=== PATIENT | male | born 1960 | race Caucasian/White ===

== ENCOUNTER 2024-10-25 16:58 | Emergency (ER) | payer MEDICARE, SELFPAY ==
--- NOTE | ~2024-10-25 | XR_ITS ---
EXAM: XR ankle RT min 3V, XR foot RT min 3V DATE: 10/25/2024 17:31 (accession [id number]), 10/25/2024 17:30 (accession [id number]) HISTORY: pain with trauma . COMPARISON: None available. FINDINGS: Osteopenia. Transverse minimally placed fractures at the bases of the second through fourt h proximal right metatarsals. Fractures may be acute or subacute. No lytic or blastic lesion. Mild sc attered degenerative changes. Os navicularis. Achilles and plantar enthesopathy. No erosion or perios teal change. Soft tissues within normal limits. IMPRESSION: Acute versus subacute transverse minimally displaced fractures of the right second throug h fourth metatarsal bases. Reviewed, dictated and finalized at location K. IMPRESSION: Acute versus subacute transverse minimally displaced fractures of t he right second through fourth metatarsal bases.
--- OUTSIDE RECORDS SUMMARY | 2024-10-25 17:01 | XMS_ITS | Patient Health Record ---
Author Organization [facility] As [employer] Address [address] [address] Care Team Providers Care Trademark Paralegal Name Role Phone Tolu Lieberman MD Primary Care Provider Unavail able Geo Gardner Unavailable [phone] Edvin Condon Unavailable [phone] Allergies Allergen (clinical drug ingredient) Drug/Non Drug Allergy documented on EMR Reaction Allergy Type Onset Date Status sumatriptan Imitrex Unknown Drug Allergy Activ e metoclopramide Reglan Unknown Drug Allergy Ac tive Compazine Unknown Drug Allergy Active dihydroergotamine Dihydroergotamine Unknown Drug Allergy Active niacin Niacin Unknown Drug Allergy Active Results Component Value Reference Range Notes UDT Reviewed date:11/01/2023 10:56:33 AM Interpretation: Performing Lab: Notes/Report: THC N 0 - 50 ng/ml Cocaine N 0 - 300 ng/ml Amphetamine N 0 - 1000 ng/ml Buprenorphine (BUP) N 0 - 10 ng/ml Secobarbital (Bar) N 0 - 300 ng/ml Oxazepam (BZO) P 0 - 300 ng/ml 9-cviwwofnmi-7,1-hpbrmqpg-5,3-diphenylpyrrolidine (CHICO P) N 0 - 300 ng/ml Methamphetamine (MET) N 0 - 1000 ng/ml Methylenedioxymethamphetamine (MDMA) N 0 - 500 ng/ml Morphine (MOP 300/EOF9054) N 0 - 300 ng/ml Methadone (MTD) N 0 - 300 ng/ml Phencyclidine (PCP) N 0 - 25 ng/ml Nortriptyline (TCA) N 0 - 1000 ng/ml Oxycodone N 0 - 300 ng/ml x N 0 - 300 ng/ml Reason For Referral No Information Medications Medication SIG (Take, Route, Frequency, Duration) Notes Start Date End Date Status cloNIDine HCl 0.1 MG 1 tablet Orally twice a day; Duration: 30 days As needed for anxiety. do not take if your blood pressure is below 110/60 Active Topiramate 50 MG 1 tablet Orally Once a day and 2 in the evening Active Escitalopram Oxalate 10 MG 1 tablet Orally Once a day; Duration: 30 days Active Clopidogrel Bisulfate 75 MG 1 tablet Orally Once a day at night Active Fenofibrate 145 MG 1 tablet Orally Once a day Active QUEtiapine Fumarate ER 400 MG 1 tablet in the evening Orally Once a day; Duration: 30 days Active Lantus SoloStar 100 UNIT/ML as directed Subcutaneous Act kate Belsomra 20 MG 1 tablet at bedtime as needed Orally Once a day PRN Not-Oseas ing HumaLOG 100 UNIT/ML as directed Injection 11/01/19 24 Active Metoprolol Tartrate 25 MG 1/2 a tablet with food Orally Twice a day Active Dicyclomine HCl 10 MG 1capsules Orally f our times a day 11/01/2023 Active Pantoprazole Sodium 40 MG 1 tablet Orally Once a day Active Aspirin 81 MG 1 capsule Orally Onc e a day Active Mirtazapine 7.5 MG 1 tablet at bedtime Orally Once a day; Duration: 30 days Active Vascepa 1 GM 1 capsules with meal s Orally once a day Active metFORMIN HCl ER 500 MG 1 tablet with ev ening meal Orally three times a day Active Jardiance 25 MG 1 tablet Orally Once a day Active Atorvastatin Calcium 80 MG 1 tablet Orally Once a day Active Social History Tobacco Use: Social History Observation Description Date Details (start date - stop date) Current Smoker NA - NA Sex Assigned At : Social History Observation Description Sex Assigned At Male Household Question Answer Notes Marital status: Tobacco Control (Standard) Question Answer Notes Tobacco use: Current smoker Problems Problem Type SNOMED Code ICD Code Onset Dates Problem Status W/U Status Risk Notes Problem Generalized anxiety disorder (F41.1) Active confirmed Problem Primary insomnia (5448194) Primary insomnia (F51.01) Active confirmed Problem Depression, major, recurrent, moderate (F33.1) Active confirmed Problem Generalized anxiety disorder (01345911) SLADE (generalized anxiety disorder) (F41.1) Active confirmed Problem Posttraumatic stress disorder (19647172) PTSD (post-traumatic stress disorder) (F43.10) Active confirmed Vital Signs Heart Rate 100 /min 01/22/2024 Oximetry 99 % 01/22/2024 Blood pressure diastolic 109 mm Hg 01/22/2024 Weight-kg 90.45 kg 01/22/2024 Blood pressure systolic 144 mm Hg 01/22/2024 Weight 199.4 lbs 01/22/2024 Encounters Encounter Location Date Provider Diagnosis [facility] [address] [place] [address] 11/01/2023 Edvin Clubb Generalized anxiety disorder F41.1 ; Depression, major, recurrent, moderate F33.1 and PTSD (post-traumatic stress disorder) F43.10 [facility] [employer] [facility], [facility] [address] [place] [address] 01/22/2024 Edvin Clubb SLADE (generalized anxiety disorder) F41.1 ; Primary insomnia F51.01 and Nicotine use Z72.0 [facility] [address] [facility] [address] [place] [address] 11/08/2023 Thena Jj [facility] [address] [place] [address] 11/08/2023 Edvin Buenob SLADE (generalized anxiety disorder) F41.1 Assessments Encounter Date Diagnosis (ICD Code) Assessment Notes Treatment Notes Treatment Clinical Notes Section Notes 11/08/2023 SLADE (generalized anxiety disorder) (ICD-10 - F41.1) 01/22/2024 Primary insomnia (ICD-10 - F51.01) 1. Anxiety - He reports anxiety at 8-9 out of 10. - Increase escitalopram to 20 mg daily. - Continue BuSpar as prescribed. - Refill clonidine for as-needed use for anxiety and blood pressure control. 2. Insomnia - He reports difficulty sleeping through the night, waking up frequently. - Restart mirtazapine at a low dose for sleep. - Encourage consideration of melatonin at night. - Continue quetiapine 400 mg at night as part of PTSD regimen. - Monitor for improvement in sleep quality. 3. Hypertension - Blood pressure measured at 144/109 during the visit. - He reports a recent episode of possible syncope in the bathroom. - Instruct him to take clonidine as needed for anxiety. - Encourage follow-up with primary care physician for further evaluation and management. 4. Gastrointestinal Issues - He reports nausea, vomiting, and poor appetite. - Advise him to drink sugar-free Sprite and consume saltines for nausea management. - Encourage consumption of protein shakes for improved nutrition and blood sugar control. - pt has an upcoming apt with his PCP. 6. Migraines - He reports increased frequency of migraines. - Encourage follow-up with primary care physician for further evaluation and management. 7. Medication Refills - Refill prescriptions sent 8. Weight Loss - He reports significant weight loss, now under 200 lbs for the first time in 20 years. - Monitor weight and nutritional status. - Encourage balanced diet with adequate protein intake. 01/22/2024 SLADE (generalized anxiety disorder) (ICD-10 - F41.1) Assessment and plan reviewed with patient Call for problems with medication, side effects or need for dosage change Compliance issues reviewed Discussed the risks/benefits of this medication Discussed medication side effects Return if symptoms worsen Treatment options reviewed. discussed that it can take weeks to see full therapeutic effects of psychotropic medications. discussed when to seek emergency services. discussed crisis prevention hotline 987. 1. Anxiety - He reports anxiety at 8-9 out of 10. - Increase escitalopram to 20 mg daily. - Continue BuSpar as prescribed. - Refill clonidine for as-needed use for anxiety and blood pressure control. 2. Insomnia - He reports difficulty sleeping through the night, waking up frequently. - Restart mirtazapine at a low dose for sleep. - Encourage consideration of melatonin at night. - Continue quetiapine 400 mg at night as part of PTSD regimen. - Monitor for improvement in sleep quality. 3. Hypertension - Blood pressure measured at 144/109 during the visit. - He reports a recent episode of possible syncope in the bathroom. - Instruct him to take clonidine as needed for anxiety. - Encourage follow-up with primary care physician for further evaluation and management. 4. Gastrointestinal Issues - He reports nausea, vomiting, and poor appetite. - Advise him to drink sugar-free Sprite and consume saltines for nausea management. - Encourage consumption of protein shakes for improved nutrition and blood sugar control. - pt has an upcoming apt with his PCP. 6. Migraines - He reports increased frequency of migraines. - Encourage follow-up with primary care physician for further evaluation and management. 7. Medication Refills - Refill prescriptions sent 8. Weight Loss - He reports significant weight loss, now under 200 lbs for the first time in 20 years. - Monitor weight and nutritional status. - Encourage balanced diet with adequate protein intake. 11/01/2023 Generalized anxiety disorder (ICD-10 - F41.1) Depression and anxiety: - He reports feeling out of whack with mood fluctuations and anxiety symptoms. - He has a history of PTSD but denies a formal diagnosis of major depressive disorder or bipolar disorder. - Plan: Taper down mirtazapine and start escitalopram (Lexapro) for better management of depression and anxiety symptoms. Encourage him to try melatonin for sleep. Monitor his response to the new medication and adjust as needed. 2. Insomnia: - He reports difficulty falling asleep and staying asleep, with racing thoughts at night. - Plan: Encourage him to take melatonin for sleep. Monitor sleep quality and consider adjustments to medications if needed. 3. Diabetes management: - He is on insulin (Humalog and Lantus) and metformin and Jardiance for diabetes. - Plan: Instruct him to check blood sugar regularly and take long-acting insulin as prescribed. Encourage him to maintain a consistent eating schedule, especially at night. 4. Medication reconciliation: - He is on multiple medications, including Belsomra, Jardiance, insulin, dicyclomine, metoprolol, topiramate, BuSpar, fenofibrate, mirtazapine, clopidogrel, Seroquel, aspirin, pantoprazole, atorvastatin, and metformin. - Plan: Review and adjust medications as needed based on his symptoms and response to treatment. Encourage him to communicate any concerns or side effects related to medications. 11/01/2023 Depression, major, recurrent, moderate (ICD-10 - F33.1) Depression and anxiety: - He reports feeling out of whack with mood fluctuations and anxiety symptoms. - He has a history of PTSD but denies a formal diagnosis of major depressive disorder or bipolar disorder. - Plan: Taper down mirtazapine and start escitalopram (Lexapro) for better management of depression and anxiety symptoms. Encourage him to try melatonin for sleep. Monitor his response to the new medication and adjust as needed. 2. Insomnia: - He reports difficulty falling asleep and staying asleep, with racing thoughts at night. - Plan: Encourage him to take melatonin for sleep. Monitor sleep quality and consider adjustments to medications if needed. 3. Diabetes management: - He is on insulin (Humalog and Lantus) and metformin and Jardiance for diabetes. - Plan: Instruct him to check blood sugar regularly and take long-acting insulin as prescribed. Encourage him to maintain a consistent eating schedule, especially at night. 4. Medication reconciliation: - He is on multiple medications, including Belsomra, Jardiance, insulin, dicyclomine, metoprolol, topiramate, BuSpar, fenofibrate, mirtazapine, clopidogrel, Seroquel, aspirin, pantoprazole, atorvastatin, and metformin. - Plan: Review and adjust medications as needed based on his symptoms and response to treatment. Encourage him to communicate any concerns or side effects related to medications. 11/01/2023 PTSD (post-traumati c stress disorder) (ICD-10 - F43.10) Depression and anxiety: - He reports feeling out of whack with mood fluctuations and anxiety symptoms. - He has a history of PTSD but denies a formal diagnosis of major depressive disorder or bipolar disorder. - Plan: Taper down mirtazapine and start escitalopram (Lexapro) for better management of depression and anxiety symptoms. Encourage him to try melatonin for sleep. Monitor his response to the new medication and adjust as needed. 2. Insomnia: - He reports difficulty falling asleep and staying asleep, with racing thoughts at night. - Plan: Encourage him to take melatonin for sleep. Monitor sleep quality and consider adjustments to medications if needed. 3. Diabetes management: - He is on insulin (Humalog and Lantus) and metformin and Jardiance for diabetes. - Plan: Instruct him to check blood sugar regularly and take long-acting insulin as prescribed. Encourage him to maintain a consistent eating schedule, especially at night. 4. Medication reconciliation: - He is on multiple medications, including Belsomra, Jardiance, insulin, dicyclomine, metoprolol, topiramate, BuSpar, fenofibrate, mirtazapine, clopidogrel, Seroquel, aspirin, pantoprazole, atorvastatin, and metformin. - Plan: Review and adjust medications as needed based on his symptoms and response to treatment. Encourage him to communicate any concerns or side effects related to medications. 01/22/2024 Nicotine use (ICD-10 - Z72.0) Advised patient to quit smoking -Quit - Yes [place] Tobacco Quitline Call a Smoking Quitline The [employer] [place]'s Smoking Quitline, (0-792-22A-QUIT ) Smokefree.gov, which connects you with your State's Quitline, (2-733-YJUMFSY) Veterans Smoking Quitline, (1-003-TOFJYXJ) 1. Anxiety - He reports anxiety at 8-9 out of 10. - Increase escitalopram to 20 mg daily. - Continue BuSpar as prescribed. - Refill clonidine for as-needed use for anxiety and blood pressure control. 2. Insomnia - He reports difficulty sleeping through the night, waking up frequently. - Restart mirtazapine at a low dose for sleep. - Encourage consideration of melatonin at night. - Continue quetiapine 400 mg at night as part of PTSD regimen. - Monitor for improvement in sleep quality. 3. Hypertension - Blood pressure measured at 144/109 during the visit. - He reports a recent episode of possible syncope in the bathroom. - Instruct him to take clonidine as needed for anxiety. - Encourage follow-up with primary care physician for further evaluation and management. 4. Gastrointestinal Issues - He reports nausea, vomiting, and poor appetite. - Advise him to drink sugar-free Sprite and consume saltines for nausea management. - Encourage consumption of protein shakes for improved nutrition and blood sugar control. - pt has an upcoming apt with his PCP. 6. Migraines - He reports increased frequency of migraines. - Encourage follow-up with primary care physician for further evaluation and management. 7. Medication Refills - Refill prescriptions sent 8. Weight Loss - He reports significant weight loss, now under 200 lbs for the first time in 20 years. - Monitor weight and nutritional status. - Encourage balanced diet with adequate protein intake. 11/01/2023 Other Learning About Depression Screening material was printed, Escitalopram Oral Tablet (ESCITALOPRAM - ORAL) material was published Depression and anxiety: - He reports feeling out of whack with mood fluctuations and anxiety symptoms. - He has a history of PTSD but denies a formal diagnosis of major depressive disorder or bipolar disorder. - Plan: Taper down mirtazapine and start escitalopram (Lexapro) for better management of depression and anxiety symptoms. Encourage him to try melatonin for sleep. Monitor his response to the new medication and adjust as needed. 2. Insomnia: - He reports difficulty falling asleep and staying asleep, with racing thoughts at night. - Plan: Encourage him to take melatonin for sleep. Monitor sleep quality and consider adjustments to medications if needed. 3. Diabetes management: - He is on insulin (Humalog and Lantus) and metformin and Jardiance for diabetes. - Plan: Instruct him to check blood sugar regularly and take long-acting insulin as prescribed. Encourage him to maintain a consistent eating schedule, especially at night. 4. Medication reconciliation: - He is on multiple medications, including Belsomra, Jardiance, insulin, dicyclomine, metoprolol, topiramate, BuSpar, fenofibrate, mirtazapine, clopidogrel, Seroquel, aspirin, pantoprazole, atorvastatin, and metformin. - Plan: Review and adjust medications as needed based on his symptoms and response to treatment. Encourage him to communicate any concerns or side effects related to medications. Plan Of Treatment No Information Insurance Providers Payer Name Payer Address Payer Phone Subscriber Number Group Number Insured Name Patient Relationship to Insured Coverage Start Date Coverage End Date [facility] [address] [place] [phone] [id number] Leonid Zaman Self - patient is the insured Medical (General) History Medical History History ICD Code CKD stage 3 pancreatitis diabetes insipidus coma insomnia PTSD CVA
--- OUTSIDE RECORDS SUMMARY | 2024-10-25 17:01 | XMS_ITS | Encounter Summary ---
Author Organization [facility] Address [address] [place] [address] Phone Care Team Providers Care Holistic Specialist Name Role Phone Tolu Lieberman MD Primary Care Provider Encounter Details Date Type Department Care Team (Late st Contact Info) Description 11/11/2021 Transcribe Orders [facility] Preop/Pacu II [address] [place] [address] Damien Jerome MD [address] [place] [address] Pre-op testing (Primary Dx) Social History Tobacco Use Types Packs/Day Years Used Date Smoking Tobacco: Former Cigarettes 1.5 25 Smokeless Tobacco: Never Comments:RECENTLY QUIT 3 DAY S AGO Alcohol Use Standard Drinks/Week Comments No 0 (1 standard drink = 0.6 oz pur e alcohol) Sex and Gender Information Value Date Recorded Sex Assigned at Not on file Legal Sex Male 11:20 PM CDT Gender Identity Not on file Sexual Orientation Not on file COVID-19 Exposure Response Date Recorded In the last 10 days, have yo u been in contact with someone who was confirmed or suspected to have Coronavirus/COVID-19? No / Unsure 11/11/2021 3:04 PM CDT documented as of this encounter Plan of Treatment Not on file documented as of this encounter Results * SARS-COV-2 BY MOLECULAR (11/18/2021 9:25 AM CDT) SARSCOV2 NOT DETECTED (Referenc e Range for this test is Not Detected) [facility] ID NOW 11/18/2021 10:48 AM CDT [facility] Comment:This test was perfor med by a MOLECULAR, NON-PCR method Other NASOPHARYNGEAL STRUCTURE / Unknown Non-Phlebotomy Collection / Unknown 11/18/2021 9:25 AM CDT 11/18/2021 9:38 AM CDT Narrative [facility] - 11/18/2021 10:48 AM CDT This test has been authorized by the FDA under an Emergency Use Authorization (EUA) only. Negative results should be treated as presumptive and, if inconsistent with clinical signs and symptoms or necessary for patient management, the patient should be tested with an alternative molecular assay. Negative results do not preclude SARS-CoV-2 infection or any other respiratory pathogen. Additional information for Clinicians can be found at: https://www.fda.gov/media/435946/download Additional information for Patients can be found at: https://www.fda.gov/media/725804/download Damien Jerome MD MICROBIOLOGY - GENERAL ORDERA BLES Final Result [facility] [address] [place] [address] documented in this encounter Visit Diagnoses Diagnosis Pre-op testing- Primary Preoperative examination, unspecified documented in this encounter Care Teams Holistic Specialist Relationship Specialty Start Date End Date Tolu Lieberman MD [address] [place] [address] PCP - General Family Medicine 03/14/15 documented as of this encounter
--- OUTSIDE RECORDS SUMMARY | 2024-10-25 17:01 | XMS_ITS | Encounter Summary ---
Author Organization [facility] Address [address] [place] [address] Phone Care Team Providers Care Quickbooks Bookkeeper Name Role Phone Tolu Lieberman MD Primary Care Provider Encounter Details Date Type Department Care Team (Late st Contact Info) Description 12/22/2021 Transcribe Orders [facility] Preop/Pacu II [address] [place] [address] Denton Cancino MD [address] [place] [address] Pre-op testing (Primary Dx) Social History Tobacco Use Types Packs/Day Years Used Date Smoking Tobacco: Every Day Cigarettes Smokeless Tobacco: Never Comments:less than a pack a day Alcohol Use Standard Drinks/Week Comments No 0 [...] suspected to have Coronavirus/COVID-19? No / Unsure 12/22/2021 1:37 PM CDT documented as of this encounter Plan of Treatment Not on file documented as of this encounter Results * SARS-COV-2 BY MOLECULAR (12/23/2021 11:19 AM CDT) SARSCOV2 NOT DETECTED (Referenc e Range for this test is Not Detected) [facility] [place] ID NOW B 12/23/2021 11:55 AM CDT [facility] Comment:This test was perfor med by a MOLECULAR, NON-PCR method Other NASOPHARYNGEAL STRUCTURE / Unknown Non-Phlebotomy Collection / Unknown 12/23/2021 11:19 AM CDT 12/23/2021 11:25 AM CDT Narrative [facility] - 12/23/2021 11:55 AM CDT This test has been authorized [...] information for Clinicians can be found at: https://www.fda.gov/media/255506/download Additional information for Patients can be found at: https://www.fda.gov/media/661641/download Denton Cancino MD MICROBIOLOGY - GENERAL ORDERABLES Final Result [facility] [address] [place] [address] documented in this encounter Visit Diagnoses Diagnosis Pre-op testing- Primary Preoperative examination, unspecified documented in this encounter Care Teams Quickbooks Bookkeeper Relationship Specialty Start Date End Date Tolu Lieberman MD [facility] [place] [address] PCP - General Family Medicine 03/14/15 documented as of this encounter
--- OUTSIDE RECORDS SUMMARY | 2024-10-25 17:01 | XMS_ITS | Encounter Summary ---
Author Organization [facility] Address [address] [place] [address] Phone Care Team Providers Care Vp Strategy Name Role Phone Tolu Lieberman MD Primary Care Provider [phone] Deepak Merida MD Unavailable [phone] Tawkoyty, Lalitha PATIENT CARE REPRESENTATIVE Unavailable Unavailabl e Tawkoyty, Lalitha PATIENT CARE REPRESENTATIVE Unavailable Unavailabl e Tawkoyty, Lalitha PATIENT CARE REPRESENTATIVE Unavailable Unavailabl e Rodríguez Pelayo MD Unavailable [phone] Joshua Aguilera MD Unavailable [phone] Loco ORTEGA MD, John Matthew Unavailable + [phone] Rosa Maria Hernandez RN Unavailable [phone] Elvi Abreu MD Unavailable [phone] Richie Beckham RN Unavailable Elvi Abreu MD Unavailable [phone] Navjot Robbins MD Unavailable Srinivasa Farrar MD Unavailable + [phone] Jeffrey Izquierdo OD Unavailable Stacie Lobo CMA Unavailable [phone] Ruth Castillo MA Unavailable [phone] Tolu Lieberman MD Primary Care Provider [phone] Stacie Lobo OB/GYN DOCTOR Unavailable [phone] Joanna Diego ADILENE Unavailable [phone] Emiliana FitchFelipa HEAD Unavailable [phone] Irina Molina RN Unavailable [phone] BrandieJoanna ADILENE Unavailable [phone] Denton Gilman MD Unavailable [phone] Encounter Details Date Type Department Care Team (Late st Contact Info) Description 06/27/2017 Orders Only [facility] Provider, MD Lizett [facility] [place] [address] Social History Tobacco Use Types Packs/Day Years Used Date Smoking Tobacco: Every Day Smokeless Tobacco: Never Comments:Smoking History Pac ks/day: 0.25 Packs Alcohol Use Standard Drinks/Week Comments No 0 (1 standard drink = 0.6 oz pur e alcohol) Sex and Gender Information Value Date Recorded Sex Assigned at Not on file Legal Sex Male 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 Historical Provider LAB BLOOD ORDERABLES Jordana l Result documented in this encounter Visit Diagnoses Not on filedocumented in this encounter Additional Health Concerns Infection Onset Date Last Indicated Resolved Time COVID: Suspected 12/20/2019 12/20/2019 12/21/2019 2:07 AM CDT Respiratory Infection (KAREN), contact + droplet Comment:Automatically added due to negative COVID-19 result. 12/21/2019 12/21/2019 01/04/2020 3:0 5 AM CDT COVID: Suspected 03/26/2021 03/26/2021 03/27/2021 4:01 AM OUTSOLE CUTTER MACHINE COVID: Suspected 09/02/2021 09/02/2021 09/02/2021 12:28 PM CDT COVID: Suspected 02/04/2024 02/04/2024 02/04/2024 8:48 AM OUTSOLE CUTTER MACHINE COVID: Suspected 05/06/2024 05/06/2024 05/06/2024 3:43 AM OUTSOLE CUTTER MACHINE COVID: Suspected 05/21/2024 05/21/2024 05/21/2024 8:34 PM OUTSOLE CUTTER MACHINE Influenza, adult 05/21/2024 05/21/2024 05/28/2024 3:07 AM OUTSOLE CUTTER MACHINE documented as of this encounter Care Teams Vp Strategy Relationship Specialty Start Date End Date Tolu Lieberman MD PCP - General 06/20/16 11/07/23 Tolu Lieberman MD [address] [place] [address] PCP - General Family Medicine 11/09/23 Deepak Merida MD Consulting Physician Cardiovascular Disease 08/29/17 Lalitha Morris LPN Care Manager 10/26/17 10/28/17 Lalitha Morris LPN Care Manager 07/16/18 07/16/18 Lalitha Morris LPN Care Manager 07/24/18 07/25/18 Rodríguez Pelayo MD [address] [place] [address] Consulting Physician Psychiatry 08/12/18 11/04/23 Joshua Aguilera MD [address] [place] [address] Consulting Physician Physical Medicine and Rehabilitation 08/12/18 Christopher Adan III, MD [address] [place] [address] Surgeon Plastic Surgery 02/04/19 Rosa Maria Hernandez RN [address] [place] [address] [address] [place] [address] Centralized Traffic Control Operator 06/11/20 07/27/20 Elvi Abreu MD [address] [place] [address] [address] [place] [address] Surgeon Cardiothoracic Surgery 03/21/21 2 Richie Beckham RN [address] [place] [address] [address] [place] [address] Centralized Traffic Control Operator 03/22/21 04/17/21 Elvi Abreu MD [address] [place] [address] [address] [place] [address] Surgeon Cardiothoracic Surgery 04/20/21 2 [place] [address] [address] [facility] [address] [place] [address] Consulting Physician Endocrinology Diabetes & Metabolism 10/20/21 12/16/23 [place] [address] [address] [facility] [address] [place] [address] Consulting Physician Plastic Surgery 10/20/21 Jeffrey Izquierdo [place] [address] [place] [address] Consulting Physician Optometry 10/20/21 Lobo, Stacie, [address] [place] [address] ACO Care Lab Asst 04/11/23 04/15/23 Ruth Castillo MA [address] [place] [address] [address] [place] [address] ACO Care Lab Asst 06/12/23 06/13/23 Stacie Lobo CMA [address] [place] [address] [address] [place] [address] ACO Care Lab Asst 11/21/23 11/21/23 Joanna Diego MA [address] [place] [address] [address] [place] [address] ACO Care Lab Asst 01/02/24 01/03/24 Emiliana Fitch MA [address] [place] [address] [address] [place] [address] ACO Care Lab Asst 02/05/24 02/05/24 Irina Molina RN [address] [place] [address] [address] [place] [address] Centralized Traffic Control Operator 02/05/24 02/05/24 Joanna Diego MA [address] [place] [address] [address] [place] [address] ACO Care Lab Asst 03/05/24 03/09/24 Denton Gilman MD [address] [place] [address] [address] [place] [address] Consulting Physician Neurology 05/09/24 documented as of this encounter
--- OUTSIDE RECORDS SUMMARY | 2024-10-25 17:01 | XMS_ITS | Clinical Summary ---
Author Organization [facility] Address [address] [place] [address] Phone Care Team Providers Care Commodity Loan Clerk Name Role Phone [facility], External Provider Primary Care Provider U navailable Allergies Active Allergy Reactions Criticality Noted Date Comments Dihydroergotamine Unknown 12/17/2010 Metoclopramide Hcl Other (See Comments) 018 seroquel Niacin Swelling Low 12/17/2010 Nitro Other (See Comments) 07/18/2017 Migraines. Prochlorperazine Edisylate Other (See Comments) 03/08/2009 Sumatriptan Succinate Anaphylaxis High 11/07/2015 Medications omega-3 acid ethyl esters (LOVAZA) 1 gram Oral Cap Take 2 Gram by mouth 2 times daily. Active aspirin (SOUMYA) 81 mg Oral Tab Take 81 mg by mouth. Active clopidogrel (PLAVIX) 75 mg Oral Tab Take 75 mg by mouth daily. Active metoprolol tartrate (LOPRESSOR) 50 mg Oral tablet Take 50 mg by mouth daily flow floor attendant. 12/18/19 11 Active metoprolol tartrate (LOPRESSOR) 25 mg Oral tablet Take 25 mg by mouth Daily LATE. 12/18/19 11 Active rosuvastatin (CRESTOR) 40 mg Oral tablet Take 40 mg by mouth daily at bedtime. Active ranolazine SR 12 hour (RANEXA) 500 mg Oral tablet Take 500 mg by mouth every 12 hours. Active metoclopramide (REGLAN) 10 mg Oral tablet Take 10 mg by mouth 1 time daily as needed. Active magnesium-ribofl armin-coenzyme Y04-glzzvyojm-wb tasites (MIGRAVENT) 918-397-33-1-50 mg oral cap Take 1 Cap by mouth 2 times daily with meals. Active hydrOXYzine HCl (ATARAX) 50 mg Oral tabletIndication s:Chronic migraine without aura Take 1 Tab by mouth 3 times daily as needed (can take with indocin 50 mg ). 30 Tab 1 08/14/19 12 Active fenofibrate 160 mg Oral Tab Take 160 mg by mouth daily. Active KETOROLAC TROMETHAMINE (TORADOL IV) Inject by intramuscular injection every 8 hours as needed. Active levETIRAcetam (KEPPRA) 500 mg Oral tablet Take 500 mg by mouth 2 times daily. Active metFORMIN (GLUCOPHAGE) 500 mg Oral tablet Take 500 mg by mouth 2 times daily with meals. Active topiramate (TOPAMAX) 25 mg Oral tablet Take 50 mg by mouth 2 times daily. Active nortriptyline (PAMELOR) 10 mg Oral capsule Take 25 mg by mouth daily at bedtime. 11/20/19 12 Active HYDROCODONE BIT/ACETAMINOPHE N (VICODIN ORAL) Take by mouth. Active OMEGA-3 ACID ETHYL ESTERS (LOVAZA ORAL) Take by mouth. A ctive gemfibrozil (LOPID) 600 mg tablet Take 600 mg by mouth 2 times daily. Active nebivolol (BYSTOLIC) 5 mg Tablet Take 5 mg by mouth. Active pantoprazole (PROTONIX) 40 mg Tablet, Delayed Release (E.C.) Take 40 mg by mouth daily. Active naloxegol (MOVANTIK) 25 mg Tablet Take by mouth. Activ e mirtazapine (REMERON SOLTAB) 15 mg Tablet, Rapid Dissolve Place 15 mg inside cheek daily at bedtime. Active QUEtiapine (SEROquel) 300 mg tablet Take 300 mg by mouth 2 times daily. Active busPIRone (BUSPAR) 15 mg Tablet Take 15 mg by mouth 2 times daily. Active oxyCODONE (OxyCONTIN) 60 mg Controlled Release 12 hour crush resistant tablet Take 60 mg by mouth every 12 hours as needed for Pain, Severe. Active oxyCODONE-acetam inophen (PERCOCET) 5-325 mg tablet Take 1 Tablet by mouth every 4 hours as needed for Pain, Moderate. Max Daily Amount: 6 Tablets 30 Tablet None 07/02/19 17 Active ondansetron (ZOFRAN ODT) 4 mg Tablet, Rapid Dissolve Place 1 Tablet (4 mg) under tongue every 6 hours as needed for Nausea/Emesis. 20 Tablet 07/02/19 17 Active Active Problems Problem Noted Date Diagnosed Date Cluster headache, not intractable 07/01/2016 Rebound headache 09/27/2011 Chronic migraine without aura 06/07/2011 Obesity, unspecified 06/07/2011 Unspecified sleep apnea 06/07/2011 Diabetes mellitus 04/27/2011 Heart disease 04/27/2011 Kidney disease 04/27/2011 Liver disease 04/27/2011 Family History Medical History Relation Name Comments Migraines Brother Diabetes Father High Cholesterol Father Hypertension Father Migraines Maternal Grandmother Cancer Mother Migraines Mother Relation Name Status Comments Brother Father Maternal Grandmother Mother Social History Tobacco Use Types Packs/Day Years Used Date Smoking Tobacco: Every Day Cigarettes Smokeless Tobacco: Never Alcohol Use Standard Drinks/Week Comments No 0 (1 standard drink = 0.6 oz pur e alcohol) Sex and Gender Information Value Date Recorded Sex Assigned at Not on file Legal Sex Male 5:49 AM 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 Gender Identity Not on file Sexual Orientation Not on file Occupation Industry Job Start Date Job End Date Not on file Not on file Not on file Not on file Last Filed Vital Signs Vital Sign Reading Time Taken Comments Blood Pressure 112/98 07/18/2017 5:48 PM CDT Pulse 63 07/01/2016 1:41 AM CDT Temperature 36.6 C (97.8 F) 07/18/2017 5:48 PM CDT Respiratory Rate 18 07/18/2017 5:48 PM CDT Oxygen Saturation 100% 07/18/2017 5:48 PM CDT Inhaled Oxygen Concentration - - Weight 99.8 kg (220 lb) 07/18/2017 5:48 PM CDT Height 190.5 cm (6' 3) 07/18/2017 5:48 PM CDT Body Mass Index 27.5 07/18/2017 5:48 PM CDT Plan of Treatment Health Maintenance Due Date Last Done Comments DIABETES ANNUAL FOOT EXAM 06/02/1979 DIABETES ANNUAL RETINAL EXAM 06/02/1979 DIABETES HBA1C Q 6 MONTHS 06/02/1979 DIABETES MICROALBUMIN ANNUAL SCREEN 06/02/1979 LDL CHOLESTEROL ANNUAL 06/02/1979 DTAP/TDAP/TD VACCINES (1 - Tdap) 1980 COLORECTAL SCREENING 2006 Colorectal Cancer Screening 2006 FIT-DNA Q 3 years 2006 FIT/FOBT Q 1 year 2006 Flex Sig/CT Colonography Q 5 years 2006 ZOSTER VACCINE (1 of 2) 06/02/2011 RSV VACCINE (60+ or ) (1 - Risk 60-74 years 1-dose series) 2021 INFLUENZA VACCINE (#1) 2024 12/20/2016, 2013 Insurance MEDICARE PART A AND B [facility] PPO Care Teams Commodity Loan Clerk Relationship Specialty Start Date End Date [facility], External Provider [address] [place] [address] PCP - General 03/23/12
--- OUTSIDE RECORDS SUMMARY | 2024-10-25 17:01 | XMS_ITS | Clinical Summary ---
Author Organization [facility] Address [facility] [place] [address] Care Team Providers Care Human Services Program Specialist Name Role Phone Tolu Lieberman MD Primary Care Provider Allergies Active Allergy Reactions Criticality Noted Date Comments Dihydroergotamine Unknown 11/22/2019 Sumatriptan Other (see comment) 11/22/2019 Not compatible with other meds pt takes. Inositol Rash Medium 09/28/2022 Reaction: Rash, Niacin Redness,Swelling 07/14/2015 Note: Imported from external source. Nitroglycerin Headache,Other (see comment),GI Upset Low 07/18/2017 Migraines. Migraines. Nsaids Other (see comment) Low 08/12/2018 Stage III Kidney Disease Prochlorperazine Hallucinations,Anxiety Low 020 Note: Imported from external source. Metoclopramide Unknown 11/22/2019 Simvastatin Myalgias Medium 09/28/2022 Reaction: Muscular pain, Tolmetin Other (see comment) Low 09/28/2022 Stage III Kidney Disease Medications gemfibrozil 300 MG Tab tablet Take 600 mg by mouth daily. Active HYDROcodone-acetami nophen 10-325 MG tablet Take 1 tablet by mouth every 6 (six) hours as needed for Pain. Active pantoprazole EC 40 MG tablet Take 40 mg by mouth daily. Active metoprolol tartrate 25 MG tablet Take by mouth 2 (two) times daily. Active amLODIPine 10 MG tablet Take 10 mg by mouth daily. Active prasugrel 10 MG tablet Take 10 mg by mouth daily. Active metFORMIN ER, MOD, 500 MG TABLET SR 24 HR 24 hr tablet Take 3 tablets by mouth daily. Active aspirin EC 81 MG tablet Take 81 mg by mouth daily. Active mirtazapine 15 MG disintegrating tablet Take 15 mg by mouth nightly at bedtime. Active QUEtiapine 400 MG tablet Take 1 tablet by mouth daily. Active atorvastatin 20 MG tablet Take 20 mg by mouth nightly at bedtime. Active busPIRone 30 MG tablet Take 30 mg by mouth 2 (two) times daily. Active topiramate 50 MG Tab Take 1 tablet by mouth 2 (two) times daily. Active omega-3 acid (LOVAZA) 1 GM capsule Take 2 g by mouth 2 (two) times daily. Active ranolazine ER 500 MG 12 hr tablet Take 500 mg by mouth 2 (two) times daily. Active insulin regular 100 UNIT/ML injection Inject into the skin 3 (three) times daily before meals. Active insulin detemir (LEVEMIR) 100 UNIT/ML injection Inject 15 Units into the skin nightly at bedtime. Active ondansetron (ZOFRAN-ODT) 4 MG disintegrating tablet Take 1 tablet (4 mg total) by mouth every 6 (six) hours as needed for Nausea. 20 tablet 3 Active albuterol sulfate HFA 108 (90 Base) MCG/ACT inhaler Inhale 2 puffs into the lungs every 6 (six) hours as needed for Wheezing. 2 Active clopidogrel (PLAVIX) 75 MG tablet Take 1 tablet (75 mg total) by mouth nightly. Active FARXIGA 10 MG tablet Take 1 tablet (10 mg total) by mouth daily. 3 Active ezetimibe (ZETIA) 10 MG tablet Take 1 tablet (10 mg total) by mouth daily. Active fenofibrate (TRICOR) 145 MG tablet Take 1 tablet (145 mg total) by mouth daily. 3 Active metoprolol succinate ER (TOPROL-XL) 25 MG 24 hr tablet Take 0.5 tablets (12.5 mg total) by mouth 2 (two) times daily. Active atorvastatin (LIPITOR) 80 MG tablet Take 1 tablet (80 mg total) by mouth nightly at bedtime. 2 Active busPIRone (BUSPAR) 15 MG tablet Take 2 tablets (30 mg total) by mouth 2 (two) times daily. Active metFORMIN ER (GLUCOPHAGE-XR) 500 MG 24 hr tablet Take 3 tablets (1,500 mg total) by mouth daily with breakfast. Active Encounters Date Type Department Care Team Description 09/02/2024 6:07 PM CDT - 09/02/2024 10:36 PM CDT Emergency [facility] [place] [address] Caroline Edward PA Headache; Weakness Discharge Disposition: Left Against Medical Advice 09/02/2024 Travel from Last 3 Months Social History Tobacco Use Types Packs/Day Years Used Date Smoking Tobacco: Every Day Cigarettes Smokeless Tobacco: Never Alcohol Use Standard Drinks/Week Comments Never 0 (1 standard drink = 0.6 oz pur e alcohol) AUDIT-C Answer Date Recorded Q1: How often do you have a drink containing alc ohol? Never 11/22/2019 Average Number of Drinks Not on file 020 Frequency of Binge Drinking Not on file 11/01 Sex and Gender Information Value Date Recorded Sex Assigned at Male 09/02/2024 5:37 PM CDT Legal Sex Male 8:04 PM CDT Gender Identity Not on file Sexual Orientation Not on file Last Filed Vital Signs Vital Sign Reading Time Taken Comments Blood Pressure 163/88 09/02/2024 5:30 PM CDT Pulse 87 09/02/2024 5:30 PM CDT Temperature 36.5 C (97.7 F) 09/02/2024 5:30 PM CDT Respiratory Rate 22 09/02/2024 5:30 PM CDT Oxygen Saturation 100% 09/02/2024 5:30 PM CDT Inhaled Oxygen Concentration - - Weight 97.5 kg (215 lb) 09/02/2024 5:44 PM CDT Height 190.5 cm (6' 3) 09/02/2024 5:44 PM CDT Body Mass Index 26.87 09/02/2024 5:44 PM CDT Plan of Treatment Health Maintenance Due Date Last Done Comments Colorectal Cancer Screening Colonoscopy (10 Years) 1960 Annual Physical 1964 Zoster Vaccines (1 of 2) 06/02/2011 Pneumococcal Vaccine: 50+ Years (2 of 2 - PCV) 01/31/2013 02/01/2012 COVID-19 Vaccine (3 - 2023-2 5 season) 2023 06/06/2020, 05/16/2020 DTaP, Tdap and Td Vaccines ( 2 - Td or Tdap) 06/06/2029 06/07/2019 RSV Immunization or 60+ Years (1 - 1-dose 75+ series) 2036 Meningococcal Vaccine Aged Out 01/05/2011 No micah yoshi eligible based on patient's age to complete this topic Hepatitis C Completed 06/09/2023, 09/17/2012 Meningococcal B Vaccine Aged Out No l onger eligible based on patient's age to complete this topic RSV Immunizations Under 20 Months Aged Out No longer eligible b ased on patient's age to complete this topic Procedures Procedure Name Priority Date/Time Associated Diagnosis Comments ECG 12-LEAD STAT 09/02/2024 6:43 PM CDT TROPONIN, QUANT STAT 09/02/2024 6:42 PM CDT COMPREHENSIVE METABOLIC PANEL STAT 09/02/2024 6:42 PM CDT XR CHEST PORTABLE STAT 09/02/2024 6:1 5 PM CDT from Last 3 Months Results * ECG 12 lead (09/02/2024 6:43 PM CDT) 09/02/2024 6:43 PM CDT Narrative [facility] - 09/03/2024 12:11 PM CDT [facility] [address] Test Date: 2024-09-02 Pat Name: LEONID ZAMAN Department: 41 Room: CARLOS ALBERTO Gender: Male Marketing Admin: : 1960 Requested By: CAROLINE EDWARD Order Number: [id number] Reading MD: Hans Lizarraga Measurements Intervals [place] Rate: 76 P: 38 [place]: 170 QRS: 64 QRSD: 154 T: 46 QT: 446 QTc: 502 Interpretive Statements SINUS RHYTHM LEFT ATRIAL ENLARGEMENT [-0.15mV P-WAVE IN V1/V2] RIGHT BUNDLE BRANCH BLOCK [120+ ms QRS DURATION, UPRIGHT V1, 40+ ms S IN I/aVL/V4/V5/V6] Compared to ECG 09/28/2022 16:21:11 Right bundle-branch block now present Myocardial infarct finding no longer present Procedure Note Hans Lizarraga MD - 09/03/[address] Test Date: 2024-09-02 Pat Name: LEONID ZAMAN Department: 41 Room: [facility] Gender: Male Marketing Admin: : 1960 Requested By: CAROLINE EDWARD Order Number: [id number] Reading MD: Hans Lizarraga Measurements Intervals [place] Rate: 76 P: 38 [place]: 170 QRS: 64 QRSD: 154 T: 46 QT: 446 QTc: 502 Interpretive Statements SINUS RHYTHM LEFT ATRIAL ENLARGEMENT [-0.15mV P-WAVE IN V1/V2] RIGHT BUNDLE BRANCH BLOCK [120+ ms QRS DURATION, UPRIGHT V1, 40+ ms SIN I/aVL/V4/V5/V6] Compared to ECG 09/28/2022 16:21:11 Right bundle-branch block now present Myocardial infarct finding no longer present us Caroline FERRARI ECG ORDERABLES Final Result [facility] RAD * (ABNORMAL) COMPREHENSIVE METABOLIC PANEL (09/02/2024 6:42 PM CDT) [facility] GLUCOSE 332(H) 70 - 99 MG/DL 09/02/2024 7:31 PM CDT [facility] BUN 22(H) 7 - 18 MG/DL 09/02/2024 7:31 PM CDT [facility] CREATININE S/P/B 1.55(H) 0.7 - 1.3 MG/DL 09/02/2024 7:31 PM CDT [facility] SODIUM S/P/B 134(L) 136 - 145 MMOL/L 09/02/2024 7:31 PM CDT [facility] POTASSIUM S/P/B 5.2(H) 3.5 - 5.1 MMOL/L 09/02/2024 7:31 PM CDT [facility] CHLORIDE S/P/B 104 97 - 115 MMOL/L 09/02/2024 7:31 PM CDT [facility] CO2 18.2(L) 21 - 32 MMOL/L 09/02/2024 7:31 PM CDT [facility] CALCIUM S/P/B 9.1 8.5 - 10.1 MG/DL 09/02/2024 7:31 PM CDT [facility] BILIRUBIN TOTAL S/P/B 0.3 0.2 - 1.2 MG/DL 09/02/2024 7:31 PM CDT [facility] Comment: THIS ASSAY IS NOT RECOMMENDED FOR PATIENTS UNDERGOING TREATMENT WITH ELTROMBOPAG DUE TO THE POTENTIAL FOR FALSELY ELEVATED RESULTS. TOTAL PROTEIN S/P/B 7.3 6.4 - 8.2 G/DL 09/02/2024 7:31 PM CDT [facility] ALBUMIN S/P/B 3.3(L) 3.4 - 5.0 G/DL 09/02/2024 7:31 PM CDT [facility] AST 28 15 - 37 U/L 09/02/2024 7:31 PM CDT [facility] ALT 28 16 - 60 U/L 09/02/2024 7:31 PM CDT [facility] ALKALINE PHOSPHATASE S/P/B 135 50 - 136 U/L 09/02/2024 7:31 PM CDT [facility] ANION GAP 11.8(H) 2 - 10 MMOL/L 09/02/2024 7:31 PM CDT [facility] BUN CREATININE RATIO 14.2 6 - 26 09/02/2024 7:31 PM CDT [facility] A/G RATIO 0.8(L) 1.0 - 2.0 RATIO 09/02/2024 7:31 PM CDT [facility] GFR ESTIMATE 50(L) >90 ML/MIN/1.7 3 M2 09/02/2024 7:31 PM CDT [facility] Comment: NOTE: eGFR is not calculated for patients <18 years of age or gender unknown. This is an estimated GFR calculation using the new CKD EPI creatinine equation without race and so does not require a correction factor for race. This estimated GFR should not be used for calculating drug doses. 09/02/2024 6:42 PM CDT Caroline [facility] Final Result [facility] [address] [place] [id number], [place] [phone] * TROPONIN, QUANT (09/02/2024 6:42 PM CDT) TROPONIN I HIGH SENSITIVITY 27 <79 ng/L 09/02/2024 7:31 PM CDT [facility] Comment: HIGH DOSES OF BIOTIN, TROPONIN-SPECIFIC AUTOANTIBODIES, AND ANTIBODY THERAPY CONTAINING HAMA MAY INTERFERE WITH THIS TEST RESULT. CORRELATION TO CLINICAL HISTORY AND PRESENTATION RECOMMENDED. 09/02/2024 6:42 PM CDT [facility] Final Result [facility] [address] [place], [place] [address], [place] [address], [place] [phone] * XR CHEST PORTABLE (09/02/2024 6:15 PM CDT) Anatomical Region Laterality Modality Chest Radiographic Nicole ging 09/02/2024 7:13 PM CDT Impressions 09/02/2024 7:16 PM CDT IMPRESSION: Minimal left lung findings. Referred By: Interpreted By: Nader Anne MD, 09/02/2024 7:13 PM Narrative 09/02/2024 7:[address] PM [address] [address] EXAM: XR CHEST PORTABLE DATE: 09/02/2024 1806 hours Comparison 09/28/2022 INDICATION: Chest pain TECHNIQUE: One view, 2 images FINDINGS: Normal heart and pulmonary vessel size. Median sternotomy. Minimal linear atelectasis on the left side. No acute bone findings. Procedure Note Nader Anne MD - 09/02/[address] [address] EXAM: XR CHEST PORTABLE DATE: 09/02/2024 1806 hours Comparison 09/28/2022 INDICATION: Chest pain TECHNIQUE: One view, 2 images FINDINGS: Normal heart and pulmonary vessel size. Median sternotomy.Minimal linear atelectasis on the left side. No acute bone findings. IMPRESSION: Minimal left lung findings. Referred By: Interpreted By: Nader Anne MD, 09/02/2024 7:13 PM [facility] Final Result from Last 3 Months Insurance [facility] Care Teams Human Services Program Specialist Relationship Specialty Start Date End Date Tolu Lieberman MD [address] [place] [address] [address] [place] [address] PCP - General FAMILY PRACTICE 11/22/19
--- OUTSIDE RECORDS SUMMARY | 2024-10-25 17:01 | XMS_ITS | Clinical Summary ---
Author Organization [facility] Address [address] [place] [address] Phone Care Team Providers Care Business Liaison Manager Name Role Phone Tolu Lieberman MD Primary Care Provider [phone] Allergies Active Allergy Reactions Criticality Noted Date Comments Prochlorperazine Maleate Anxiety,Unknown Dihydroergotamine Mesylate Other (see Comments) 10/31/2013 Personality change Sumatriptan Unknown Niacin And Related Other (see Comments) 10/31/2013 Excessive flushing Nitroglycerin Other (see Comments) 02/15/2018 SEVERE HEADACHES Nsaids Other (see Comments) Stage III Kidney Disease Prochlorperazine Edisylate Anxiety 4 Metoclopramide Other (see Comments) 10/23/2016 Medications Topiramate 50 MG Tablet Take 50 mg by mouth 2 times daily. 100mg at night Active pantoprazole (PROTONIX) 40 MG Tablet Delayed Response Take 40 mg by mouth daily. Active aspirin EC 81 MG Tablet Delayed Response Take by mouth. Activ e mirtazapine (REMERON) 15 MG Tablet Take 15 mg by mouth nightly. Active busPIRone (BUSPAR) 15 MG Tablet Take 30 mg by mouth 2 times daily. TAKES 2 AT A TIME Active QUEtiapine (SEROQUEL) 200 MG Tablet Take 400 mg by mouth nightly. Active atorvastatin (LIPITOR) 80 MG Tablet Take 80 mg by mouth daily. Active metFORMIN (GLUCOPHAGE) 500 MG Tablet Take 1,500 mg by mouth daily. Active Insulin Lispro (HUMALOG SC) by Subcutaneous route. Sliding scale per patient, did not know parameters at time of interview. Will bring info on day of surgery. Active clopidogrel (Plavix) 75 MG Tablet Take 75 mg by mouth daily. Active docusate sodium (Colace) 100 MG Capsule Take 100 mg by mouth 2 times daily. Active metoprolol tartrate (LOPRESSOR) 25 MG Tablet Take 12.5 mg by mouth 2 times daily. Active HYDROcodone-acet aminophen (NORCO) 5-325 MG TabletIndication s:Low back pain with left-sided sciatica Take 1 Tablet by mouth every 8 hours as needed for Moderate or more severe pain. 12 Tablet 3 Active fenofibrate (TRICOR) 145 MG Tablet Take 145 mg by mouth daily. Active gabapentin (NEURONTIN) 300 MG Capsule Take 300 mg by mouth 3 times daily. Active dicyclomine (BENTYL) 10 MG Capsule Take 10 mg by mouth 4 times daily. Active ondansetron (ZOFRAN-ODT) 4 MG TABLET DISPERSIBLE Take 1 Tablet by mouth every 8 hours as needed for Nausea - 1st line. 30 Tablet 4 Active Blood Glucose Monitoring Suppl Device Diagnosis: Diabetes type 2 Blood testing frequency: 3 times a day 1 Each 4 Active Lancets Misc Use as directed 200 Lancet 1 4 Active Glucose Blood Strip Diagnosis: Diabetes type 2 Blood testing frequency: 3 times a day 200 Strip 1 4 Active HYDROmorphone (Dilaudid) 2 MG TabletIndication s:Acute pancreatitis Take 1 Tablet by mouth every 6 hours as needed for Moderate or more severe pain. 12 Tablet 4 Active methylPREDNISolo ne (MEDROL DOSPACK) 4 MG Tablet Therapy Pack See product package insert for dosing schedule 21 Tablet 4 Active traMADol (ULTRAM) 50 MG TabletIndication s:Right sided sciatica Take 1-2 Tablets by mouth every 6 hours as needed for Moderate or more severe pain. 30 Tablet 4 Active Active Problems Problem Noted Date Diagnosed Date Dehydration 10/05/2023 Acute diverticulitis 11/20/2022 Anxiety 11/20/2022 PTSD (post-traumatic stress disorder) 11/20/2022 Chronic pain 11/20/2022 HTN (hypertension) 11/20/2022 Intractable nausea and vomiting 11/20/2022 Coronary artery disease invo lving coronary bypass graft of [place] heart 12/26/2019 Overview (11/20/2022): Status post ST segment elevation PA in April 2010 and again in August 2010. Only occluded RCA was noted each time. Dr. Landa could not open the occluded RCA. Promus GREG stents to occluded OM on 10 April 2016 (RL). Normal Cardiolite stress test 16 February 2020. LVEF 64%. Status post three-vessel CABG on 15 March 2021 (Ray) with JOHNSON to LAD, left radial artery to right PDA and SVG to OM. Normal LVEF on echo 18 July 2021. Last Assessment & Plan: We discussed CABG result from last year. He has not had any symptoms whatsoever. No limitations. No change in medical regimen here. Anemia of chronic disease 07/14/2015 Hyperlipidemia 07/14/2015 Major depression, recurrent 07/14/2015 Stage 3 chronic kidney disease 07/14/2015 Panic disorder 04/02/2015 Cluster headaches 08/16/2013 Overview (11/20/2022): Cluster headache syndrome Kidney disorder 04/27/2011 Type 2 diabetes mellitus wit h kidney complication, with long-term current use of insulin 04/27/2011 Overview (11/20/2022): DMII WO CMP UNCNTRLD Last Assessment & Plan: Continuing the insulin for now, and metformin, until I see a1c Labs reordered (may get here) BP is fine, no change for now Will continue the current practices, but I am curious if the med will end up needing adjustment Anxiety state Cholelithiasis Depressive disorder Tobacco dependence syndrome Resolved Problems Problem Noted Date Diagnosed Date Resolved Date Elevated LFTs 06/10/2023 06/10/2023 Acute pancreatitis 06/07/2023 4 Encounters Date Type Department Care Team Description 10/22/2024 7:25 PM CDT - 10/22/2024 10:14 PM CDT Emergency [facility] Emergency [address] [place] [address] Hans Luque MD Discharge Disposition: Left Against Medical Advice 10/22/2024 Travel 08/27/2024 5:22 PM CDT - 08/27/2024 6:12 PM CDT Emergency [facility] Emergency [address] [place] [address] Evan Goncalves, DANY Acute exacerbation of chronic low back pain Discharge Disposition: Discharged to home or Selfcare 08/27/2024 Travel 08/25/2024 8:17 AM CDT - 08/25/2024 9:03 AM CDT Emergency [facility] Emergency [address] [place] [address] Leisa Isaacs MD Discharge Disposition: Left Against Medical Advice 08/25/2024 Travel from Last 3 Months Family History Medical History Relation Name Comments Cancer Father LUNG Heart Attack Father Heart Attack Maternal Grandfather Cancer Mother BRAIN CANCER Melanoma Mother Heart Attack Paternal Grandfather Relation Name Status Comments Father Maternal Grandfather Mother Paternal Grandfather Social History Tobacco Use Types Packs/Day Years Used Date Smoking Tobacco: Every Day Cigarettes 0.5 25 Smokeless Tobacco: Never Tobacco Cessation:Ready to Q uit: Not Asked; Counseling Given: Not Answered Comments:less than a pack a day Alcohol Use Standard Drinks/Week Comments No 0 (1 standard drink = 0.6 oz pur e alcohol) [facility] Utilities Answer Date Recorded In the past 12 months has [employer], gas, oil, or water [employer] threatened to shut off services in your home? No 06/07/2023 Social Connection and Isolation Panel Answer Date Recorded In a typical week, how many times do you talk on the phone with family, friends, or neighbors? More than three times a week 06/07/2023 How often do you get togethe r with friends or relatives? Once a week 06/07/2023 How often do you attend [facility] or latter-day services? 1 to 4 times per year 06/07/2023 Do you belong to any clubs o r organizations such as adventism groups, unions, fraternal or athletic groups, or school groups? No 06/07/2023 How often do you attend meet ings of the clubs or organizations you belong to? Never 06/07/2023 Are you , , di vorced, , never , or living with a partner? 06/07/2023 AUDIT-C Answer Date Recorded Q1: How often do you have a drink containing alc ohol? Monthly or less 06/07/2023 Q2: How many drinks containi ng alcohol do you have on a typical day when you are drinking? 1 or 2 06/07/2023 Q3: How often do you have si x or more drinks on one occasion? Never 06/07/2023 Overall Financial Resource Strain (CARDIA) Answe r Date Recorded How hard is it for you to pa y for the very basics like food, housing, medical care, and heating? Not hard at all 06/07/2023 [facility] - Occupational Stress Questionnaire Answer Date Recorded Do you feel stress - tense, restless, nervous, or anxious, or unable to sleep at night because your mind is troubled all the time - these days? Very much 06/07/2023 Exercise Vital Sign Answer Date Recorde d On average, how many days pe r week do you engage in moderate to strenuous exercise (like a brisk walk)? 0 days 06/07/2023 On average, how many minutes do you engage in exercise at this level? 0 min 06/07/2023 Hunger Vital Sign Answer Date Recorded Within the past 12 months, y ou worried that your food would run out before you got the money to buy more. Never true 06/07/19 24 Within the past 12 months, t he food you bought just didn't last and you didn't have money to get more. Never true 06/07/2023 PRAPARE - Transportation Answer Date Re corded In the past 12 months, has l ack of transportation kept you from medical appointments or from getting medications? No 10/2023 In the past 12 months, has l ack of transportation kept you from meetings, work, or from getting things needed for daily living? No 06/07/2023 Housing Stability Vital Sign Answer Neel e Recorded In the last 12 months, was t here a time when you were not able to pay the mortgage or rent on time? No 06/08/2023 In the last 12 months, how many places have you lived? 1 06/08/2023 In the last 12 months, was t here a time when you did not have a steady place to sleep or slept in a nursing home (including now)? No 06/08/2023 Sexually Active Control Partners Comments Yes Female Sex and Gender Information Value Date Recorded Sex Assigned at Not on file Legal Sex Male 11:20 PM CDT Gender Identity Not on file Sexual Orientation Not on file Last Filed Vital Signs Vital Sign Reading Time Taken Comments Blood Pressure 191/87 10/22/2024 8:00 PM CDT Pulse 77 10/22/2024 8:00 PM CDT Temperature 37.3 C (99.1 F) 10/22/2024 7:30 PM CDT Respiratory Rate 20 10/22/2024 8:00 PM CDT Oxygen Saturation 99% 10/22/2024 8:00 PM CDT Inhaled Oxygen Concentration - - Weight 79.4 kg (175 lb) 10/22/2024 7:30 PM CDT Height 190.5 cm (6' 3) 10/22/2024 7:30 PM CDT Body Mass Index 21.87 10/22/2024 7:30 PM CDT Plan of Treatment Health Maintenance Due Date Last Done Comments Diabetes: Eye Exam 1961 Diabetes: Foot Exam 1961 Cologuard 2006 Immunochemical Fecal Occult Blood 2006 Zoster Immunization (1 of 2) 06/02/2011 Pneumococcal Immunization (50+ years) (2 of 2 - PCV) 01/31/2013 02/01/2012 PSA Discussion 2016 Respiratory Syncytial Virus (RSV) Immunization (Adult) (1 - Risk 60-74 years 1-dose series) 2021 Colonoscopy 11/20/2023 11/19/2013 Colorectal Cancer Screening 11/20/2023 SARS-COV-2 Immunization ( season) 2023 06/06/2020, 05/16/2020 Influenza Immunization (#1) 2024 10/0 04/2019, 12/31/2018, 01/28/2018, Additional history exists Diabetes: Hemoglobin A1c 02/08/2025 025, 05/07/2024, 03/04/2024, Additional history exists Diabetes: Nephropathy Screening 10/22/2025 10/22/2024, 03/02/2024, 02/06/2024, Additional history exists Hepatitis B Immunization Completed 999, 06/16/1998, 05/12/1998 Meningococcal Immunization (ACWY) Aged Out 01/05/2011 No longer eligible based on patient's age to complete this topic Pneumococcal Immunization Combined Discontinued 02/01/2012 DTaP/Tdap/Td Immunization Discontinued 06/07/2019 TdaP Immunization Completed 06/07/2019 Lung Cancer Screening Discontinued 04/10/2023 , 04/15/2022, 03/09/2021, Additional history exists Hepatitis C Virus (HCV) Screening Completed 06/09/2023, 09/17/2012 Human Papillomavirus (HPV) Immunization Aged Out No longer eligible based on patient's age to complete this topic Rotavirus Immunization Aged Out No lo nger eligible based on patient's age to complete this topic Medical Devices Implanted Type Area Traveling Passenger Agent Device Identifier Shelf Expiration Date Model / Serial / Lot Tecnis One Piece Iol With Tecnis Simplicity Delivery System Implanted:Qty: 1 on 11/21/2021 by Denton Cancino MD at [facility] Left: Eye 10/20/2023 [id number] / [id number] / [id number] Eyhance Iol With Simplicty Delivery System Implanted:Qty: 1 on 12/26/2021 by Denton Cancino MD at [facility] Right: Eye 10/29/2024 [id number] / [id number] / [id number] Procedures Procedure Name Priority Date/Time Associated Diagnosis Comments TROPONIN I, HIGH SENSITIVITY (HSTRP) STAT 10/22/2024 9:24 PM CDT CBC WITH AUTO DIFFERENTIAL STAT 10/22/2024 8:21 PM CDT COMPLETE BLOOD COUNT (CBC) WITH DIFF STAT 10/22/2024 8:21 PM CDT XR CHEST SINGLE VIEW PORTABLE STAT 10/22/2024 8:01 PM CDT GOLD TOP TUBE STAT 10/22/2024 7:57 PM CDT BLUE TOP TUBE STAT 10/22/2024 7:57 PM CDT EXTRA TUBES STAT 10/22/2024 7:57 PM CDT TROPONIN I, HIGH SENSITIVITY (HSTRP) STAT 10/22/2024 7:57 PM CDT CMP (COMPREHENSIVE METABOLIC PANEL) STAT 10/22/2024 7:57 PM CDT EKG 12 LEAD STAT 10/22/2024 7:27 PM CDT EKG SCAN 10/22/2024 12:00 AM CDT HEMOGLOBIN A1C W/ ESTIMATED GLUCOSE STAT 10/05/2023 10:50 AM CDT HEPATITIS PANEL ACUTE (AHP) Routine 06/09/2023 4:00 AM LEATHER STRETCHER HM COLONOSCOPY Routine 11/19/2013 from Last 3 Months or Most Recently Relevant to Health Maintenance Results * (ABNORMAL) TROPONIN I, HIGH SENSITIVITY (HSTRP) (10/22/2024 9:24 PM CDT) Only the most recent of2 resultswithin the time period is included. TROPONIN I, HIGH SENSITIVITY- S[place]ENSON 46(H) <=35 ng/L 10/22/2024 10:05 PM CDT [facility] Comment: High-sensitivity troponin I results are reported in ng/L making the result appear to be 1,000 times higher than the contemporary troponin I value which is reported in ng/ml. Results from [facility]. Blood Venipuncture / Unknown 10/22/2024 9:24 PM CDT 10/22/2024 9:40 PM CDT us Hans Luque MD CHEMISTRY ORDERABLES Final Result [facility] [address] [address] * (ABNORMAL) CBC with Auto Differential (10/22/2024 8:21 PM CDT) [facility] WBC 7.00 4.00 - 12.00 10(3)/mcL 10/22/2024 8:50 PM CDT [facility] RBC 4.48 4.40 - 5.80 10(6)/mcL 10/22/2024 8:50 PM CDT [facility] HEMOGLOBIN (HGB) 13.1 13.0 - 16.5 g/dL 10/22/2024 8:50 PM CDT [facility] HEMATOCRIT (HCT) 37.7(L) 38.0 - 50.0 % 10/22/2024 8:50 PM CDT [facility] MCV 84.2 82.0 - 96.0 fL 10/22/2024 8:50 PM CDT [facility] MCH 29.2 26.0 - 32.0 pg 10/22/2024 8:50 PM CDT [facility] MCHC 34.7 31.0 - 36.0 g/dL 10/22/2024 8:50 PM CDT [facility] PLATELET COUNT 210 140 - 440 10(3)/mcL 10/22/2024 8:50 PM CDT [facility] RDW 12.7 11.8 - 15.5 % 10/22/2024 8:50 PM CDT [facility] MPV 10.0 8.0 - 12.6 fL 10/22/2024 8:50 PM CDT [facility] NEUTROPHILS 65.9 40.0 - 68.0 % 10/22/2024 8:50 PM CDT [facility] LYMPHOCYTES 24.7 19.0 - 49.0 % 10/22/2024 8:50 PM CDT [facility] MONOCYTES 7.3 3.0 - 13.0 % 10/22/2024 8:50 PM CDT [facility] EOSINOPHILS 1.3 0.0 - 8.0 % 10/22/2024 8:50 PM CDT [facility] BASOPHILS 0.4 0.0 - 1.0 % 10/22/2024 8:50 PM CDT [facility] IMMATURE GRANULOCYTE 0.4 0.0 - 0.4 % 10/22/2024 8:50 PM CDT [facility] Comment:Immature Granulocyte s includes Metamyelocytes, Myelocytes, and Promyelocytes. ABSOLUTE NEUTROPHILS 4.61 1.40 - 5.30 10(3)/mcL 10/22/2024 8:50 PM CDT [facility] ABSOLUTE LYMPHOCYTES 1.73 0.90 - 3.30 10(3)/mcL 10/22/2024 8:50 PM CDT [facility] ABSOLUTE MONOCYTES 0.51 0.10 - 0.90 10(3)/mcL 10/22/2024 8:50 PM CDT [facility] ABSOLUTE EOSINOPHIL 0.09 0.00 - 0.50 10(3)/mcL 10/22/2024 8:50 PM CDT [facility] ABSOLUTE BASOPHILS 0.03 0.00 - 0.10 10(3)/mcL 10/22/2024 8:50 PM CDT [facility] ABSOLUTE IMMATURE GRANULOCYTE 0.03 0.00 - 0.03 10 (3) mcL. 10/22/2024 8:50 PM CDT [facility] NRBC PER 100 WBC 0 10/23/19 8:50 PM CDT [facility] Blood Venipuncture / Unknown 10/22/2024 8:21 PM CDT 10/22/2024 8:40 PM CDT us Hans Luque MD HEMATOLOGY ORDERABLES Jordana polk Result [facility] [address] [place] [address] * XR CHEST SINGLE VIEW PORTABLE (10/22/2024 8:01 PM CDT) Anatomical Region Laterality Modality Chest N/A Computed Radiogr aphy 10/22/2024 8:51 PM CDT Impressions 10/22/2024 8:53 PM CDT IMPRESSION: No acute findings. Narrative 10/22/2024 8:53 PM CDT EXAM DESCRIPTION: XR CHEST SINGLE VIEW PORTABLE REASON FOR STUDY: Fell today and right ribs are sore. H/o PA TECHNIQUE: Single radiographic view(s) of the chest. COMPARISON: Chest radiograph 05/16/2024 FINDINGS: The heart appears normal in size. No airspace consolidation or pleural effusion is seen. No pneumothorax. There are median sternotomy wires. THIS IS AN ELECTRONICALLY VERIFIED FINAL REPORT 10/22/2024 8:51 PM - Electronically signed by Car Herman M.D. JR: Report ID: [id number] Reading Location: [id number] Procedure Note Car Herman MD - 10/22/2024 EXAM DESCRIPTION: XR CHEST SINGLE VIEW PORTABLE REASON FOR STUDY: Fell today and right ribs are sore. H/o PA TECHNIQUE: Single radiographic view(s) of the chest. COMPARISON: Chest radiograph 05/16/2024 FINDINGS: The heart appears normal in size. No airspace consolidation or pleural effusion is seen. No pneumothorax. There are median sternotomy wires. THIS IS AN ELECTRONICALLY VERIFIED FINAL REPORT 10/22/2024 8:51 PM - Electronically signed by Car Herman M.D. JR: Report ID: [id number] Reading Location: [id number] IMPRESSION: No acute findings. Hans Luque MD IM DIAGNOSTIC ORDERABLES Final Result * Gold Top Tube (10/22/2024 7:57 PM CDT) Blood No Phlebotomy Charged / Unknown 10/22/2024 7:57 PM CDT 10/22/2024 8:10 PM CDT us Hans Luque MD CHEMISTRY ORDERABLES Final Result Performing Organization Address City/[facility] [address]/ZIP Co de Phone Number [facility] [address] [place] [address] * Blue Top Tube (10/22/2024 7:57 PM CDT) Blood No Phlebotomy Charged / Unknown 10/22/2024 7:57 PM CDT 10/22/2024 8:10 PM CDT us Hans Luque MD HEMATOLOGY ORDERABLES Jordana l Result Performing Organization Address [facility] [address]/[facility] Co de Phone Number [facility] [address] [place] [address] * (ABNORMAL) Comprehensive Metabolic Panel (Cmp) [id number] (10/22/2024 7:57 PM CDT) SODIUM 135(L) 136 - 145 mmol/L 10/22/2024 8:34 PM CDT [facility] POTASSIUM 4.2 3.5 - 5.1 mmol/L 10/22/2024 8:34 PM CDT [facility] CHLORIDE 107 98 - 107 mmol/L 10/22/2024 8:34 PM CDT [facility] CO2, VENOUS 16(L) 22 - 30 mmol/L 10/22/2024 8:34 PM CDT [facility] ANION GAP 16.2 <18.0 mmol/L 10/22/2024 8:34 PM CDT [facility] GLUCOSE 382(H) 70 - 99 mg/dL 10/22/2024 8:34 PM CDT [facility] BUN 28(H) 8 - 26 mg/dL 10/22/2024 8:34 PM CDT [facility] CREATININE, BLOOD 1.66(H) 0.70 - 1.30 mg/dL 10/22/2024 8:34 PM CDT [facility] BUN/CREATININE RATIO 17 12 - 20 ratio 10/22/2024 8:34 PM CDT [facility] TOTAL PROTEIN 7.3 6.0 - 8.0 g/dL 10/22/2024 8:34 PM CDT [facility] ALBUMIN 4.0 3.5 - 5.0 g/dL 10/22/2024 8:34 PM CDT [facility] A/G RATIO 1.2 1.0 - 2.2 10/22/2024 8:34 PM CDT [facility] CALCIUM 8.7 8.7 - 10.5 mg/dL 10/22/2024 8:34 PM CDT [facility] T BILI 0.2 0.2 - 1.2 mg/dL 10/22/2024 8:34 PM CDT [facility] SGOT (AST) 16 <43 U/L 10/22/2024 8:34 PM CDT [facility] SGPT (ALT) 11 <56 U/L 10/22/2024 8:34 PM CDT [facility] ALKALINE PHOSPHATASE 87 40 - 150 U/L 10/22/2024 8:34 PM CDT [facility] GFR, ESTIMATED 46(L) >=60 10/22/2024 8:34 PM CDT [facility] Comment: Creatinine Clearance is the preferred criteria for selecting drug dose adjustments in renally impaired patients. The GFR is provided as additional pertinent clinical information. GFR is reported in mL/min/1.73 sq m. Calculation based on the Chronic Kidney Disease Epidemiology Collaboration (CKD- EPI) equation refit without adjustment for race. GFR, EST. 51(L) >=60 025 8:34 PM CDT [facility] GFR, EST. NONAFRICAN 42(L) >=60 10/22/2024 8:34 PM CDT [facility] Blood Venipuncture / Unknown 10/22/2024 7:57 PM CDT 10/22/2024 8:10 PM CDT us Hans Luque MD CHEMISTRY ORDERABLES Final Result [facility] [address] [place] [address] * EKG 12 LEAD (10/22/2024 7:27 PM CDT) Ventricular Rate 80 BPM EXTERNAL EKG Atrial Rate 80 BPM EXTERNAL EKG P-R Interval 152 ms EXTERNAL EKG QRS Duration 100 ms EXTERNAL EKG Q-T Duration 412 ms EXTERNAL EKG QTC CALCULATION 475 ms EXTERNAL EKG P [place] 32 degrees EXTERNAL EKG R [place] 70 degrees EXTERNAL EKG T [place] 15 degrees EXTERNAL EKG 10/22/2024 7:27 PM CDT Impressions EXTERNAL EKG - 10/24/2024 3:30 PM CDT Normal sinus rhythm Possible Left atrial enlargement T wave abnormality, consider inferior ischemia Abnormal ECG When compared with ECG of 16-MAY-2024 19:04, T wave inversion more evident in Inferior leads Confirmed by Clifford Clarke ([id number]) on 10/24/2024 3:30:08 PM Narrative Procedure Note Clifford Clarke MD PhD - 10/24/2024 IMPRESSION: Normal sinus rhythm Possible Left atrial enlargement T wave abnormality, consider inferior ischemia Abnormal ECG When compared with ECG of 16-MAY-2024 19:04, T wave inversion more evident in Inferior leads Confirmed by Clifford Clarke ([id number]) on 10/24/2024 3:30:08 PM us Hans Luque MD IMG ECG ORDERABLES Final R esult EXTERNAL EKG * EKG SCAN (10/22/2024 12:00 AM CDT) 10/22/2024 us Provider Scan IMG ECG ORDERABLES Final Result RESULTING AGENCY * (ABNORMAL) Hemoglobin A1C w/ Estimated Glucose (10/05/2023 10:50 AM CDT) [facility] HGB-A1C 13.8(H) 4.0 - 6.0 % 10/05/2023 5:53 PM CDT [facility] Est Average Glucose 349.4 mg/dL 10/05/2023 5:53 PM CDT [facility] Blood Venipuncture / Unknown 10/05/2023 10:50 AM CDT 10/05/2023 11:15 AM CDT Narrative [facility] - 10/05/2023 5:53 PM CDT HEMOGLOBIN A1C: DIABETIC PATIENTS: WELL-CONTROLLED: 6.2 - 7.0 INTERMEDIATE WELL-CONTROLLED: 7.0 - 9.0 POORLY-CONTROLLED: >9.0 Cici Whittaker APRN, INFORMATICA DEVELOPER CHEMISTRY ORDERABLES Final Result [facility] [address] [place] [address] * Hepatitis Panel Acute (AHP) (06/09/2023 4:00 AM LEATHER STRETCHER) [facility] HEPATITIS A IGM ANTIBODY NON DETECTED NON DETECTED [facility] ARCH [id number] 06/09/2023 3:52 PM LEATHER STRETCHER [facility] Comment: IGM Antibodies to HAV not detected. Does not exclude early acute or recovered HAV infection. HEP B CORE AB (IGM) NON DETECTED NON DETECTED [facility] [id number] 06/09/2023 3:52 PM LEATHER STRETCHER [facility] Comment:IGM anti-HBC not det ected. Does not exclude the possibility of exposure to or infection with HBV. HEPATITIS B SURFACE ANTIGEN NON DETECTED NON DETECTED [facility] [id number] 06/09/2023 3:52 PM LEATHER STRETCHER [facility] Comment:A nonreactive test r esult does not exclude the possibility of exposure to or infection with Hepatitis B virus. A nonreactive test result in individuals with prior exposure to hepatitis B may be due to antigen levels below the detection limit of this assay or lack of antigen reactivity to the antibodies in this assay. hepatitis C antibody 0.05 <1 S/CO [facility] ARCH [id number] 06/09/2023 3:52 PM LEATHER STRETCHER [facility] [facility] Comment: Signal/Cutoff ratio < 0.79 is Nondetected Signal/Cutoff ratio 0.80-0.99 is Grayzone Signal/Cutoff ratio > 0.99 is Detected Supplemental assays are recommended if signal/cutoff ratio is >/=1.00. Signal/cutoff ratio result >/= 5.00 is 97% predictive of positivity for recombinant immunoblot assay (RIBA) and will be reported to the [place] Department of Public [facility] as required. Blood Venipuncture / Unknown 06/09/2023 4:00 AM LEATHER STRETCHER 06/09/2023 4:36 AM LEATHER STRETCHER us Jeffery Perez MD HEMATOLOGY ORDERABLES Final R esult Performing Organization Address City/State/[facility] Co de Phone Number [facility] [address] [place] [address], * COLONOSCOPY (11/19/2013) us oTny Jaramillo MD PROCEDURE/MINOR SURGICAL ORDERAB LES Final Result from Last 3 Months or Most Recently Relevant to Health Maintenance Insurance MEDICARE [facility] [address] Advance Directives * Full Code (Latest Code Status on File) Date Activated Date Inactivated Comments 10/05/2023 5:35 PM 10/05/2023 8:00 PM CPR-Full Treat ment: FULL ARREST: Attempt Resuscitation/CPR wit intubation and mechanical ventilation. PRE-ARREST: Use entire range of life support measures to stabilize the patient. * Full Code Date Activated Date Inactivated Comments 06/08/2023 8:31 AM 06/10/2023 4:37 PM CPR-Full Elli tment: FULL ARREST: Attempt Resuscitation/CPR wit intubation and mechanical ventilation. PRE-ARREST: Use entire range of life support measures to stabilize the patient. * Full Code Date Activated Date Inactivated Comments 11/20/2022 1:39 AM 11/21/2022 5:51 PM CPR-Full Bo atment: FULL ARREST: Attempt Resuscitation/CPR wit intubation and mechanical ventilation. PRE-ARREST: Use entire range of life support measures to stabilize the patient. * Full Code Date Activated Date Inactivated Comments 01/23/2020 9:03 PM 01/23/2020 11:59 PM CPR-Full Treatment: FULL ARREST: Attempt Resuscitation/CPR wit intubation and mechanical ventilation. PRE-ARREST: Use entire range of life support measures to stabilize the patient. Care Teams Business Liaison Manager Relationship Specialty Start Date End Date Tolu Lieberman MD [address] [place] [address] PCP - General Family Medicine 03/14/15
--- OUTSIDE RECORDS SUMMARY | 2024-10-25 17:01 | XMS_ITS | Encounter Summary ---
Author Organization [facility] Address [address] [place] [address] Phone Care Team Providers Care Pharmacovigilance Scientist Name Role Phone Tolu Lieberman MD Primary Care Provider [phone] Encounter Details Date Type Department Care Team (Late st Contact Info) Description 11/22/2022 Telephone [facility] Med Surg [address] [place] [phone] Sister Zaria Kline, RN [place] Social History Tobacco Use Types Packs/Day Years Used Date Smoking Tobacco: Every Day Cigarettes 0.5 25 Smokeless Tobacco: Never Comments:less than a pack a day Alcohol Use Standard Drinks/Week Comments No 0 (1 standard drink = 0.6 oz pur e alcohol) Sexually Active Control Partners Comments Yes Female [...] suspected to have Coronavirus/COVID-19? No / Unsure 11/20/2022 2:38 AM CDT documented as of this encounter Plan of Treatment Not on file documented as of this encounter Visit Diagnoses Not on filedocumented in this encounter Care Teams Pharmacovigilance Scientist Relationship Specialty Start Date End Date Tolu Lieberman MD [address] [place] [address] PCP - General Family Medicine 03/14/15 documented as of this encounter
--- OUTSIDE RECORDS SUMMARY | 2024-10-25 17:01 | XMS_ITS | Clinical Summary ---
Author Organization [facility] Address [address] [place] [address] Care Team Providers Care Manager Programs Name Role Phone Cristhian Trevino MD Primary Care Provider Source Comments [facility] Affiliates and Associated Physician Practices is amultiple site organization consisting of ambulatory clinics and hospital sitesin [place], [place] and [place]. This disclosure is being madepursuant to the Care Everywhere program and may not contain all information available regarding this patient. Last updated 17.[facility] [employer] Allergies Active Allergy Reactions Criticality Noted Date Comments Compazine 08/14/2009 Dhea 08/14/2009 Niacin Swelling High 08/19/2010 Pt turnes red and swells up Medications * Be aware that medications may not be up to date on this document. Alwaysverify current medications with the patient. [id number] ethyl esters (LOVAZA) 1 GM capsule Take 1 g by mouth 2 times daily. Active fenofibrate (TRICOR) 145 MG tablet Take 145 mg by mouth daily. Active aspirin 81 MG chew tablet Take 81 mg by mouth daily. Active rosuvastatin (CRESTOR) 40 MG tablet Take 40 mg by mouth at bedtime. Active ranolazine ER 12hr (RANEXA) 500 MG tablet Take 500 mg by mouth every 12 hours. Active metoprolol tartrate IR (LOPRESSOR) 25 MG tablet Take 25 mg by mouth at bedtime. Active clopidogrel (PLAVIX) 75 MG tablet Take 75 mg by mouth once daily. Active metFORMIN (GLUCOPHAGE) 1000 MG tablet Take 1,000 mg by mouth 2 times daily with breakfast and dinner. Active metoprolol tartrate IR (LOPRESSOR) 50 MG tablet Take 50 mg by mouth once daily. Active metoclopramide (REGLAN) 10 MG tablet Take 1 Tab by mouth every 8 hours as needed for Nausea/Vomitin g (migraine). 10 Tab 0 1 Active ezetimibe (ZETIA) 10 MG tablet Take 10 mg by mouth once daily. Active ketorolac (TORADOL) injection Inject 60 mg into muscle once. Active Social History Tobacco Use Types Packs/Day Years Used Date Smoking Tobacco: Former Cigarettes 0.3 20 1 04/16/1989 - 02/14/2010 Smokeless Tobacco: Never Alcohol Use Standard Drinks/Week Comments No 0 (1 standard drink = 0.6 oz pur e alcohol) Sex and Gender Information Value Date Recorded Sex Assigned at Not on file Legal Sex Male 5:48 AM FIELD ENUMERATOR Gender Identity Not on file Sexual Orientation Not on file Last Filed Vital Signs Vital Sign Reading Time Taken Comments Blood Pressure 131/83 09/20/2012 12:23 PM CDT Pulse 84 09/20/2012 12:23 PM CDT Temperature 36.6 C (97.8 F) 03/01/2012 11:43 PM FIELD ENUMERATOR Respiratory Rate 16 09/20/2012 12:23 PM CDT Oxygen Saturation 98% 09/20/2012 11:44 AM CDT Inhaled Oxygen Concentration - - Weight 136.1 kg (300 lb) 03/01/2012 11:38 PM FIELD ENUMERATOR Height 190.5 cm (6' 3) 03/01/2012 11:38 PM FIELD ENUMERATOR Body Mass Index 37.5 03/01/2012 11:38 PM FIELD ENUMERATOR Plan of Treatment Health Maintenance Due Date Last Done Comments COLOGUARD (AGES 45-75) - COL ON CA SCREENING 1961 COLON MONITORING 1961 COLONOSCOPY - COLON CA SCREENING 1961 CT COLONOGRAPHY - COLON CA SCREENING 1961 Colorectal Cancer Screening 1961 FIT - COLON CA SCREENING 1961 FLEX SIG - COLON CA SCREENING 1961 MEDICARE AWV 12 MONTHS 1961 HIV SCREENING 1976 DTAP/TDAP/TD VACCINES (1 - Tdap) 1980 PNEUMOCOCCAL VACCINE 50+ (1 of 1 - PCV) 06/02/2011 ZOSTER VACCINE (1 of 2) 06/02/2011 COVID-19 VACCINE (1 - 2023-2 5 season) 2023 DEPRESSION SCREENING 04/02/2024 INFLUENZA VACCINE (#1) 2024 Respiratory Syncytial Virus (RSV) Vaccine Pt: or over 60 yrs (1 - 1-dose 75+ series) 2036 HEPATITIS C SCREENING Completed 09/17/2012 , 09/13/2012 HEPATITIS B VACCINE Aged Out No longe r eligible based on patient's age to complete this topic HIB VACCINE Aged Out No longer eligi ble based on patient's age to complete this topic HPV VACCINE Aged Out No longer eligi ble based on patient's age to complete this topic MENINGOCOCCAL (Group B) VACCINE SHARED DECISION-MAKING Aged Out No longer eligible based on patient's age to complete this topic MENINGOCOCCAL GROUPS A/C/Y/W VACCINE Aged Out No longer eligible b ased on patient's age to complete this topic Procedures Procedure Name Priority Date/Time Associated Diagnosis Comments HEPATITIS C ANTIBODY Routine 09/17/2012 4:20 PM CDT from Last 3 Months or Most Recently Relevant to Health Maintenance Results * HEPATITIS C ANTIBODY (09/17/2012 4:20 PM CDT) HCV Antibody Screen Non Reactive Non Reactive 09/18/2012 11:32 AM CDT [facility] Blood specimen (specimen) BLOOD SPECIMEN / Unknown Collection / Unknown 09/17/2012 4:20 PM CDT 09/17/2012 4:39 PM CDT Narrative [facility] - 09/18/2012 11:32 AM CDT Nonreactive - Antibodies to HCV were not detected, result does not exclude early acute HCV infection. us Zena Odell MD LAB - CHEMISTRY ORDERABL ES Final Result [facility] [address] [place] [address] from Last 3 Months or Most Recently Relevant to Health Maintenance Insurance [employer] MEDICARE [employer] [facility] Advance Directives * FULL RESUSCITATION (Latest Code Status on File) Date Activated Date Inactivated Comments 09/11/2012 5:29 PM 09/21/2012 1:07 AM Care Teams Manager Programs Relationship Specialty Start [place] [address] [facility] [address] [place] [id number] PCP - General 03/04/18
--- OUTSIDE RECORDS SUMMARY | 2024-10-25 17:02 | XMS_ITS | Clinical Summary ---
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 Role Phone Deepak Merida MD Unavailable [phone] Joshua Aguilera MD Unavailable [phone] Loco ORTEGA MD, John Matthew Unavailable [phone] Srinivasa Farrar MD Unavailable [phone] Jeffrey Izquierdo OD Unavailable [phone] Tolu Lieberman MD Primary Care Provider [phone] Denton Gilman MD Unavailable [phone] Allergies Active Allergy Reactions Criticality Noted Date Comments Dihydroergotamine Unknown 12/17/2010 Effects behavior negative Sumatriptan Anaphylaxis High 05/10/2021 Inositol Rash Medium Reaction: Rash, Metoclopramide Other (See comments) Low 10/23/2016 Interacts with seroquel Niacin Rash,Swelling,Other (See comments) High 08/19/2010 Reaction: Pt turnes red and swells up Reaction: Rash, Nitro Other (See comments) Low 07/18/2017 Migraines. Nitroglycerin Headache Low 07/18/2017 Nsaids (Non-Steroidal Anti-Inflammatory Drug) Other (See comments) Low 08/12/2018 Stage III Kidney Disease Prochlorperazine Mental status changes Low 08/14/2009 Reaction: Mental Status Changes, , Reaction: Mental Status Changes, , Prochlorperazine Edisylate Other (See comments) Low 07/14/2015 Reaction: Simvastatin Muscle pain Medium Reaction: Muscular pain, Sumatriptan Succinate Anaphylaxis High 11/07/2015 Tolmetin Other (See comments) Low Stage III Kidney Disease Medications QUEtiapine XR (SEROquel XR) 400 mg 24 hr tablet Take 1 tablet (400 mg total) by mouth nightly 6 017 Active busPIRone (BUSPAR) 15 mg tablet Take 2 tablets (30 mg total) by mouth 2 (two) times a day Take 1 tablet by oral route twice daily Active flash glucose scanning reader (FreeStyle Jennifer 14 Day Viola) miscIndications:Typ e 2 diabetes mellitus with hyperglycemia, without long-term current use of insulin ([facility]) For home glucose monitoring 1 each 3 020 Active aspirin 81 mg enteric coated tablet Take 1 tablet (81 mg total) by mouth Active pen needle, diabetic (BD Ultra-Fine Short Pen Needle) 31 gauge x 5/16 needle USE TO INJECT 1-4 TIMES DAILY DIRECTED. 200 each 11 023 Active escitalopram (LEXAPRO) 20 mg tablet Take 1 tablet (20 mg total) by mouth nightly 30 tablet 3 024 Active FreeStyle Jennifer 14 Day Sensor kitIndications:Type 2 diabetes mellitus with hyperglycemia, with long-term current use of insulin ([facility]) 1 EACH EVERY 14 (FOURTEEN) DAYS TO MONITOR BLOOD GLUCOSE LEVELS 7 kit 1 025 Active dicyclomine (BENTYL) 20 mg tablet Take 1 tablet (20 mg total) by mouth nightly Active topiramate (TOPAMAX) 50 mg tablet Take 1 tablet (50 mg total) by mouth daily Active topiramate (TOPAMAX) 100 mg tablet Take 1 tablet (100 mg total) by mouth nightly Active omega 0-dbx-eon-fish oil 1,000 (120-180) mg capsule Take 1 capsule (1,000 mg total) by mouth daily Active dicyclomine (BENTYL) 20 mg tablet Take 1 tablet (20 mg total) by mouth 3 (three) times a day with meals Active metoprolol tartrate (LOPRESSOR) 25 mg immediate release tablet Take 0.5 tablets (12.5 mg total) by mouth 2 (two) times a day 90 tablet 3 025 2025 Active clopidogreL (PLAVIX) 75 mg tablet Take 1 tablet (75 mg total) by mouth nightly 90 tablet 3 025 2025 Active atorvastatin (LIPITOR) 80 mg tabletIndications:D yslipidemia Take 1 tablet (80 mg total) by mouth daily 90 tablet 3 025 2025 Active cyclobenzaprine (FLEXERIL) 5 mg tablet Take 1 tablet (5 mg total) by mouth 3 (three) times a day as needed for muscle spasms 30 tablet Active ondansetron ODT (ZOFRAN-ODT) 4 mg disintegrating tabletIndications:D iabetic ketoacidosis without coma associated with type 2 diabetes mellitus (HCC),Diabetes mellitus with gastroparesis (HCC) Take 1 tablet (4 mg total) by mouth every 8 (eight) hours as needed for nausea or vomiting 20 tablet 2 Active metFORMIN XR (GLUCOPHAGE XR) 500 mg 24 hr tablet TAKE 1 TABLET BY MOUTH DAILY WITH BREAKFAST 90 tablet 1 Active ezetimibe (ZETIA) 10 mg tablet TAKE 1 TABLET BY MOUTH EVERY DAY AT NIGHT 90 tablet 1 Active Jardiance 25 mg tablet TAKE 1 TABLET (25 MG TOTAL) BY MOUTH DAILY. 30 tablet 3 Active insulin lispro (HumaLOG) 100 unit/mL pen for injection SCALE AT MEALS AND BEDTIME IF ELEVATED 70-139 = 0 UNITS 140-164 = 2 UNITS 165-189 = 4 UNITS 190-214 = 6 UNITS 215-239 = 8 UNITS,NOTIFY 240 OR GREATER = 10 UNITS,NOTIFY MD 15 mL [address] (PROTONIX) 40 mg EC tablet Take 1 tablet (40 mg total) by mouth daily 100 tablet Active HYDROcodone-acetami nophen (NORCO) 5-325 mg per tabletIndications:P ain Take 1 tablet by mouth every 6 (six) hours as needed for pain 20 tablet Active Additional Information Patient not taking.Reported on 10/08/2024 doxycycline (VIBRAMYCIN) 100 mg capsule Take 1 tablet/capsule (100 mg total) by mouth 2 (two) times a day 20 capsule Active Additional Information Patient not taking.Reported on 10/08/2024 bacitracin 500 unit/gram ointment Apply topically 2 (two) times a day 120 g Active Additional Information Patient not taking.Reported on 10/08/2024 fenofibrate nanocrystallized (TRICOR) 145 mg tablet TAKE 1 TABLET BY MOUTH EVERY DAY 100 tablet 1 Active insulin glargine 100 unit/mL (3 mL) pen for injection Inject 20 Units under the skin daily 18 mL 3 Active insulin glargine 100 unit/mL vial for injection Inject 25 Units under the skin nightly 2024 Discontinued fenofibrate nanocrystallized (TRICOR) 145 mg tablet TAKE 1 TABLET BY MOUTH EVERY DAY 100 tablet 025 2024 Discontinued Active Problems Problem Noted Date Diagnosed Date New onset seizure 09/19/2024 SLADE (generalized anxiety disorder) 09/05/2024 History of colonic polyps 09/03/2024 Moderate protein-calorie malnutrition 07/01/2024 Abdominal pain 06/30/2024 Diabetic ketoacidosis withou t coma associated with type 2 diabetes mellitus 06/29/2024 CVA, old, alterations of sensations 05/06/2024 RUE weakness 04/13/2024 Noncompliance with diabetes treatment 02/06/2024 Dehydration 10/05/2023 Internal carotid artery stenosis, bilateral 08/31 Assessment & Plan (09/24/2023 7:53 AM CDT): Carotid US showing R sided >70% stenosis, CTA head/nec ordered showed 74% R ICA stenosis and 61% stenosis of L ICA He has been recommended to have carotid endarterectomy of left ICA. Referral given to vascular surgery Type 2 diabetes mellitus wit h hyperglycemia, with long-term current use of insulin 06/11/2023 Assessment & Plan (05/19/2024 12:52 PM PRISON OFFICER): Last A1c 2 12.8. Assessment & Plan (10/24/2023 12:39 PM CDT): Stable continue insulin. Assessment & Plan (10/18/2023 11:50 AM CDT): Impression: Chronic and uncontrolled. Plan: Continue insulin, metformin, glimepiride Assessment & Plan (09/24/2023 7:49 AM CDT): Uncontrolled. Continuing insulin glargine 25 units nightly. He is on sliding scale insulin. Continue metformin and Amaryl. Follow up with Dr. Lieberman in September as scheduled. Diabetic gastroparesis assoc iated with type 2 diabetes mellitus 12/11/2022 Slow transit constipation 12/11/2022 Atrial fibrillation 02/02/2022 Overview (07/24/2024): Noted postop CABG in March 2021. Was on amiodarone 200 mg daily, now discontinued. Assessment & Plan (05/13/2024 10:41 AM PRISON OFFICER): Had a stroke in March 2024 affecting the right upper extremity. Right-hand is still quite weak. I wonder if that could be due to occult atrial fibrillation. Thus, he will need a 30 day monitor. Assessment & Plan (02/02/2022 1:31 PM CDT): I reviewed discharge summary from March 2021. He had postop AFib and was discharged on amiodarone 200 mg a day. He has been taking it ever since. There was an EKG from August of this year showing sinus rhythm. Exam today also revealed sinus rhythm. Will stop the p.o. amiodarone now. He was advised to keep an eye on his pulse for any irregularity or fast beats. Valvular heart disease 02/02/2022 Overview (03/20/2024): Had moderate LV systolic dysfunction by catheterization 08 March 2021. Mild TR on echo 18 July 2021. Normal LVEF then. Mild MR/TR on echo 13 September 2023. LVEF of 65%. Mild TR on echo 04 March 2024. LVEF of 65-70%. Assessment & Plan (02/02/2022 1:29 PM CDT): Discussed echo findings from earlier this year and also cardiac catheterization findings from last year. Fortunately, LV function is normalized. Has no chest pain or shortness of breath with exertion. 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 No change in medical regimen here. SCC (squamous cell carcinoma), arm, left 022 Encounter for Medicare annual wellness exam 10/01 Assessment & Plan (10/20/2021 1:37 PM CDT): A(n) yearly Medicare Annual Wellness Visit has been performed today. Leonid Zaman is not up to date on screening tests. He is in need of Diabetic eye exam, Diabetic foot exam, Lung cancer screening and Diabetic kidney disease screening- eye doctor exam performed yesterday. He is not up to date on needed preventative vaccinations; He is in need of Pneumonia (Prevnar-13 or Pneumovax-23), Zoster and Covid-19 (booster). Labs as ordered Appears stable overall BP is acceptable Weight is down some, doing well. Assessment & Plan (10/20/2020 2:06 PM CDT): A yearly Medicare Annual Wellness Visit has been performed today. Leonid Zaman is up to date on screening tests. He is in need of None- no screening indicated at this time- these have been ordered. He is up to date on needed preventative vaccinations PTSD (post-traumatic stress disorder) 06/07/2020 Assessment & Plan (10/20/2020 2:09 PM CDT): Continuing buspirone 30 mg twice daily Assessment & Plan (06/07/2020 10:36 PM PRISON OFFICER): Continue home medications Cigarette nicotine dependence without complicati on 01/08/2020 Overview (01/27/2021): Down to half a pack a day. Assessment & Plan (05/13/2024 10:40 AM PRISON OFFICER): We discussed the importance of smoking cessation as he had a recent stroke affecting the right upper extremity. The stroke occurred after bilateral carotid stenting. Assessment & Plan (01/27/2021 2:01 PM CDT): We again discussed smoking cessation. He has not quit despite talking about it the past 10 years. We discussed that he is at high risk because of his ongoing nicotine use and diabetes. Assessment & Plan (10/20/2020 2:09 PM CDT): Urging to quit smoking, he is not yet ready it does appear Assessment & Plan (06/07/2020 10:45 PM PRISON OFFICER): Patient still smoking 1 pack per day but up to 2 packs per day for 30 years. Coronary artery disease invo lving coronary bypass graft of craig heart 12/26/2019 Overview (11/07/2023): Status post ST segment elevation SC in April 2010 and again in August [...] Normal LVEF on echo 18 July 2021. Assessment & Plan (05/19/2024 12:51 PM PRISON OFFICER): Managed by cardio. Continue aspirin, lipitor, plavix, Echo 03/04: -Normal left ventricular systolic function with no focal wall motion abnormalities. -Normal left ventricular size. -Moderate concentric left ventricular hypertrophy. -Impaired diastolic relaxation Grade I. -Ejection fraction is visually estimated at 65-70 %. -Saline contrast study performed without evidence of right to left shunt. -Normal right ventricular systolic pressure. -Estimated peak RVSP is 30 mmHg. -Mild tricuspid regurgitation. -Mild pulmonic regurgitation. Assessment & Plan (05/13/2024 10:39 AM PRISON OFFICER): Discussed CABG from 3 years ago. Has occasional episodes of exertional/nonexertional chest tightness. I will order Lexiscan Cardiolite stress test now. Of course, nicotine cessation is paramount and this was again discussed with the patient. Assessment & Plan (02/02/2022 1:33 PM CDT): We discussed CABG result from last year. He has not had any symptoms whatsoever. No limitations. No change in medical regimen here. Assessment & Plan (04/14/2021 2:59 PM PRISON OFFICER): Cardiac catheterization in March 2021 led to [address] Abreu. He has done well since then. Breathing is so much easier now. Will get echocardiogram before next office visit. Assessment & Plan (01/27/2021 1:59 PM CDT): Discussed cardiac catheterization findings from 19/02 and 2016. He has really not had any chest pain with exertion. Rarely gets short of breath when carrying heavy stuff up and down stairs a lot. We discussed last year's stress test which showed no ischemia. Assessment & Plan (10/20/2020 2:07 PM CDT): No symptoms present Continuing current regimen Assessment & Plan (07/21/2020 2:57 PM CDT): Asymptomatic today in office. Continue current regimen. Followed by Dr. Merida (Cardio) Assessment & Plan (06/07/2020 10:45 PM PRISON OFFICER): Patient follows with Dr. Merida. Denies any chest pain. Holding aspirin and Effient. Continue ranolazine. Holding Lopressor due to low blood pressures. Assessment & Plan (01/08/2020 12:48 PM CDT): No classic angina but having occasional episodes of shortness of breath. 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 Patient agreeable to getting a walking stress nuclear now. Will also get echocardiogram as patient appeared to have mild LV dysfunction by catheterization in April 2016. Elevated LDL cholesterol level 12/26/2019 Overview (05/13/2024): LDL of 64 mg/dL on 11 July 2016. LDL of 109 mg/dL on 30 Aug 2018. Triglyceride of 396 mg/dL. LDL of 157 mg/dL on 12 January 2020. This is a direct LDL. LDL of 87 mg/dL on 18 January 2021. Triglyceride was 384 mg/dL. LDL of 49 mg/dL on 24 October 2021. Trigl. 303 mg/dL/HDL 21 mg/dL. LDL of 170 mg/dL on 13 September 2023. A direct LDL. LDL of 175 mg/dL on 04 March 2024. A direct LDL. On Lipitor 80 mg p.o. q.d., Zetia 10, fish oil 1 capsule daily and fenofibrate 145 mg daily. Was on Lopid 600 mg p.o. b.i.d. and Vascepa 2 g b.i.d.. Assessment & Plan (05/13/2024 10:39 AM PRISON OFFICER): We discussed LDL cholesterol goal of less than 70 mg/dL. It seems that when he is not taking the Lipitor, the LDL cholesterol will jump up tarik high. apparently tells him to take the Lipitor but he does not take it very regularly. We discussed the importance of taking all medications regularly. He will now go back on Lipitor 80 mg regularly and we will get a lipid/liver panel in 6-8 weeks. Low-fat diet also discussed. Assessment & Plan (02/14/2024 1:15 PM PRISON OFFICER): Increase Lantus to 32 units qhs Continue lispro at current Continuing metformin, Jardiance I want the fructosamine I ordered in September, I have reordered it Assessment & Plan (12/14/2023 9:05 AM CDT): Stable continue Lipitor Assessment & Plan (10/18/2023 11:50 AM CDT): Impression: Chronic and stable. Plan: Continue atorvastatin and fenofibrate. Assessment & Plan (09/24/2023 7:59 AM CDT): He is to continue on atorvastatin 80 mg once daily. We will continue to monitor. Assessment & Plan (02/02/2022 1:32 PM CDT): We discussed LDL cholesterol goal of less than 70 mg/dL. He was fine earlier this year, but his triglyceride and HDL levels were not. Apparently had a history of pancreatitis many years ago with a triglyceride level of over 6000. Was at one time on gemfibrozil and Vascepa. I will start him on fish oil 2 pills b.i.d.. Will get another lipid/liver panel in 6-8 weeks. Assessment & Plan (04/14/2021 2:59 PM PRISON OFFICER): Discussed LDL cholesterol goal of less than 70 mg/dL. Even more important now that he just had a CABG. Patient agreeable to getting another lipid panel now. Will keep the Lipitor the same dose for now. Assessment & Plan (01/27/2021 2:01 PM CDT): We discussed LDL cholesterol goal of less than 70 mg/dL. He is agreeable to increasing the Lipitor to 80 mg p.o. q.d.. Another fasting lipid/liver panel in 6-8 weeks. Assessment & Plan (01/08/2020 12:47 PM CDT): Discussed last lipid panel from last year. He was surprised to see that his triglyceride is in the 300 to 400 range. Apparently, at 1 time it was in the several 1000 range. We noted that he missed 2 lipid panel appointments. He is agreeable to getting another fasting lipid/liver now. PVD (peripheral vascular disease) ([facility]) 12/02 Overview (12/26/2019): Likely present with no right upper extremity pulses--asymptomatic. Assessment & Plan (02/02/2022 1:29 PM CDT): Today, I could feel both upper extremity pulses about the same. Of course, left radial artery has been harvested for the bypass. No change in medical regimen here. Assessment & Plan (01/27/2021 2:02 PM CDT): Again today's exam revealed no pulses in the right upper extremity but he has no symptoms there. Also denies any claudication. We discussed the diffuse nature of atherosclerosis. Assessment & Plan (07/21/2020 2:56 PM CDT): Continuing Effient Assessment & Plan (04/25/2020 12:42 PM PRISON OFFICER): Continuing Effient Assessment & Plan (01/08/2020 12:49 PM CDT): Patient admits to occasional episodes of numbness in the right fingers. He wants to wait before we do any workup on circulation of the right upper extremity. I discussed with him that either Dr. Galindo or vascular surgeon can perhaps improve the flow. Primary osteoarthritis of right hip 10/22/2018 Assessment & Plan (07/21/2020 2:57 PM CDT): Has been worsening, will place referral to Dr. Rodriguez (Ortho), has seen them in the past. Anxiety state 10/11/2016 Assessment & Plan (07/21/2020 2:58 PM CDT): Stable, followed by Dr. Pelayo (psych) Psychophysiological insomnia 05/08/2016 Anemia of chronic disease 07/14/2015 Assessment & Plan (06/07/2020 10:44 PM PRISON OFFICER): Patient had hemoglobin of 16.8 2 months ago. Patient presented with epigastric pain with decreasing hemoglobin. He denies any black or bloody stools. He has a history of peptic ulcer disease. Will start patient on Protonix IV b.i.d.. Will check a guaiac. Awaiting CT of the abdomen result. Will consult GI. NPO. Will screen for COVID. Patient appears to be on aspirin and Effient, will hold both as patient does not have any recent stents. History of SC (myocardial infarction) 07/14/2015 Overview (10/23/2022): Note: h/o-- x 2 Assessment & Plan (10/24/2023 12:39 PM CDT): Stable continue metoprolol 25 mg. Diverticulosis of small intestine 07/14/2015 Major depression, recurrent 07/14/2015 Nontoxic multinodular goiter 07/14/2015 Splenomegaly 07/14/2015 Chronic kidney disease (CKD), stage II (mild) Assessment & Plan (09/24/2023 8:01 AM CDT): GFR is 71. Kidney disease remained stable Chronic migraine without aur a without status migrainosus, not intractable 10/14/2013 Overview (07/06/2016): COM[facility] Assessment & Plan (10/20/2020 2:09 PM CDT): No change Assessment & Plan (06/07/2020 10:37 PM PRISON OFFICER): Continue Topamax Benign hypertension 08/16/2013 Overview (07/05/2016): BENIGN HYPERTENSION Assessment & Plan (12/14/2023 9:05 AM CDT): Stable continue metoprolol Assessment & Plan (09/24/2023 7:57 AM CDT): Blood pressure is well controlled today. Continue metoprolol Assessment & Plan (10/23/2022 2:04 PM CDT): BP stable in office, no changes today. Assessment & Plan (10/20/2020 2:08 PM CDT): Blood pressure is acceptable, though a little bit on the low slight-normal size Continue amlodipine 10 mg daily, metoprolol XL 25 mg daily Assessment & Plan (07/21/2020 2:57 PM CDT): Stable in office, continue current regimen Assessment & Plan (06/07/2020 10:43 PM PRISON OFFICER): Patient had systolic blood pressure of 97 on presentation. Holding amlodipine and metoprolol. Assessment & Plan (04/25/2020 12:41 PM PRISON OFFICER): Blood Pressure Follow-up: Lifestyle modifications education provided on sodium reduction, increase physical activity and weight reduction. BP is borderline elevated Advised to monitor BP, improve dietary compliance Obstructive sleep apnea syndrome 08/16/2013 Overview (07/05/2016): Obstructive Sleep Apnea Back pain 08/16/2013 Overview (07/07/2016): Back pain Assessment & Plan (07/21/2020 2:58 PM CDT): Has been worsening, will be following up with pain management Impotence of organic origin 08/16/2013 Overview (07/08/2016): IMPOTENCE, ORGANIC ORIGN Pseudocyst of pancreas 12/06/2012 Resolved Problems Problem Noted Date Diagnosed Date Resolved Date Arm numbness 05/06/2024 09/19/2024 Hypertension, unspecified type 05/06/2024 05/19/2024 Stroke-like symptoms 03/03/2024 025 Carotid stenosis, asymptomatic, right 12/31/2023 05/19/2024 Carotid stenosis, right 12/12/202305/03 Carotid stenosis, symptomati c, with infarction 11/15/2023 05/19/2024 Carotid stenosis, left 10/24/202305/19 Stenosis of left carotid artery 10/24/2023 05/19/2024 Carotid stenosis, bilateral 09/14/2023 05/19/2024 Assessment & Plan (12/14/2023 9:05 AM CDT): Doing very well status post left trans carotid artery revascularization. His incision is clean dry and intact. Continue ASA Plavix and statin therapy. Risks benefits alternatives to right TCAR discussed with the patient and his . They wished proceed. Assessment & Plan (10/24/2023 12:39 PM CDT): High-grade asymptomatic right ICA stenosis. Moderate symptomatic left ICA stenosis, discussed findings with the patient and his , given his extensive medical history including a prior tracheostomy I have recommended a staged left TCAR followed by a right TCAR, treating the left side 1st as it is symptomatic. Risks benefits alternatives discussed, risks including bleeding, infection, nerve injury, stroke, need further surgery. He wished proceed. We will get cardiac risk assessment. Continue ASA and statin therapy. Start Plavix. Assessment & Plan (10/18/2023 12:11 PM CDT): Impression: Patient presented to the ED with speech difficulty and confusion and was found to have a left parietal lobe infarction on MRI. [facility] duplex facility showed severe stenosis to the right internal carotid artery and moderate stenosis to left internal carotid artery and CTA head and neck revealed severe stenosis to the right carotid artery and moderated left. Plan: Discussed patient, reviewed CTA head and neck and plan of care with Dr. Ck Saavedra. - Patient will require staged surgical intervention. Will have patient follow up in 1 week to discuss surgical options with Dr. Ck Saavedra. -continue ongoing risk factor modifications. Cerebrovascular accident (CVA) 09/12/2023 09/19/2024 Assessment & Plan (09/24/2023 7:53 AM CDT): Will refer to speech therapy. I talked to him and his about referral for physical therapy or occupational therapy. His states that she has a degree in she can kinesthesiology and has been doing home exercises with him for strengthening Altered mental status, unspe cified altered mental status type 09/10/2023 09/19/2023 Other acute pancreatitis wit h uninfected necrosis 06/11/2023 09/19/2023 Hypercholesterolemia with hypertriglyceridemia 06/11/2023 09/24/2023 Chronic diastolic heart failure 06/11/2023 09/24/2023 Constipation due to pain medication therapy 12/11/2022 09/19/2023 Acute diverticulitis 12/11/2022 024 Abdominal pain 12/11/2022 09/19/2023 Nausea without vomiting 12/11/202208/31 Chronic pain 11/20/2022 09/19/2023 Intractable nausea and vomiting 11/20/2022 09/19/2023 Intractable migraine without aura and without status migrainosus 03/21/2022 09/24/2023 Type 2 diabetes mellitus wit h hypoglycemia without coma, without long-term current use of insulin 04/20/2021 09/24/2023 Assessment & Plan (10/23/2022 2:02 PM CDT): Follows with Dr Robbins (Endo) Labs ordered Postoperative pain 03/18/2021 Hip abductor tendinitis, right 08/13/2020 09/19/2023 Hip abductor tendinitis, left 08/13/2020 09/19/2023 Osteoarthritis of spine with radiculopathy, lumbar region 08/13/2020 09/19/2024 Assessment & Plan (10/20/2020 2:09 PM CDT): No change Continues follow-up with pain management Renal colic on right side 07/16/2020 Epigastric abdominal pain 06/07/2020 Assessment & Plan (06/07/2020 10:46 PM PRISON OFFICER): History of pancreatitis and peptic ulcer disease. Awaiting CT results. Hemoglobin has decreased from 16.8-12.6. Patient is on aspirin and Effient which are held. Awaiting on guaiac. Will start patient on IV Protonix b.i.d.. NPO. Will consult GI. Assessment & Plan (06/07/2020 3:09 PM PRISON OFFICER): Patient is uncomfortable, appears in some distress Given his GI history, I am concerned about a slow workup. He has history of GI bleeding, pancreatitis in the past also including need for lengthy hospitalization Ambulatory plan was pancreatic enzymes, blood count, CT stat, however due to his appearance and the worsening of symptoms, elected to him directly admitted. Patient is reticent to go through the emergency room as well due to previous events with his pancreatitis in 2013. Discussed with Dr. Tian, hospitalist at [facility], who accepted the patient. I apprised her briefly of his opioid history, but I believe he is adhering to the plan with his pain management doctor. Hypoglycemia due to insulin 06/07/2020 09/19/2023 Assessment & Plan (06/07/2020 10:42 PM PRISON OFFICER): Patient gave himself 10 units of Novolin earlier this evening as he states his blood sugar was in the 200s. Patient has been NPO since admission for epigastric pain. Patient then had a blood sugar in the 50s. He is being treated with hypoglycemic protocol. Will continue to monitor. Patient advised not to give himself his own insulin. Patient advised that if he is concerned about his blood sugars being elevated to let his nurse know so can be addressed with the doctor. Hypokalemia 06/07/2020 09/19/2023 Hypomagnesemia 06/07/2020 09/24/2023 Hypocalcemia 06/07/2020 09/19/2023 Upper abdominal pain 06/07/2020 024 Overview (06/08/2020): Added automatically from request for surgery [id number] Costal chondritis 01/24/2020 09/19/2023 Elbow sprain, right, initial encounter 06/07/2019 09/19/2023 Right wrist sprain, initial encounter 06/07/2019 09/19/2023 Left wrist sprain, initial encounter 06/07/2019 09/19/2023 Contusion of abdominal wall 06/07/2019 09/19/2023 Contusion of pelvis 06/07/2019 09/19/19 Contusion of right thigh 06/07/2019 Contusion of left thigh 06/07/201908/31 Leg hematoma, left, initial encounter 06/07/2019 09/19/2023 Abrasion of left leg, initial encounter 06/07/2019 09/19/2023 Fall, accidental, initial encounter 06/07/2019 09/19/2023 Actinic keratosis 04/03/2018 09/24/2023 Assessment & Plan (09/05/2018 11:49 AM CDT): Right ear scapha Previously biopsied and treated by cryotherapy I spoke with him regarding use of imiquimod in this area. He is familiar with this medication as he has used previously on his left forearm and it was successful in treating his actinic keratosis there. He does still have some of this medication left and will use that 1st. I did go ahead and send in a new prescription to his pharmacy and he can fill it if he needs to. He is aware of the directions and has been reminded of how to use this medication. In addition, I will print the instructions out for him as well. He will return to see me in 6 weeks to assess efficacy of this treatment. Assessment & Plan (04/25/2018 4:17 PM PRISON OFFICER): Biopsy site healing well, no complications or signs of infection reported or noted on exam Pathology discussed Cryotherapy recommended for both the right ear scapha and the left dorsal hand lesion, risks and benefits discussed Cryotherapy per procedure note After care instructions given both verbally and in written form Follow up PRN Assessment & Plan (04/10/2018 12:49 PM PRISON OFFICER): Right ear scapha Biopsy today per procedure note Wound care administered and instructions given both verbally and in written form Assessment & Plan (04/03/2018 2:06 PM PRISON OFFICER): Location: Right ear scapha 1.4 x 0.5 erythematous subcutaneous lesion Biopsy next week after off blood thinners for a couple of days, per Dr. Merida Actinic keratosis 04/03/2018 09/19/2023 Assessment & Plan (04/03/2018 2:07 PM PRISON OFFICER): Location/s: bilateral forearms, hands Erythematous, scaly papules Imiquimod Rx Instructions given both verbally and in written form Will follow up 4 weeks after treatment completion Tobacco use 10/11/2016 09/19/2023 Migraine headache 07/14/2015 09/24/2023 Hyperlipidemia 07/14/2015 09/24/2023 Renal failure 07/14/2015 09/24/2023 Respiratory failure 07/14/2015 09/19/19 Pancreatitis 05/05/2014 08/29/2017 Overview (07/06/2016): Pancreatitis Type 2 diabetes mellitus 08/16/2013 Overview (07/07/2016): DMII WO CMP UNCNTRLD Assessment & Plan (11/30/2022 4:37 PM CDT): A1c 9.1% in hospital, patient following with Endocrinology. Assessment & Plan (01/21/2021 3:51 PM CDT): Continuing the insulin for now, and metformin, until I see a1c Labs reordered (may get here) BP is fine, no change for now Will continue the current practices, but I am curious if the med will end up needing adjustment Assessment & Plan (10/20/2020 2:08 PM CDT): A1 c increased to 9.8%. We will increase Levemir to 20 units nightly, continue the Novolin at current dose for now. Microalbumin screening is negative thankfully. No microalbuminuria due to the diabetes. That is a good result. Assessment & Plan (07/21/2020 2:56 PM CDT): Awaiting A1c, for now let's continue with current regimen. Assessment & Plan (06/07/2020 10:42 PM PRISON OFFICER): Currently hypoglycemic as patient gave himself 10 units of Novolin earlier today after admission. He has been NPO with poor p.o. intake. Patient advised to not give himself his own insulin while he is here and that if he is concerned about his blood sugars being elevated to let his nurse know so can be addressed with his doctor. Patient is on Levemir 15 units nightly, will resume for tomorrow night at 10 units nightly. Mid dose sliding scale. Continue to monitor. Hypoglycemic protocol. Assessment & Plan (04/25/2020 12:42 PM PRISON OFFICER): Awaiting a1c, PSA, lipid Currently, insulin doses are enough to stave off most of the low readings, but we are outside of the green mostly. HMV in 3 mos Cluster headaches 08/16/2013 09/19/2024 Overview (07/07/2016): Cluster headache syndrome Adiposity 08/16/2013 08/29/2017 Overview (07/08/2016): OBESITY NOS Acquired trigger finger 08/16/201309/01 Overview (07/08/2016): Trigger finger, left Peptic ulcer 06/04/2013 08/29/2017 Overview (07/07/2016): PUD (peptic ulcer disease) Abdominal pain 12/06/2012 08/29/2017 Chronic migraine without aura 06/07/2011 08/29/2017 Kidney disorder 04/27/2011 09/24/2023 Disorder of liver 04/27/2011 09/24/2023 Encounters Date Type Department Care Team Description 10/20/2024 9:14 PM CDT - 10/20/2024 10:26 PM CDT Emergency [facility] Emergency Department [address] [place] [address] Discharge Disposition: Left Against Medical Advice 10/14/[address] [facility] Medical Group Primary Care at [address] [phone] Ernestine Emanuel MA 10/10/[address] [facility] Medical [facility] Diabetes Endocrine Care at [address] [place] [phone] Balbir Leon DO 10/08/2024 2:00 PM CDT Office Visit [facility] Medical [facility] Diabetes Endocrine Care at [address] [place] [phone] Balbir Leon, DO Type 2 diabetes mellitus with hyperglycemia, with long-term current use of insulin (HCC) (Primary Dx) 10/08/[address] [facility] Accountable Care Organization [address] [place] [id number] Venus Briggs 10/06/2024 2:30 PM CDT Office Visit [facility] Medical [facility] Primary Care at [address] [phone] Tolu Lieberman MD Diabetic gastroparesis associated with type 2 diabetes mellitus (HCC) (Primary Dx); Foot fracture, right, sequela; At risk for diabetic foot ulcer 09/27/2024 2:16 PM CDT - 09/27/2024 6:09 PM CDT Emergency [facility] Emergency Department [address] [place] [address] Kanu Beck MD Fall, initial encounter (Primary Dx); Closed nondisplaced fracture of distal phalanx of lesser toe, unspecified laterality, initial encounter; Cellulitis of foot Discharge Disposition: Discharge to home or self care 09/27/2024 1:58 PM CDT - 09/27/2024 11:59 PM CDT Hospital Encounter [facility] Emergency, Room R Discharge Disposition: Discharge to home or self care 09/19/2024 8:45 AM CDT Office Visit [facility] [address] [place] [address] [address] [phone] Denton Gilman MD New onset seizure (HCC) (Primary Dx); Chronic migraine without aura without status migrainosus, not intractable; CVA, old, alterations of sensations 09/15/2024 7:00 AM CDT - 09/15/2024 7:30 AM CDT Surgery [address] [address] Betty Kaminski MD Not Performed COLONOSCOPY 09/15/2024 6:42 AM CDT - 09/15/2024 7:16 AM CDT Hospital Encounter [address] [address] Betty Kaminski MD Discharge Disposition: Discharge to home or self care 09/15/[address] [facility] Medical Group Gastroenterology at [address] [place] [phone] Lisa Ugalde 09/08/2024 9:21 PM CDT - 09/08/2024 10:53 PM CDT Emergency [facility] Emergency Department [address] [place] [address] Kaelyn Beck MD Hyperglycemia due to diabetes mellitus (HCC) (Primary Dx); Renal insufficiency Discharge Disposition: Left Against Medical Advice 09/05/2024 10:45 AM CDT Office Visit [facility] Medical Group Primary Care at [address] [phone] Tolu Lieberman MD Migraine without aura and responsive to treatment (Primary Dx); Diabetic gastroparesis associated with type 2 diabetes mellitus (HCC); Type 2 diabetes mellitus with hyperglycemia, with long-term current use of insulin (HCC); Psychophysiological insomnia; Seizure disorder (HCC) 09/03/2024 Telephone [facility] Gastroenterology at [address] [place] [phone] Lisa Ugalde 09/02/2024 10:12 PM CDT - 09/03/2024 2:43 AM CDT Emergency [facility] Emergency Department [address] [place] [address] Kaelyn Beck MD Hyperglycemia due to diabetes mellitus (HCC) (Primary Dx) Discharge Disposition: Discharge to home or self care 08/28/2024 8:16 PM CDT - 08/29/2024 2:17 AM CDT Emergency [facility] Emergency Department [address] [place] [address] Jama Nichols MD Seizure-like activity (HCC) (Primary Dx) Discharge Disposition: Left Against Medical Advice 08/28/2024 7:56 PM CDT - 08/28/2024 11:59 PM CDT Hospital Encounter [facility] Emergency, Room R Discharge Disposition: Discharge to home or self care 08/25/2024 9:18 AM CDT - 08/25/2024 10:49 AM CDT Emergency [facility] Emergency Department [address] [place] [address] Luz Medina MD Low back pain, unspecified back pain laterality, unspecified chronicity, unspecified whether sciatica present (Primary Dx) Discharge Disposition: Left Against Medical Advice 08/12/2024 Results Follow-Up [facility] Primary Care at [address] [phone] Tolu Lieberman MD CBC with auto differential, Comprehensive metabolic panel, Lipase, Additional followed-up results: 6 08/09/2024 5:59 PM CDT - 08/09/2024 7:34 PM CDT Emergency [facility] Emergency Department [address] [place] [address] Gaetano Chambers MD Altered mental status, unspecified altered mental status type (Primary Dx) Discharge Disposition: Discharge to home or self care 08/09/2024 Telephone [facility] Primary Care at [address] [phone] Tolu Lieberman MD PA for Ubrelvy 100MG tablets 08/08/2024 12:15 PM CDT - 08/08/2024 11:59 PM CDT Hospital Encounter [address] [address] Elevated LDL cholesterol level; Type 2 diabetes mellitus with hyperglycemia, with long-term current use of insulin (HCC); Diabetes mellitus with gastroparesis (HCC); Benign hypertension Discharge Disposition: Discharge to home or self care 08/08/2024 12:15 PM CDT Lab [facility] Outpatient Lab at [address] [phone] Diabetic gastroparesis associated with type 2 diabetes mellitus (HCC) (Primary Dx) 08/08/2024 11:30 AM CDT Office Visit [facility] Primary Care at [address] [phone] Tolu Lieberman MD Diabetic gastroparesis associated with type 2 diabetes mellitus (HCC) (Primary Dx); Migraine without aura and responsive to treatment 08/08/2024 Nurse Triage [facility] Primary Care at [address] [phone] Tolu Lieberman MD from Last 3 Months Immunizations Immunization Administration Dates Next Due Hep B Vaccine 11/17/1998,06/16/1998,05/12/1998 Influenza, Quadrivalent, Spl it, Preservative Free, Intramuscular 01/28/2018,12/20/2016,01/15/2014 01/28/2019 Influenza, Unspecified 02/06/2024(Deferr ed: Patient Refused),04/02/2023(Deferred: Patient Refused),11/30/2022(Deferred: Patient Refused),04/02/2022(Deferred: Patient Refused),05/24/2021(Deferred: Patient Refused),04/02/2021(Deferred: Patient Refused),01/14/2020(Deferred: Patient Refused),01/01/2020,02/04/2019(Deferr ed: Patient Refused),12/31/2018 Meningococcal Polysaccharide (Menomune) 01/05/2011 Pfizer SARS-CoV-2 Monovalent Vaccination (12+ Yrs) PURPLE 06/06/2020,05/16/2020 Pneumococcal Polysaccharide PPV23 02/01/2012 Tdap 06/07/2019 Surgical History Surgery Date Site/Laterality Comments ANKLE FRACTURE SURGERY 04/02/1987 - 04/01/1988 Left ananda fracture: surgical repair CARDIAC CATHETERIZATION 04/02/2010 - 04/01/2011 coronarary artery disease: cath APPENDECTOMY Appendectomy OPEN REDUCTION INTERNAL FIXATION Left ORIF hardware later removed ankle ANGIOPLASTY Myocardial infarction: Percutaneous transluminal balloon angioplasty with insertion 2 stents of stent into coronary artery ABSCESS CATHETER INJECTION 01/14/2013 N/A abcess drain for pancreas ABSCESS CATHETER INJECTION 12/19/2012 N/A CENTRAL LINE PLACEMENT > 5 YEARS 11/28/2012 N/A ABSCESS CATHETER INJECTION 11/25/2012 N/A ABSCESS CATHETER INJECTION 11/15/2012 N/A ABSCESS CATHETER INJECTION 11/07/2012 N/A ABSCESS TUBE EXCHANGE 11/07/2012 N/A ABSCESS CATHETER INJECTION 10/25/2012 N/A CT GUIDED DRAINAGE PERITONEA L OR RETROPERITONEAL FLUID COLLECTION 09/24/2012 N/A ASPIRATION OF ABSCESS HEMATO MA CYST 08/22/2012 N/A CENTRAL LINE PLACEMENT > 5 YEARS 08/09/2012 N/A CHOLECYSTECTOMY CORONARY ARTERY BYPASS GRAFT 03/15/2021 3 vessel ESOPHAGOGASTRODUODENOSCOPY 04/02/2020 - 04/01/2021 CATARACT EXTRACTION, BILATERAL Bilateral TRACHEOSTOMY 04/02/2012 - 04/01/2013 r/t pancreatitis in coma for 2 months CAROTID ENDARTERECTOMY 11/15/2023 Left LEFT TRANSCAROTID ARTERIAL REVASCULARIZATION (Left) FRACTURE SURGERY Medical History Medical History Date Comments MARCO ANTONIO (obstructive sleep apnea) Ob structive sleep apnea 100 lbs weight loss since dx no retest CAD (coronary artery disease) CA D Cluster headache 2004 Cluster headach es Posttraumatic stress disorder PT [place]; Comments: OAC 07/02/2015 - Kidney failure hemodialysis mehreen efly in 2012 Diabetes mellitus (HCC) Sleep apnea pt states no micah yoshi has Type 2 diabetes mellitus (HCC) Myocardial infarction (HCC) 2020 sahil ent reports he has had multiple heart attacks 2010, 2016, 2020 Other acute pancreatitis wit h uninfected necrosis 06/11/2023 Altered mental status, unspe cified altered mental status type 09/10/2023 Chronic diastolic heart failure (HCC) 06/11/2023 Hypertension OA (osteoarthritis) hips Stroke (HCC) no residual CKD (chronic kidney disease) , stage II Depression SCC (squamous cell carcinoma) le ft arm and left ear Anemia h/o History of tracheostomy 2012 r/t to p ancreatitis in coma stoma closed Seizure (HCC) per pseudos eizure if becomes anxious states Full dentures GERD (gastroesophageal reflu x disease) Peptic ulceration Family History Medical History Relation Name Comments Other Brother 2 Alive and well; Coronary artery disease Brother 3 Sergio nary artery disease; Migraines Brother 4 Noah Zaman Migraine; Vision loss Brother 4 Noah Zaman Cancer Father Deepak Zaman Coronary artery disease Father Deepak Zaman Sergio nary artery disease, premature; Diabetes Father Deepak Zaman Diabetes mellit us; /Diabetes mellitus; Diabetes type II Father Deepak Zaman Diabetes -T ype II; /Diabetes -Type 2; Heart attack Father Deepak Zaman Myocardial infa rction; Heart disease Father Deepak Zaman Heart disease; /heart disease; Hypertension Father Deepak Zaman Hypertension; Other Father Deepak Zaman Alive and well; Vision loss Father Deepak Zaman Brain cancer Mother Cindy Zaman Cancer -brain; Cancer Mother Cindy Zaman Cancer, unknow n; Melanoma Mother Cindy Zaman Cancer -melano ma; /Melanoma; Migraines Mother Cindy Zaman Migraine; Other Other 2 Family history of Cancer -brain; Hypertension Other 3 Family history of Hypertension; Relation Name Status Comments Brother 1 Alive Brother 2 Brother 3 Brother 4 Noah Zaman Father Deepak Zaman Alive Mother Cindy Zaman Alive Other 1 Alive Other 2 Other 3 Social History Tobacco Use Types Packs/Day Years Used Date Smoking Tobacco: Every Day Cigarettes 1 45.6 Started: 1979 Passive Smoke Exposure: Current Smokeless Tobacco: Never Tobacco Cessation:Ready to Q uit: Not Asked; Counseling Given: Not Answered Alcohol Use Standard Drinks/Week Comments Yes 0 (1 standard drink = 0.6 oz pur e alcohol) once a year ( socially) [facility] Utilities Answer Date Recorded In the past 12 months has e electric, gas, oil, or water company threatened to shut off services in your home? Patient unable to answer 06/30/2024 Humiliation, Afraid, Rape, and Kick questionnair e Answer Date Recorded Within the last year, have y ou been afraid of your partner or ex-partner? No 10/19/2020 Within the last year, have y ou been humiliated or emotionally abused in other ways by your partner or ex-partner? No Within the last year, have y ou been kicked, hit, slapped, or otherwise physically hurt by your partner or ex-partner? No 10/19/2020 Within the last year, have y ou been raped or forced to have any kind of sexual activity by your partner or ex-partner? No 10/19/2020 Social Connection and Isolation Panel [NHANES] A nswer Date Recorded In a typical week, how many times do you talk on the phone with family, friends, or neighbors? Patient declined 06/30/2024 How often do you get togethe r with friends or relatives? Patient declined 06/30/2024 How often do you attend yarsani or samaritan serv ices? Patient declined 06/30/2024 Do you belong to any clubs o r organizations such as yarsani groups, unions, fraternal or athletic groups, or school groups? Patient declined 06/30/2024 How often do you attend meet ings of the clubs or organizations you belong to? Patient declined 06/30/2024 Are you , , di vorced, , never , or living with a partner? 06/30/2024 AUDIT-C Answer Date Recorded Q1: How often do you have a drink containing alcohol? Never 05/06/2024 Q2: How many drinks containi ng alcohol do you have on a typical day when you are drinking? Patient does not drink Q3: How often do you have si x or more drinks on one occasion? Never 05/06/2024 Overall Financial Resource Strain (CARDIA) Answe r Date Recorded How hard is it for you to pa y for the very basics like food, housing, medical care, and heating? Patient unable to answer 06/30/2024 PHQ-2 Answer Date Recorded PHQ-2 Total Score (If total score is 3 or more points, staff should administer the PHQ-9) 0 09/05/2024 [facility] - Occupational Stress Questionnaire Answer Date Recorded Feeling of Stress Only a little 01/08/2019 Exercise Vital Sign Answer Date Recorde d On average, how many days pe r week do you engage in moderate to strenuous exercise (like a brisk walk)? 0 days Minutes of Exercise per Session Not on file 10/19/2020 Hunger Vital Sign Answer Date Recorded Within the past 12 months, y ou worried that your food would run out before you got the money to buy more. Patient declined Within the past 12 months, t he food you bought just didn't last and you didn't have money to get more. Patient declined PRAPARE - Transportation Answer Date Re corded In the past 12 months, has l ack of transportation kept you from medical appointments or from getting medications? Patient declined 06/30/2024 In the past 12 months, has l ack of transportation kept you from meetings, work, or from getting things needed for daily living? Patient declined 06/30/2024 Housing Stability Vital Sign Answer Neel e Recorded In the last 12 months, was t here a time when you were not able to pay the mortgage or rent on time? No 10/19/2020 Number of Places Lived in the Last Year Not on f ile 10/19/2020 In the last 12 months, was t here a time when you did not have a steady place to sleep or slept in a mcc (including now)? No 10/19/2020 PHQ-9 Answer Date Recorded PHQ-9 Total Score 12/14/2023 Housing Stability Vital Sign Answer Neel e Recorded In the last 12 months, was t here a time when you were not able to pay the mortgage or rent on time? Patient declined 07/01/19 25 In the past 12 months, how m any times have you moved where you were living? 0 06/30/2024 At any time in the past 12 m [facility], were you homeless or living in a mcc (including now)? Patient declined 06/30/2024 Personal Safety Answer Date Recorded Have you ever been in or are you currently in a harmful physical or emotional relationship or is someone making you feel afraid or unsafe? Denies 10/20/2024 Education Answer Date Recorded What is the highest level of school you have completed or the highest degree you have received? High school graduate 01/08/2019 Sex and Gender Information Value Date Recorded Sex Assigned at Not on file Legal Sex Male 1:49 PM PRISON OFFICER Gender Identity Not on file Sexual Orientation Not on file Obstetrics History Last Filed Vital Signs Vital Sign Reading Time Taken Comments Blood Pressure 115/90 10/20/2024 7:06 PM CDT Pulse 76 10/20/2024 7:06 PM CDT Temperature 35.6 C (96 F) 10/20/2024 7:06 PM CDT Respiratory Rate 20 10/20/2024 7:06 PM CDT Oxygen Saturation 99% 10/20/2024 7:06 PM CDT Inhaled Oxygen Concentration - - Weight 79.4 kg (175 lb) 10/20/2024 7:06 PM CDT Height 190.5 cm (6' 3) 10/08/2024 2:07 PM CDT Body Mass Index 21.87 10/08/2024 2:07 PM CDT Plan of Treatment Health Maintenance Due Date Last Done Comments Zoster Vaccine (1 of 2) 06/02/2011 Pneumococcal vaccine <65 (2 of 2 - PCV) 01/31/2013 02/01/2012 Prostate Cancer Screening-PSA 04/21/2022 04/21/2020 Regular Well Visit/Exam 18-64 10/20/2022, 10/19/2020, 01/08/2019 Dilated Eye Exam 01/02/2023 01/02/2022, , 03/29/2020, Additional history exists Lung Cancer Screening 04/15/2023 04/15/2022 Covid-19 Vaccine (3 - 2023-2 5 season) 2023 06/06/2020, 05/16/2020 Albumin Creatinine Ratio, Urine 09/18/2024 09/19/2023, 10/24/2021, 08/30/2018 Colon Cancer Screening-Colonoscopy 10/28/2024 10/28/2014, 05/17/2011 Influenza Vaccine (#1) 2024 , 12/31/2018, 01/28/2018, Additional history exists Hemoglobin A1C 02/08/2025 08/08/2024, 020 07/2024, 03/04/2024, Additional history exists Lipid Panel 08/08/2025 08/08/2024, 3 , 05/07/2024, Additional history exists Depression Screening 09/05/2025 09/05/2024, 02/06/2024, 12/14/2023, Additional history exists eGFR 09/27/2025 09/27/2024, 0 12/2024, 09/02/2024, Additional history exists Foot Exam 10/06/2025 10/06/2024, 10/01, 01/14/2020, Additional history exists DTaP/Tdap/Td Vaccine (2 - Td or Tdap) 06/06/2029 06/07/2019 Hepatitis B Screening Completed 11/17/1998 , 06/16/1998, 05/12/1998 Hepatitis C Screening Completed 09/07/2012 , 09/04/2012, 08/07/2012 Colon Cancer Screening-CT Colonography Discontinued 10/28/2014, 05/17/2011 Colon Cancer Screening-DNA Stool Discontinued 10/29/19 15, 05/17/2011 Colon Cancer Screening-Sigmoidoscopy Discontinued 10/28/2014, 05/17/2011 Colon Cancer Screening-FIT Discontinued 09/27, 10/28/2014, 05/17/2011 Medical Devices Implanted Type Area Household Appliances Service Technician Device Identifier Shelf Expiration Date Model / Serial / Lot MadeClose [employer] Flex 8mm .065in 40mm 57cm Delivery System Angle Tip [id number] - [id number] Implanted:Qty: 1 on 11/15/2023 by Lakhwinder Saavedra MD at [facility] Stent Left: Carotid [employer] [id number] 10/30/2025 [id number]-0840-[id number] S / / [id number] [employer] Flex 8mm .065in 40mm 57cm Delivery System Angle Tip Sr-0840-Cs - [id number] Implanted:Qty: 1 on 12/31/2023 by Lakhwinder Saavedra MD at [facility] Stent Right: Carotid [employer] [id number] 10/30/2025 SR-0840-C S / / [id number] [employer] System Stent Peripheral Transcarotid Rapid Exchange Enroute 8x30mm Nitinol Sr-0830-Cs - [id number] Implanted:Qty: 1 on 12/31/2023 by Lakhwinder Saavedra MD at [facility] Stent Right: Carotid [employer] [id number] 11/30/2025 SR-0830-C S / / [id number] [employer] [id number] Angio-Seal Evolution 6fr .035in Guidewire Bypass Tube Suture - [id number] Implanted:Qty: 1 on 03/08/2021 by Deepak Merida MD at [facility] [employer] 08/30/2021 [id number] / / [id number] Procedures Procedure Name Priority Date/Time Associated Diagnosis Comments XR FOOT RIGHT 3 OR MORE VIEWS ED 10/20/2024 7:46 PM CDT POCT GLUCOSE DEVICE Routine 09/27/2024 4 :43 PM CDT EGFR STAT 09/27/2024 3:03 PM CDT DIFFERENTIAL AUTO STAT 09/27/2024 3:0 3 PM CDT COMPREHENSIVE METABOLIC PANEL STAT 09/27/2024 3:03 PM CDT CBC WITH AUTO DIFFERENTIAL STAT 09/27/2024 3:03 PM CDT POCT GLUCOSE DEVICE Routine 09/27/2024 3 :00 PM CDT XR FOOT RIGHT 3 OR MORE VIEWS ED 09/27/2024 2:[address] HEAD WO CONTRAST ED 09/08/2024 9 :54 PM CDT EGFR STAT 09/08/2024 9:41 PM CDT DIFFERENTIAL AUTO STAT 09/08/2024 9:4 1 PM CDT ETHANOL Add-On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 [place] [address] * (ABNORMAL) POCT glucose (09/03/2024 2:23 AM CDT) Glucose, POC 239(H) 70 - 199 mg/dL Blood 09/03/2024 2:23 AM CDT 09/03/2024 2:23 AM CDT Kaelyn Beck MD LAB POCT ORDERABLES - DEVICE Fin al Result Performing Organization Address City/[facility]/ZIP Co de Phone Number RONAL NANCE (BLUFFS) 1 [place] [address] * (ABNORMAL) POCT glucose (09/03/2024 1:34 AM CDT) Glucose, POC 312(H) 70 - 199 mg/dL Blood 09/03/2024 1:34 AM CDT 09/03/2024 1:34 AM CDT Kaelyn Beck MD LAB POCT ORDERABLES - DEVICE Fin al Result Performing Organization Address [facility] Co de Phone Number RONAL NANCE (BLUFFS) 1 [place] [address] * (ABNORMAL) Urinalysis reflex to microscopic and culture Urine (09/03/2024 1:27 AM CDT) Color, ur Yellow Yellow Clarity, ur Clear Clear RONAL A ([place]) Specific gravity, ur 1.033(H) 1.003 - 1.030 R[facility]AL [facility] ([place]) pH, urine 5.5 [facility] ([place]) Comment: Interpretive Data U rine pH is affected by diet, medications, systemic acid-base disturbances, and renal tubular function. pH may affect urinary stone formation. For example, urine pH below 6.0 may help reduce the tendency for calcium phosphate stones and pH greater than 6.0 may reduce the tendency for uric acid stone formation. Source: [facility] [employer] Current Interpretive Data was last revised on 2017 Protein, ur ql 2+(A) Negative [facility] ([place]) Glucose, ur ql 4+(A) Negative [facility] ([place]) Ketones, ur Negative Negative [facility] ([place]) Bilirubin, ur Negative Negative [facility] ([place]) Blood, ur Negative Negative [facility] ([place]) Urobilinogen, ur <2.0 <2.0 mg/dL [facility] ([place]) Nitrite, ur Negative Negative [facility] ([place]) Leukocyte esterase, ur Negative Negative [facility] ([place]) UA reflex comment Reflex to microscopic UA will be performed. [facility] ([place]) Urine 09/03/2024 1:27 AM CDT 09/03/2024 1:30 AM CDT us Kaelyn Beck MD LAB MICROBIOLOGY - GENERAL ORDER YANI Final Result Performing Organization Address [facility] de Phone Number [facility] ([place]FF[place]) [address] [place] [address] of [employer] [place] [address] * (ABNORMAL) Urinalysis, microscopic only (09/03/2024 1:27 AM CDT) WBC, ur 0-5 0 - 5 /HPF RBC, ur 0-2 0 - 2 /HPF [facility] ([place]) Bacteria, ur Trace(A) [facility] ([place]) Mucous, ur Present(A) [facility] A ([place]) Hyaline casts, ur 1-5 0 - 10 /LPF [facility] ([place] [facility] Culture Reflex Comment Reflex conditions for urine culture (WBC >10) not met. [facility] ([place]) Urine 09/03/2024 1:27 AM CDT 09/03/2024 1:30 AM CDT Kaelyn Beck MD LAB URINE ORDERABLES Final Resul t Performing Organization Address [facility] Co de Phone Number [facility] ([place] 1 [facility] [employer] [place] [address] * (ABNORMAL) Troponin T high-sensitivity 2-hour (09/03/2024 12:44 AM CDT) Trop T hs 46(H) <=22 ng/L Comment: Interpretive Data For further hscTnT resources including the diagnostic algorithm and an aid in interpretation, copy and paste this link: https://nrl.testcatalog.org/show/hsTrop Current Interpretive Data last revised 2020. Trop T hs delta 0 ng/L [facility] ([place]) Trop T hs interp Insignificant [facility] ([place]) Blood 09/03/2024 12:4 4 AM CDT 09/03/2024 12:46 AM CDT Kaelyn Beck MD LAB BLOOD ORDERABLES Final Resul t RONAL [facility] ([place]) 1 [facility] of [employer] [place] [address] * (ABNORMAL) POCT glucose (09/03/2024 12:39 AM CDT) Glucose, POC 403(H) 70 - 199 mg/dL Blood 09/03/2024 12:3 9 AM CDT 09/03/2024 12:39 AM CDT Kaelyn Beck MD LAB POCT ORDERABLES - DEVICE Fin al Result Performing Organization Address [facility] Co de Phone Number RONAL NANCE (BLUFFS) [address] [place] [address] of [employer] [place] [address] * (ABNORMAL) Blood gas, venous (09/02/2024 11:39 PM CDT) pH, Venous 7.35 7.32 - 7.43 PCO2, Venous 36(L) 40 - 50 mmHg [facility] ([place]) PO2, Venous 74 mmHg [facility] ([place]) HCO3 Venous, Calculated 20 20 - 30 mmol/L [facility] ([place]) BE, venous -5 mmol/L [facility] ([place]) Comment: Interpretive Data No Reference Range Established Current Interpretive Data was last revised on 2017. Blood 09/02/2024 11:3 9 PM CDT 09/02/2024 11:41 PM CDT Marjan FERRARI LAB BLOOD ORDERABLES Jordana l Result RONAL NANCE ([place]) 1 [facility] [place] [address] * ECG 12 lead (09/02/2024 10:06 PM CDT) 09/02/2024 10:0 6 PM CDT Narrative [facility] - 09/03/2024 7:34 AM CDT Vent Rate: 81 bpm RR Interval: 732 msec UT Interval: 164 msec QRS Duration: 161 msec QT Interval: 446 msec QTC Interval: 484 msec P-R-T Gotham: 64 - 81 - 67 degrees IMPRESSION: SINUS RHYTHM POSSIBLE LEFT ATRIAL ENLARGEMENT [-0.1mV P WAVE IN V1/V2] RIGHT BUNDLE BRANCH BLOCK [120+ ms QRS DURATION, UPRIGHT V1, 40+ ms S IN I/aVL/V4/V5/V6] ABNORMAL ECG Compared to prior EKG, right bundle branch block is new Electronically Signed By: Kendrick Galindo MD Kaelyn Beck MD ECG ORDERABLES Final Result Performing Organization Address [facility] Co de Phone Number [facility] * (ABNORMAL) Troponin T high-sensitivity series (baseline, 2hr, 4hr, 6hr) (09/02/2024 10:02 PM CDT) Trop T hs 46(H) <=22 ng/L Comment: Interpretive Data For further hscTnT resources including the diagnostic algorithm and an aid in interpretation, copy and paste this link: https://nrl.testcatalog.org/show/hsTrop Current Interpretive Data last revised 2020. Blood 09/02/2024 10:0 2 PM CDT 09/02/2024 11:12 PM CDT Kaelyn Beck MD LAB BLOOD ORDERABLES Final Resul t RONAL NANCE ([place]FF[place]) 1 [facility] [place] [address] * eGFR (09/02/2024 10:02 PM CDT) eGFR 67 >=60 mL/min/1. 73 m2 Comment: Interpretive Data Reference Interval Normal >/= 90 mL/min/1.73m2 Mildly decreased* 60 - 89 mL/min/1.73m2 Mildly to moderately decreased 45 - 59 mL/min/1.73m2 Moderately to severely decreased 30 - 44 mL/min/1.73m2 Severely decreased 15 - 29 mL/min/1.73m2 Kidney Failure < 15 mL/min/1.73m2 *Relative to young adult level Estimated glomerular filtration rate is determined by the 2020 CKD-EPI equation recommended by the National Kid[employer] (A Unifying Approach to GFR Estimation: Recommendations of the NKF-ASK Task Force on Reassessing the Inclusion of Race in Diagnosing Kidney Disease, JASN 2020). The CKD-EPI equation should not be used for patients with unstable renal function and has not been validated in children and those over 70. Current interpretive data was last reviewed 2021. Blood 09/02/2024 10:0 2 PM CDT 09/02/2024 10:13 PM CDT us Kaelyn Beck MD LAB BLOOD ORDERABLES Final Resul t Performing Organization Address City/[facility]/ZIP Co de Phone Number RONAL NANCE (BLUFFS) 1 [facility] [place] [address] * Differential, auto (09/02/2024 10:02 PM CDT) Neutrophil abs 3.88 1.50 - 6.50 K/cumm Imm gran abs 0.03 0.00 - 0.10 K/cumm [facility] ([place]) Lymphocyte abs 1.36 0.80 - 3.30 K/cumm [facility] ([place]) Monocyte abs 0.35 0.20 - 0.80 K/cumm [facility] ([place]) Eosinophil abs 0.06 0.00 - 0.50 K/cumm [facility] ([place]) Basophil abs 0.02 0.00 - 0.10 K/cumm [facility] ([place]) Neutrophil pct 68.0 % [facility] ([place]) Comment: Interpretive Data Percent cell count reference ranges are not reported, since discordance with absolute values may lead to misinterpretation of CBC data. Current Interpretive Data was last revised on 2017. Imm gran pct 0.5 % [facility] ([place]) Comment: Interpretive Data Percent cell count reference ranges are not reported, since discordance with absolute values may lead to misinterpretation of CBC data. Current Interpretive Data was last revised on 2017. Lymphocyte pct 23.9 % [facility] ([place]) Comment: Interpretive Data Percent cell count reference ranges are not reported, since discordance with absolute values may lead to misinterpretation of CBC data. Current Interpretive Data was last revised on 2017. Monocyte pct 6.1 % [facility] ([place]) Comment: Interpretive Data Percent cell count reference ranges are not reported, since discordance with absolute values may lead to misinterpretation of CBC data. Current Interpretive Data was last revised on 2017. Eosinophil pct 1.1 % [facility] ([place]) Comment: Interpretive Data Percent cell count reference ranges are not reported, since discordance with absolute values may lead to misinterpretation of CBC data. Current Interpretive Data was last revised on 2017. Basophil pct 0.4 % [facility] ([place]) Comment: Interpretive Data Percent cell count reference ranges are not reported, since discordance with absolute values may lead to misinterpretation of CBC data. Current Interpretive Data was last revised on 2017. Blood 09/02/2024 10:0 2 PM CDT 09/02/2024 10:13 PM CDT us Kaelyn Beck MD LAB BLOOD ORDERABLES Final Resul t RONAL GOYO ([place]) [address] [facility] [place] [address] * (ABNORMAL) CBC with auto differential (09/02/2024 10:02 PM CDT) WBC 5.70 3.80 - 9.90 K/cumm Hgb 13.5 13.0 - 17.5 g/dL [facility] ([place]) Hct 38.3(L) 38.9 - 50.3 % [facility] ([place]) Plt 213 150 - 400 K/cumm [facility] ([place]) MPV 10.2 9.1 - 12.3 fL [facility] ([place]) RBC 4.51 4.30 - 5.80 M/cumm [facility] ([place]) MCV 84.9 81.3 - 96.4 fL [facility] ([place]) MCH 29.9 27.1 - 33.3 pg [facility] ([place]) MCHC 35.2 32.3 - 35.7 g/dL [facility] ([place]) RDW CV 12.4 11.1 - 14.9 % [facility] ([place]) RDW SD 38.2 35.7 - 48.1 fL [facility] ([place]) NRBC abs 0.00 0.00 - 0.01 K/cumm [facility] ([place]) Blood 09/02/2024 10:0 2 PM CDT 09/02/2024 10:13 PM CDT us Kaelyn Beck MD LAB BLOOD ORDERABLES Final Resul t [facility] ([place]) [address] [facility] [place] [address] * (ABNORMAL) Comprehensive metabolic panel (09/02/2024 10:02 PM CDT) Sodium 129(L) 135 - 145 mmol/L Potassium, pl 4.4 3.3 - 4.9 mmol/L [facility] ([place]) Chloride 95(L) 97 - 110 mmol/L [facility] ([place]) CO2 16(L) 22 - 32 mmol/L [facility] ([place]) Anion gap 17(H) 2 - 15 mmol/L [facility] ([place]) BUN 22 6 - 25 mg/dL [facility] ([place]) Creatinine 1.21 0.80 - 1.30 mg/dL [facility] ([place]) Glucose 468(C) 70 - 199 mg/dL [facility] ([place]) Comment: Critical Result called by [email or web address] at 2024-09-02 23:45:26. Result Read Back by bishop [email or web address] Interpretive Data Fasting glucose >/= 126 mg/dl is diagnostic for diabetes. Fasting is defined as no caloric intake for at least 8 hours. Fasting glucose between 100 mg/dl to 125 mg/dl is diagnostic of prediabetes. In a patient with classic symptoms of hyperglycemia or hyperglycemic crisis, a random glucose >/= 200 mg/dl is diagnostic for diabetes. In the absence of unequivocal hyperglycemia, results should be confirmed by repeat testing. The classification and Diagnosis of Diabetes Diabetes Care 2021; 46: S19-S40. Current interpretive data was last revised 2022. Calcium 8.7 8.5 - 10.3 mg/dL [facility] ([place]) Bilirubin, total <0.2 0.1 - 1.2 mg/dL [facility] ([place]) Protein, pl 6.4(L) 6.5 - 8.5 g/dL [facility] ([place]) Albumin 3.4(L) 3.5 - 5.0 g/dL [facility] ([place]) Alk phos 117 40 - 130 Units/L [facility] ([place]) ALT 14 7 - 55 Units/L [facility] ([place]) AST 10 10 - 50 Units/L [facility] ([place]) Blood 09/02/2024 10:0 2 PM CDT 09/02/2024 10:13 PM CDT us Kaelyn Beck MD LAB BLOOD ORDERABLES Final Resul t [facility] ([place]) [address] [facility] [place] [address] * (ABNORMAL) Sepsis Lactate w/ Reflex (08/29/2024 1:09 AM CDT) Sepsis Lactate 2.5(H) 0.7 - 2.0 mmol/L Blood 08/29/2024 1:09 AM CDT 08/29/2024 1:13 AM CDT Jama Nichols MD LAB BLOOD ORDERABLES Final Re sult RONAL NANCE (BLUFFS) 1 [facility] [place] [address] * (ABNORMAL) POCT glucose (08/29/2024 1:07 AM CDT) Glucose, POC 453(C) 70 - 199 mg/dL Comment:Glu2: RN/MD Notified Blood 08/29/2024 1:07 AM CDT 08/29/2024 1:07 AM CDT Jama Nichols MD LAB POCT ORDERABLES - DEVICE Final Result Performing Organization Address City/[facility] Co de Phone Number RONAL NANCE (BLUFFS) 1 [facility] [employer] [place] [address] * XR Chest 1 Vw Portable (08/29/2024 12:16 AM CDT) Anatomical Region Laterality Modality Body, Chest N/A Computed Radiogr aphy 08/29/2024 12:4 0 AM CDT Narrative 08/29/2024 12:41 AM CDT EXAM DESCRIPTION: XR CHEST 1 VIEW REASON FOR STUDY: seizure Pt bibems from home, per pt pt had 45 sec seizure, has been noncompliant with all his medications. Per ems NIH=0, bs: 500 pt was given 0.5mg narcan due to pinpoint pupils, C/o chest pain tonight Hx of SC, CHF, stroke Current smoker TECHNIQUE: 1 radiographic view(s) of the chest. COMPARISON: 07/13/2024 FINDINGS: LUNGS: No focal opacity, pleural effusion, or pneumothorax. HEART/MEDIASTINUM: Cardiac silhouette normal in size. Mediastinal and hilar contours appear normal. Median sternotomy. LINES/TUBES: None. BONES: No acute osseous abnormality. IMPRESSION: No acute cardiopulmonary abnormality. THIS IS AN ELECTRONICALLY VERIFIED FINAL REPORT 08/29/2024 12:41 AM - Electronically signed by Jacky Pearl M.D. KT: SHWETHA Report ID: [id number] Reading Location: [id number] Procedure Note Jacky Pearl MD - 08/29/2024 EXAM DESCRIPTION: XR CHEST 1 VIEW REASON FOR STUDY: seizure Pt bibems from home, per pt pt had 45 sec seizure, has been noncompliant with all his medications. Per ems NIH=0, bs: 500 pt wasgiven 0.5mg narcan due to pinpoint pupils, C/o chest pain tonight Hx of SC, CHF, stroke Current smoker TECHNIQUE: 1 radiographic view(s) of the chest. COMPARISON: 07/13/2024 FINDINGS: LUNGS: No focal opacity, pleural effusion, or pneumothorax. HEART/MEDIASTINUM: Cardiac silhouette normal in size. Mediastinal andhilar contours appear normal. Median sternotomy. LINES/TUBES: None. BONES: No acute osseous abnormality. IMPRESSION: No acute cardiopulmonary abnormality. THIS IS AN ELECTRONICALLY VERIFIED FINAL REPORT 08/29/2024 12:41 AM - Electronically signed by Jacky Pearl M.D. KT: SHWETHA Report ID: [id number] Reading Location: [place] [address] Marjan FERRARI IMG XR PROCEDURES Final R esult * (ABNORMAL) Blood gas, venous (08/28/2024 11:29 PM CDT) pH, Venous 7.41 7.32 - 7.43 PCO2, Venous 39(L) 40 - 50 mmHg [facility] ([place]) PO2, Venous 43 mmHg [facility] ([place]) HCO3 Venous, Calculated 24 20 - 30 mmol/L [facility] ([place]) BE, venous 0 mmol/L [facility] ([place]) Comment: Interpretive Data No Reference Range Established Current Interpretive Data was last revised on 2017. Blood 08/28/2024 11:2 9 PM CDT 08/28/2024 11:33 PM CDT us Marjan Hernandez PA LAB BLOOD ORDERABLES Jordana l Result Performing Organization Address City/[facility]/ZIP Co de Phone Number [facility] ([place]) 1 [facility] [place] [address] * (ABNORMAL) POCT glucose (08/28/2024 11:05 PM CDT) Glucose, POC 558(C) 70 - 199 mg/dL Comment:Glu2: Blood 08/28/2024 11:0 5 PM CDT 08/28/2024 11:05 PM CDT us Notinfile Unknown LAB POCT ORDERABLES - DEVICE F inal Result Performing Organization Address [facility] Co de Phone Number [facility] ([place]) 1 [facility] [employer] [place] [address] * CT Head WO Contrast (08/28/2024 10:34 PM CDT) Anatomical Region Laterality Modality Head and Neck N/A Computed Tomogra phy 08/29/2024 12:3 5 AM CDT Narrative 08/29/2024 12:40 AM CDT EXAM DESCRIPTION: CT HEAD WO CONTRAST REASON FOR STUDY: Seizure, new-onset, no history of trauma Seizure today. Patient altered. TECHNIQUE: Axial images acquired through the brain without intravenous contrast. Images stored on PACS. Automated exposure control was used as a dose optimization technique for this examination. COMPARISON: 08/09/2024 FINDINGS: BRAIN: No hemorrhage, edema or mass effect. No recent infarct. Mild periventricular microvascular white matter ischemic change. 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 EXTRA-AXIAL SPACES: No fluid collections. No masses. CALVARIUM: No fracture. SINUSES/MASTOIDS: No fluid or mucosal thickening. ORBITS: No significant abnormality. OTHER: No other significant abnormality. IMPRESSION: No acute intracranial findings. THIS IS AN ELECTRONICALLY VERIFIED FINAL REPORT 08/29/2024 12:40 AM - Electronically signed by Jacky Pearl M.D. KT: SHWETHA Report ID: [id number] Reading Location: [place] [address] Procedure Note Jacky Pearl MD - 08/29/2024 EXAM DESCRIPTION: CT HEAD WO CONTRAST REASON FOR STUDY: Seizure, new-onset, no history of trauma Seizure today. Patient altered. TECHNIQUE: Axial images acquired through the brain without intravenous contrast. Images stored on PACS. Automated exposure control was used asa dose optimization technique for this examination. COMPARISON: 08/09/2024 FINDINGS: BRAIN: No hemorrhage, edema or mass effect. No recent infarct. Mild periventricular microvascular white matter ischemic change. Old infarctwith encephalomalacia left parietal lobe. EXTRA-AXIAL SPACES: No fluid collections. No masses. CALVARIUM: No fracture. SINUSES/MASTOIDS: No fluid or mucosal thickening. ORBITS: No significant abnormality. OTHER: No other significant abnormality. IMPRESSION: No acute intracranial findings. THIS IS AN ELECTRONICALLY VERIFIED FINAL REPORT 08/29/2024 12:40 AM - Electronically signed by Jacky Pearl M.D. KT: SHWETHA Report ID: [id number] Reading Location: [place] [address] PROCEDURES Final R esult * (ABNORMAL) Urinalysis reflex to microscopic and culture Urine (08/28/2024 10:32 PM CDT) Color, ur Straw Yellow Clarity, ur Clear Clear [facility] ([place]) Specific gravity, ur 1.030 1.003 - 1.030 [facility] ([place]) pH, urine 6.0 [facility] ([place]) Comment: Interpretive Data U rine pH is affected by diet, medications, systemic acid-base disturbances, and renal tubular function. pH may affect urinary stone formation. For example, urine pH below 6.0 may help reduce the tendency for calcium phosphate stones and pH greater than 6.0 may reduce the tendency for uric acid stone formation. Source: [facility] [employer] Current Interpretive Data was last revised on 2017 Protein, ur ql 2+(A) Negative [facility] ([place]) Glucose, ur ql 4+(A) Negative [facility] ([place]) Ketones, ur Negative Negative [facility] ([place]) Bilirubin, ur Negative Negative [facility] ([place]) Blood, ur Trace(A) Negative [facility] ([place]) Urobilinogen, ur <2.0 <2.0 mg/dL [facility] ([place]) Nitrite, ur Negative Negative [facility] ([place]) Leukocyte esterase, ur Negative Negative [facility] ([place]) UA reflex comment Reflex to microscopic UA will be performed. [facility] ([place]) Urine 08/28/2024 10:3 2 PM CDT 08/28/2024 10:35 PM CDT Marjan FERRARI LAB MICROBIOLOGY - GENERA L ORDERABLES Final Result Performing Organization Address City/[facility]/ZIP Co de Phone Number RONAL NANCE ([place]FFS) [address] [facility] [place] [address] * Urinalysis, microscopic only (08/28/2024 10:32 PM CDT) WBC, ur 0-5 0 - 5 /HPF RBC, ur 0-2 0 - 2 /HPF [facility] ([place]) Epithelial cells, squamous, ur 1-5 0 - 5 /HPF [facility] ([place]) Culture Reflex Comment Reflex conditions for urine culture (WBC >10) not met. [facility] ([place]) Urine 08/28/2024 10:3 2 PM CDT 08/28/2024 10:35 PM CDT Marjan FERRARI LAB URINE ORDERABLES Jordana l Result R[facility] N[facility] ([place]) 1 [facility] [place] [address] * ECG 12 lead (08/28/2024 9:01 PM CDT) 08/28/2024 9:01 PM CDT Narrative [facility] - 08/29/2024 7:25 AM CDT Vent Rate: 64 bpm RR Interval: 935 msec UT Interval: 176 msec QRS Duration: 98 msec QT Interval: 451 msec QTC Interval: 460 msec P-R-T Gotham: 52 - 63 - 67 degrees IMPRESSION: SINUS RHYTHM NORMAL ECG Compared to prior EKG, right bundle branch block is no longer present Electronically Signed By: Kendrick Galindo MD Marjan FERRARI ECG ORDERABLES Final Res ult [facility] [employer] [facility] * (ABNORMAL) Sepsis Lactate w/ Reflex (08/28/2024 8:26 PM CDT) Pathologist [facility] Sepsis Lactate 5.0(C) 0.7 - 2.0 mmol/L Comment:Critical result call ed to and read back by Jamila Morrow (MIRROR FRAMER) on 08/28/2024 20:34:29 CDT_ to Kaitlin Rangel. Blood 08/28/2024 8:26 PM CDT 08/28/2024 8:32 PM CDT Marjan FERRARI LAB BLOOD ORDERABLES Jordana l Result [facility] ([place]) [address] Department [place] [address] * eGFR (08/28/2024 8:26 PM CDT) Pathologist [facility] eGFR 79 >=60 mL/min/1. 73 m2 Comment: Interpretive Data Reference Interval Normal >/= 90 mL/min/1.73m2 Mildly decreased* 60 - 89 mL/min/1.73m2 Mildly to moderately decreased 45 - 59 mL/min/1.73m2 Moderately to severely decreased 30 - 44 mL/min/1.73m2 Severely decreased 15 - 29 mL/min/1.73m2 Kidney Failure < 15 mL/min/1.73m2 *Relative to young adult level Estimated glomerular filtration rate is determined by the 2020 CKD-EPI equation recommended by the National Kidney Foundation (A Unifying Approach to GFR Estimation: Recommendations of the NKF-ASK Task Force on Reassessing the Inclusion of Race in Diagnosing Kidney Disease, JASN 2020). The CKD-EPI equation should not be used for patients with unstable renal function and has not been validated in children and those over 70. Current interpretive data was last reviewed 2021. Blood 08/28/2024 8:26 PM CDT 08/28/2024 8:32 PM CDT us Marjan FERRARI LAB BLOOD ORDERABLES Jordana polk Result [facility] ([place]) [address] [place] [address] * Differential, auto (08/28/2024 8:26 PM CDT) Neutrophil abs 2.74 1.50 - 6.50 K/cumm Imm gran abs 0.02 0.00 - 0.10 K/cumm [facility] ([place]) Lymphocyte abs 1.34 0.80 - 3.30 K/cumm [facility] ([place]) Monocyte abs 0.38 0.20 - 0.80 K/cumm [facility] ([place]) Eosinophil abs 0.06 0.00 - 0.50 K/cumm [facility] ([place]) Basophil abs 0.02 0.00 - 0.10 K/cumm [facility] ([place]) Neutrophil pct 60.2 % [facility] ([place]) Comment: Interpretive Data Percent cell count reference ranges are not reported, since discordance with absolute values may lead to misinterpretation of CBC data. Current Interpretive Data was last revised on 2017. Imm gran pct 0.4 % [facility] ([place]) Comment: Interpretive Data Percent cell count reference ranges are not reported, since discordance with absolute values may lead to misinterpretation of CBC data. Current Interpretive Data was last revised on 2017. Lymphocyte pct 29.4 % [facility] ([place]) Comment: Interpretive Data Percent cell count reference ranges are not reported, since discordance with absolute values may lead to misinterpretation of CBC data. Current Interpretive Data was last revised on 2017. Monocyte pct 8.3 % [facility] ([place]) Comment: Interpretive Data Percent cell count reference ranges are not reported, since discordance with absolute values may lead to misinterpretation of CBC data. Current Interpretive Data was last revised on 2017. Eosinophil pct 1.3 % [facility] ([place]) Comment: Interpretive Data Percent cell count reference ranges are not reported, since discordance with absolute values may lead to misinterpretation of CBC data. Current Interpretive Data was last revised on 2017. Basophil pct 0.4 % [facility] ([place]) Comment: Interpretive Data Percent cell count reference ranges are not reported, since discordance with absolute values may lead to misinterpretation of CBC data. Current Interpretive Data was last revised on 2017. Blood 08/28/2024 8:26 PM CDT 08/28/2024 8:32 PM CDT Marjan FERRARI LAB BLOOD ORDERABLES Jordana polk Result [facility] ([place]) [address] Department [place] [address] * CBC with auto differential (08/28/2024 8:26 PM CDT) WBC 4.56 3.80 - 9.90 K/cumm Hgb 14.3 13.0 - 17.5 g/dL [facility] ([place]) Hct 41.0 38.9 - 50.3 % [facility] ([place]) Plt 190 150 - 400 K/cumm [facility] ([place]) MPV 10.0 9.1 - 12.3 fL [facility] ([place]) RBC 4.81 4.30 - 5.80 M/cumm [facility] ([place]) MCV 85.2 81.3 - 96.4 fL [facility] ([place]) MCH 29.7 27.1 - 33.3 pg [facility] ([place]) MCHC 34.9 32.3 - 35.7 g/dL [facility] ([place]) RDW CV 12.1 11.1 - 14.9 % [facility] ([place]) RDW SD 37.9 35.7 - 48.1 fL [facility] ([place]) NRBC abs 0.00 0.00 - 0.01 K/cumm [facility] ([place]) Blood 08/28/2024 8:26 PM CDT 08/28/2024 8:32 PM CDT us Marjan FERRARI LAB BLOOD ORDERABLES Jordana polk Result [facility] ([place]) [address] Department [place] [address] * (ABNORMAL) Comprehensive metabolic panel (08/28/2024 8:26 PM CDT) Sodium 129(L) 135 - 145 mmol/L Potassium, pl 4.9 3.3 - 4.9 mmol/L [facility] ([place]) Chloride 93(L) 97 - 110 mmol/L [facility] ([place]) CO2 21(L) 22 - 32 mmol/L [facility] ([place]) Anion gap 16(H) 2 - 15 mmol/L [facility] ([place]) BUN 21 6 - 25 mg/dL [facility] ([place]) Creatinine 1.06 0.80 - 1.30 mg/dL [facility] ([place]) Glucose 605(C) 70 - 199 mg/dL [facility] ([place]) Comment: Critical Result called by [id number] at 2024-08-28 22:56:57. Result Read Back by Jasmin Contreras ACID PATROLLER Interpretive Data Fasting glucose >/= 126 mg/dl is diagnostic for diabetes. Fasting is defined as no caloric intake for at least 8 hours. Fasting glucose between 100 mg/dl to 125 mg/dl is diagnostic of prediabetes. In a patient with classic symptoms of hyperglycemia or hyperglycemic crisis, a random glucose >/= 200 mg/dl is diagnostic for diabetes. In the absence of unequivocal hyperglycemia, results should be confirmed by repeat testing. The classification and Diagnosis of Diabetes Diabetes Care 202; 46: S19-S40. Current interpretive data was last revised 2022. Calcium 8.6 8.5 - 10.3 mg/dL [facility] ([place]) Bilirubin, total <0.2 0.1 - 1.2 mg/dL [facility] ([place]) Protein, pl 6.5 6.5 - 8.5 g/dL [facility] ([place]) Albumin 3.7 3.5 - 5.0 g/dL [facility] ([place]) Alk phos 116 40 - 130 Units/L [facility] ([place]) ALT 16 7 - 55 Units/L [facility] ([place]) AST 15 10 - 50 Units/L [facility] ([place]) Blood 08/28/2024 8:26 PM CDT 08/28/2024 8:32 PM CDT Marjan FERRARI LAB BLOOD ORDERABLES Jordana polk Result [facility] ([place]) [address] Department [place] [address] * XR Spine Lumbar 2 or 3 Views (08/25/2024 10:13 AM CDT) Anatomical Region Laterality Modality Spine N/A Computed Radiogr aphy 08/25/2024 10:2 8 AM CDT Narrative 08/25/2024 10:39 AM CDT EXAM DESCRIPTION: XR SPINE LUMBAR 2 OR 3 VIEWS REASON FOR STUDY: back pain Pt has low back pain. Denies any injury. TECHNIQUE: 3 radiographic view(s) of the lumbar spine. COMPARISON: Radiographs of the lumbar spine dated 05/13/2015. FINDINGS: ALIGNMENT: Anatomic. VERTEBRAE: Vertebral bodies of normal height. No acute fracture. Xzlp-ch-yfzztlji multilevel facet arthropathy; most advanced at L4-L5 and L5-S1. DISCS: Jhxb-fc-pdpazrxy disc space narrowing at L5-S1. The remaining disc spaces are relatively maintained. Scattered degenerative endplate changes are noted with osteophytosis. SOFT TISSUES: Within normal limits. Moderate aortoiliac atherosclerosis. IMPRESSION: 1. No acute spinal abnormality. 2. Lfjx-se-anmosyqk multilevel lumbar spondylosis; most advanced at L5-S1. THIS IS AN ELECTRONICALLY VERIFIED FINAL REPORT 08/25/2024 10:39 AM - Electronically signed by Denton Mathews M.D. MF: FE Report ID: [id number] Reading Location: [id number] Procedure Note Denton Mathews, DO - 08/25/2024 EXAM DESCRIPTION: XR SPINE LUMBAR 2 OR 3 VIEWS REASON FOR STUDY: back pain Pt has low back pain. Denies any injury. TECHNIQUE: 3 radiographic view(s) of the lumbar spine. COMPARISON: Radiographs of the lumbar spine dated 05/13/2015. FINDINGS: ALIGNMENT: Anatomic. VERTEBRAE: Vertebral bodies of normal height. No acute fracture. Cxbm-hn-oynwzrzr multilevel facet arthropathy; most advanced at L4-L5 and L5-S1. DISCS: Lnkg-tq-vfyubxmm disc space narrowing at L5-S1. Theremaining disc spaces are relatively maintained. Scattered degenerative endplate changes are noted with osteophytosis. SOFT TISSUES: Within normal limits. Moderate aortoiliacatherosclerosis. IMPRESSION: 1. No acute spinal abnormality. 2. Smne-vw-qlojczim multilevel lumbar spondylosis; most advanced atL5-S1. THIS IS AN ELECTRONICALLY VERIFIED FINAL REPORT 08/25/2024 10:39 AM - Electronically signed by Denton Mathews M.D. MF: FE Report ID: [id number] Reading Location: [id number] us Luz Medina MD IMG XR PROCEDURES F inal Result * ECG 12 lead (08/09/2024 6:31 PM CDT) 08/09/2024 6:31 PM CDT Narrative [facility] - 08/11/2024 6:38 AM CDT Vent Rate: 69 bpm RR Interval: 866 msec UT Interval: 176 msec QRS Duration: 169 msec QT Interval: 470 msec QTC Interval: 489 msec P-R-T [place]: 32 - 39 - 13 degrees IMPRESSION: SINUS RHYTHM POSSIBLE LEFT ATRIAL ENLARGEMENT [-0.1mV P-WAVE IN V1/V2] RIGHT BUNDLE BRANCH BLOCK [120+ ms QRS DURATION, UPRIGHT V1, 40+ ms S IN I/aVL/V4/V5/V6] POSSIBLE LEFT VENTRICULAR HYPERTROPHY [VOLTAGE CRITERIA PLUS LAE OR QRS WIDENING] ABNORMAL ECG Compared to prior EKG, right bundle branch block pattern is new Electronically Signed By: Kendrick Galindo MD us Gaetano Chambers MD ECG ORDERABLES Final Result [facility] * CT Stroke Head WO Contrast (08/09/2024 6:24 PM CDT) Anatomical Region Laterality Modality Head N/A Computed Tomogra phy 08/09/2024 6:27 PM CDT Narrative 08/09/2024 6:35 PM CDT EXAM DESCRIPTION: CT STROKE HEAD WO CONTRAST REASON FOR STUDY: Stroke, follow up, Stroke C/o tremors, anxiety, hot flashes and agitation that started a few hours ago TECHNIQUE: Axial images acquired through the brain without intravenous contrast. Images stored on PACS. Automated exposure control was used as a dose optimization technique for this examination. COMPARISON: Head CT from 07/01/2024. 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 Patchy low density within white matter of periventricular regions again noted. No definite acute cortical infarct. EXTRA-AXIAL SPACES: No fluid collections. No masses. CALVARIUM: No fracture. SINUSES/MASTOIDS: No fluid or mucosal thickening. ORBITS: No significant abnormality. OTHER: No other significant abnormality. IMPRESSION: No acute intracranial findings. Stable appearance of the brain compared to prior. THIS IS AN ELECTRONICALLY VERIFIED FINAL REPORT 08/09/2024 6:35 PM - Electronically signed by Madhu Chino M.D. LC: VERA Report ID: [id number] Reading Location: [id number] Procedure Note Melinda Chino MD - 08/09/2024 EXAM DESCRIPTION: CT STROKE HEAD WO CONTRAST REASON FOR STUDY: Stroke, follow up, Stroke C/o tremors, anxiety, hot flashes and agitation that started a few hoursago TECHNIQUE: Axial images acquired through the brain without intravenous contrast. Images stored on PACS. Automated exposure control was used asa dose optimization technique for this examination. COMPARISON: Head CT from 07/01/2024. 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 Patchy low density within white matter of periventricular regions again noted. No definite acute cortical infarct. EXTRA-AXIAL SPACES: No fluid collections. No masses. CALVARIUM: No fracture. SINUSES/MASTOIDS: No fluid or mucosal thickening. ORBITS: No significant abnormality. OTHER: No other significant abnormality. IMPRESSION: No acute intracranial findings. Stable appearance of the brain compared to prior. THIS IS AN ELECTRONICALLY VERIFIED FINAL REPORT 08/09/2024 6:35 PM - Electronically signed by Madhu Chino M.D. LC: VERA Report ID: [id number] Reading Location: [id number] Gaetano Chambers MD IM CT PROCEDURES Final Result * (ABNORMAL) Troponin T high-sensitivity series (baseline, 2hr, 4hr, 6hr) (08/09/2024 6:04 PM CDT) Trop T hs 61(H) <=22 ng/L Comment: Interpretive Data For further hscTnT resources including the diagnostic algorithm and an aid in interpretation, copy and paste this link: [email or web address].testcatalog.org/[email or web address] Current Interpretive Data last revised 2020. Blood 08/09/2024 6:04 PM CDT 08/09/2024 6:23 PM CDT Gaetano Chambers MD LAB BLOOD ORDERABLES Final Res ult [facility] [address] [facility] [employer] [place] [address] * (ABNORMAL) eGFR (08/09/2024 6:04 PM CDT) eGFR 55(L) >=60 mL/min/1. 73 m2 Comment: Interpretive Data Reference Interval Normal >/= 90 mL/min/1.73m2 Mildly decreased* 60 - 89 mL/min/1.73m2 Mildly to moderately decreased 45 - 59 mL/min/1.73m2 Moderately to severely decreased 30 - 44 mL/min/1.73m2 Severely decreased 15 - 29 mL/min/1.73m2 Kidney Failure < 15 mL/min/1.73m2 *Relative to young adult level Estimated glomerular filtration rate is determined by the 2020 CKD-EPI equation recommended by the National Kidney Foundation (A Unifying Approach to GFR Estimation: Recommendations of the NKF-ASK Task Force on Reassessing the Inclusion of Race in Diagnosing Kidney Disease, JASN 2020). The CKD-EPI equation should not be used for patients with unstable renal function and has not been validated in children and those over 70. Current interpretive data was last reviewed 2021. Blood 08/09/2024 6:04 PM CDT 08/09/2024 6:23 PM CDT Gaetano Chambers MD LAB BLOOD ORDERABLES Final Res ult [facility] ([place]) [address] Department of [employer] [place] [address] * Differential, auto (08/09/2024 6:04 PM CDT) Neutrophil abs 5.27 1.50 - 6.50 K/cumm Imm gran abs 0.03 0.00 - 0.10 K/cumm [facility] ([place]) Lymphocyte abs 2.03 0.80 - 3.30 K/cumm [facility] ([place]) Monocyte abs 0.61 0.20 - 0.80 K/cumm [facility] ([place]) Eosinophil abs 0.09 0.00 - 0.50 K/cumm [facility] ([place]) Basophil abs 0.04 0.00 - 0.10 K/cumm [facility] ([place]) Neutrophil pct 65.2 % [facility] ([place]) Comment: Interpretive Data Percent cell count reference ranges are not reported, since discordance with absolute values may lead to misinterpretation of CBC data. Current Interpretive Data was last revised on 2017. Imm gran pct 0.4 % [facility] ([place]) Comment: Interpretive Data Percent cell count reference ranges are not reported, since discordance with absolute values may lead to misinterpretation of CBC data. Current Interpretive Data was last revised on 2017. Lymphocyte pct 25.2 % [facility] ([place]) Comment: Interpretive Data Percent cell count reference ranges are not reported, since discordance with absolute values may lead to misinterpretation of CBC data. Current Interpretive Data was last revised on 2017. Monocyte pct 7.6 % [facility] ([place]) Comment: Interpretive Data Percent cell count reference ranges are not reported, since discordance with absolute values may lead to misinterpretation of CBC data. Current Interpretive Data was last revised on 2017. Eosinophil pct 1.1 % [facility] ([place]) Comment: Interpretive Data Percent cell count reference ranges are not reported, since discordance with absolute values may lead to misinterpretation of CBC data. Current Interpretive Data was last revised on 2017. Basophil pct 0.5 % [facility] ([place]) Comment: Interpretive Data Percent cell count reference ranges are not reported, since discordance with absolute values may lead to misinterpretation of CBC data. Current Interpretive Data was last revised on 2017. Blood 08/09/2024 6:04 PM CDT 08/09/2024 6:23 PM CDT us Gaetano Chambers MD LAB BLOOD ORDERABLES Final Res ult [facility] ([place]) [address] Department [place] [address] * CBC with auto differential (08/09/2024 6:04 PM CDT) [facility] WBC 8.07 3.80 - 9.90 K/cumm Hgb 14.2 13.0 - 17.5 g/dL [facility] ([place]) Hct 40.6 38.9 - 50.3 % [facility] ([place]) Plt 242 150 - 400 K/cumm [facility] ([place]) MPV 10.2 9.1 - 12.3 fL [facility] ([place]) RBC 4.69 4.30 - 5.80 M/cumm [facility] ([place]) MCV 86.6 81.3 - 96.4 fL [facility] ([place]) MCH 30.3 27.1 - 33.3 pg [facility] ([place]) MCHC 35.0 32.3 - 35.7 g/dL [facility] ([place]) RDW CV 13.0 11.1 - 14.9 % [facility] ([place]) RDW SD 40.7 35.7 - 48.1 fL [facility] ([place]) NRBC abs 0.00 0.00 - 0.01 K/cumm [facility] ([place]) Blood Venous blood specimen / Unknown 08/09/2024 6:04 PM CDT 08/09/2024 6:23 PM CDT Narrative [facility] ([place]) - 08/09/2024 6:28 PM CDT Potential Stroke Patient us Gaetano Chambers MD LAB BLOOD ORDERABLES Final Res ult [facility] ([place]) [address] Department [place] [address] * aPTT (08/09/2024 6:04 PM CDT) [facility] aPTT 29 28 - 38 sec [facility] ([place]) Comment: Interpretive Data Heparin therapeutic range: 66.0 - 100.0 seconds. Range based on correlation with therapeutic heparin activity range of 0.3 - 0.7 Units/mL. Current interpretive data was last revised on 2022. Blood Venous blood specimen / Unknown 08/09/2024 6:04 PM CDT 08/09/2024 6:23 PM CDT Narrative [facility] ([place]) - 08/09/2024 6:41 PM CDT Potential stroke patient. Gaetano Chambers MD LAB BLOOD ORDERABLES Final Res ult Performing Organization Address [facility] Co de Phone Number [facility] ([place]) 1 [facility] [employer] [place] [address] * (ABNORMAL) Protime-INR (08/09/2024 6:04 PM CDT) PT 9.0(L) 9.7 - 13.0 sec [facility] ([place]) INR 0.84(L) 0.90 - 1.20 [facility] ([place]) Comment: Interpretive data Oral anticoagulant therapeutic ranges: Venous thromboembolism prophylaxis or treatment: 2.0-3.0 CARDIOLOGY Standard range: 2.0-3.0 High-intensity range: 2.5-3.5 Refer to indication-specific guidelines for appropriate target ranges for prosthetic heart valve replacement. Current interpretive data was last revised on 2019. Blood 08/09/2024 6:04 PM CDT 08/09/2024 6:23 PM CDT Gaetano Chambers MD LAB BLOOD ORDERABLES Final Res ult Performing Organization Address [facility] Co de Phone Number [facility] ([place]) 1 [facility] [employer] [place] [address] * (ABNORMAL) Comprehensive metabolic panel (08/09/2024 6:04 PM CDT) Sodium 136 135 - 145 mmol/L Potassium, pl 4.2 3.3 - 4.9 mmol/L [facility] ([place]) Chloride 99 97 - 110 mmol/L [facility] ([place]) CO2 22 22 - 32 mmol/L [facility] ([place]) Anion gap 16(H) 2 - 15 mmol/L [facility] ([place]) BUN 24 6 - 25 mg/dL [facility] ([place]) Creatinine 1.43(H) 0.80 - 1.30 mg/dL [facility] ([place]) Glucose 282(H) 70 - 199 mg/dL [facility] ([place]) Comment: Interpretive Data Fasting glucose >/= 126 mg/dl is diagnostic for diabetes. Fasting is defined as no caloric intake for at least 8 hours. Fasting glucose between 100 mg/dl to 125 mg/dl is diagnostic of prediabetes. In a patient with classic symptoms of hyperglycemia or hyperglycemic crisis, a random glucose >/= 200 mg/dl is diagnostic for diabetes. In the absence of unequivocal hyperglycemia, results should be confirmed by repeat testing. The classification and Diagnosis of Diabetes Diabetes Care 2021; 46: S19-S40. Current interpretive data was last revised 2022. Calcium 9.3 8.5 - 10.3 mg/dL [facility] ([place]) Bilirubin, total <0.2 0.1 - 1.2 mg/dL [facility] ([place]) Protein, pl 7.1 6.5 - 8.5 g/dL [facility] ([place]) Albumin 3.8 3.5 - 5.0 g/dL [facility] ([place]) Alk phos 93 40 - 130 Units/L [facility] ([place]) ALT 19 7 - 55 Units/L [facility] ([place]) AST 15 10 - 50 Units/L [facility] ([place]) Comment:Slightly Hemolyzed S pecimen Blood Venous blood specimen / Unknown 08/09/2024 6:04 PM CDT 08/09/2024 6:23 PM CDT Narrative [facility] ([place]) - 08/09/2024 6:59 PM CDT Potential Stroke Patient us Gaetano Chambers MD LAB BLOOD ORDERABLES Final Res ult [facility] ([place]) [address] [place] [address] * (ABNORMAL) POCT glucose (08/09/2024 5:55 PM CDT) Pathologist [facility] Glucose, POC 294(H) 70 - 199 mg/dL Blood 08/09/2024 5:55 PM CDT 08/09/2024 5:55 PM CDT us Notinfile Unknown LAB POCT ORDERABLES - DEVICE F inal Result [facility] ([address] Department [place] [address] * eGFR (08/08/2024 12:15 PM CDT) [facility] eGFR 63 >=60 mL/min/1. 73 m2 Comment: Interpretive Data Reference Interval Normal >/= 90 mL/min/1.73m2 Mildly decreased* 60 - 89 mL/min/1.73m2 Mildly to moderately decreased 45 - 59 mL/min/1.73m2 Moderately to severely decreased 30 - 44 mL/min/1.73m2 Severely decreased 15 - 29 mL/min/1.73m2 Kidney Failure < 15 mL/min/1.73m2 *Relative to young adult level Estimated glomerular filtration rate is determined by the 2020 CKD-EPI equation recommended by the National Kidney Foundation (A Unifying Approach to GFR Estimation: Recommendations of the NKF-ASK Task Force on Reassessing the Inclusion of Race in Diagnosing Kidney Disease, JASN 2020). The CKD-EPI equation should not be used for patients with unstable renal function and has not been validated in children and those over 70. Current interpretive data was last reviewed 2021. Blood 08/08/2024 12:1 5 PM CDT 08/08/2024 9:39 PM CDT us Tolu Lieberman MD LAB BLOOD ORDERABLES Final Result [facility] [address] Department [place] [address] * Differential, auto (08/08/2024 12:15 PM CDT) Pathologist [facility] Neutrophil abs 3.76 1.50 - 6.50 K/cumm Imm gran abs 0.01 0.00 - 0.10 K/cumm [facility] Lymphocyte abs 1.09 0.80 - 3.30 K/cumm [facility] Monocyte abs 0.35 0.20 - 0.80 K/cumm [facility] Eosinophil abs 0.04 0.00 - 0.50 K/cumm [facility] Basophil abs 0.03 0.00 - 0.10 K/cumm [facility] Neutrophil pct 71.2 % [facility] Comment: Interpretive Data Percent cell count reference ranges are not reported, since discordance with absolute values may lead to misinterpretation of CBC data. Current Interpretive Data was last revised on 2017. Imm gran pct 0.2 % [facility] Comment: Interpretive Data Percent cell count reference ranges are not reported, since discordance with absolute values may lead to misinterpretation of CBC data. Current Interpretive Data was last revised on 2017. Lymphocyte pct 20.6 % [facility] Comment: Interpretive Data Percent cell count reference ranges are not reported, since discordance with absolute values may lead to misinterpretation of CBC data. Current Interpretive Data was last revised on 2017. Monocyte pct 6.6 % [facility] Comment: Interpretive Data Percent cell count reference ranges are not reported, since discordance with absolute values may lead to misinterpretation of CBC data. Current Interpretive Data was last revised on 2017. Eosinophil pct 0.8 % [facility] Comment: Interpretive Data Percent cell count reference ranges are not reported, since discordance with absolute values may lead to misinterpretation of CBC data. Current Interpretive Data was last revised on 2017. Basophil pct 0.6 % [facility] Comment: Interpretive Data Percent cell count reference ranges are not reported, since discordance with absolute values may lead to misinterpretation of CBC data. Current Interpretive Data was last revised on 2017. Blood 08/08/2024 12:1 5 PM CDT 08/08/2024 9:28 PM CDT us Tolu Lieberman MD LAB BLOOD ORDERABLES Final Result RONAL RICE [id number] [facility] [place] [address] * Thyroid Function [place] (08/08/2024 12:15 PM CDT) TSH 0.61 0.30 - 4.20 mcIUnit/mL Blood 08/08/2024 12:1 5 PM CDT 08/08/2024 9:29 PM CDT Tolu Lieberman MD LAB BLOOD ORDERABLES Edited Result - Final RONAL RICE [id number] [facility] [employer] [place] [address] * CBC with auto differential (08/08/2024 12:15 PM CDT) Pathologist [facility] WBC 5.28 3.80 - 9.90 K/cumm Hgb 14.4 13.0 - 17.5 g/dL [facility] Hct 44.0 38.9 - 50.3 % [facility] Plt 223 150 - 400 K/cumm [facility] MPV 10.8 9.1 - 12.3 fL [facility] RBC 4.95 4.30 - 5.80 M/cumm [facility] CH MCV 88.9 81.3 - 96.4 fL [facility] CH MCH 29.1 27.1 - 33.3 pg [facility] MCHC 32.7 32.3 - 35.7 g/dL [facility] RDW CV 13.2 11.1 - 14.9 % [facility] RDW SD 42.9 35.7 - 48.1 fL [facility] NRBC abs 0.00 0.00 - 0.01 K/cumm [facility] Blood 08/08/2024 12:1 5 PM CDT 08/08/2024 9:28 PM CDT Tolu Lieberman MD LAB BLOOD ORDERABLES Final Result RONAL RICE [id number] [facility] [employer] [place] [address] * (ABNORMAL) Cholesterol, LDL, direct (08/08/2024 12:15 PM CDT) LDL Cholesterol, Direct 153(H) <=129 mg/dL Comment: Interpretive Data Ages < or = 19 years Acceptable: <110 mg/dL Borderline high: 110-129 mg/dL High: >or= 130 mg/dL Ages > or = 20 years Optimal: <100 mg/dL Near optimal: 100-129 mg/dL Borderline high: 130-159 mg/dL High: >160 mg/dL Literature References: 1. Expert Panel on Integrated Guidelines for Cardiovascular Health and Risk Reduction in Children and Adolescents. Pediatrics 2011;128:S213 2. NCEP Expert Panel. Circulation 2004;110:227 Current Interpretive Data was last revised on 2017. Blood 08/08/2024 12:1 5 PM CDT 08/08/2024 9:39 PM CDT Narrative RON[facility] 08/08/2024 10:35 PM CDT Cholesterol, LDL, direct reflexed based on Elevated Triglyceride (>400) Tolu Lieberman MD LAB BLOOD ORDERABLES Final Result Performing Organization Address [facility] Co de Phone Number RONAL [address] [place] [address] * Lipase (08/08/2024 12:15 PM CDT) Pathologist [facility] Lipase 32 10 - 99 Units/L Blood 08/08/2024 12:1 5 PM CDT 08/08/2024 9:29 PM CDT Tolu Lieberman MD LAB BLOOD ORDERABLES Edited Result - Final Performing Organization Address City/[facility] Co de Phone Number RONAL [address] [address] [facility] [employer] [place] [address] * (ABNORMAL) Hemoglobin A1c (08/08/2024 12:15 PM CDT) Hgb A1C 11.0(H) 4.0 - 5.6 % Estimated Average Glucose 269 mg/dL RONAL RICE Comment: The ADA recommends reporting an estimated Average Glucose (eAG) with all Hemoglobin A1c results using the equation derived from a study of 507 normal and diabetic adults. Minority populations were underrepresented and children were not included. (Diabetes Care 31:9018-8369, 2008). The eAG is not equivalent to a fasting glucose. Blood 08/08/2024 12:1 5 PM CDT 08/08/2024 9:29 PM CDT us Tolu Lieberman MD LAB BLOOD ORDERABLES Final Result RONAL RICE [address] [facility] [place] [address] * (ABNORMAL) Lipid panel (08/08/2024 12:15 PM CDT) Cholesterol 265(H) 30 - 199 mg/dL Comment: Interpretive Data Ages < or = 19 years Acceptable: <170 mg/dL Borderline high: 170-199 mg/dL High: >or= 200 mg/dL Ages > or = 20 years Desirable: <200 mg/dL Borderline high: 200-239 mg/dL High: >or= 240 mg/dL Literature References: 1. Expert Panel on Integrated Guidelines for Cardiovascular Health and Risk Reduction in Children and Adolescents. Pediatrics 2011;128:S213 2. NCEP Expert Panel. Circulation 2004;110:227 Current Interpretive Data was last revised on 2017. Triglycerides 445(H) <=149 mg/dL RONAL RICE Comment: Interpretive Data Ages < or = 9 years Acceptable: <75 mg/dL Borderline high: 75-99 mg/dL High: >or= 100 mg/dL Ages 10 to 20 years Acceptable: <90 mg/dL Borderline high: 90-129 mg/dL High: >or= 130 mg/dL Ages > or = 20 years Desirable: <150 mg/dL Borderline high: 150-199 mg/dL High: 200-499 mg/dL Very high: >or= 499 mg/dL Literature References: 1. Expert Panel on Integrated Guidelines for Cardiovascular Health and Risk Reduction in Children and Adolescents. Pediatrics 2011;128:S213 2. NCEP Expert Panel. Circulation 2004;110:227 Current Interpretive Data was last revised on 2017. HDL 27(L) >=40 mg/dL RONAL RICE Comment: Interpretive Data Ages < or = 19 years Acceptable: >45 mg/dL Borderline low: 40-45 mg/dL Low: <40 mg/dL Ages > or = 20 years Desirable: >or= 60 mg/dL Low: <40 mg/dL Literature References: 1. Expert Panel on Integrated Guidelines for Cardiovascular Health and Risk Reduction in Children and Adolescents. Pediatrics 2011;128:S213 2. NCEP Expert Panel. Circulation 2004;110:227 Current Interpretive Data was last revised on 2017. LDL, calculated See Comment <=129 mg/dL RONAL RICE Comment: Unable to calculate due to elevated Triglycerides. Interpretive Data Ages < or = 19 years Acceptable: <110 mg/dL Borderline high: 110-129 mg/dL High: >or= 130 mg/dL Ages > or = 20 years Optimal: <100 mg/dL Near optimal: 100-129 mg/dL Borderline high: 130-159 mg/dL High: >160 mg/dL Calculated using the Roberto LDL-C estimating equation. This equation was implemented on 2023. Prior to this date LDL-C was estimated using the Friedewald equation. Literature References: 1. Expert Panel on Integrated Guidelines for Cardiovascular Health and Risk Reduction in Children and Adolescents. Pediatrics 2011;128:S213 2. NCEP Expert Panel. Circulation 2004;110:227 3. Roberto Davila al. BRIT Cardiol. 2019July 31;5(5):540-548. doi: 10.1001/[email or web address].2020.0013 Current Interpretive Data was last revised on 2023. Non-HDL Cholesterol 238 mg/dL RONAL RICE Comment: Interpretive Data Ages < or = 19 years Acceptable: <120 mg/dL Borderline high: 120-144 mg/dL High: >145 mg/dL Ages > or = 20 years When triglycerides are >200 mg/dL, Non-HDL cholesterol is a secondary target of therapy with treatment goals that are 30 mg/dL greater than the LDL cholesterol target. Literature References: 1. Expert Panel on Integrated Guidelines for Cardiovascular Health and Risk Reduction in Children and Adolescents. Pediatrics 2011;128:S213 2. NCEP Expert Panel. Circulation 2004;110:227 Current Interpretive Data was last revised on 2017. Chol/HDL ratio 10 [facility] Blood 08/08/2024 12:1 5 PM CDT 08/08/2024 9:29 PM CDT us Tolu Lieberman MD LAB BLOOD ORDERABLES Final Result CERNER [address] [facility] [place] [address] * (ABNORMAL) Comprehensive metabolic panel (08/08/2024 12:15 PM CDT) Sodium 133(L) 135 - 145 mmol/L Potassium, pl 4.0 3.3 - 4.9 mmol/L [facility] Chloride 96(L) 97 - 110 mmol/L [facility] CO2 22 22 - 32 mmol/L [facility] Anion gap 15 2 - 15 mmol/L [facility] BUN 23 6 - 25 mg/dL [facility] Creatinine 1.27 0.80 - 1.30 mg/dL [facility] Glucose 471(C) 70 - 199 mg/dL [facility] Comment: Critical Result called to and read back by Maame Yanez, DATE: 2024-08-08 22:14:27 BY: Monica Ni Interpretive Data Fasting glucose >/= 126 mg/dl is diagnostic for diabetes. Fasting is defined as no caloric intake for at least 8 hours. Fasting glucose between 100 mg/dl to 125 mg/dl is diagnostic of prediabetes. In a patient with classic symptoms of hyperglycemia or hyperglycemic crisis, a random glucose >/= 200 mg/dl is diagnostic for diabetes. In the absence of unequivocal hyperglycemia, results should be confirmed by repeat testing. The classification and Diagnosis of Diabetes Diabetes Care 2021; 46: S19-S40. Current interpretive data was last revised 2022. Calcium 9.2 8.5 - 10.3 mg/dL [facility] Bilirubin, total 0.3 0.1 - 1.2 mg/dL [facility] Protein, pl 6.9 6.5 - 8.5 g/dL [facility] Albumin 3.9 3.5 - 5.0 g/dL [facility] Alk phos 88 40 - 130 Units/L [facility] ALT 17 7 - 55 Units/L [facility] CH AST 25 10 - 50 Units/L [facility] Blood 08/08/2024 12:1 5 PM CDT 08/08/2024 9:29 PM CDT Tolu Lieberman MD LAB BLOOD ORDERABLES Final Result Performing Organization Address [facility] Phone Number [facility] [address] [place] [address] * (ABNORMAL) Albumin Creatinine Ratio, Urine (09/19/2023 8:24 PM CDT) Albumin Ur 761.3 mg/L Comment: Interpretive Data No reference range established. Current interpretive data was last revised 2018. Creatinine Ur 275.2 mg/dL [facility] Comment: Interpretive Data No reference range established. Current interpretive data was last revised 2018. Albumin Creatinine Ratio, Ur 277(H) 1 - 29 mg/g [facility] Urine 09/19/2023 8:24 PM CDT 09/19/2023 8:24 PM CDT Lily Ha NP LAB URINE ORDERABLES Final Re sult Performing Organization Address [facility] de Phone Number [facility] [address] [address] [place] [address] * DIABETES EYE EXAM (01/02/2022) Historical Provider HEALTH MAINTENANCE Final Result * PSA screen (04/21/2020 3:12 PM PRISON OFFICER) PSA-Total 0.54 <=3.90 ng/mL RONAL [facility] ([place]) Comment: Interpretive Data AGE SEX REFERENCE INTERVAL 0 minutes-150 years Female None 0 minutes-49 years Male None 50-59 years Male 0-3.90 60-69 years Male 0-5.40 70-79 years Male 0-6.20 80-150 years Male 0-6.20 Current interpretive data last revised 2018. Testing performed by: [facility], [address] [place] [address], [place]., [address] Blood specimen (specimen) 04/21/2020 3:12 PM PRISON OFFICER 04/22/2020 9:36 AM PRISON OFFICER us Tolu Lieberman MD LAB BLOOD ORDERABLES Final Result Performing Organization Address City/[facility]/ZIP Co de Phone Number RONAL NANCE ([place]) 1 [facility] [employer] [place] [address] * Occult blood, fecal non neoplasm screening (09/27/2016 5:39 PM CDT) Pathologist [facility] Occult blood, fecal Negative Negative [facility] ([place]) Collection date , feces [id number] [facility] ([place]) Collection time , feces [id number] [facility] ([place]) Stool 09/27/2016 5:39 PM CDT 09/27/2016 5:49 PM CDT us Dae oLpes MD LAB BODY FLUIDS AND S TOOLS ORDERABLES Final Result Performing Organization Address [facility] Co de Phone Number RONAL NANCE (BLUFFS) 1 [facility] [place] [employer] [place] [address] * COLONOSCOPY (10/28/2014) Pathologist [facility] Colonoscopy Abnormal us Lizett Phan MD HEALTH MAINTENANCE Final Result * Serum Hepatitis panel (09/07/2012 9:55 AM CDT) HBV core ab, IgM Negative Negative HISTORICAL RESULTS HCV ab Negative Negative HISTORICAL RESULTS HAV ab, IgM Negative Negative HISTORIC AL RESULTS HBV surface ag Negative Negative HISTO RICAL RESULTS Serum 09/07/2012 9:55 AM CDT us Samy Avalos MD LAB BLOOD ORDERABLES Final Res ult Performing Organization Address City/[facility]/ZIP Co de Phone Number HISTORICAL RESULTS from Last 3 Months or Most Recently Relevant to Health Maintenance Insurance [facility] MEDICARE ADVANTAGE [id number] [place], [place] [address]O [facility] Address: [address] [place] [address] MEDICARE [facility] MEDICARE ADVANTAGE [address] [place] [address] MEDICARE LOCAL [facility] IN [facility] MEDICARE ADVANTAGE Advance Directives For more information, please contact: [phone] * Full Code (Latest Code Status on File) Date Activated Date Inactivated Comments 09/15/2024 7:11 AM 09/15/2024 11:16 AM * Full Code Date Activated Date Inactivated Comments 09/15/2024 7:11 AM 09/15/2024 7:11 AM * Full Code Date Activated Date Inactivated Comments 06/29/2024 5:19 PM 07/01/2024 4:28 PM * Full Code Date Activated Date Inactivated Comments 05/06/2024 10:41 PM 05/09/2024 7:52 PM * Full Code Date Activated Date Inactivated Comments 04/13/2024 6:39 PM 04/14/2024 2:07 AM Care Teams Box Covering Machine Operator Relationship Specialty Start Date End Date Tolu Lieberman MD [address] [place] [id number] PCP - General Family Medicine 11/09/23 Deepak Merida MD Consulting Physician Cardiovascular Disease 08/29/17 Joshua Aguilera MD Consulting Physician Physical Medicine and Rehabilitation 08/12/18 Christopher Adan III, MD Surgeon Plastic Surgery 02/04/19 Srinivasa Farrar MD Consulting Physician Plastic Surgery 10/20/21 Jeffrey Izquierdo OD [address] [place] [address] Consulting Physician Optometry 10/20/21 Denton Gilman MD [address] [facility] [place] [address] Consulting Physician Neurology 05/09/24
--- OUTSIDE RECORDS SUMMARY | 2024-10-25 17:02 | XMS_ITS ---
Author Organization [facility] Address [address] [place] [address] Care Team Providers Care Cyber Security Analyst Name Role Phone Deepak Merida MD Unavailable [phone] Joshua Aguilera MD Unavailable [phone] Loco ORTEGA MD, John Matthew Unavailable + [phone] Srinivasa Farrar MD Unavailable + [phone] Jeffrey Izquierdo OD Unavailable [phone] Tolu Lieberman MD Primary Care Provider [phone] Denton Gilman MD Unavailable [phone] Active Problems Problem Noted Date Diagnosed Date [...] 06/11/2023 Assessment & Plan (05/19/2024 12:52 PM PAPER PRODUCTS MACHINE OPERATOR): Last A1c 05/07 12.8. Assessment & Plan (10/24/2023 12:39 PM [...] discontinued. Assessment & Plan (05/13/2024 10:41 AM PAPER PRODUCTS MACHINE OPERATOR): Had a stroke in March 2024 affecting [...] exertion. He is very active in the [employer] business without any limitations. No change in [...] daily Assessment & Plan (06/07/2020 10:36 PM PAPER PRODUCTS MACHINE OPERATOR): Continue home medications Cigarette nicotine dependence without complicati on 01/08/2020 Overview (01/27/2021): Down to half a pack a day. Assessment & Plan (05/13/2024 10:40 AM PAPER PRODUCTS MACHINE OPERATOR): We discussed the importance of smoking cessation [...] appear Assessment & Plan (06/07/2020 10:45 PM PAPER PRODUCTS MACHINE OPERATOR): Patient still smoking 1 pack per day but up to 2 packs per day for 30 years. Coronary artery disease invo lving coronary bypass graft of [place] [facility] 12/26/2019 Overview (11/07/2023): Status post ST segment elevation OR in April 2010 and again in August [...] 2021. Assessment & Plan (05/19/2024 12:51 PM PAPER PRODUCTS MACHINE OPERATOR): Managed by cardio. Continue aspirin, lipitor, plavix, [...] regurgitation. Assessment & Plan (05/13/2024 10:39 AM PAPER PRODUCTS MACHINE OPERATOR): Discussed CABG from 3 years ago. Has [...] here. Assessment & Plan (04/14/2021 2:59 PM PAPER PRODUCTS MACHINE OPERATOR): Cardiac catheterization in March 2021 led to [...] (Cardio) Assessment & Plan (06/07/2020 10:45 PM PAPER PRODUCTS MACHINE OPERATOR): Patient follows with Dr. Merida. Denies any [...] b.i.d.. Assessment & Plan (05/13/2024 10:39 AM PAPER PRODUCTS MACHINE OPERATOR): We discussed LDL cholesterol goal of less [...] discussed. Assessment & Plan (02/14/2024 1:15 PM PAPER PRODUCTS MACHINE OPERATOR): Increase Lantus to 32 units qhs Continue lispro at current Continuing metformin, Jardiance I want the fructosamine I ordered in September done, I have reordered it Assessment & Plan [...] weeks. Assessment & Plan (04/14/2021 2:59 PM PAPER PRODUCTS MACHINE OPERATOR): Discussed LDL cholesterol goal of less than [...] fasting lipid/liver now. PVD (peripheral vascular disease) (CMS/HCC) 12/02 Overview (12/26/2019): Likely present with no [...] Effient Assessment & Plan (04/25/2020 12:42 PM PAPER PRODUCTS MACHINE OPERATOR): Continuing Effient Assessment & Plan (01/08/2020 12:49 [...] 07/14/2015 Assessment & Plan (06/07/2020 10:44 PM PAPER PRODUCTS MACHINE OPERATOR): Patient had hemoglobin of 16.8 2 months [...] not have any recent stents. History of OR (myocardial infarction) 07/14/2015 Overview (10/23/2022): Note: h/o-- [...] intractable 10/14/2013 Overview (07/06/2016): COMN MIGRNE WO [facility] MGRN Assessment & Plan (10/20/2020 2:09 PM CDT): No change Assessment & Plan (06/07/2020 10:37 PM PAPER PRODUCTS MACHINE OPERATOR): Continue Topamax Benign hypertension 08/16/2013 Overview (07/05/2016): [...] regimen Assessment & Plan (06/07/2020 10:43 PM PAPER PRODUCTS MACHINE OPERATOR): Patient had systolic blood pressure of 97 on presentation. Holding amlodipine and metoprolol. 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 Past Treatment and Therapy Plans No past plan information found. Lifetime Dose Tracking * Chemical Lifetime Dose Automatic Entry Manual Entr y Fluoro Time 4.4 minutes 4.4 minutes 0 minutes Air kerma at the reference point (Ka,r) 118.3 mGy 1 18.3 mGy 0 mGy Resolved Problems Problem Noted Date Diagnosed Date [...] 06/07/2020 Assessment & Plan (06/07/2020 10:46 PM PAPER PRODUCTS MACHINE OPERATOR): History of pancreatitis and peptic ulcer disease. Awaiting CT results. Hemoglobin has decreased from 16.8-12.6. Patient is on aspirin and Effient which are held. Awaiting on guaiac. Will start patient on IV Protonix b.i.d.. NPO. Will consult GI. Assessment & Plan (06/07/2020 3:09 PM PAPER PRODUCTS MACHINE OPERATOR): Patient is uncomfortable, appears in some distress [...] Discussed with Dr. Tian, hospitalist at [facility], who accepted the patient. I apprised her briefly of his opioid history, but I believe he is adhering to the plan with his pain management doctor. Hypoglycemia due to insulin 06/07/2020 09/19/2023 Assessment & Plan (06/07/2020 10:42 PM PAPER PRODUCTS MACHINE OPERATOR): Patient gave himself 10 units of Novolin [...] (06/08/2020): Added automatically from request for surgery [id number] Costal chondritis 01/24/2020 09/19/2023 Elbow sprain, right, [...] treatment. Assessment & Plan (04/25/2018 4:17 PM PAPER PRODUCTS MACHINE OPERATOR): Biopsy site healing well, no complications or signs of infection reported or noted on exam Pathology discussed Cryotherapy recommended for both the right ear scapha and the left dorsal hand lesion, risks and benefits discussed Cryotherapy per procedure note After care instructions given both verbally and in written form Follow up PRN Assessment & Plan (04/10/2018 12:49 PM PAPER PRODUCTS MACHINE OPERATOR): Right ear scapha Biopsy today per procedure note Wound care administered and instructions given both verbally and in written form Assessment & Plan (04/03/2018 2:06 PM PAPER PRODUCTS MACHINE OPERATOR): Location: Right ear scapha 1.4 x 0.5 erythematous subcutaneous lesion Biopsy next week after off blood thinners for a couple of days, per Dr. Merida Actinic keratosis 04/03/2018 09/19/2023 Assessment & Plan (04/03/2018 2:07 PM PAPER PRODUCTS MACHINE OPERATOR): Location/s: bilateral forearms, hands Erythematous, scaly papules Imiquimod Rx Instructions given both verbally and in written form Will follow up 4 weeks after treatment completion Tobacco use 10/11/2016 09/19/2023 Migraine headache 07/14/2015 09/24/2023 Hyperlipidemia 07/14/2015 09/24/2023 Renal failure 07/14/2015 09/24/2023 Respiratory failure 07/14/2015 09/19/19 24 Pancreatitis 05/05/2014 08/29/2017 Overview (07/06/2016): Pancreatitis Type [...] regimen. Assessment & Plan (06/07/2020 10:42 PM PAPER PRODUCTS MACHINE OPERATOR): Currently hypoglycemic as patient gave himself 10 [...] protocol. Assessment & Plan (04/25/2020 12:42 PM PAPER PRODUCTS MACHINE OPERATOR): Awaiting a1c, PSA, lipid Currently, insulin doses [...]
--- OUTSIDE RECORDS SUMMARY | 2024-10-25 17:02 | XMS_ITS | Referral Summary ---
Author Organization [facility] Address [address] [place] [address] Care Team Providers Care Restaurant General Manager Name Role Phone Deepak Merida MD Unavailable [phone] Joshua Aguilera MD Unavailable [phone] Loco ORTEGA MD, Christopher Gordon Unavailable + [phone] Srinivasa Farrar MD Unavailable + [phone] Jeffrey Izquierdo OD Unavailable [phone] Tolu Lieberman MD Primary Care Provider [phone] Denton Gilman MD Unavailable [phone] Encounters Date Type Department Care Team Description 10/20/2024 9:14 PM CDT - 10/20/2024 10:26 PM CDT Emergency [facility] Emergency Department [address] [place] [address] Discharge Disposition: Left Against Medical Advice 10/14/2024 Telephone [facility] Primary Care at [address] [address] Ernestine Emanuel MA 10/10/2024 Telephone [facility] Diabetes Endocrine Care at [place] [address] [facility] [address] [place] [address] Balbir Leon DO 10/08/2024 ACO Quality [facility] Accountable Care Organization [address] [place] [address] Venus Briggs 10/08/2024 2:00 PM CDT Office Visit [facility] Diabetes Endocrine Care at [address] [place] [address] Balbir Leon, Type 2 diabetes mellitus with hyperglycemia, with long-term current use of insulin (HCC) (Primary Dx) 10/06/2024 2:30 PM CDT Office Visit [facility] Primary Care at [address] [phone] Tolu Lieberman MD Diabetic gastroparesis associated with type 2 diabetes mellitus (HCC) (Primary Dx); Foot fracture, right, sequela; At risk for diabetic foot ulcer 09/27/2024 1:58 PM CDT - 09/27/2024 11:59 PM CDT Hospital Encounter [facility] Emergency, Room R Discharge Disposition: Discharge to home or self care 09/27/2024 2:16 PM CDT - 09/27/2024 6:09 PM CDT Emergency [facility] Emergency Department [address] [place] [address] Kanu Beck MD Fall, initial encounter (Primary Dx); Closed nondisplaced fracture of distal phalanx of lesser toe, unspecified laterality, initial encounter; Cellulitis of foot Discharge Disposition: Discharge to home or self care 09/19/2024 8:45 AM CDT Office Visit [facility] [address] [place] [address] [address] [phone] Denton Gilman MD New onset seizure (HCC) (Primary Dx); Chronic migraine without aura without status migrainosus, not intractable; CVA, old, alterations of sensations 09/15/2024 Telephone [facility] Gastroenterology at [address] [phone] Lisa Ugalde 09/15/2024 7:00 AM CDT - 09/15/2024 7:30 AM CDT Surgery [facility] 1 [place] [address] Betty Kaminski MD Not Performed COLONOSCOPY 09/15/2024 6:42 AM CDT - 09/15/2024 7:16 AM CDT Hospital Encounter [facility] [address] [place] [address] Betty Kaminski MD Discharge Disposition: Discharge to home or self care 09/08/2024 9:21 PM CDT - 09/08/2024 10:53 PM CDT Emergency [facility] Emergency Department 1 [place] [address] Kaelyn Beck MD Hyperglycemia due to diabetes mellitus (HCC) (Primary Dx); Renal insufficiency Discharge Disposition: Left Against Medical Advice 09/05/2024 10:45 AM CDT Office Visit [facility] Primary Care at [address] [phone] Tolu Lieberman MD Migraine without aura and responsive to treatment (Primary Dx); Diabetic gastroparesis associated with type 2 diabetes mellitus (HCC); Type 2 diabetes mellitus with hyperglycemia, with long-term current use of insulin (HCC); Psychophysiological insomnia; Seizure disorder (HCC) 09/03/2024 Telephone [facility] Gastroenterology at [address] [place] [phone] Lisa Ugalde 09/02/2024 10:12 PM CDT - 09/03/2024 2:43 AM CDT Emergency [facility] Emergency Department 1 [place] [address] Kaelyn Beck MD Hyperglycemia due to diabetes mellitus (HCC) (Primary Dx) Discharge Disposition: Discharge to home or self care 08/28/2024 8:16 PM CDT - 08/29/2024 2:17 AM CDT Emergency [facility] Emergency Department 1 [place] [address] Jama Nichols MD Seizure-like activity (HCC) (Primary Dx) Discharge Disposition: Left Against Medical Advice 08/28/2024 7:56 PM CDT - 08/28/2024 11:59 PM CDT Hospital Encounter [facility] Emergency, Room R Discharge Disposition: Discharge to home or self care 08/25/2024 9:18 AM CDT - 08/25/2024 10:49 AM CDT Emergency [facility] Emergency Department 1 [place] [address] Luz Medina MD Low back pain, unspecified back pain laterality, unspecified chronicity, unspecified whether sciatica present (Primary Dx) Discharge Disposition: Left Against Medical Advice 08/12/2024 Results Follow-Up [facility] Primary Care at [address] [phone] Tolu Lieberman MD CBC with auto differential, Comprehensive metabolic panel, Lipase, Additional followed-up results: 6 08/09/2024 5:59 PM CDT - 08/09/2024 7:34 PM CDT Emergency [facility] Emergency Department [address] [place] [address] Gaetano Chambers MD Altered mental status, unspecified altered mental status type (Primary Dx) Discharge Disposition: Discharge to home or self care 08/09/2024 Telephone [facility] Primary Care at [address] [phone] Tolu Lieberman MD PA for Ubrelvy 100MG tablets 08/08/2024 Nurse Triage [facility] Primary Care at [address] [phone] Tolu Lieberman MD 08/08/2024 12:15 PM CDT - 08/08/2024 11:59 PM CDT Hospital Encounter [address] [address] Elevated LDL cholesterol level; Type 2 diabetes mellitus with hyperglycemia, with long-term current use of insulin (HCC); Diabetes mellitus with gastroparesis (HCC); Benign hypertension Discharge Disposition: Discharge to home or self care 08/08/2024 12:15 PM CDT Lab [facility] Outpatient Lab at [address] [phone] Diabetic gastroparesis associated with type 2 diabetes mellitus (HCC) (Primary Dx) 08/08/2024 11:30 AM CDT Office Visit [facility] Primary Care at [address] [phone] Tolu Lieberman MD Diabetic gastroparesis associated with type 2 diabetes mellitus (HCC) (Primary Dx); Migraine without aura and responsive to treatment from Last 3 Months Allergies Active Allergy Reactions Criticality Noted Date [...] twice daily Active flash glucose scanning reader ([employer] Jennifer 14 Day [place]) miscIndications:Typ e 2 diabetes mellitus with hyperglycemia, without long-term current use of insulin ([facility]) For home glucose monitoring 1 each 3 [...] with long-term current use of insulin (HCC) 1 EACH EVERY 14 (FOURTEEN) DAYS TO MONITOR BLOOD GLUCOSE LEVELS 7 kit 1 025 Active dicyclomine (BENTYL) 20 mg tablet Take 1 tablet (20 mg total) by mouth nightly Active topiramate (TOPAMAX) 50 mg tablet Take 1 tablet (50 mg total) by mouth daily Active topiramate (TOPAMAX) 100 mg tablet Take 1 tablet (100 mg total) by mouth nightly Active omega 4-fsp-our-fish oil 1,000 (120-180) mg capsule Take 1 [...] as needed for muscle spasms 30 tablet 025 Active ondansetron ODT (ZOFRAN-ODT) 4 mg disintegrating tabletIndications:D iabetic ketoacidosis without coma associated with type 2 diabetes mellitus (HCC),Diabetes mellitus with gastroparesis (HCC) Take 1 tablet (4 mg total) by mouth every 8 (eight) hours as needed for nausea or vomiting 20 tablet 2 025 Active metFORMIN XR (GLUCOPHAGE XR) 500 mg 24 hr tablet TAKE 1 TABLET BY MOUTH DAILY WITH BREAKFAST 90 tablet 1 025 Active ezetimibe (ZETIA) 10 mg tablet TAKE 1 TABLET BY MOUTH EVERY DAY AT NIGHT 90 tablet 1 025 Active Jardiance 25 mg tablet TAKE 1 TABLET (25 MG TOTAL) BY MOUTH DAILY. 30 tablet 3 Active insulin lispro (HumaLOG) 100 unit/mL pen for injection SCALE AT MEALS AND BEDTIME IF ELEVATED 70-139 = 0 UNITS 140-164 = 2 UNITS 165-189 = 4 UNITS 190-214 = 6 UNITS 215-239 = 8 UNITS,NOTIFY MD 240 OR GREATER = 10 UNITS,NOTIFY MD [...] under the skin daily 18 mL 3 025 Active insulin glargine 100 unit/mL vial for [...] 06/11/2023 Assessment & Plan (05/19/2024 12:52 PM SENIOR CARE ASSISTANT): Last A1c 05/07 12.8. Assessment & Plan [...] discontinued. Assessment & Plan (05/13/2024 10:41 AM SENIOR CARE ASSISTANT): Had a stroke in March 2024 affecting [...] daily Assessment & Plan (06/07/2020 10:36 PM SENIOR CARE ASSISTANT): Continue home medications Cigarette nicotine dependence without complicati on 01/08/2020 Overview (01/27/2021): Down to half a pack a day. Assessment & Plan (05/13/2024 10:40 AM SENIOR CARE ASSISTANT): We discussed the importance of smoking cessation [...] appear Assessment & Plan (06/07/2020 10:45 PM SENIOR CARE ASSISTANT): Patient still smoking 1 pack per day but up to 2 packs per day for 30 years. Coronary artery disease invo lving coronary bypass graft of [place] heart 12/26/2019 Overview (11/07/2023): Status post ST segment elevation SD in April 2010 and again in August 2010. Only occluded RCA was noted each time. Dr. Landa could not open the occluded RCA. Promus GREG stents to occluded OM on 10 April 2016 (RL). Normal Cardiolite stress test 16 February 2020. LVEF 64%. Status post three-vessel CABG on 15 March 2021 (Brady) with JOHNSON to LAD, left radial artery to right PDA and SVG to OM. Normal LVEF on echo 18 July 2021. Assessment & Plan (05/19/2024 12:51 PM SENIOR CARE ASSISTANT): Managed by cardio. Continue aspirin, lipitor, plavix, [...] regurgitation. Assessment & Plan (05/13/2024 10:39 AM SENIOR CARE ASSISTANT): Discussed CABG from 3 years ago. Has [...] here. Assessment & Plan (04/14/2021 2:59 PM SENIOR CARE ASSISTANT): Cardiac catheterization in March 2021 led to [...] (Cardio) Assessment & Plan (06/07/2020 10:45 PM SENIOR CARE ASSISTANT): Patient follows with Dr. Merida. Denies any [...] b.i.d.. Assessment & Plan (05/13/2024 10:39 AM SENIOR CARE ASSISTANT): We discussed LDL cholesterol goal of less [...] discussed. Assessment & Plan (02/14/2024 1:15 PM SENIOR CARE ASSISTANT): Increase Lantus to 32 units qhs Continue [...] weeks. Assessment & Plan (04/14/2021 2:59 PM SENIOR CARE ASSISTANT): Discussed LDL cholesterol goal of less than [...] Effient Assessment & Plan (04/25/2020 12:42 PM SENIOR CARE ASSISTANT): Continuing Effient Assessment & Plan (01/08/2020 12:49 [...] 07/14/2015 Assessment & Plan (06/07/2020 10:44 PM SENIOR CARE ASSISTANT): Patient had hemoglobin of 16.8 2 months [...] not have any recent stents. History of SD (myocardial infarction) 07/14/2015 Overview (10/23/2022): Note: h/o-- [...] intractable 10/14/2013 Overview (07/06/2016): COMN MIGRNE WO [facility] Assessment & Plan (10/20/2020 2:09 PM CDT): No change Assessment & Plan (06/07/2020 10:37 PM SENIOR CARE ASSISTANT): Continue Topamax Benign hypertension 08/16/2013 Overview (07/05/2016): [...] regimen Assessment & Plan (06/07/2020 10:43 PM SENIOR CARE ASSISTANT): Patient had systolic blood pressure of 97 on presentation. Holding amlodipine and metoprolol. Assessment & Plan (04/25/2020 12:41 PM SENIOR CARE ASSISTANT): Blood Pressure Follow-up: Lifestyle modifications education provided [...] 06/07/2020 Assessment & Plan (06/07/2020 10:46 PM SENIOR CARE ASSISTANT): History of pancreatitis and peptic ulcer disease. Awaiting CT results. Hemoglobin has decreased from 16.8-12.6. Patient is on aspirin and Effient which are held. Awaiting on guaiac. Will start patient on IV Protonix b.i.d.. NPO. Will consult GI. Assessment & Plan (06/07/2020 3:09 PM SENIOR CARE ASSISTANT): Patient is uncomfortable, appears in some distress [...] 2013. Discussed with Dr. Tian, hospitalist at [facility], who accepted the patient. I apprised her briefly of his opioid history, but I believe he is adhering to the plan with his pain management doctor. Hypoglycemia due to insulin 06/07/2020 09/19/2023 Assessment & Plan (06/07/2020 10:42 PM SENIOR CARE ASSISTANT): Patient gave himself 10 units of Novolin [...] (06/08/2020): Added automatically from request for surgery [id number] Costal chondritis 01/24/2020 09/19/2023 Elbow sprain, right, [...] treatment. Assessment & Plan (04/25/2018 4:17 PM SENIOR CARE ASSISTANT): Biopsy site healing well, no complications or signs of infection reported or noted on exam Pathology discussed Cryotherapy recommended for both the right ear scapha and the left dorsal hand lesion, risks and benefits discussed Cryotherapy per procedure note After care instructions given both verbally and in written form Follow up PRN Assessment & Plan (04/10/2018 12:49 PM SENIOR CARE ASSISTANT): Right ear scapha Biopsy today per procedure note Wound care administered and instructions given both verbally and in written form Assessment & Plan (04/03/2018 2:06 PM SENIOR CARE ASSISTANT): Location: Right ear scapha 1.4 x 0.5 erythematous subcutaneous lesion Biopsy next week after off blood thinners for a couple of days, per Dr. Merida Actinic keratosis 04/03/2018 09/19/2023 Assessment & Plan (04/03/2018 2:07 PM SENIOR CARE ASSISTANT): Location/s: bilateral forearms, hands Erythematous, scaly papules [...] regimen. Assessment & Plan (06/07/2020 10:42 PM SENIOR CARE ASSISTANT): Currently hypoglycemic as patient gave himself 10 [...] protocol. Assessment & Plan (04/25/2020 12:42 PM SENIOR CARE ASSISTANT): Awaiting a1c, PSA, lipid Currently, insulin doses [...] 04/27/2011 09/24/2023 Disorder of liver 04/27/2011 09/24/2023 Immunizations Immunization Administration Dates Next Due Hep B Vaccine 11/17/1998,06/16/1998,05/12/1998 Influenza, Quadrivalent, Spl it, Preservative Free, Intramuscular 01/28/2018,12/20/2016,01/15/2014 01/28/2019 Influenza, Unspecified 02/06/2024(Deferr ed: Patient Refused),04/02/2023(Deferred: Patient Refused),11/30/2022(Deferred: Patient Refused),04/02/2022(Deferred: Patient Refused),05/24/2021(Deferred: Patient Refused),04/02/2021(Deferred: Patient Refused),01/14/2020(Deferred: Patient Refused),01/01/2020,02/04/2019(Deferr ed: Patient Refused),12/31/2018 Meningococcal Polysaccharide (Menomune) 01/05/2011 Pfizer SARS-CoV-2 Monovalent Vaccination (12+ Yrs) PURPLE 06/06/2020,05/16/2020 Pneumococcal Polysaccharide PPV23 02/01/2012 Tdap 06/07/2019 Social History Tobacco Use Types Packs/Day Years Used Date Smoking Tobacco: Every Day Cigarettes 1 45.6 Started: 1979 Passive Smoke Exposure: Current Smokeless Tobacco: Never Tobacco Cessation:Ready to Q uit: Not Asked; Counseling Given: Not Answered Alcohol Use Standard Drinks/Week Comments Yes 0 (1 standard drink = 0.6 oz pur e alcohol) once a year ( socially) [facility] Utilities Answer Date Recorded In the past 12 months has e [employer], gas, oil, or water [employer] threatened to shut off services in your [...] declined 06/30/2024 How often do you attend oriental orthodox or taoist serv ices? Patient declined 06/30/2024 Do you belong to any clubs o r organizations such as oriental orthodox groups, unions, fraternal or athletic groups, or [...] staff should administer the PHQ-9) 0 09/05/2024 [facility] of Occupat ional Health - Occupational Stress [...] place to sleep or slept in a detention (including now)? No 10/19/2020 PHQ-9 Answer Date Recorded PHQ-9 Total Score 10 12/14/2023 Housing Stability Vital Sign Answer Neel e Recorded In the last 12 months, was t here a time when you were not able to pay the mortgage or rent on time? Patient declined 07/01/19 25 In the past 12 months, how m any times have you moved where you were living? 0 06/30/2024 At any time in the past 12 m [facility], were you homeless or living in a detention (including now)? Patient declined 06/30/2024 Personal Safety [...] on file Legal Sex Male 1:49 PM SENIOR CARE ASSISTANT Gender Identity Not on file Sexual Orientation [...] 10/08/2024 2:07 PM CDT Plan of Treatment Not on file Medical Devices Implanted Type Area Java Consultant Device Identifier Shelf Expiration Date Model / Serial / Lot [employer] Enroute Uber Flex 8mm .065in 40mm 57cm Delivery System Angle Tip Sr-0840-Cs - [id number] Implanted:Qty: 1 on 11/15/2023 by Lakhwinder Saavedra MD at [facility] Stent Left: Carotid [employer] [id number] 10/30/2025 SR-0840-C S / / [id number] [employer] Enroute Uber Flex 8mm .065in 40mm 57cm Delivery System Angle Tip Sr-0840-Cs - [id number] Implanted:Qty: 1 on 12/31/2023 by Lakhwinder Saavedra MD at [facility] Stent Right: Carotid [employer] [id number] 10/30/2025 SR-0840-C S / / [id number] [employer] System Stent Peripheral Transcarotid [employer] Enroute 8x30mm Nitinol Sr-0830-Cs - [id number] Implanted:Qty: 1 on 12/31/2023 by Lakhwinder Saavedra MD at [facility] Stent Right: Carotid [employer] [id number] 11/30/2025 SR-0830-C S / / [id number] [employer]ig [employer] [id number] Angio-Seal Evolution 6fr .035in Guidewire Bypass Tube Suture - [id number] Implanted:Qty: 1 on 03/08/2021 by Deepak Merida MD at [facility] [employer] 08/30/2021 [id number] / / [id number] Procedures Procedure Name Priority Date/Time Associated Diagnosis [...] with long-term current use of insulin (HCC) HM DIABETES EYE EXAM Routine 01/02/2022 PSA SCREEN Routine 04/21/2020 3:12 PM SENIOR CARE ASSISTANT Screening for malignant neoplasm of prostate OCCULT BLOOD, FECAL (FIT) STAT 09/27/2016 5:39 PM CDT HM COLONOSCOPY Routine 10/28/2014 SERUM HEPATITIS PANEL Routine [...] Vidya Corral M.D. AT: AT Report ID: [id number] Reading Location: [id number] Procedure Note Vidya Corral MD - 10/20/2024 [...] Vidya Corral M.D. AT: AT Report ID: [id number] Reading Location: [id number] Dae Lomeli MD IMG XR PROCEDURES Final Resu lt * (ABNORMAL) POCT glucose (09/27/2024 4:43 PM CDT) Pathologist [facility] Glucose, POC 324(H) 70 - 199 mg/dL Blood 09/27/2024 4:43 PM CDT 09/27/2024 4:43 PM CDT Kanu Beck MD LAB POCT ORDERABLES - DEVICE Final Result [facility] [place]) 2 [facility] [place] [facility] Department of Laboratories [place], [place] [id number] * eGFR (09/27/2024 3:03 PM CDT) eGFR [...] MD LAB BLOOD ORDERABLES Final Re sult DENISEAL[facility]A [facility] ([place]) 1 [facility] [place] [facility] Department [place] [address] * Differential, auto (09/27/2024 3:03 PM CDT) [...] 3:03 PM CDT 09/27/2024 3:05 PM CDT us Kanu Beck MD LAB BLOOD ORDERABLES Final Re sult [facility] ([place]) 1 [facility] [place] [facility] Department [place] [address] * CBC with auto differential (09/27/2024 3:03 [...] RDW CV 12.3 11.1 - 14.9 % [facility] ([place]) RDW SD 37.4 35.7 - 48.1 fL [facility] ([place]) NRBC abs 0.00 0.00 - 0.01 K/cumm [facility] ([place]) Blood 09/27/2024 3:03 PM CDT 09/27/2024 3:05 PM CDT us Kanu Beck MD LAB BLOOD ORDERABLES Final Re sult [facility] ([place]) 1 [facility] [place] [facility] Department [place] [address] * (ABNORMAL) Comprehensive metabolic panel (09/27/2024 3:03 PM CDT) Sodium 132(L) 135 - 145 mmol/L Potassium, pl 3.9 3.3 - 4.9 mmol/L [facility] ([place]) Chloride 100 97 - 110 mmol/L [facility] ([place]) CO2 18(L) 22 - 32 mmol/L [facility] ([place]) Anion gap 14 2 - 15 mmol/L [facility] ([place]) BUN 30(H) 6 - 25 mg/dL [facility] ([place]) Creatinine 1.33(H) 0.80 - 1.30 mg/dL [facility] ([place]) Glucose 482(C) 70 - 199 mg/dL [facility] ([place]) Comment: Critical Result called by [email or web address] at 2024-09-27 15:33:08. Result Read Back by [...] ORDERABLES Final Re sult Performing Organization Address [facility]/ZIP Co de Phone Number [facility]AL [facility] ([place]) 1 [facility] [place] [facility] Department [place] [address] * (ABNORMAL) POCT glucose (09/27/2024 3:00 PM CDT) [facility] Glucose, POC 467(C) 70 - 199 mg/dL Comment:Glu2: Blood 09/27/2024 3:00 PM CDT 09/27/2024 3:00 PM CDT us Notinfile Unknown LAB POCT ORDERABLES - DEVICE F inal Result [facility] ([place]) 1 [facility] [place] [facility] Department [place] [address] * XR Foot Right 3 or More Views (09/27/2024 2:37 PM CDT) Anatomical Region Laterality Modality Lower Extremities, Foot Right Computed Radiography 09/27/2024 2:53 PM CDT Narrative 09/27/2024 2:56 PM CDT EXAM DESCRIPTION: XR FOOT RIGHT 3 OR MORE VIEWS REASON FOR STUDY: accidental fall Pt arrives by [facility]. Pt fell on Sunday and [...] Javan Gamble M.D. NS: NS Report ID: [id number] Reading Location: [id number] Procedure Note Javan Gamble MD - 09/27/2024 EXAM DESCRIPTION: XR FOOT RIGHT 3 OR MORE VIEWS REASON FOR STUDY: accidental fall Pt arrives by [facility]. Pt fell on Sunday and [...] Javan Gamble M.D. NS: NS Report ID: [id number] Reading Location: [id number] us Kanu Beck MD IMG XR PROCEDURES [...] Jacky Pearl M.D. KT: SHWETHA Report ID: [id number] Reading Location: [id number] Procedure Note Jacky Pearl MD - 09/08/2024 [...] Jacky Pearl M.D. KT: KT Report ID: [id number] Reading Location: [place] [address] Kaelyn Beck MD IMG CT PROCEDURES Final [...] of Race in Diagnosing Kidney Disease, JASN 202). The CKD-EPI equation should not be used for patients with unstable renal function and has not been validated in children and those over 70. Current interpretive data was last reviewed 2021. Blood 09/08/2024 9:41 PM CDT 09/08/2024 9:46 PM CDT us Kaelyn Beck MD LAB BLOOD ORDERABLES Final Resul t [facility] ([place]) 1 [facility] [place] [facility] Department [place] [address] * Differential, auto (09/08/2024 9:41 PM CDT) Neutrophil abs 4.90 1.50 - 6.50 K/cumm Imm gran abs 0.02 0.00 - 0.10 K/cumm [facility] ([place]) Lymphocyte abs 1.70 0.80 - 3.30 K/cumm [facility] ([place]) Monocyte abs 0.58 0.20 - 0.80 K/cumm [facility] ([place]) Eosinophil abs 0.07 0.00 - 0.50 K/cumm [facility] ([place]) Basophil abs 0.03 0.00 - 0.10 K/cumm [facility] ([place]) Neutrophil pct 67.1 % [facility] ([place]) Comment: Interpretive Data Percent cell count reference ranges are not reported, since discordance with absolute values may lead to misinterpretation of CBC data. Current Interpretive Data was last revised on 2017. Imm gran pct 0.3 % [facility] ([place]) Comment: Interpretive Data Percent cell count reference ranges are not reported, since discordance with absolute values may lead to misinterpretation of CBC data. Current Interpretive Data was last revised on 2017. Lymphocyte pct 23.3 % [facility] ([place]) Comment: Interpretive Data Percent cell count reference ranges are not reported, since discordance with absolute values may lead to misinterpretation of CBC data. Current Interpretive Data was last revised on 2017. Monocyte pct 7.9 % [facility] ([place]) Comment: Interpretive Data Percent cell count reference ranges are not reported, since discordance with absolute values may lead to misinterpretation of CBC data. Current Interpretive Data was last revised on 2017. Eosinophil pct 1.0 % [facility] ([place]) Comment: Interpretive Data Percent cell count reference [...] Resul t [facility] ([place]) 1 [facility] [place] [address] * CBC with auto differential (09/08/2024 9:41 PM CDT) WBC 7.30 3.80 - 9.90 K/cumm Hgb 14.2 13.0 - 17.5 g/dL [facility] ([place]) Hct 41.4 38.9 - 50.3 % [facility] ([place]) Plt 240 150 - 400 K/cumm [facility] ([place]) MPV 9.6 9.1 - 12.3 fL [facility] ([place]) RBC 4.83 4.30 - 5.80 M/cumm [facility] ([place]) MCV 85.7 81.3 - 96.4 fL [facility] ([place]) MCH 29.4 27.1 - 33.3 pg [facility] ([place]) MCHC 34.3 32.3 - 35.7 g/dL [facility] ([place]) RDW CV 12.6 11.1 - 14.9 % [facility] ([place]) RDW SD 39.0 35.7 - 48.1 fL [facility] ([place]) NRBC abs 0.00 0.00 - 0.01 K/cumm [facility] ([place]) Blood 09/08/2024 9:41 PM CDT 09/08/2024 9:46 PM CDT us Kaelyn Beck MD LAB BLOOD ORDERABLES Final Resul t Performing Organization Address City/[facility]/ZIP Co de Phone Number RONAL NANCE ([place]) 1 [facility] [place] [address] * Ethanol (09/08/2024 9:41 PM CDT) Ethanol <10 <=10 mg/dL Comment: Interpretive Data Legal limit of intoxication > or = 80 mg/dL Levels > or = 400 mg/dL are potentially TOXIC. Current interpretive data was last revised on 2018. Blood 09/08/2024 9:41 PM CDT 09/08/2024 9:51 PM CDT Kaelyn Beck MD LAB BLOOD ORDERABLES Final Resul t Performing Organization Address [facility] Co de Phone Number RONAL NANCE ([place]) 1 [facility] [place] [address] * (ABNORMAL) Comprehensive metabolic panel (09/08/2024 9:41 PM CDT) Sodium 137 135 - 145 mmol/L Potassium, pl 4.4 3.3 - 4.9 mmol/L [facility] ([place]) Chloride 103 97 - 110 mmol/L [facility] ([place]) CO2 20(L) 22 - 32 mmol/L [facility] ([place]) Anion gap 14 2 - 15 mmol/L [facility] ([place]) BUN 24 6 - 25 mg/dL [facility] ([place]) Creatinine 1.33(H) 0.80 - 1.30 mg/dL [facility] ([place]) Glucose 225(H) 70 - 199 mg/dL [facility] ([place]) Comment: Interpretive Data Fasting glucose >/= 126 [...] classification and Diagnosis of Diabetes Diabetes Care 2022; 46: S19-S40. Current interpretive data was last revised 2022. Calcium 8.6 8.5 - 10.3 mg/dL [facility] ([place]) Bilirubin, total <0.2 0.1 - 1.2 mg/dL [facility] ([place]) Protein, pl 6.9 6.5 - 8.5 g/dL [facility] ([place]) Albumin 3.9 3.5 - 5.0 g/dL [facility] ([place]) Alk phos 110 40 - 130 Units/L [facility] ([place]) ALT 12 7 - 55 Units/L [facility] ([place]) AST 13 10 - 50 Units/L [facility] Comment: Hemolysis present. Results may be affected. Slightly Hemolyzed Specimen Blood 09/08/2024 9:41 PM CDT 09/08/2024 9:46 PM CDT us Kaelyn Beck MD LAB BLOOD ORDERABLES Final Resul t Performing Organization Address City/[facility]/ZIP Co de Phone Number [facility]AL NANCE ([place]) 1 [facility] [place] [address] * POCT glucose (09/08/2024 8:26 PM CDT) Glucose, POC 193 70 - 199 mg/dL Blood 09/08/2024 8:26 PM CDT 09/08/2024 8:26 PM CDT us Notinfile Unknown LAB POCT ORDERABLES - DEVICE F inal Result Performing Organization Address City/[facility] Co de Phone Number [facility] ([place] 1 [facility] [place] [address] * (ABNORMAL) Troponin T high-sensitivity 4-hour (09/03/2024 2:25 AM CDT) Trop T hs 49(H) <=22 ng/L Comment: Interpretive Data For further hscTnT resources including the diagnostic algorithm and an aid in interpretation, copy and paste this link: https://nrl.testcatalog.org/show/hsTrop Current Interpretive Data last revised 2020. Trop T hs delta 3 ng/L [facility] ([place]) Trop T hs interp Insignificant [facility] ([place]) Blood 09/03/2024 2:25 AM CDT 09/03/2024 2:28 AM CDT Kaelyn Beck MD LAB BLOOD ORDERABLES Final Resul t Performing Organization Address [facility] Co de Phone Number R[facility]AL NANCE ([place]) 1 [facility] [place] [address] * (ABNORMAL) POCT glucose (09/03/2024 2:23 AM CDT) Glucose, POC 239(H) 70 - 199 mg/dL Blood 09/03/2024 2:23 AM CDT 09/03/2024 2:23 AM CDT Kaelyn Beck MD LAB POCT ORDERABLES - DEVICE Fin al Result Performing Organization Address [facility] de Phone Number RONAL NANCE ([place]) 1 [facility] [place] [address] * (ABNORMAL) POCT glucose (09/03/2024 1:34 AM CDT) Glucose, POC 312(H) 70 - 199 mg/dL Blood 09/03/2024 1:34 AM CDT 09/03/2024 1:34 AM CDT Kaelyn Beck MD LAB POCT ORDERABLES - DEVICE Fin al Result Performing Organization Address [facility] Co de Phone Number RONAL NANCE ([place]) 1 [facility] [place] [address] * (ABNORMAL) Urinalysis reflex to microscopic and culture Urine (09/03/2024 1:27 AM CDT) Color, ur Yellow Yellow Clarity, ur Clear Clear RONAL Bruno ([place]) Specific gravity, ur 1.033(H) 1.003 - 1.030 [facility] ([place]) pH, urine 5.5 [facility] ([place]) Comment: Interpretive Data U rine pH is affected by diet, medications, systemic acid-base disturbances, and renal tubular function. pH may affect urinary stone formation. For example, urine pH below 6.0 may help reduce the tendency for calcium phosphate stones and pH greater than 6.0 may reduce the tendency for uric acid stone formation. Source: [facility] Current Interpretive Data was last revised on 2017 Protein, ur ql 2+(A) Negative [facility] ([place]) Glucose, ur ql 4+(A) Negative [facility] ([place]) Ketones, ur Negative Negative [facility] ([place]) Bilirubin, ur Negative Negative [facility] ([place]) Blood, ur Negative Negative [facility] ([place]) Urobilinogen, ur <2.0 <2.0 mg/dL [facility] ([place]) Nitrite, ur Negative Negative [facility] A ([place]) Leukocyte esterase, ur Negative Negative [facility] ([place]) UA reflex comment Reflex to microscopic UA will be performed. [facility] ([place]) Urine 09/03/2024 1:27 AM CDT 09/03/2024 1:30 AM CDT us Kaelyn Beck MD LAB MICROBIOLOGY - GENERAL ORDER YANI Final Result [facility] ([place]) 1 [facility] Department [place] [address] * (ABNORMAL) Urinalysis, microscopic only (09/03/2024 1:27 AM CDT) WBC, ur 0-5 0 - 5 /HPF RBC, ur 0-2 0 - 2 /HPF [facility] ([place]) Bacteria, ur Trace(A) [facility] ([place]) Mucous, ur Present(A) [facility] A ([place]) Hyaline casts, ur 1-5 0 - 10 /LPF [facility] ([place]) Culture Reflex Comment Reflex conditions for urine culture (WBC >10) not met. [facility] ([place]) Urine 09/03/2024 1:27 AM CDT 09/03/2024 1:30 AM CDT us Kaelyn Beck MD LAB URINE ORDERABLES Final Resul t Performing Organization Address [facility] Co de Phone Number R[facility]AL NANCE ([place]) 1 [facility] [place] [address] * (ABNORMAL) Troponin T high-sensitivity 2-hour (09/03/2024 12:44 AM CDT) Trop T hs 46(H) <=22 ng/L Comment: Interpretive Data For further hscTnT resources including the diagnostic algorithm and an aid in interpretation, copy and paste this link: https://nrl.testcatalog.org/show/hsTrop Current Interpretive Data last revised 2020. Trop T hs delta 0 ng/L [facility] ([place]) Trop T hs interp Insignificant [facility] ([place]) Blood 09/03/2024 12:4 4 AM CDT 09/03/2024 12:46 AM CDT us Kaelyn Beck MD LAB BLOOD ORDERABLES Final Resul t Performing Organization Address [facility] de Phone Number [facility] ([place]) 1 [facility] [place] [address] * (ABNORMAL) POCT glucose (09/03/2024 12:39 AM CDT) Glucose, POC 403(H) 70 - 199 mg/dL Blood 09/03/2024 12:3 9 AM CDT 09/03/2024 12:39 AM CDT us Kaelyn Beck MD LAB POCT ORDERABLES - DEVICE Fin al Result Performing Organization Address [facility] Co de Phone Number [facility] N[facility] ([place]) 1 [facility] [place] [address] * (ABNORMAL) Blood gas, venous (09/02/2024 11:39 PM CDT) pH, Venous 7.35 7.32 - 7.43 PCO2, Venous 36(L) 40 - 50 mmHg [facility] ([place]) PO2, Venous 74 mmHg [facility] ([place]) HCO3 Venous, Calculated 20 20 - 30 mmol/L [facility] ([place]) BE, venous -5 mmol/L [facility] ([place]) Comment: Interpretive Data No Reference Range Established Current Interpretive Data was last revised on 2017. Blood 09/02/2024 11:3 9 PM CDT 09/02/2024 11:41 PM CDT us Marjan FERRARI LAB BLOOD ORDERABLES Jordana l Result Performing Organization Address [facility] Co de Phone Number [facility] ([place]) 1 [facility] Department [place] [address] * ECG 12 lead (09/02/2024 10:06 PM CDT) 09/02/2024 10:0 6 PM CDT Narrative [facility] - 09/03/2024 7:34 AM CDT Vent Rate: 81 bpm RR Interval: 732 msec TX Interval: 164 msec QRS Duration: 161 msec QT Interval: 446 msec QTC Interval: 484 msec P-R-T [place]: 64 - 81 - 67 degrees IMPRESSION: SINUS RHYTHM POSSIBLE LEFT ATRIAL ENLARGEMENT [-0.1mV P WAVE IN V1/V2] RIGHT BUNDLE BRANCH BLOCK [120+ ms QRS DURATION, UPRIGHT V1, 40+ ms S IN I/aVL/V4/V5/V6] ABNORMAL ECG Compared to prior EKG, right bundle branch block is new Electronically Signed By: Kendrick Galindo MD us Kaelyn Beck MD ECG ORDERABLES Final Result Performing Organization Address [facility]/ZIP Co de Phone Number [facility] Seratis [facility] * (ABNORMAL) Troponin T high-sensitivity series (baseline, 2hr, 4hr, 6hr) (09/02/2024 10:02 PM CDT) Trop T hs 46(H) <=22 ng/L Comment: Interpretive Data For further hscTnT resources including the diagnostic algorithm and an aid in interpretation, copy and paste this link: https://nrl.testcatalog.org/show/hsTrop Current Interpretive Data last revised 2020. Blood 09/02/2024 10:0 2 PM CDT 09/02/2024 11:12 PM CDT us Kaelyn Beck MD LAB BLOOD ORDERABLES Final Resul t Performing Organization Address City/[facility] Co de Phone Number RONAL NANCE [place] 1 [facility] Department [place] [address] * eGFR (09/02/2024 10:02 PM CDT) eGFR [...] Resul t RONAL NANCE ([place]) 1 [facility] [place] [facility] Department [place] [address] * Differential, auto (09/02/2024 10:02 PM CDT) [...] Neutrophil pct 68.0 % [facility] ([place]) Comment: Interpretive Data Percent cell count reference [...] ORDERABLES Final Resul t Performing Organization Address City/[facility] Co de Phone Number [facility] ([place]) 1 [facility] [place] [facility] [address] * (ABNORMAL) CBC with auto differential (09/02/2024 [...] ORDERABLES Final Resul t Performing Organization Address City/[facility]/ZIP Co de Phone Number [facility] ([place]) [address] Department [place] [address] * (ABNORMAL) Comprehensive metabolic panel (09/02/2024 10:02 [...] ([place]) Comment: Critical Result called by [email or web address] at 2024-09-02 23:45:26. Result Read Back by [...] ORDERABLES Final Resul t Performing Organization Address [facility] Co de Phone Number [facility]AL NANCE ([place]) 1 [facility] [place] [address] * (ABNORMAL) Sepsis Lactate w/ Reflex (08/29/2024 1:09 AM CDT) Sepsis Lactate 2.5(H) 0.7 - 2.0 mmol/L Blood 08/29/2024 1:09 AM CDT 08/29/2024 1:13 AM CDT us Jama Nichols MD LAB BLOOD ORDERABLES Final Re sult Performing Organization Address [facility] Co de Phone Number [facility] ([place]) 1 [facility] [place] [address] * (ABNORMAL) POCT glucose (08/29/2024 1:07 AM CDT) Glucose, POC 453(C) 70 - 199 mg/dL Comment:Glu2: RN/ Notified Blood 08/29/2024 1:07 AM CDT 08/29/2024 1:07 AM CDT Jama Nichols MD LAB POCT ORDERABLES - DEVICE Final Result Performing Organization Address [facility] Co de Phone Number [facility] NANCE ([place]) 1 [facility] [place] [address] * XR Chest 1 Vw Portable (08/29/2024 [...] pupils, C/o chest pain tonight Hx of SD, CHF, stroke Current smoker TECHNIQUE: 1 radiographic [...] Jacky Pearl M.D. KT: SHWETHA Report ID: [id number] Reading Location: [id number] Procedure Note Jacky Pearl MD - 08/29/2024 EXAM DESCRIPTION: XR CHEST 1 VIEW REASON FOR STUDY: seizure Pt bibems from home, per pt pt had 45 sec seizure, has been noncompliant with all his medications. Per ems NIH=0, bs: 500 pt wasgiven 0.5mg narcan due to pinpoint pupils, C/o chest pain tonight Hx of SD, CHF, stroke Current smoker TECHNIQUE: 1 radiographic [...] Jacky Pearl M.D. KT: SHWETHA Report ID: [id number] Reading Location: [id number] Marjan FERRARI IMG XR PROCEDURES Final R [...] 9 PM CDT 08/28/2024 11:33 PM CDT Marjan FERRARI LAB BLOOD ORDERABLES Jordana l Result [facility] ([place]) 1 [facility] [place] [address] * (ABNORMAL) POCT glucose (08/28/2024 11:05 PM CDT) Pathologist [facility] Glucose, POC 558(C) 70 - 199 mg/dL Comment:Glu2: Blood 08/28/2024 11:0 5 PM CDT 08/28/2024 11:05 PM CDT Notinfile Unknown LAB POCT ORDERABLES - DEVICE F inal Result [facility]AL [facility] ([place]) 1 [facility] [place] [facility] [place] [address] * CT Head WO Contrast (08/28/2024 10:34 [...] Jacky Pearl M.D. KT: SHWETHA Report ID: [id number] Reading Location: [id number] Procedure Note Jacky Pearl MD - 08/29/2024 [...] Jacky Pearl M.D. KT: SHWETHA Report ID: [id number] Reading Location: [id number] Marjan FERRARI IMG CT PROCEDURES Final R esult * (ABNORMAL) Urinalysis reflex to microscopic and culture Urine (08/28/2024 10:32 PM CDT) Color, ur Straw Yellow Clarity, ur Clear Clear [facility] ([place]) Specific gravity, ur [...] tendency for uric acid stone formation. Source: [facility] DataContact Current Interpretive Data was last revised on [...] Reflex to microscopic UA will be performed. [facility] ([place]) Urine 08/28/2024 10:3 2 PM CDT 08/28/2024 10:35 PM CDT Marjan FERRARI LAB MICROBIOLOGY - GENERA L ORDERABLES Final Result RONAL NANCE ([place]) 1 [facility] Department [place] [address] * Urinalysis, microscopic only (08/28/2024 10:32 PM CDT) WBC, ur 0-5 0 - 5 /HPF RBC, ur 0-2 0 - 2 /HPF [facility] Epithelial cells, squamous, ur 1-5 0 - 5 /HPF [facility] ([place]) Culture Reflex Comment Reflex conditions for urine culture (WBC >10) not met. [facility] ([place]) Urine 08/28/2024 10:3 2 PM CDT 08/28/2024 10:35 PM CDT Marjan FERRARI LAB URINE ORDERABLES Jordana l Result [facility] ([place]) 1 [facility] Department [place] [address] * ECG 12 lead (08/28/2024 9:01 PM CDT) 08/28/2024 9:01 PM CDT Narrative [facility] - 08/29/2024 7:25 AM CDT Vent Rate: 64 bpm RR Interval: 935 msec TX Interval: 176 msec QRS Duration: 98 msec QT Interval: 451 msec QTC Interval: 460 msec P-R-T [place]: 52 - 63 - 67 degrees IMPRESSION: SINUS RHYTHM NORMAL ECG Compared to prior EKG, right bundle branch block is no longer present Electronically Signed By: Kendrick Galindo MD Marjan FERRARI ECG ORDERABLES Final Res ult Performing Organization Address [facility] Co de Phone Number [facility] Seratis [facility] * (ABNORMAL) Sepsis Lactate w/ Reflex (08/28/2024 8:26 PM CDT) Sepsis Lactate 5.0(C) 0.7 - 2.0 mmol/L Comment:Critical result call ed to and read back by Jamila Morrow (MARKETING AUTOMATION ANALYST) on 08/28/2024 20:34:29 CDT_ to Kaitlin Rangel. Blood 08/28/2024 8:26 PM CDT 08/28/2024 8:32 PM CDT Marjan FERRARI LAB BLOOD ORDERABLES Jordana l Result [facility] ([place]) 1 [facility] Department [place] [address] * eGFR (08/28/2024 8:26 PM CDT) eGFR 79 >=60 mL/min/1. 73 m2 Comment: [...] BLOOD ORDERABLES Jordana l Result RONAL NANCE ([place]) 1 [facility] Department [place] [address] * Differential, auto (08/28/2024 8:26 PM CDT) [...] LAB BLOOD ORDERABLES Jordana polk Result RONAL GOY[facility] ([place]) 1 [facility] Department [place] [address] * CBC with auto differential (08/28/2024 8:26 [...] [place]) MCH 29.7 27.1 - 33.3 pg [facility] ([place]) MCHC 34.9 32.3 - 35.7 g/dL [facility] ([place]) RDW CV 12.1 11.1 - 14.9 % [facility] ([place]) RDW SD 37.9 35.7 - 48.1 fL [facility] ([place]) NRBC abs 0.00 0.00 - 0.01 K/cumm [facility] Blood 08/28/2024 8:26 PM CDT 08/28/2024 8:32 PM CDT us Marjan FERRARI LAB BLOOD ORDERABLES Jordana l Result [facility] ([place]) 1 [facility] Department [place] [address] * (ABNORMAL) Comprehensive metabolic panel (08/28/2024 8:26 PM CDT) Sodium 129(L) 135 - 145 mmol/L Potassium, pl 4.9 3.3 - 4.9 mmol/L [facility] ([place]) Chloride 93(L) 97 - 110 mmol/L [facility] ([place]) CO2 21(L) 22 - 32 mmol/L [facility] ([place]) Anion gap 16(H) 2 - 15 mmol/L [facility] ([place]) BUN 21 6 - 25 mg/dL [facility] ([place]) Creatinine 1.06 0.80 - 1.30 mg/dL [facility] ([place]) Glucose 605(C) 70 - 199 mg/dL [facility] ([place]) Comment: Critical Result called by [email or web address] at 2024-08-28 22:56:57. Result Read Back by Jasmin Contreras LITHOGRAPHIC PRINTING MACHINIST Interpretive Data Fasting glucose >/= 126 mg/dl [...] polk Result [facility] ([place]) 1 [facility] Department [place] [address] * XR Spine Lumbar 2 or 3 [...] bodies of normal height. No acute fracture. Ping-yq-vsyfdvmr multilevel facet arthropathy; most advanced at L4-L5 and L5-S1. DISCS: Havx-zh-enjekmew disc space narrowing at L5-S1. The remaining disc spaces are relatively maintained. Scattered degenerative endplate changes are noted with osteophytosis. SOFT TISSUES: Within normal limits. Moderate aortoiliac atherosclerosis. IMPRESSION: 1. No acute spinal abnormality. 2. Kixu-tx-brpdehfi multilevel lumbar spondylosis; most advanced at L5-S1. THIS IS AN ELECTRONICALLY VERIFIED FINAL REPORT 08/25/2024 10:39 AM - Electronically signed by Denton Mathews M.D. MF: FE Report ID: [id number] Reading Location: [id number] Procedure Note Denton Mathews, DO - 08/25/2024 EXAM DESCRIPTION: XR SPINE LUMBAR 2 OR 3 VIEWS REASON FOR STUDY: back pain Pt has low back pain. Denies any injury. TECHNIQUE: 3 radiographic view(s) of the lumbar spine. COMPARISON: Radiographs of the lumbar spine dated 05/13/2015. FINDINGS: ALIGNMENT: Anatomic. VERTEBRAE: Vertebral bodies of normal height. No acute fracture. Arav-up-wbwinmxl multilevel facet arthropathy; most advanced at L4-L5 and L5-S1. DISCS: Odjn-mc-bgnjwqoa disc space narrowing at L5-S1. Theremaining disc spaces are relatively maintained. Scattered degenerative endplate changes are noted with osteophytosis. SOFT TISSUES: Within normal limits. Moderate aortoiliacatherosclerosis. IMPRESSION: 1. No acute spinal abnormality. 2. Cznr-wx-wiyitbfk multilevel lumbar spondylosis; most advanced atL5-S1. THIS IS AN ELECTRONICALLY VERIFIED FINAL REPORT 08/25/2024 10:39 AM - Electronically signed by Denton Mathews M.D. MF: FE Report ID: [id number] Reading Location: [place] [address] Luz Medina MD IMG XR PROCEDURES F inal Result * ECG 12 lead (08/09/2024 6:31 PM CDT) 08/09/2024 6:31 PM CDT Narrative [facility] - 08/11/2024 6:38 AM CDT Vent Rate: 69 bpm RR Interval: 866 msec TX Interval: 176 msec QRS Duration: 169 msec QT Interval: 470 msec QTC Interval: 489 msec P-R-T [place]: 32 - 39 - 13 degrees IMPRESSION: SINUS RHYTHM POSSIBLE LEFT ATRIAL ENLARGEMENT [-0.1mV P-WAVE IN V1/V2] RIGHT BUNDLE BRANCH BLOCK [120+ ms QRS DURATION, UPRIGHT V1, 40+ ms S IN I/aVL/V4/V5/V6] POSSIBLE LEFT VENTRICULAR HYPERTROPHY [VOLTAGE CRITERIA PLUS LAE OR QRS WIDENING] ABNORMAL ECG Compared to prior EKG, right bundle branch block pattern is new Electronically Signed By: Kendrick Galindo MD Gaetano Chambers MD ECG ORDERABLES Final Result [facility] * CT Stroke Head WO Contrast (08/09/2024 [...] 6:35 PM - Electronically signed by Madhu GAMEZ: VERA Report ID: [id number] Reading Location: [id number] Procedure Note Melinda Chino MD - 08/09/2024 [...] 6:35 PM - Electronically signed by Madhu GAMEZ: VERA Report ID: [id number] Reading Location: [id number] Gaetano Chambers MD IMG CT PROCEDURES Final Result * (ABNORMAL) Troponin [...] BLOOD ORDERABLES Final Res ult [facility] ([place]) 1 [facility] Department [place] [address] * (ABNORMAL) eGFR (08/09/2024 6:04 PM CDT) [...] BLOOD ORDERABLES Final Res ult [facility] ([place]) 1 [facility] Department [place] [address] * Differential, auto (08/09/2024 6:04 PM CDT) Neutrophil abs 5.27 1.50 - 6.50 K/cumm Imm gran abs 0.03 0.00 - 0.10 K/cumm [facility] ([place]) Lymphocyte abs 2.03 0.80 - 3.30 K/cumm [facility] ([place]) Monocyte abs 0.61 0.20 - 0.80 K/cumm [facility] ([place]) Eosinophil abs 0.09 0.00 - 0.50 K/cumm [facility] ([place]) Basophil abs 0.04 0.00 - 0.10 K/cumm [facility] ([place]) Neutrophil pct 65.2 % [facility] ([place]) Comment: Interpretive Data Percent cell count reference ranges are not reported, since discordance with absolute values may lead to misinterpretation of CBC data. Current Interpretive Data was last revised on 2017. Imm gran pct 0.4 % [facility] ([place]) Comment: Interpretive Data Percent cell count reference ranges are not reported, since discordance with absolute values may lead to misinterpretation of CBC data. Current Interpretive Data was last revised on 2017. Lymphocyte pct 25.2 % [facility] ([place]) Comment: Interpretive Data Percent cell count reference ranges are not reported, since discordance with absolute values may lead to misinterpretation of CBC data. Current Interpretive Data was last revised on 2017. Monocyte pct 7.6 % [facility] ([place]) Comment: Interpretive Data Percent cell count reference ranges are not reported, since discordance with absolute values may lead to misinterpretation of CBC data. Current Interpretive Data was last revised on 2017. Eosinophil pct 1.1 % [facility] ([place]) Comment: Interpretive Data Percent cell count reference [...] Res ult [facility] ([place]) 1 [facility] Department [place] [address] * CBC with auto differential (08/09/2024 6:04 PM CDT) WBC 8.07 3.80 - 9.90 K/cumm Hgb 14.2 13.0 - 17.5 g/dL [facility] ([place]) Hct 40.6 38.9 - 50.3 % [facility] ([place]) Plt 242 150 - 400 K/cumm [facility] ([place]) MPV 10.2 9.1 - 12.3 fL [facility] ([place]) RBC 4.69 4.30 - 5.80 M/cumm [facility] ([place]) MCV 86.6 81.3 - 96.4 fL [facility] ([place]) MCH 30.3 27.1 - 33.3 pg [facility] ([place]) MCHC 35.0 32.3 - 35.7 g/dL [facility] ([place]) RDW CV 13.0 11.1 - 14.9 % [facility] ([place]) RDW SD 40.7 35.7 - 48.1 fL [facility] ([place]) NRBC abs 0.00 0.00 - 0.01 K/cumm [facility] ([place]) Blood Venous blood specimen / Unknown 08/09/2024 6:04 PM CDT 08/09/2024 6:23 PM CDT Narrative [facility] ([place]) - 08/09/2024 6:28 PM CDT Potential Stroke Patient Gaetano Chambers MD LAB BLOOD ORDERABLES Final Res ult Performing Organization Address City/[facility]/ZIP Co de Phone Number R[facility]AL [facility] ([place]) 1 [facility] [place] [address] * aPTT (08/09/2024 6:04 PM CDT) aPTT 29 28 - 38 sec [facility] ([place]) Comment: Interpretive Data Heparin therapeutic range: 66.0 - 100.0 seconds. Range based on correlation with therapeutic heparin activity range of 0.3 - 0.7 Units/mL. Current interpretive data was last revised on 2022. Blood Venous blood specimen / Unknown 08/09/2024 6:04 PM CDT 08/09/2024 6:23 PM CDT Narrative [facility] ([place]) - 08/09/2024 6:41 PM CDT Potential stroke patient. Result [facility] Gaetano Chambers MD LAB BLOOD ORDERABLES Final Res ult [facility] ([place]) 1 [facility] [place] [address] * (ABNORMAL) Protime-INR (08/09/2024 6:04 PM CDT) PT 9.0(L) 9.7 - 13.0 sec [facility] ([place]) INR 0.84(L) 0.90 - 1.20 [facility] ([place]) Comment: Interpretive data Oral anticoagulant therapeutic ranges: Venous thromboembolism prophylaxis or treatment: 2.0-3.0 CARDIOLOGY Standard range: 2.0-3.0 High-intensity range: 2.5-3.5 Refer to indication-specific guidelines for appropriate target ranges for prosthetic heart valve replacement. Current interpretive data was last revised on 2019. Blood 08/09/2024 6:04 PM CDT 08/09/2024 6:23 PM CDT Gaetano Chambers MD LAB BLOOD ORDERABLES Final Res ult [facility] ([place]) 1 [facility] [place] [facility] Department [place] [address] * (ABNORMAL) Comprehensive metabolic panel (08/09/2024 6:04 PM CDT) Sodium 136 135 - 145 mmol/L Potassium, pl 4.2 3.3 - 4.9 mmol/L [facility] ([place]) Chloride 99 97 - 110 mmol/L [facility] ([place]) CO2 22 22 - 32 mmol/L [facility] ([place]) Anion gap 16(H) 2 [...] g/dL [facility] ([place]) Alk phos 93 40 - 130 Units/L [facility] ([place]) ALT 19 7 - 55 Units/L [facility] ([place]) AST 15 10 - 50 Units/L [facility] ([place]) Comment:Slightly Hemolyzed S pecimen Blood Venous blood specimen / Unknown 08/09/2024 6:04 PM CDT 08/09/2024 6:23 PM CDT Narrative [facility] ([place]) - 08/09/2024 6:59 PM CDT Potential Stroke Patient us Gaetano Chambers MD LAB BLOOD ORDERABLES Final Res ult [facility] ([place]) 1 [facility] [place] [facility] Department [place] [address] * (ABNORMAL) POCT glucose (08/09/2024 5:55 PM CDT) Glucose, POC 294(H) 70 - 199 mg/dL Blood 08/09/2024 5:55 PM CDT 08/09/2024 5:55 PM CDT us Notinfile Unknown LAB POCT ORDERABLES - DEVICE F inal Result [facility] ([place]) 1 [facility] [place] [address] * eGFR (08/08/2024 12:15 PM CDT) eGFR 63 >=60 mL/min/1. 73 m2 Comment: [...] Lieberman MD LAB BLOOD ORDERABLES Final Result [facility] [address] Department [place] [address] * Differential, auto (08/08/2024 12:15 PM CDT) Neutrophil abs 3.76 1.50 - 6.50 K/cumm Imm gran abs 0.01 0.00 - 0.10 K/cumm [facility] Lymphocyte abs 1.09 0.80 - 3.30 K/cumm [facility] Monocyte abs 0.35 0.20 - 0.80 K/cumm [facility] Eosinophil abs 0.04 0.00 - 0.50 K/cumm [facility] Basophil abs 0.03 0.00 - 0.10 K/cumm [facility] Neutrophil pct 71.2 % [facility] Comment: Interpretive Data Percent cell count reference ranges are not reported, since discordance with absolute values may lead to misinterpretation of CBC data. Current Interpretive Data was last revised on 2017. Imm gran pct 0.2 % [facility] Comment: Interpretive Data Percent cell count reference ranges are not reported, since discordance with absolute values may lead to misinterpretation of CBC data. Current Interpretive Data was last revised on 2017. Lymphocyte pct 20.6 % [facility] Comment: Interpretive Data Percent cell count reference ranges are not reported, since discordance with absolute values may lead to misinterpretation of CBC data. Current Interpretive Data was last revised on 2017. Monocyte pct 6.6 % [facility] Comment: Interpretive Data Percent cell count reference ranges are not reported, since discordance with absolute values may lead to misinterpretation of CBC data. Current Interpretive Data was last revised on 2017. Eosinophil pct 0.8 % [facility] Comment: Interpretive Data Percent cell count reference ranges are not reported, since discordance with absolute values may lead to misinterpretation of CBC data. Current Interpretive Data was last revised on 2017. Basophil pct 0.6 % [facility] Comment: Interpretive Data Percent cell count reference ranges are not reported, since discordance with absolute values may lead to misinterpretation of CBC data. Current Interpretive Data was last revised on 2017. Blood 08/08/2024 12:1 5 PM CDT 08/08/2024 9:28 PM CDT Tolu Lieberman MD LAB BLOOD ORDERABLES Final Result Performing Organization Address [facility] Co de Phone Number RONAL [address] [facility] [place] [address] * Thyroid Function [place] (08/08/2024 12:15 PM CDT) Pathologist [facility] TSH 0.61 0.30 - 4.20 mcIUnit/mL Blood 08/08/2024 12:1 5 PM CDT 08/08/2024 9:29 PM CDT Tolu Lieberman MD LAB BLOOD ORDERABLES Edited Result - Final Performing Organization Address [facility] Co de Phone Number RONAL [place] [address] [facility] [place] [address] * CBC with auto differential (08/08/2024 12:15 PM CDT) WBC 5.28 3.80 - 9.90 K/cumm Hgb 14.4 13.0 - 17.5 g/dL [facility] Hct 44.0 38.9 - 50.3 % [facility] Plt 223 150 - 400 K/cumm [facility] MPV 10.8 9.1 - 12.3 fL [facility] RBC 4.95 4.30 - 5.80 M/cumm [facility] MCV 88.9 81.3 - 96.4 fL [facility] MCH 29.1 27.1 - 33.3 pg [facility] MCHC 32.7 32.3 - 35.7 g/dL [facility] RDW CV 13.2 11.1 - 14.9 % [facility] RDW SD 42.9 35.7 - 48.1 fL [facility] NRBC abs 0.00 0.00 - 0.01 K/cumm [facility] Blood 08/08/2024 12:1 5 PM CDT 08/08/2024 9:28 PM CDT Tolu Lieberman MD LAB BLOOD ORDERABLES Final Result Performing Organization Address [facility] Co de Phone Number RONAL [address] [address] [facility] [place] [address] * (ABNORMAL) Cholesterol, LDL, direct [...] PM CDT 08/08/2024 9:39 PM CDT Narrative [facility] - 08/08/2024 10:35 PM CDT Cholesterol, LDL, direct reflexed based on Elevated Triglyceride (>400) Tolu Lieberman MD LAB BLOOD ORDERABLES Final Result Performing Organization Address [facility] Co de Phone Number RONAL [address] [place] [address] * Lipase (08/08/2024 12:15 PM CDT) Lipase 32 10 - 99 Units/L Blood 08/08/2024 12:1 5 PM CDT 08/08/2024 9:29 PM CDT Tolu Lieberman MD LAB BLOOD ORDERABLES Edited Result - Final Performing Organization Address [facility] Phone Number RONAL [address] [address] [facility] [place] [address] * (ABNORMAL) Hemoglobin A1c (08/08/2024 12:15 PM CDT) Hgb A1C 11.0(H) 4.0 - 5.6 % Estimated Average Glucose 269 mg/dL [facility] Comment: The ADA recommends reporting an estimated Average Glucose (eAG) with all Hemoglobin A1c results using the equation derived from a study of 507 normal and diabetic adults. Minority populations were underrepresented and children were not included. (Diabetes Care 31:6961-2135, 2008). The eAG is not equivalent to a fasting glucose. Blood 08/08/2024 12:1 5 PM CDT 08/08/2024 9:29 PM CDT Tolu Lieberman MD LAB BLOOD ORDERABLES Final Result Performing Organization Address [facility] Phone Number RONAL [place] [address] [address] [facility] [place] [address] * (ABNORMAL) Lipid panel (08/08/2024 12:15 PM [...] on 2017. Triglycerides 445(H) <=149 mg/dL RONAL Comment: Interpretive Data Ages < or = [...] on 2017. HDL 27(L) >=40 mg/dL [facility]ON[facility] Comment: Interpretive Data Ages < or = [...] LDL, calculated See Comment <=129 mg/dL RONAL Comment: Unable to calculate due to elevated [...] NCEP Expert Panel. Circulation 2004;110:227 3. Roberto Enciso et al. BRIT Cardiol. 2020 July 31;5(5):540-548. doi: 10.1001/jamacardio.2020.0013 Current Interpretive Data was last revised on 2023. Non-HDL Cholesterol 238 mg/dL [facility] Comment: Interpretive Data Ages < or = [...] revised on 2017. Chol/HDL ratio 10 [facility] Blood 08/08/2024 12:1 5 PM CDT 08/08/2024 9:29 PM CDT Tolu Lieberman MD LAB BLOOD ORDERABLES Final Result [facility] [address] Department [place] [address] * (ABNORMAL) Comprehensive metabolic panel (08/08/2024 12:15 PM CDT) Sodium 133(L) 135 - 145 mmol/L Potassium, pl 4.0 3.3 - 4.9 mmol/L [facility] Chloride 96(L) 97 - 110 mmol/L [facility] CO2 22 22 - 32 mmol/L [facility] Anion gap 15 2 - 15 mmol/L [facility] BUN 23 6 - 25 mg/dL [facility] Creatinine 1.27 0.80 - 1.30 mg/dL [facility] Glucose 471(C) 70 - 199 mg/dL [facility] Comment: Critical Result called to and read [...] Calcium 9.2 8.5 - 10.3 mg/dL [facility] Bilirubin, total 0.3 0.1 - 1.2 mg/dL [facility] Protein, pl 6.9 6.5 - 8.5 g/dL [facility] Albumin 3.9 3.5 - 5.0 g/dL [facility] Alk phos 88 40 - 130 Units/L [facility] ALT 17 7 - 55 Units/L [facility] AST 25 10 - 50 Units/L [facility] Blood 08/08/2024 12:1 5 PM CDT 08/08/2024 9:29 PM CDT Tolu Lieberman MD LAB BLOOD ORDERABLES Final Result Performing Organization Address [facility]/ZIP Co de Phone Number RONAL [address] [place] [address] * (ABNORMAL) Albumin Creatinine Ratio, Urine (09/19/2023 8:24 PM CDT) Albumin Ur 761.3 mg/L Comment: Interpretive Data No reference range established. Current interpretive data was last revised 2018. Creatinine Ur 275.2 mg/dL [facility] Comment: Interpretive Data No reference range established. Current interpretive data was last revised 2018. Albumin Creatinine Ratio, Ur 277(H) 1 - 29 mg/g [facility] Urine 09/19/2023 8:24 PM CDT 09/19/2023 8:24 PM CDT Lily Ha NP LAB URINE ORDERABLES Final Re sult Performing Organization Address City/[facility]/ZIP Co de Phone Number [facility] [address] Department [place] [address] * DIABETES EYE EXAM (01/02/2022) Lizett Provider HEALTH MAINTENANCE Final Result * PSA screen (04/21/2020 3:12 PM SENIOR CARE ASSISTANT) PSA-Total 0.54 <=3.90 ng/mL [facility] ([place]) Comment: Interpretive Data AGE SEX REFERENCE INTERVAL 0 minutes-150 years Female None 0 minutes-49 years Male None 50-59 years Male 0-3.90 60-69 years Male 0-5.40 70-79 years Male 0-6.20 80-150 years Male 0-6.20 Current interpretive data last revised 2018. Testing performed by: [facility], [address] [place] [address]., [id number] Blood specimen (specimen) 04/21/2020 3:12 PM SENIOR CARE ASSISTANT 04/22/2020 9:36 AM SENIOR CARE ASSISTANT us Tolu Lieberman MD LAB BLOOD ORDERABLES Final Result Performing Organization Address City/[facility]/ZIP Co de Phone Number RONAL N[facility] ([place]) 1 [facility] [place] [facility] [place] [address] * Occult blood, fecal non neoplasm screening (09/27/2016 5:39 PM CDT) [facility] Occult blood, fecal Negative Negative [facility] ([place]) Collection date feces [id number] [facility] ([place]) Collection time , feces 1738 [facility] ([place]) Stool 09/27/2016 5:39 PM CDT 09/27/2016 5:49 PM CDT Dae Lopes MD LAB BODY FLUIDS AND S TOOLS ORDERABLES Final Result [facility] ([place]) 1 [facility] [place] [facility] [place] [address] * COLONOSCOPY (10/28/2014) HM Colonoscopy Abnormal Historical Provider HEALTH MAINTENANCE Final Result * Serum Hepatitis panel (09/07/2012 9:55 AM CDT) HBV core ab, IgM Negative Negative HISTORICAL RESULTS HCV ab Negative Negative HISTORICAL RESULTS HAV ab, IgM Negative Negative HISTORIC AL RESULTS HBV surface ag Negative Negative HISTO RICAL RESULTS Serum 09/07/2012 9:55 AM CDT Samy Avalos MD LAB BLOOD ORDERABLES Final Res ult HISTORICAL RESULTS from Last 3 Months or Most Recently Relevant to Health Maintenance Insurance [facility] MEDICARE ADVANTAGE [facility] PPO MEDICARE UHC MEDICARE ADVANTAGE [id number] [place] [address] MEDICARE LOCAL PLUS IN [facility] MEDICARE ADVANTAGE Advance Directives For more information, please contact: [phone] * Full Code (Latest Code Status on [...] 6:39 PM 04/14/2024 2:07 AM Care Teams Restaurant General Manager Relationship Specialty Start Date End Date Tolu Lieberman MD [address] [place] [id number] PCP - General Family Medicine 11/09/23 Deepak Merida MD Consulting Physician Cardiovascular Disease 08/29/17 Joshua Aguilera MD Consulting Physician Physical Medicine and Rehabilitation 08/12/18 Christopher Adan III, MD Surgeon Plastic Surgery 02/04/19 Srinivasa Farrar MD Consulting Physician Plastic Surgery 10/20/21 Jeffrey Izquierdo OD [facility] [place] [address] Consulting Physician Optometry 10/20/21 Denton Gilman MD [address] [place] [address] [place] [address] Consulting Physician Neurology 05/09/24
[2024-10-25 17:04] VITALS: BP 140/90; PULSE 80; RESP 20; TEMP 36.6; O2SAT 100
--- NOTE | 2024-10-25 17:05 | ED.LOWEXIN ---
HPI - Extremity Injury (Lower) General Chief Complaint: Extremity Injury, Lower Stated Complaint: right foot injury patient presents to [facility] Care accompanied by spouse with complaints of continued right foot pain and right ankle pain. Patient noted that he did have an initial injury about 1 month ago and had a fracture to 3 bones in his foot was given an Shola wrap and crutches. Patient followed up with primary care physician since he was unable to get in with orthopedics was given a walking boot but no other instructions. Patient reports he has been intermittently wearing this walking boot but has been trying to walk on his heel and twisted the right ankle trying to get around his home. Patient reports continued swelling to the top of the foot a head arch of the foot. Denies numbness or tingling in the foot or toes. Related Data Home Medications ?Medication ?Instructions ?Recorded ?Confirmed ?Last Taken ?Type atorvastatin 80 mg tablet mg 10/25/24 Unknown History buprenorphine HCl 150 mcg buccal mcg buccal 10/25/24 Unknown History film ([place]) clopidogrel 75 mg tablet mg 10/25/24 Unknown History empagliflozin 25 mg tablet mg 10/25/24 Unknown History (Jardiance) ezetimibe 10 mg tablet mg 10/25/24 Unknown History fenofibrate nanocrystallized 145 mg PO 10/25/24 Unknown History mg tablet flash glucose sensor (FreeStyle 10/25/24 10/25/24 Unknown History Jennifer 14 Day Sensor kit) insulin glargine 100 unit/mL (3 unit subcut 10/25/24 Unknown History mL) subcutaneous pen (Lantus Solostar U-100 Insulin) metformin 500 mg tablet,extended mg PO 10/25/24 Unknown History release 24 hr metoprolol tartrate 25 mg tablet mg 10/25/24 Unknown History pantoprazole 40 mg tablet,delayed mg PO 10/25/24 Unknown History release Allergies Allergy/AdvReac Type Severity Reaction Status Date / Time nitroglycerin Allergy Severe Migraine Verified 10/25/24 17:16 sumatriptan Allergy Severe Anaphylactic Unverified 04/05/21 08:27 Shock niacin Allergy Unknown SKIN Verified 04/05/21 08:27 ERYTHEMA AND SWELLING prochlorperazine (From Allergy Jittery Verified 10/25/24 17:16 Compazine) metoclopramide (From Reglan) AdvReac Unknown Verified 10/25/24 17:16 DHE 45 Allergy Unknown Unknown Uncoded 10/25/24 17:16 DIHYDROERGOTAMINE MESYLATE Allergy Unknown AGITATION Uncoded 04/05/21 08:27 PROCHLORPERAZINE EDISYLATE Allergy Unknown Rash Uncoded 04/05/21 08:27 PROCHLORPERAZINE MALEATE Allergy Unknown Rash Uncoded 04/05/21 08:27 Review of Systems Constitutional: Constitutional: Reports as per HPI and Denies weakness Eyes: Eyes: Reports no additional eye complaints ENT: Reports system reviewed and no additional complaints, except as documented Cardiovascular: Cardiovascular: Reports no additional cardiovascular complaints Respiratory: Respiratory: Reports no additional respiratory complaints Gastrointestinal: Gastrointestinal: Reports no additional gastrointestinal complaints Genitourinary: Genitourinary: Reports no additional male genitourinary complaints Musculoskeletal: Musculoskeletal: Reports as per HPI, Reports arthralgias, Reports joint swelling and Denies muscle cramps Integumentary/Breasts: Skin/Breast: Reports as per HPI, Denies pruritus, Denies rash and Denies skin ulcer Neurologic: Reports as per HPI, Denies headache(s), Denies numbness and Denies weakness Psychiatric: Psychiatric: Reports no additional psychiatric complaints Endocrine: Endocrine: Reports no additional endocrine complaints Hematologic/Lymphatic: Hematologic/Lymphatic: Reports no additional hematologic/lymphatic complaints Allergic/Immunologic: Allergic/Immunologic: Reports no additional allergic/immunologic complaints Exam Const: General: healthy appearing and no acute distress Nutritional Appearance: well nourished Orientation/consciousness: patient oriented x3 Limitations: no limitations Skin: General skin exam: normal color Rashes: no rashes Wounds: wounds noted Neuro: General: patient oriented x3 Speech: normal speech Gait exam (Neuro): gait abnormal Extrem: Right lower extremity: ankle Details: abnormal to inspection, tenderness, swelling, abnormal ROM and achilles tendon exam abnormal Details: tenderness to palpation of achilles tendon; no step-off noted; no ecchymosis and foot Details: normal capillary refill, abnormal to inspection, tenderness Location: of the dorsal foot, toes with normal ROM, edema, vascular exam Details: dorsalis pedis pulse present, posterior tibial pulse present and normal capillary refill and motor-sensory exam Details: two point discrimination normal, light-touch normal and pin-prick normal; ROM of toes normal and no unusual warmth Psych: Mental Status: mental status grossly normal Affect: normal affect Attitude: cooperative Course Course Level of Care: Express Care Visit MDM - Extremity Injury (Lower) MDM Narrative Medical decision making narrative: Patient has continued fractures noted metatarsals to continue with planned follow-up with Orthopedics. Patient has a walking boot, worn while in clinic today. Discharge instructions reviewed with patient, as well as provided in writing per nursing staff. The instructions also include specific and strict return/GO TO THE ER as well as f/u information. All questions have been answered, and the patient deny any further questions with discharge and discharge plan. Differential Diagnosis Differential diagnosis: Likely ankle sprain and strain, puncture wound of foot, fracture of toe and ankle fracture Medical Records Attestation: I reviewed the patient's medical records. Imaging Data Radiologist's impression: IMPRESSION: Acute versus subacute transverse minimally displaced fractures of the right second through fourth metatarsal bases. Reviewed, dictated and finalized at [facility] K. Discharge Plan Discharge Clinical Impression: Fracture of metatarsal bone of right foot, Right ankle tendonitis Patient Disposition: Home Condition: Stable Instructions: Antibiotic Form, Foot Fracture in Adults (ED), Tendinitis (ED) Additional Instructions: Xray showed Continued fracture to 2nd, 3rd And forth metatarsals. call the orthopedic physician Sunday to schedule appointment. Minimize activities that aggravate the condition The RICE protocol. Follow the RICE protocol as soon as possible after your injury: Rest your ankle by using the boot at all times. May remove to shower. Ice should be immediately applied to keep the swelling down. It can be used for 20 to 30 minutes, three or four times daily. Do not apply ice directly to your skin. Compression dressings, bandages or shola-wraps will immobilize and support your injured Foot and ankle. Elevate your ankle above the level of your heart as often as possible Patient Language: [place]raltarian Follow-up/Referrals: Luisana,Tolu Bruno MD [Primary Care Provider] - Aly Johnson MD [Physician] - (Also has de [place] office. ) Time of Disposition: 17:45
== END 2024-10-25 17:56 | disposition home or self-care (01) ==
PROVIDERS: Emergency Provider Nurse Practitioner Family; PCP Family Medicine
DX: S92.321D Displaced fracture of second metatarsal bone, right foot, subsequent encounter for fracture with routine healing (principal); S92.331D Displaced fracture of third metatarsal bone, right foot, subsequent encounter for fracture with routine healing; S92.341D Displaced fracture of fourth metatarsal bone, right foot, subsequent encounter for fracture with routine healing; X58.XXXD Exposure to other specified factors, subsequent encounter; M67.873 Other specified disorders of tendon, right ankle and foot
CPT/HCPCS: 73610; 73630; 99203; G0463

== ENCOUNTER 2024-12-29 13:31 | Outpatient (CLI) | payer MEDICARE, SELFPAY ==
--- NOTE | ~2024-12-29 | XR_ITS ---
EXAMINATION: XR foot RT min 3V, 12/29/2024 13:35 CDT HISTORY: M79.671 - Pain in right foot COMPARISON: Comparison 10/25/2024 Findings: Healing fractures of the proximal second, third and fourth metatarsals. No significant degenerative changes.There is widening of the interspace between the base of the first and second metatarsal suspicious for Lisfranc injury. Soft tissues unremarkable. Impression: Fractures detailed above. Lisfranc injury suspected. CT or MRI suggested. Reviewed, dictated and finalized at location P. Impression: Fractures detailed above. Lisfranc injury suspected. CT or MRI suggested.
== END 2024-12-29 13:32 | disposition home or self-care (01) ==
LOC: ANHBWCIMG 13:32
PROVIDERS: PCP Family Medicine; Visit Provider Orthopaedic Surgery
DX: S92.324A Nondisplaced fracture of second metatarsal bone, right foot, initial encounter for closed fracture (principal); S92.334A Nondisplaced fracture of third metatarsal bone, right foot, initial encounter for closed fracture; S92.344A Nondisplaced fracture of fourth metatarsal bone, right foot, initial encounter for closed fracture; X58.XXXA Exposure to other specified factors, initial encounter
CPT/HCPCS: 73630

== ENCOUNTER 2025-01-26 08:52 | Outpatient (CLI) | payer MEDICARE, SELFPAY ==
--- NOTE | ~2025-01-26 | US_ITS ---
EXAMINATION: US arterial ankle brachial ind DATE: 01/26/2025 09:39 INDICATION: Peripheral vascular disease TECHNIQUE: Segmental pressures and plethysmographic and Doppler waveforms of the brachial and lower extremity arteries were obtained. COMPARISON: None. FINDINGS: Right and left brachial artery pressures of 127 mm Hg and 172 mm Hg, respectively, are discordant (normal difference <= 30 mmHg). The right ankle-brachial index (NOEMI) is 0.87 (normal >= 0.9-1.0). The right great toe-brachial index (TBI) is 0.52 (normal >= 0.65). Arterial Doppler waveforms demonstrate normal brisk systolic upstrokes at both right posterior tibial and dorsalis pedis arteries. The left NOEMI is 0.98. The left TBI is 0.69. Arterial Doppler waveforms demonstrate normal brisk systolic upstrokes at both left posterior tibial and dorsalis pedis arteries. IMPRESSION: 1. Significant discordance in the right and left brachial artery pressures with right brachial artery pressures 45 mmHg lower than the left which suggests possible hemodynamically significant stenosis proximal to the right brachial artery. Consider further evaluation with CT angiogram of the great vessels arising from the aortic arch. 2. Mild arterial occlusive disease to the right lower limb with mildly decreased right NOEMI and TBI. Left NOEMI and TBI remain within normal limits. Reviewed, dictated and finalized at location A. IMPRESSION: 1. Significant discordance in the right and left brachial artery pressures with right brachial artery pressures 45 mmHg lower than the left which suggests pos sible hemodynamically significant stenosis proximal to the right brachial arter y. Consider further evaluation with CT angiogram of the great vessels arising f rom the aortic arch. 2. Mild arterial occlusive disease to the right lower limb with mildly decrease d right NOEMI and TBI. Left NOEMI and TBI remain within normal limits.
--- OUTSIDE RECORDS SUMMARY | 2025-01-26 09:28 | XMS_ITS | Clinical Summary ---
Author Organization [facility] Address [facility] [place] [address] Care Team Providers Care Urban Planning Professor Name Role Phone Tolu Lieberman MD Primary [...] total) by mouth daily with breakfast. Active Social History Tobacco Use Types Packs/Day [...] 2 - PCV) 01/31/2013 02/01/2012 COVID-19 Vaccine ( season) 2024 06/06/2020, 05/16/2020 Influenza Adult (#1) 2024 01/01/2020, 12/31/2018, 01/28/2018, Additional history exists DTaP, Tdap and Td Vaccines (2 - Td or Tdap) 06/06/2029 06/07/2019 RSV Immunization or 60+ Years (1 - 1-dose 75+ series) 2036 Meningococcal Vaccine Aged Out 01/05/2011 No micah yoshi eligible based on patient's age to complete this topic Hepatitis C Completed 06/09/2023, 09/17/2012 Hepatitis A Vaccines Aged Out No long er eligible based on patient's age to complete this topic Meningococcal B Vaccine Aged Out No l onger eligible based on patient's age to complete this topic RSV Immunizations Under 20 Months Aged Out No longer eligible based on patient's age to complete this topic Insurance [facility] MEDICARE Care Teams Urban Planning Professor Relationship Specialty Start Date End Date Tolu Lieberman MD [address] [place] [address] [address] [place] [address] PCP - General FAMILY PRACTICE 11/22/19
--- OUTSIDE RECORDS SUMMARY | 2025-01-26 09:28 | XMS_ITS | Clinical Summary ---
Author Organization [facility] Address [address] [place] [address] Care Team Providers Care Associate Professor Of Management Name Role Phone Cristhian Trevino MD Primary Care Provider Source Comments [facility] Affiliates and Associated Physician Practices is amultiple site organization consisting of ambulatory clinics and hospital sitesin [place], [place], [place] and [place]. This disclosure is being madepursuant to the Care Everywhere program and may not contain all information available regarding this patient. Last updated 17.[facility] Allergies Active Allergy Reactions Criticality Noted Date Comments Compazine 08/14/2009 Dhea 08/14/2009 Niacin Swelling High 08/19/2010 Pt turnes red and swells up Medications * Be aware that medications may not be up to date on this document. Alwaysverify current medications with the patient. 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 DRIVER Respiratory Rate 16 09/20/2012 12:23 PM CDT Oxygen Saturation 98% 09/20/2012 11:44 AM CDT Inhaled Oxygen Concentration - - Weight 136.1 kg (300 lb) 03/01/2012 11:38 PM CDL A DRIVER Height 190.5 cm (6' 3) 03/01/2012 11:38 PM CDL A DRIVER Body Mass Index 37.5 03/01/2012 11:38 PM CDL A DRIVER Plan of Treatment Health Maintenance Due Date [...] 06/02/2011 ZOSTER VACCINE (1 of 2) 06/02/2011 DEPRESSION SCREENING 04/02/2024 COVID-19 VACCINE (1 - 2023-2 5 season) 2024 INFLUENZA VACCINE (#1) 2024 Respiratory Syncytial Virus [...] Reactive Non Reactive 09/18/2012 11:32 AM CDT [facility] Blood specimen (specimen) BLOOD SPECIMEN / Unknown Collection / Unknown 09/17/2012 4:20 PM CDT 09/17/2012 4:39 PM CDT Narrative [facility] - 09/18/2012 11:32 AM CDT Nonreactive - Antibodies to HCV were not detected, result does not exclude early acute HCV infection. us Zena Odell MD LAB - CHEMISTRY ORDERABL ES Final Result [facility] [address] [place] [address] from Last 3 Months or Most Recently Relevant to Health Maintenance Insurance [employer] [facility] MEDICARE [employer] Advance Directives * FULL RESUSCITATION (Latest Code Status on File) Date Activated Date Inactivated Comments 09/11/2012 5:29 PM 09/21/2012 1:07 AM Care Teams Associate Professor Of Management Relationship Specialty [place] [id number] [facility] [address] [place] [id number] PCP - General 03/04/18
--- OUTSIDE RECORDS SUMMARY | 2025-01-26 09:28 | XMS_ITS | Clinical Summary ---
Author Organization [facility] Address [address] [place] [address] Phone Care Team Providers Care Clinic Charge Nurse Name Role Phone Tolu Lieberman MD Primary [...] 4 Metoclopramide Other (see Comments) 10/23/2016 Medications pantoprazole (PROTONIX) 40 MG Tablet Delayed Response [...] Active metFORMIN (GLUCOPHAGE) 500 MG Tablet Take 500 mg by mouth daily. Active Insulin Lispro (HUMALOG SC) by Subcutaneous route. Sliding scale per patient, did not know parameters at time of interview. Will bring info on day of surgery. Active clopidogrel (Plavix) 75 MG Tablet Take 75 mg by mouth nightly. Active metoprolol tartrate (LOPRESSOR) 25 MG Tablet [...] more severe pain. 30 Tablet 4 Active empagliflozin (Jardiance) 25 MG Tablet Take 25 mg by mouth daily. Active ezetimibe (ZETIA) 10 MG Tablet Take 10 mg by mouth nightly. Active insulin glargine (Lantus) 100 UNIT/ML Solution 20 Units by Subcutaneous route nightly. Active ranolazine (RANEXA) 500 MG TABLET SR 12 HR Take 1 Tablet by mouth 2 times daily. 180 Tablet 5 Active topiramate (TOPAMAX) 50 MG Tablet Take 1 tablet by mouth in the morning and 2 tablets at night Active Active Problems Problem Noted Date Diagnosed Date NSTEMI (non-ST elevated myocardial infarction) 0 11/14/2024 Right-sided chest wall pain 11/14/2024 Seizures 11/14/2024 Fracture of right foot, closed, initial encounte r 11/14/2024 Hyponatremia 11/14/2024 Hyperglycemia 11/14/2024 Dehydration 10/05/2023 Acute diverticulitis 11/20/2022 Anxiety 11/20/2022 PTSD (post-traumatic stress disorder) 11/20/2022 Chronic pain 11/20/2022 HTN (hypertension) 11/20/2022 Intractable nausea and vomiting 11/20/2022 Coronary artery disease invo lving coronary bypass graft of [place] heart 12/26/2019 Overview (11/20/2022): Status post ST segment elevation [place] in April 2010 and again in August [...] Elevated LFTs 06/10/2023 06/10/2023 Acute pancreatitis 06/07/2023 Encounters Date Type Department Care Team Description 11/14/2024 2:37 PM CDT - 11/14/2024 4:18 PM CDT Surgery [facility] [address] [place] [address] Madison Canseco MD CARDIAC CATH 11/13/2024 9:07 PM CDT - 11/15/2024 12:08 PM CDT Hospital Encounter [facility] [address] [place] [address] Esteban Wyatt MD Krishna, Naveen Kumar, MD NSTEMI (non-ST elevated myocardial infarction) Discharge Disposition: Discharged to home or Selfcare 11/13/2024 Travel 11/02/2024 6:05 PM CDT - 11/02/2024 7:11 PM CDT Emergency [facility] [address] [place] [address] Lona Hayes MD Right foot pain Discharge Disposition: Discharged to home or Selfcare 11/02/2024 Travel from Last 3 Months Family History [...] drink = 0.6 oz pur e alcohol) Social Connection and Isolation Panel Answer Date Recorded In a typical week, how many times do you talk on the phone with family, friends, or neighbors? More than three times a week 06/07/2023 How often do you get togethe r with friends or relatives? Once a week 06/07/2023 How often do you attend chur ch or episcopalian services? 1 to 4 times per year 06/07/2023 Do you belong to any clubs o r organizations such as sikhism groups, unions, fraternal or athletic groups, or [...] and heating? Not hard at all 06/07/2023 [facility] Occup[facility] ional [facility] - Occupational Stress Questionnaire Answer Date Recorded Do you feel stress - tense, restless, nervous, or anxious, or unable to sleep at night because your mind is troubled all the time - these days? Very much 06/07/2023 Hunger Vital Sign Answer Date Recorded [...] place to sleep or slept in a skilled nursing (including now)? No 06/08/2023 Social Connection and Isolation Panel Answer Date Recorded In a typical week, how many times do you talk on the phone with family, friends, or neighbors? Patient declined 11/14/2024 How often do you get togethe r with friends or relatives? Patient declined 11/14/2024 How often do you attend sikhism or episcopalian serv ices? Patient declined 11/14/2024 Do you belong to any clubs o r organizations such as sikhism groups, unions, fraternal or athletic groups, or school groups? Patient declined 11/14/2024 How often do you attend meet ings of the clubs or organizations you belong to? Patient declined 11/14/2024 Are you , , di vorced, , never , or living with a partner? Patient declined 11/14/2024 AUDIT-C Answer Date Recorded Q1: How often do you have a drink containing alc ohol? Patient declined 11/14/2024 Q2: How many drinks containi ng alcohol do you have on a typical day when you are drinking? Patient declined 11/14/2024 Q3: How often do you have si x or more drinks on one occasion? Patient declined 11/14/2024 Overall Financial Resource Strain (CARDIA) Answe r Date Recorded How hard is it for you to pa y for the very basics like food, housing, medical care, and heating? Patient declined 11/14/2024 [facility] of Occupat ional Health - Occupational Stress Questionnaire Answer Date Recorded Do you feel stress - tense, restless, nervous, or anxious, or unable to sleep at night because your mind is troubled all the time - these days? Patient declined 11/14/2024 Exercise Vital Sign Answer Date Recorde d On average, how many days pe r week do you engage in moderate to strenuous exercise (like a brisk walk)? Patient declined On average, how many minutes do you engage in exercise at this level? Patient declined 11/14/2024 Hunger Vital Sign Answer Date Recorded Within [...] appointments or from getting medications? Patient declined 11/14/2024 In the past 12 months, has l ack of transportation kept you from meetings, work, or from getting things needed for daily living? Patient declined 11/14/2024 Housing Stability Vital Sign Answer Neel e Recorded In the last 12 months, was t here a time when you were not able to pay the mortgage or rent on time? Patient declined 11/15/19 25 In the past 12 months, how m any times have you moved where you were living? 1 11/14/2024 At any time in the past 12 m [facility], were you homeless or living in a skilled nursing (including now)? Patient declined 11/14/2024 [facility] Utilities Answer Date Recorded In the past 12 months has th e [employer], gas, oil, or water company threatened to shut off services in your home? Patient declined 11/14/2024 Sexually Active Control Partners Comments Yes Female Sex and Gender Information Value Date Recorded Sex Assigned at Not on file Legal Sex Male 11:20 PM CDT Gender Identity Not on file Sexual Orientation Not on file Last Filed Vital Signs Vital Sign Reading Time Taken Comments Blood Pressure 183/88 11/15/2024 8:07 AM CDT Pulse 73 11/15/2024 8:07 AM CDT Temperature 36.3 C (97.3 F) 11/15/2024 7:30 AM CDT Respiratory Rate 18 11/15/2024 7:30 AM CDT Oxygen Saturation 99% 11/15/2024 8:07 AM CDT Inhaled Oxygen Concentration - - Weight 87.1 kg (192 lb 1.6 oz) 11/15/2024 5:39 A M CDT Height 190.5 cm (6' 3) 11/13/2024 9:15 PM CDT Body Mass Index 24.01 11/13/2024 9:15 PM CDT Plan of Treatment Health Maintenance [...] Colonoscopy 11/20/2023 11/19/2013 Colorectal Cancer Screening 11/20/2023 Influenza Immunization (#1) 2024 10/0 04/2019, 12/31/2018, 01/28/2018, Additional history exists SARS-COV-2 Immunization ( season) 2024 06/06/2020, 05/16/2020 Diabetes: Hemoglobin A1c 05/16/2025 025, 08/08/2024, 05/07/2024, Additional history exists Diabetes: Nephropathy Screening 11/13/2025 11/13/2024, 10/22/2024, 03/02/2024, Additional history exists Hepatitis B Immunization Completed 999, 06/16/1998, 05/12/1998 Meningococcal Immunization (ACWY) Aged Out 01/05/2011 No longer eligible based on patient's age to complete this topic Pneumococcal Immunization Combined Discontinued 02/01/2012 Medicare Initial AWV [id number] Completed 01/08/2019 DTaP/Tdap/Td Immunization Discontinued 06/07/2019 TdaP Immunization Completed 06/07/2019 Hepatitis C Virus (HCV) Screening Completed 06/09/2023, 09/17/2012 Lung Cancer Screening Discontinued 11/14/2024 , 04/10/2023, 04/15/2022, Additional history exists Human Papillomavirus (HPV) Immunization Aged Out No longer eligible based on patient's age to complete this topic Rotavirus Immunization Aged Out No lo nger eligible based on patient's age to complete this topic Medical Devices Implanted Type Area Metal Door Assembler Device Identifier Shelf Expiration Date Model / Serial / Lot Device Clsr 6fr Perclose Vasc Sut Mediate Knot Push Strl Disp - [id number] Implanted:Qty: 1 on 11/14/2024 by Madison Canseco MD at [facility] IMPLANT N/A: [employer] 07/30/2026 [id number] / [id number] / [id number] Tecnis One Piece Iol With Tecnis Simplicity Delivery System Implanted:Qty: 1 on 11/21/2021 by Denton Cancino MD at [facility] Left: Eye 10/20/2023 [id number] / [id number] / [id number] Eyhance Iol With Simplicty Delivery System Implanted:Qty: 1 on 12/26/2021 by Denton Cancino MD at [facility] Right: Eye 10/29/2024 [id number] / [id number] / [id number] Procedures Procedure Name Priority Date/Time Associated Diagnosis Comments POCT GLUCOSE Routine 11/15/2024 8:02 AM CDT POCT GLUCOSE Routine 11/15/2024 6:02 AM CDT CBC WITH AUTO DIFFERENTIAL Routine 11/15/2024 2:13 AM CDT APTT (PTT) Timed 11/15/2024 2:13 AM CDT COMPLETE BLOOD COUNT (CBC) WITH DIFF Routine 11/15/2024 2:13 AM CDT BASIC METABOLIC PANEL W/ CALCIUM TOTAL Routine 11/15/2024 2:13 AM CDT RHYTHM STRIP 11/15/2024 12:00 AM CDT RHYTHM STRIP 11/15/2024 12:00 AM CDT POCT GLUCOSE Routine 11/14/2024 11:23 PM CDT ADULT TRANS THORACIC ECHO 2D COMPLETE Routine 11/14/2024 6:15 PM CDT POCT GLUCOSE Routine 11/14/2024 5:37 PM CDT INTERVENTIONAL CATH PROCEDURE Routine 11/14/2024 4:30 PM CDT CARDIAC CATH Routine 11/14/2024 4:30 PM CDT ACTIVATED CLOT TIME POCT Routine 11/14/2024 3:53 PM CDT POCT GLUCOSE Routine 11/14/2024 11:21 AM CDT TROPONIN I, HIGH SENSITIVITY (HSTRP) Timed 11/14/2024 6:43 AM CDT APTT (PTT) STAT 11/14/2024 6:43 AM CDT POCT GLUCOSE Routine 11/14/2024 6:16 AM CDT CBC WITH AUTO DIFFERENTIAL Routine 11/14/2024 4:00 AM CDT TROPONIN I, HIGH SENSITIVITY (HSTRP) Timed 11/14/2024 4:00 AM CDT COMPLETE BLOOD COUNT (CBC) WITH DIFF Routine 11/14/2024 4:00 AM CDT BASIC METABOLIC PANEL W/ CALCIUM TOTAL Routine 11/14/2024 4:[address] CHEST W/O CONTRAST Stat with Interpretation 11/14/2024 2:09 AM CDT POCT GLUCOSE Routine 11/14/2024 1:30 AM CDT TROPONIN I, HIGH SENSITIVITY (HSTRP) STAT 11/14/2024 12:43 AM CDT POCT GLUCOSE STAT 11/14/2024 12:10 AM CDT RHYTHM STRIP 11/14/2024 12:00 AM CDT RHYTHM STRIP 11/14/2024 12:00 AM CDT RHYTHM STRIP 11/14/2024 12:00 AM CDT APTT (PTT) STAT 11/13/2024 11:37 PM CDT PROTIME (PT) (PROTHROMBIN TIME) STAT 11/13/2024 11:37 PM CDT HEMOGLOBIN A1C W/ ESTIMATED GLUCOSE Routine 11/13/2024 11:35 PM CDT COMPLETE BLOOD COUNT (CBC) WITHOUT DIFF STAT 11/13/2024 11:35 PM CDT TROPONIN I, HIGH SENSITIVITY (HSTRP) STAT 11/13/2024 10:23 PM CDT XR CHEST SINGLE VIEW PORTABLE STAT 11/13/2024 10:07 PM CDT CRITICAL CARE Routine 11/13/2024 9:45 PM CDT CBC WITH AUTO DIFFERENTIAL STAT 11/13/2024 9:26 PM CDT MAGNESIUM (MG) STAT 11/13/2024 9:26 PM CDT TROPONIN I, HIGH SENSITIVITY (HSTRP) STAT 11/13/2024 9:26 PM CDT COMPLETE BLOOD COUNT (CBC) WITH DIFF STAT 11/13/2024 9:26 PM CDT CMP (COMPREHENSIVE METABOLIC PANEL) STAT 11/13/2024 9:26 PM CDT EKG 12 LEAD STAT 11/13/2024 9:06 PM CDT RHYTHM STRIP 11/13/2024 12:00 AM CDT EKG SCAN 11/13/2024 12:00 AM CDT XR FOOT 3 OR MORE VIEWS RIGHT STAT 11/02/2024 6:31 PM CDT XR CHEST SINGLE VIEW PORTABLE STAT 11/02/2024 6:31 PM CDT HEPATITIS PANEL ACUTE (AHP) Routine 06/09/2023 4:00 AM [employer]AIL SALES [employer]OCI[employer] HM COLONOSCOPY Routine 11/19/2013 from Last 3 Months or Most Recently Relevant to Health Maintenance Results * (ABNORMAL) POCT Glucose (11/15/2024 8:02 AM CDT) Only the most recent of8 resultswithin the time period is included. [facility] GLUCOSE,BEDSID E POCT 207(H) 70 - 99 mg/dL 11/15/2024 8:03 AM CDT [facility] Blood 11/15/2024 8:0 2 AM CDT 11/15/2024 8:03 AM CDT us None Provider POINT OF CARE TESTING Final Resu lt [facility] [address] [place] [address] * (ABNORMAL) CBC with Auto Differential (11/15/2024 2:13 AM CDT) Only the most recent of3 resultswithin the time period is included. [facility] WBC 4.77 4.00 - 12.00 10(3)/mcL 11/15/2024 2:18 AM CDT [facility] RBC 4.05(L) 4.40 - 5.80 10(6)/mcL 11/15/2024 2:18 AM CDT [facility] HEMOGLOBIN (HGB) 12.0(L) 13.0 - 16.5 g/dL 11/15/2024 2:18 AM CDT [facility] HEMATOCRIT (HCT) 35.5(L) 38.0 - 50.0 % 11/15/2024 2:18 AM CDT [facility] MCV 87.7 82.0 - 96.0 fL 11/15/2024 2:18 AM CDT [facility] MCH 29.6 26.0 - 32.0 pg 11/15/2024 2:18 AM CDT [facility] MCHC 33.8 31.0 - 36.0 g/dL 11/15/2024 2:18 AM CDT [facility] PLATELET COUNT 193 140 - 440 10(3)/mcL 11/15/2024 2:18 AM CDT [facility] RDW 13.1 11.8 - 15.5 % 11/15/2024 2:18 AM CDT [facility] MPV 9.8 8.0 - 12.6 fL 11/15/2024 2:18 AM CDT [facility] NEUTROPHILS 71.7(H) 40.0 - 68.0 % 11/15/2024 2:18 AM CDT [facility] LYMPHOCYTES 18.7(L) 19.0 - 49.0 % 11/15/2024 2:18 AM CDT [facility] MONOCYTES 7.5 3.0 - 13.0 % 11/15/2024 2:18 AM CDT [facility] EOSINOPHILS 1.3 0.0 - 8.0 % 11/15/2024 2:18 AM CDT [facility] BASOPHILS 0.6 0.0 - 1.0 % 11/15/2024 2:18 AM CDT [facility] IMMATURE GRANULOCYTE 0.2 0.0 - 0.4 % 11/15/2024 2:18 AM CDT [facility] Comment:Immature Granulocyte s includes Metamyelocytes, Myelocytes, and Promyelocytes. ABSOLUTE NEUTROPHILS 3.42 1.40 - 5.30 10(3)/mcL 11/15/2024 2:18 AM CDT [facility] ABSOLUTE LYMPHOCYTES 0.89(L) 0.90 - 3.30 10(3)/mcL 11/15/2024 2:18 AM CDT [facility] ABSOLUTE MONOCYTES 0.36 0.10 - 0.90 10(3)/mcL 11/15/2024 2:18 AM CDT [facility] ABSOLUTE EOSINOPHIL 0.06 0.00 - 0.50 10(3)/mcL 11/15/2024 2:18 AM CDT [facility] ABSOLUTE BASOPHILS 0.03 0.00 - 0.10 10(3)/mcL 11/15/2024 2:18 AM CDT [facility] ABSOLUTE IMMATURE GRANULOCYTE 0.01 0.00 - 0.03 10 (3) mcL. 11/15/2024 2:18 AM CDT [facility] NRBC PER 100 WBC 0 11/16/19 25 2:18 AM CDT [facility] Blood Venipuncture / Unknown 11/15/2024 2:13 AM CDT 11/15/2024 2:15 AM CDT us Amaris Morse GEOLOGICAL MANAGER, PRIVATE BANKER HEMATOLOGY ORDERABLES Fin al Result [facility] [address] [place] [address] * APTT (PTT) (11/15/2024 2:13 AM CDT) Only the most recent of3 resultswithin the time period is included. PTT 33 24 - 36 sec 11/15/2024 3:10 AM CDT [facility] Blood Venipuncture / Unknown 11/15/2024 2:13 AM CDT 11/15/2024 2:15 AM CDT Narrative [facility] - 11/15/2024 3:10 AM CDT Therapeutic range for unfractionated heparin at 0.3-0.7 U/mL is an aPTT value in the range of 71-100 seconds. Critical value for the PTT test is >= 122 seconds. us Cici Whittaker GEOLOGICAL MANAGER, PRIVATE BANKER HEMATOLOGY ORDERABLES Final Result [facility] [address] [place] [address] * (ABNORMAL) BMP with Ca, Total (11/15/2024 2:13 AM CDT) Only the most recent of2 resultswithin the time period is included. SODIUM 135(L) 136 - 145 mmol/L 11/15/2024 2:36 AM CDT [facility] POTASSIUM 4.5 3.5 - 5.1 mmol/L 11/15/2024 2:36 AM CDT [facility] CHLORIDE 106 98 - 107 mmol/L 11/15/2024 2:36 AM CDT [facility] CO2, VENOUS 18(L) 22 - 30 mmol/L 11/15/2024 2:36 AM CDT [facility] ANION GAP 15.5 <18.0 mmol/L 11/15/2024 2:36 AM CDT [facility] GLUCOSE 139(H) 70 - 99 mg/dL 11/15/2024 2:36 AM CDT [facility] BUN 15 8 - 26 mg/dL 11/15/2024 2:36 AM CDT [facility] CREATININE, BLOOD 1.35(H) 0.70 - 1.30 mg/dL 11/15/2024 2:36 AM CDT [facility] BUN/CREATININE RATIO 11(L) 12 - 20 ratio 11/15/2024 2:36 AM CDT [facility] CALCIUM 8.1(L) 8.7 - 10.5 mg/dL 11/15/2024 2:36 AM CDT [facility] GFR, ESTIMATED 59(L) >=60 11/15/2024 2:36 AM CDT [facility] Comment: Creatinine Clearance is the preferred criteria for selecting drug dose adjustments in renally impaired patients. The GFR is provided as additional pertinent clinical information. GFR is reported in mL/min/1.73 sq m. Calculation based on the 2020 Chronic Kidney Disease Epidemiology Collaboration (CKD-EPI) equation refit without adjustment for race. GFR, EST. >60 >=60 025 2:36 AM CDT [facility] Comment: Creatinine Clearance is the preferred criteria for selecting drug dose adjustments in renally impaired patients. The GFR is provided as additional pertinent clinical information. GFR is reported in mL/min/1.73 sq m. Calculation based on the 2009 Chronic Kidney Disease Epidemiology Collaboration (CKD-EPI). GFR, EST. NONAFRICAN 53(L) >=60 11/15/2024 2:36 AM CDT [facility] Comment: Creatinine Clearance is the preferred criteria for selecting drug dose adjustments in renally impaired patients. The GFR is provided as additional pertinent clinical information. GFR is reported in mL/min/1.73 sq m. Calculation based on the 2009 Chronic Kidney Disease Epidemiology Collaboration (CKD-EPI). Blood Venipuncture / Unknown 11/15/2024 2:13 AM CDT 11/15/2024 2:15 AM CDT us Amaris Morse GEOLOGICAL MANAGER, PRIVATE BANKER CHEMISTRY ORDERABLES Jordana l Result Performing Organization Address City/[facility] Co de Phone Number [facility] [address] [place] [address] * RHYTHM STRIP (11/15/2024 12:00 AM CDT) Only the most recent of6 resultswithin the time period is included. 11/15/2024 us Provider Scan IMG ECG ORDERABLES Final Result RESULTING AGENCY * ADULT TRANS THORACIC ECHO 2D COMPLETE (11/14/2024 6:15 PM CDT) LV end suki diam cm 4.4 cm RESULTING AGENCY LV end sys diam cm 3.1 cm RESULTING AGENCY Aortic Root Diam cm 3.2 cm RESULTING AGENCY SEPTUM DIASTOLIC CM 2.1 cm RESULTING AGENCY PW DIASTOLIC CM 2.1 cm RESU LTING AGENCY LV EF(estimated)% 60 RESULTING AGENCY Anatomical Region Laterality Modality CARDIO N/A Ultrasound Narrative 11/15/2024 10:14 PM CDT Transthoracic Echocardiography Report (TTE) Patient name KAREN AlmarazO.B. 1960 Patient ID (UPI) [id number] Indications: Chest pain. Study Date11/14/2024 Technical quality: Limited visualization Limitation Reason: Patient Uncooperative Type of Study: TTE procedure: Adult Trans Thoracic Echo 2D Complete. Priority:RoutineHR: 64 bpmBP: 188/92 mmHg Conclusions Summary Limited echo study; only parasternal views available. Concentric LV hypertrophy. Grossly normal LV systolic function, LVEF visually ~55% although apical segments not well seen. Note there is inferolateral hypokinesis. Aortic valve mildly thickened with good excursion. Not fully studied by Doppler to comment on regurgitation or stenosis. Mitral valve mildly thickened. No significant regurgitation. Tricuspid valve appears normal, no significant stenosis or regurgitation. Mild [place]. Aorta normal size in visualized portion. Valves Pulmonic Valve Peak Velocity: 0.76 m/s Mean Velocity: 0.60 m/s Peak Gradient: 2.33 mmHg Mean Gradient: 2 mmHg LVOT LVOT Diameter: 2.1 cm Structures Left Ventricle Diastolic Dimension: 4.4 cm Systolic Dimension: 3.1 cm Septum Diastolic: 2.1 cm Septum Systolic: 2.5 cm PW Diastolic: 2.1 cm PW Systolic: 2.6 cm RWT: 0.95 FS: 29.55 % LVOT Diameter: 2.1 cm Great Vessels Aorta Ascending Aorta: 3.5 cm Aorta Root:3.2 cm Ascending Aorta Index:1.64 cm/m^2 Contractility Score LV regional wall motion: (0-Not visualized 1-Normal 1'-Hyperkinesis 2-Hypokinesis 3-Akinesis 4-Dyskinesis 5-Aneurysm) Demographics Age 64 Gender Male Race Height 75.2 in. Weight 185.85 lbs. BMI (BSA) 23.11 kg/m^2 (2.13 m^2) Corporate Communications Associate Valerio Huff R Room 238-01 Interpreting Tricia Referring Physician Clifford Physician Procedure Note Clifford Clarke MD PhD - 11/15/2024 Transthoracic Echocardiography Report (TTE) Patient name KAREN Bruno Yas 1960 Patient ID (UPI) [id number] Indications: Chest pain. Study Date11/14/2024 Technical quality: Limited visualization Limitation Reason: Patient Uncooperative Type of Study: TTE procedure: Adult Trans Thoracic Echo 2D Complete. Priority:RoutineHR: 64 bpmBP: 188/92 mmHg Conclusions Summary Limited echo study; only parasternal views available. Concentric LV hypertrophy. Grossly normal LV systolic function, LVEF visually ~55% although apical segments not well seen. Note there is inferolateral hypokinesis. Aortic valve mildly thickened with good excursion. Not fully studied by Doppler to comment on regurgitation or stenosis. Mitral valve mildly thickened. No significant regurgitation. Tricuspid valve appears normal, no significant stenosis or regurgitation. Mild [place]. Aorta normal size in visualized portion. Valves Pulmonic Valve Peak Velocity: 0.76 m/s Mean Velocity: 0.60 m/s Peak Gradient: 2.33 mmHg Mean Gradient: 2 mmHg LVOT LVOT Diameter: 2.1 cm Structures Left Ventricle Diastolic Dimension: 4.4 cm Systolic Dimension: 3.1 cm Septum Diastolic: 2.1 cm Septum Systolic: 2.5 cm PW Diastolic: 2.1 cm PW Systolic: 2.6 cm RWT: 0.95 FS: 29.55 % LVOT Diameter: 2.1 cm Great Vessels Aorta Ascending Aorta: 3.5 cm Aorta Root:3.2 cm Ascending Aorta Index:1.64 cm/m^2 Contractility Score LV regional wall motion: (0-Not visualized 1-Normal 1'-Hyperkinesis 2-Hypokinesis 3-Akinesis 4-Dyskinesis 5-Aneurysm) Demographics Age 64 Gender Male Race Height 75.2 in. Weight 185.85 lbs. BMI (BSA) 23.11 kg/m^2 (2.13 m^2) Corporate Communications Associate Valerio Huff R Room 238-01 Interpreting Tricia Referring Physician Clifford Physician us Amaris Morse GEOLOGICAL MANAGER, PRIVATE BANKER IMG ECHO ORDERABLES Edite d Result - Final * INTERVENTIONAL CATH PROCEDURE (11/14/2024 4:30 PM CDT) Anatomical Region Laterality Modality CARDIO N/A X-Ray Angiograph y Narrative 11/14/2024 5:24 PM CDT Images from the original result were not included. POST-CARDIAC CATHETERIZATION PROCEDURE NOTE- [facility] PATIENT:Leonid Zaman : 1960 DATE OF SERVICE: 11/14/24 Operators: Madison Canseco MD Indication: - NSTEMI Procedures: - Coronary angiography - Graft Angiography - Left heart cath - Graft balloon angioplasty - Coronary stent placement - Right iliofemoral angiography -Left subclavian artery - Moderate sedation I performed moderate sedation using Versed 2 mg and fentanyl 100 mcg. I supervised and directed our R.N. who assisted in monitoring patient's level of consciousness and physiological status throughout the procedure. Sedation start time: 15:23 Sedation end time: 16:23 Sedation total time: 60 minutes Findings: - LHC: Severely elevated LVEDP, 31 mmHg - Coronary angiogram: *Left main: 90% severe distal disease *LAD: Severe ostial disease with 100% mid segment REMANUFACTURING TECHNICIAN,, first diagonal branch with severe disease, second diagonal branch with severe 80% disease *Left circumflex: 100% proximal vessel REMANUFACTURING TECHNICIAN *RCA: 100% proximal vessel REMANUFACTURING TECHNICIAN Grafts: - Patent JOHNSON to mid LAD with diffuse severe distal LAD disease and a very small caliber vessel - Patent radial graft to PDA supplying the RPDA and RPL system retrograde with severe distal RPDA [place] disease and a small vessel - Subtotal acute occlusion of the very ectatic and diseased SVG graft to OM 2 with very severe distal OM 2 disease less than 1.5 mm vessel supplying a small territory with no retrograde flow to the [place] circumflex, culprit vessel Intervention: - Partially successful PTCA of the proximal SVG graft to OM 2 and distal anastomosis segments with no reflow and very ectatic vessel with very poor outflow and no targets for stent implantation, hence intervention was aborted due to lack of landing zone or adequate outflow with a likelihood of graft occlusion happening regardless of intervention with very small target Procedure details: The risks, benefits, goals, alternatives, need for team based approach were discussed with the patient, and written informed consent was obtained prior to proceeding. The patient was prepped and draped in the usual sterile fashion. Accessed was obtained in the right common femoral artery with ultrasound guidance and micropuncture assistance without complications. Diagnostic angiography revealed severe [place] vessel CAD with REMANUFACTURING TECHNICIAN of all [place] vessels and no targets for intervention. The JOHNSON to LAD supplied the very diseased small distal LAD and radial graft supplying the RPDA and RPL retrograde. The SVG to distal OM 2 had evidence of plaque rupture proximally with very poor outflow and very small distal OM 2 less than 1.5 mm vessel supplying a small territory in the inferolateral wall which was felt to be the culprit for patient's presentation. After discussion with referring provider and considering all options carefully, the decision was made to proceed with percutaneous coronary intervention. The patient was previously on aspirin and Plavix. Therapeutic heparin was administered and monitored throughout the procedure utilizing ACT checks to confirm therapeutic levels throughout the intervention. We used 6 [place] AL-1 guiding catheter to engage the ostium of the SVG graft. We used a workhorse wire to wire the graft and it was brought distally in the vessel. We predilated the proximal segment to assess the flow using 3.0 mm balloon with very short inflation. We gave several doses of intracoronary adenosine and nitroglycerin with persistent poor flow and very diseased and ectatic graft. We predilated distal anastomotic segment of the graft using 2.0 mm balloon with persistent very small and diseased [place] OM 2 vessels less than 1.5 mm in diameter and hence no targets for intervention and intervention was aborted. The graft is likely bound to occlude in the next few days regardless of intervention with very small area supplied without graft. The risk of any further intervention outweighed the benefits. Finally femoral angiography showed adequate access site in the mid femoral head and mid femoral artery and hemostasis was achieved using 1 Perclose suture. The patient continued to have intermittent chest pain but remained hemodynamically stable and hypertensive with blood pressure for pain but no signs of instability. 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 -Patent JOHNSON to mid LAD and radial graft to RPDA -Severely diseased and subtotally occluded ectatic SVG graft to distal small [place] OM 2 supplying a very small territory, culprit vessel -Severely elevated LVEDP - Partially successful PTCA of the proximal SVG graft to OM 2 and distal anastomosis segments with no reflow and very ectatic vessel with very poor outflow and no targets for stent implantation, hence intervention was aborted due to lack of landing zone or adequate outflow with a likelihood of graft occlusion happening regardless of intervention with very small target Access site/size(s) and vascular closure method: - Right common femoral artery, 6 [place] sheath, Perclose suture Periprocedural Events: None Estimated blood loss: Minimal Recommendations: -Routine post cath care - Given the lack of any interventional targets I will recommend medical management of his NSTEMI. Medical management of the severe diffuse CAD and small caliber vessels. Continue heparin drip for 48 hours. Optimize GDMT. 2D echo. Likely discharge after 48 hours if no recurrent chest pain at that time. He will likely have recurrent chest pain over the next 24 hours till the graft completely occlusive and that small OM territory. Pain management. - Follow up - Risk factor optimization Discharge: Likely 48 to 72 hours, pending clinical course Madison Canseco MD, [facility], [facility] Interventional and Structural Cardiology , [facility] Commercial Front Load Operatorcopy chief [facility] [employer] Email: [email or web address] [facility] phone: [phone] [place] ([place]) Office: [phone] Madison Canseco MD IMG CARDIAC CAT H Final Result * CARDIAC CATH (11/14/2024 4:30 PM CDT) Anatomical Region Laterality Modality CARDIO N/A X-Ray Angiograph y Narrative 11/14/2024 5:24 PM CDT Images from the original result were not included. POST-CARDIAC CATHETERIZATION PROCEDURE NOTE- [facility] PATIENT:Leonid Zaman : 1960 DATE OF SERVICE: 11/14/24 Operators: Madison Canseco MD Indication: - NSTEMI Procedures: - Coronary angiography - Graft Angiography - Left heart cath - Graft balloon angioplasty - Coronary stent placement - Right iliofemoral angiography -Left subclavian artery - Moderate sedation I performed moderate sedation using Versed 2 mg and fentanyl 100 mcg. I supervised and directed our R.N. who assisted in monitoring patient's level of consciousness and physiological status throughout the procedure. Sedation start time: 15:23 Sedation end time: 16:23 Sedation total time: 60 minutes Findings: - LHC: Severely elevated LVEDP, 31 mmHg - Coronary angiogram: *Left main: 90% severe distal disease *LAD: Severe ostial disease with 100% mid segment REMANUFACTURING TECHNICIAN,, first diagonal branch with severe disease, second diagonal branch with severe 80% disease *Left circumflex: 100% proximal vessel REMANUFACTURING TECHNICIAN *RCA: 100% proximal vessel REMANUFACTURING TECHNICIAN Grafts: - Patent JOHNSON to mid LAD with diffuse severe distal LAD disease and a very small caliber vessel - Patent radial graft to PDA supplying the RPDA and RPL system retrograde with severe distal RPDA [place] disease and a small vessel - Subtotal acute occlusion of the very ectatic and diseased SVG graft to OM 2 with very severe distal OM 2 disease less than 1.5 mm vessel supplying a small territory with no retrograde flow to the [place] circumflex, culprit vessel Intervention: - Partially successful PTCA of the proximal SVG graft to OM 2 and distal anastomosis segments with no reflow and very ectatic vessel with very poor outflow and no targets for stent implantation, hence intervention was aborted due to lack of landing zone or adequate outflow with a likelihood of graft occlusion happening regardless of intervention with very small target Procedure details: The risks, benefits, goals, alternatives, need for team based approach were discussed with the patient, and written informed consent was obtained prior to proceeding. The patient was prepped and draped in the usual sterile fashion. Accessed was obtained in the right common femoral artery with ultrasound guidance and micropuncture assistance without complications. Diagnostic angiography revealed severe [place] vessel CAD with REMANUFACTURING TECHNICIAN of all [place] vessels and no targets for intervention. The JOHNSON to LAD supplied the very diseased small distal LAD and radial graft supplying the RPDA and RPL retrograde. The SVG to distal OM 2 had evidence of plaque rupture proximally with very poor outflow and very small distal OM 2 less than 1.5 mm vessel supplying a small territory in the inferolateral wall which was felt to be the culprit for patient's presentation. After discussion with referring provider and considering all options carefully, the decision was made to proceed with percutaneous coronary intervention. The patient was previously on aspirin and Plavix. Therapeutic heparin was administered and monitored throughout the procedure utilizing ACT checks to confirm therapeutic levels throughout the intervention. We used 6 [place] AL-1 guiding catheter to engage the ostium of the SVG graft. We used a workhorse wire to wire the graft and it was brought distally in the vessel. We predilated the proximal segment to assess the flow using 3.0 mm balloon with very short inflation. We gave several doses of intracoronary adenosine and nitroglycerin with persistent poor flow and very diseased and ectatic graft. We predilated distal anastomotic segment of the graft using 2.0 mm balloon with persistent very small and diseased [place] OM 2 vessels less than 1.5 mm in diameter and hence no targets for intervention and intervention was aborted. The graft is likely bound to occlude in the next few days regardless of intervention with very small area supplied without graft. The risk of any further intervention outweighed the benefits. Finally femoral angiography showed adequate access site in the mid femoral head and mid femoral artery and hemostasis was achieved using 1 Perclose suture. The patient continued to have intermittent chest pain but remained hemodynamically stable and hypertensive with blood pressure for pain but no signs of instability. 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 -Patent JOH[place]ON to mid LAD and radial graft to RPDA -Severely diseased and subtotally occluded ectatic SVG graft to distal small [place] OM 2 supplying a very small territory, culprit vessel -Severely elevated LVEDP - Partially successful PTCA of the proximal SVG graft to OM 2 and distal anastomosis segments with no reflow and very ectatic vessel with very poor outflow and no targets for stent implantation, hence intervention was aborted due to lack of landing zone or adequate outflow with a likelihood of graft occlusion happening regardless of intervention with very small target Access site/size(s) and vascular closure method: - Right common femoral artery, 6 [place] sheath, Perclose suture Periprocedural Events: None Estimated blood loss: Minimal Recommendations: -Routine post cath care - Given the lack of any interventional targets I will recommend medical management of his NSTEMI. Medical management of the severe diffuse CAD and small caliber vessels. Continue heparin drip for 48 hours. Optimize GDMT. 2D echo. Likely discharge after 48 hours if no recurrent chest pain at that time. He will likely have recurrent chest pain over the next 24 hours till the graft completely occlusive and that small OM territory. Pain management. - Follow up - Risk factor optimization Discharge: Likely 48 to 72 hours, pending clinical course Madison Canseco MD, [facility], [facility] Interventional and Structural Cardiology , [facility] Commercial Front Load Operatorcopy chief [facility] [employer] Email: [email or web address] [facility] phone: [phone] [place] ([place]) Office: [phone] us Madison Canseco MD IM CARDIAC CAT H Final Result * Activated Clot Time POCT (11/14/2024 3:53 PM CDT) [facility] ACTIVATED CLOT TIME - POCT 135 82 - 152 sec 11/14/2024 4:17 PM CDT [facility] Blood 11/14/2024 3:53 PM CDT 11/14/2024 4:17 PM CDT us None Provider POINT OF CARE TESTING Final Resu lt Performing Organization Address [facility] Co de Phone Number [facility] [place] [address] * (ABNORMAL) TROPONIN I, HIGH SENSITIVITY (HSTRP) (11/14/2024 6:43 AM CDT) Only the most recent of5 resultswithin the time period is included. TROPONIN I, HIGH SENSITIVITY- [place] 4,873(HH) <=35 ng/L 11/14/2024 7:43 AM CDT [facility] Comment: High-sensitivity troponin I results are reported in ng/L making the result appear to be 1,000 times higher than the contemporary troponin I value which is reported in ng/ml. Results from [facility]. Blood Venipuncture / Unknown 11/14/2024 6:43 AM CDT 11/14/2024 6:55 AM CDT us Amaris Morse GEOLOGICAL MANAGER, PRIVATE BANKER CHEMISTRY ORDERABLES Jordana l Result Performing Organization Address [facility] Co de Phone Number [facility] [place] [address] * CT CHEST W/O CONTRAST (11/14/2024 2:09 AM CDT) Anatomical Region Laterality Modality Chest N/A Computed Tomogra phy 11/14/2024 8:49 AM CDT Impressions 11/14/2024 8:51 AM CDT IMPRESSION: 1. Small bilateral effusions with adjacent probable atelectasis increased from previous. 2. Heart size is enlarged, more notable than previous. Please correlate clinically. 3. 0.61 cm right lower lobe lung nodule unchanged from 04/15/2021 suggesting benign process. 4. Lobular enlargement left lobe of thyroid. Ultrasound suggested to better characterize. 5. 2.0 cm subcutaneous nodule overlying the xiphoid likely represents a sebaceous cyst and is enlarged from previous. Narrative 11/14/2024 8:51 AM CDT EXAM DESCRIPTION: CT CHEST W/O CONTRAST REASON FOR STUDY: midsternal chest pain, SOB x 1030 today. pt states pain radiates into left side of chest and left jaw. Prior PCXR demonstrates atelectasis or pneumonia 11/13/24. Hx of skin cancer, CAD, HTN, DM, [place] TECHNIQUE: CT scan of the chest performed without intravenous contrast using helical scanning technique. Reconstructed coronal and sagittal MPR images reviewed. All images stored on PACS. Automated exposure control was used as a dose optimization technique for this examination. COMPARISON: 11/13/2024 chest radiograph, 04/15/[address] FINDINGS: The sensitivity for detection of solid visceral lesions is diminished without the use of intravenous contrast. LUNGS: Central airways are patent. Bibasilar interstitial and band like densities likely related to atelectasis adjacent to small effusions with subtle inflammatory change not excluded, increased from previous. Superior segment right lower lobe irregular lobulated nodule measuring 0.61 cm on image 51 of series 4 is unchanged from 04/15/2021 using a similar measurement technique suggesting benign process. PLEURA: Small bilateral effusions new from previous without loculated segments or pneumothorax. MEDIASTINUM/CEDRIC: Left lobe of thyroid demonstrates lobular enlargement ultrasound suggested to better characterize. Nonenlarged lymph nodes retrocaval pretracheal space, AP window, subcarinal space similar to previous. HEART: Heart size is enlarged and increased in size from previous. Minimal pericardial effusion. Postop sternotomy and CABG changes. CORONARY ARTERY CALCIFICATION: Present VASCULATURE: No thoracic aortic aneurysm. AXILLA: No adenopathy. CHEST WALL: Subcutaneous 2.0 cm soft tissue density nodule overlying the anterior chest wall adjacent to the xiphoid likely represents a sebaceous cyst and is enlarged from previous. HARDWARE/LINES/TUBES: None. UPPER ABDOMEN: No significant abnormality. MUSCULOSKELETAL: No significant abnormality. OTHER: No other significant abnormality. THIS IS AN ELECTRONICALLY VERIFIED FINAL REPORT 11/14/2024 8:49 AM - Electronically signed by Deepak Plaza M.D. RB: KRYSTIN Report ID: [id number] Reading Location: [id number] Procedure Note Deepak Plaza MD - 11/14/2024 EXAM DESCRIPTION: CT CHEST W/O CONTRAST REASON FOR STUDY: midsternal chest pain, SOB x 1030 today. pt states pain radiates into left side of chest and left jaw. Prior PCXR demonstrates atelectasis or pneumonia 11/13/24. Hx of skin cancer, CAD, HTN, DM, [place] TECHNIQUE: CT scan of the chest performed without intravenous contrast using helical scanning technique. Reconstructed coronal and sagittal MPR images reviewed. All images stored on PACS. Automated exposure control was used as a dose optimization technique for this examination. COMPARISON: 11/13/2024 chest radiograph, 04/15/[address] FINDINGS: The sensitivity for detection of solid visceral lesions is diminished without the use of intravenous contrast. LUNGS: Central airways are patent. Bibasilar interstitial and band like densities likely related to atelectasis adjacent to small effusions with subtle inflammatory change not excluded, increased from previous. Superior segment right lower lobe irregular lobulated nodule measuring 0.61 cm on image 51 of series 4 is unchanged from 04/15/2021 using a similar measurement technique suggesting benign process. PLEURA: Small bilateral effusions new from previous without loculated segments or pneumothorax. MEDIASTINUM/CEDRIC: Left lobe of thyroid demonstrates lobular enlargement ultrasound suggested to better characterize. Nonenlarged lymph nodes retrocaval pretracheal space, AP window, subcarinal space similar to previous. HEART: Heart size is enlarged and increased in size from previous. Minimal pericardial effusion. Postop sternotomy and CABG changes. CORONARY ARTERY CALCIFICATION: Present VASCULATURE: No thoracic aortic aneurysm. AXILLA: No adenopathy. CHEST WALL: Subcutaneous 2.0 cm soft tissue density nodule overlying the anterior chest wall adjacent to the xiphoid likely represents a sebaceous cyst and is enlarged from previous. HARDWARE/LINES/TUBES: None. UPPER ABDOMEN: No significant abnormality. MUSCULOSKELETAL: No significant abnormality. OTHER: No other significant abnormality. THIS IS AN ELECTRONICALLY VERIFIED FINAL REPORT 11/14/2024 8:49 AM - Electronically signed by Deepak Plaza M.D. RB: RB Report ID: [id number] Reading Location: [place] [id number] IMPRESSION: 1. Small bilateral effusions with adjacent probable atelectasis increased from previous. 2. Heart size is enlarged, more notable than previous. Please correlate clinically. 3. 0.61 cm right lower lobe lung nodule unchanged from 04/15/2021 suggesting benign process. 4. Lobular enlargement left lobe of thyroid. Ultrasound suggested to better characterize. 5. 2.0 cm subcutaneous nodule overlying the xiphoid likely represents a sebaceous cyst and is enlarged from previous. us Amaris Morse GEOLOGICAL MANAGER, PRIVATE BANKER IMG CT ORDERABLES Final R esult * Protime (PT) (Prothrombin Time) (11/13/2024 11:37 PM CDT) [facility] PROTIME-PATIENT 12.4 11.6 - 14.8 sec 11/13/2024 11:54 PM CDT [facility] INR 0.9 0.9 - 1.2 11/13/2024 11:54 PM CDT [facility] Comment: Therapeutic Ranges INR = 2.0-3.0: Venous thromb, atrial fib, pul embolism, tissue heart valve, ami. INR = 2.5-3.5: Mechanical heart valve Critical value for INR is >/= 4.5 Blood Venipuncture / Unknown 11/13/2024 11:37 PM CDT 11/13/2024 11:38 PM CDT us Esteban Wyatt MD HEMATOLOGY ORDERABLES Fin al Result [facility] [place] [address] * (ABNORMAL) Hemoglobin A1C (if indicated) (11/13/2024 11:35 PM CDT) [facility] HGB-A1C 11.0(H) 4.0 - 6.0 % 11/14/2024 1:21 AM CDT [facility] Est Average Glucose 269.0 mg/dL 11/14/2024 1:21 AM CDT [facility] Blood Venipuncture / Unknown 11/13/2024 11:35 PM CDT 11/13/2024 11:38 PM CDT Narrative [facility] - 11/14/2024 1:21 AM CDT HEMOGLOBIN A1C: DIABETIC PATIENTS: WELL-CONTROLLED: 6.2 - 7.0 INTERMEDIATE WELL-CONTROLLED: 7.0 - 9.0 POORLY-CONTROLLED: >9.0 Specimens containing greater than 5% of Hemoglobin F may result in lower than expected % HbA1C results. us Amaris Morse APRN, CNP CHEMISTRY ORDERABLES Jordana polk Result [facility] [place] [address] * (ABNORMAL) Complete Blood Count (CBC) WITHOUT Diff - baseline (11/13/2024 11:35 PM CDT) WBC 6.43 4.00 - 12.00 10(3)/mcL 11/13/2024 11:40 PM CDT [facility] RBC 4.17(L) 4.40 - 5.80 10(6)/mcL 11/13/2024 11:40 PM CDT [facility] HEMOGLOBIN (HGB) 12.1(L) 13.0 - 16.5 g/dL 11/13/2024 11:40 PM CDT [facility] HEMATOCRIT (HCT) 35.9(L) 38.0 - 50.0 % 11/13/2024 11:40 PM CDT [facility] MCV 86.1 82.0 - 96.0 fL 11/13/2024 11:40 PM CDT [facility] MCH 29.0 26.0 - 32.0 pg 11/13/2024 11:40 PM CDT [facility] MCHC 33.7 31.0 - 36.0 g/dL 11/13/2024 11:40 PM CDT [facility] PLATELET COUNT 225 140 - 440 10(3)/mcL 11/13/2024 11:40 PM CDT [facility] RDW 13.0 11.8 - 15.5 % 11/13/2024 11:40 PM CDT [facility] MPV 9.8 8.0 - 12.6 fL 11/13/2024 11:40 PM CDT [facility] Blood Venipuncture / Unknown 11/13/2024 11:35 PM CDT 11/13/2024 11:38 PM CDT us Esteban Wyatt MD HEMATOLOGY ORDERABLES Fin al Result [facility] [place] [address] * XR CHEST SINGLE VIEW PORTABLE (11/13/2024 10:07 PM CDT) Only the most recent of2 resultswithin the time period is included. Anatomical Region Laterality Modality Chest N/A Computed Radiogr aphy 11/13/2024 10:2 9 PM CDT Impressions 11/13/2024 10:31 PM CDT IMPRESSION: Nonspecific left lung base haziness, possibly atelectasis or pneumonia. Narrative 11/13/2024 10:31 PM CDT EXAM DESCRIPTION: XR CHEST SINGLE VIEW PORTABLE REASON FOR STUDY: midsternal chest pain, SOB x 1030 today. pt states pain radites into left side of chest and left jaw. Hx of skin cancer, CAD, HTN, DM, [place] TECHNIQUE: Portable upright AP view of the chest. COMPARISON: 11/02/2024 FINDINGS: LUNGS AND PLEURA: Nonspecific haziness of the left lung base. Lungs otherwise clear. HEART/MEDIASTINUM: Trachea midline. Cardiac silhouette normal in size. Mediastinal contours appear normal. BONES: Unremarkable. CHEST WALL: Unremarkable. UPPER ABDOMEN: Unremarkable. THIS IS AN ELECTRONICALLY VERIFIED FINAL REPORT 11/13/2024 10:29 PM - Electronically signed by Joshua Richards M.D. AR: DAYANA Report ID: [id number] Reading Location: [id number] Procedure Note Joshua Richards MD - 11/13/2024 EXAM DESCRIPTION: XR CHEST SINGLE VIEW PORTABLE REASON FOR STUDY: midsternal chest pain, SOB x 1030 today. pt states pain radites into left side of chest and left jaw. Hx of skin cancer, CAD, HTN, DM, [place] TECHNIQUE: Portable upright AP view of the chest. COMPARISON: 11/02/2024 FINDINGS: LUNGS AND PLEURA: Nonspecific haziness of the left lung base. Lungs otherwise clear. HEART/MEDIASTINUM: Trachea midline. Cardiac silhouette normal in size. Mediastinal contours appear normal. BONES: Unremarkable. CHEST WALL: Unremarkable. UPPER ABDOMEN: Unremarkable. THIS IS AN ELECTRONICALLY VERIFIED FINAL REPORT 11/13/2024 10:29 PM - Electronically signed by Joshua Richards M.D. AR: DAYANA Report ID: [id number] Reading Location: [id number] IMPRESSION: Nonspecific left lung base haziness, possibly atelectasis or pneumonia. Esteban Wyatt MD IM DIAGNOSTIC ORDERABLES Final Result * Critical Care (11/13/2024 9:45 PM CDT) Narrative Esteban Wyatt MD - 11/13/2024 9:45 PM CDT Esteban Wyatt MD 11/14/2024 12:18 AM Critical Care Performed by: Esteban Wyatt MD Authorized by: Esteban Wyatt MD Critical care provider statement: Critical care time (minutes): 45 Critical care time was exclusive of: Separately billable procedures and treating other patients Critical care was necessary to treat or prevent imminent or life-threatening deterioration of the following conditions: NSTEMI. Critical care was time spent personally by me on the following activities: Development of treatment plan with patient or surrogate, obtaining history from patient or surrogate, examination of patient, evaluation of patient's response to treatment, ordering and performing treatments and interventions, ordering and review of laboratory studies, ordering and review of radiographic studies, pulse oximetry, re-evaluation of patient's condition and review of old charts I assumed direction of critical care for this patient from another provider in my specialty: no Care discussed with: admitting provider Esteban Wyatt MD PROCEDURE/MINOR SURGICAL ORDERABLES Final Result * Magnesium (Mg) [id number] (11/13/2024 9:26 PM CDT) Pathologist [facility] MAGNESIUM 1.8 1.6 - 2.6 mg/dL 11/13/2024 9:52 PM CDT [facility] Blood Venipuncture / Unknown 11/13/2024 9:26 PM CDT 11/13/2024 9:33 PM CDT Esteban Wyatt MD CHEMISTRY ORDERABLES Jordana l Result [facility] [place] [address] * (ABNORMAL) Comprehensive Metabolic Panel (Cmp) [id number] (11/13/2024 9:26 PM CDT) [facility] SODIUM 133(L) 136 - 145 mmol/L 11/13/2024 9:52 PM CDT [facility] POTASSIUM 4.1 3.5 - 5.1 mmol/L 11/13/2024 9:52 PM CDT [facility] [facility] CHLORIDE 102 98 - 107 mmol/L 11/13/2024 9:52 PM CDT [facility] CO2, VENOUS 19(L) 22 - 30 mmol/L 11/13/2024 9:52 PM CDT [facility] ANION GAP 16.1 <18.0 mmol/L 11/13/2024 9:52 PM CDT [facility] GLUCOSE 399(H) 70 - 99 mg/dL 11/13/2024 9:52 PM CDT [facility] BUN 15 8 - 26 mg/dL 11/13/2024 9:52 PM CDT [facility] CREATININE, BLOOD 1.42(H) 0.70 - 1.30 mg/dL 11/13/2024 9:52 PM [facility] BUN/CREATININE RATIO 11(L) 12 - 20 ratio 11/13/2024 9:52 PM [facility] TOTAL PROTEIN 6.3 6.0 - 8.0 g/dL 11/13/2024 9:52 PM T [facility] ALBUMIN 3.2(L) 3.5 - 5.0 g/dL 11/13/2024 9:52 PM [facility] A/G RATIO 1.0 1.0 - 2.2 11/13/2024 9:52 PM [facility] CALCIUM 8.2(L) 8.7 - 10.5 mg/dL 11/13/2024 9:52 PM T [facility] T BILI 0.2 0.2 - 1.2 mg/dL 11/13/2024 9:52 PM [facility] SGOT (AST) 23 <43 U/L 11/13/2024 9:52 PM [facility] SGPT (ALT) 10 <56 U/L 11/13/2024 9:52 PM [facility] ALKALINE PHOSPHATASE 119 40 - 150 U/L 11/13/2024 9:52 PM [facility] GFR, ESTIMATED 56(L) >=60 11/13/2024 9:52 PM [facility] Comment: Creatinine Clearance is the preferred criteria for selecting drug dose adjustments in renally impaired patients. The GFR is provided as additional pertinent clinical information. GFR is reported in mL/min/1.73 sq m. Calculation based on the Chronic Kidney Disease Epidemiology Collaboration (CKD- EPI) equation refit without adjustment for race. GFR, EST. >60 >=60 025 9:52 PM T [facility] GFR, EST. NONAFRICAN 50(L) >=60 11/13/2024 9:52 PM [facility] Blood Venipuncture / Unknown 11/13/2024 9:26 PM CDT 11/13/2024 9:33 PM CDT us Esteban Wyatt MD CHEMISTRY ORDERABLES Jordana l Result [facility] [place] [address] * EKG 12 LEAD (11/13/2024 9:06 PM CDT) Ventricular Rate 73 BPM EXTERNAL EKG Atrial Rate 73 BPM EXTERNAL EKG P-R Interval 172 ms EXTERNAL EKG QRS Duration 102 ms EXTERNAL EKG Q-T Duration 456 ms EXTERNAL EKG QTC CALCULATION 502 ms EXTERNAL EKG P [place] 37 degrees EXTERNAL EKG R [place] 51 degrees EXTERNAL EKG T [place] 101 degrees EXTERNAL EKG 11/13/2024 9:06 PM CDT Impressions EXTERNAL EKG - 11/15/2024 4:31 PM CDT Normal sinus rhythm Possible Left atrial enlargement Nonspecific ST and T wave abnormality Prolonged QT Abnormal ECG When compared with ECG of 22-OCT-2024 19:27, T wave inversion no longer evident in Inferior leads QT has lengthened Confirmed by Clifford Clarke ([id number]) on 11/15/2024 4:31:07 PM Narrative Procedure Note Clifford Clarke MD PhD - 11/15/2024 IMPRESSION: Normal sinus rhythm Possible Left atrial enlargement Nonspecific ST and T wave abnormality Prolonged QT Abnormal ECG When compared with ECG of 22-OCT-2024 19:27, T wave inversion no longer evident in Inferior leads QT has lengthened Confirmed by Clifford Clarke ([id number]) on 11/15/2024 4:31:07 PM us Esteban Wyatt MD IMG ECG ORDERABLES Final Result EXTERNAL EKG * EKG SCAN (11/13/2024 12:00 AM CDT) 11/13/2024 us Provider Scan IMG ECG ORDERABLES Final Result RESULTING AGENCY * XR FOOT 3 OR MORE VIEWS RIGHT (11/02/2024 6:31 PM CDT) Anatomical Region Laterality Modality LOWER EXTREMITY, foot Right Digital Ra diography 11/02/2024 6:42 PM CDT Impressions 11/02/2024 6:45 PM CDT IMPRESSION: Healing nondisplaced transverse fractures of the 1st-4th metatarsals. No acute osseous abnormality. Narrative 11/02/2024 6:45 PM CDT EXAM DESCRIPTION: XR FOOT 3 OR MORE VIEWS RIGHT REASON FOR STUDY: complaining of foot pain. Patient reports he broke it in August 2024. States he thinks he might have hit his foot when he fell, increasing the pain TECHNIQUE: 3 radiographic view(s) of the right foot . COMPARISON: None FINDINGS: BONES/JOINTS: There is evidence of healing of contrast nondisplaced transverse fractures of the 1st-4th metatarsals. No acute osseous abnormality. The joint spaces are normal. SOFT TISSUES: Mild soft tissue swelling of the foot. THIS IS AN ELECTRONICALLY VERIFIED FINAL REPORT 11/02/2024 6:42 PM - Electronically signed by Clau Tran M.D. FT: FT Report ID: [id number] Reading Location: [id number] Procedure Note Clau Kapoor MD - 11/02/2024 EXAM DESCRIPTION: XR FOOT 3 OR MORE VIEWS RIGHT REASON FOR STUDY: complaining of foot pain. Patient reports he broke it in August 2024. States he thinks he might have hit his foot when he fell, increasing the pain TECHNIQUE: 3 radiographic view(s) of the right foot . COMPARISON: None FINDINGS: BONES/JOINTS: There is evidence of healing of contrast nondisplaced transverse fractures of the 1st-4th metatarsals. No acute osseous abnormality. The joint spaces are normal. SOFT TISSUES: Mild soft tissue swelling of the foot. THIS IS AN ELECTRONICALLY VERIFIED FINAL REPORT 11/02/2024 6:42 PM - Electronically signed by Clau Tran M.D. FT: FT Report ID: [id number] Reading Location: [place] [address] IMPRESSION: Healing nondisplaced transverse fractures of the 1st-4th metatarsals. No acute osseous abnormality. Lona Hayes MD IMG DIAGNOSTIC ORDERABLES Final Result * Hepatitis Panel Acute (AHP) (06/09/2023 4:00 AM [employer]) HEPATITIS A IGM ANTIBODY NON DETECTED NON DETECTED [facility] [id number] 06/09/2023 3:52 PM [employer] [facility] Comment: IGM Antibodies to HAV not detected. Does not exclude early acute or recovered HAV infection. HEP B CORE AB (IGM) NON DETECTED NON DETECTED [facility] [id number] B 06/09/2023 3:52 PM [employer] [facility] Comment:IGM anti-HBC not det ected. Does not exclude the possibility of exposure to or infection with HBV. HEPATITIS B SURFACE ANTIGEN NON DETECTED NON DETECTED [facility] [id number] A 06/09/2023 3:52 PM [employer] [facility] Comment:A nonreactive test r esult does not exclude the possibility of exposure to or infection with Hepatitis B virus. A nonreactive test result in individuals with prior exposure to hepatitis B may be due to antigen levels below the detection limit of this assay or lack of antigen reactivity to the antibodies in this assay. hepatitis C antibody 0.05 <1 S/CO [facility] [id number] A 06/09/2023 3:52 PM [employer] [facility] Comment: Signal/Cutoff ratio < 0.79 is Nondetected Signal/Cutoff ratio 0.80-0.99 is Grayzone Signal/Cutoff ratio > 0.99 is Detected Supplemental assays are recommended if signal/cutoff ratio is >/=1.00. Signal/cutoff ratio result >/= 5.00 is 97% predictive of positivity for recombinant immunoblot assay (RIBA) and will be reported to the [place] [facility] Public [facility] as required. Blood Venipuncture / Unknown 06/09/2023 4:00 AM [employer] 06/09/2023 4:36 AM [employer] Jeffery Perez MD HEMATOLOGY ORDERABLES Final R esult [facility] [address] [place] [address], [place] * COLONOSCOPY (11/19/2013) Tony Jaramillo MD PROCEDURE/MINOR SURGICAL ORDERAB LES Final Result from Last 3 Months or Most Recently Relevant to Health Maintenance Insurance MEDICARE C [employer] Advance Directives * Full Code (Latest Code Status on File) Date Activated Date Inactivated Comments 11/14/2024 1:57 AM CPR-Full Treat ment: FULL ARREST: Attempt Resuscitation/CPR wit intubation and mechanical ventilation. PRE-ARREST: Use entire range of life support measures to stabilize the patient. * Full Code Date Activated Date Inactivated Comments 10/05/2023 5:35 [...] measures to stabilize the patient. Care Teams Clinic Charge Nurse Relationship Specialty Start Date End Date Tolu Lieberman MD [address] [place] [address] PCP - General Family Medicine 03/14/15
--- OUTSIDE RECORDS SUMMARY | 2025-01-26 09:28 | XMS_ITS | Encounter Summary ---
Author Organization [facility] Address [address] [place] [address] Phone Care Team Providers Care Buckle Sewer Name Role Phone Tolu Lieberman MD Primary Care Provider Encounter Details Date Type Department Care Team (Late st Contact Info) Description 11/22/2022 Telephone [facility] Med Surg [address] [place] [phone] Sister Zaria Kline, RN [place] Social [...] on filedocumented in this encounter Care Teams Buckle Sewer Relationship Specialty Start Date End Date Tolu Lieberman MD [address] [place] [address] PCP - General Family Medicine 03/14/15 documented as of this encounter
--- OUTSIDE RECORDS SUMMARY | 2025-01-26 09:28 | XMS_ITS | Clinical Summary ---
Author Organization [facility] Address [address] [place] [address] Care Team Providers Care Network Architect Manager Name Role Phone Deepak Meirda MD Unavailable [phone] Joshua Aguilera MD Unavailable [phone] Loco ORTEGA MD, John Matthew Unavailable + [phone] Srinivasa Farrar MD Unavailable [phone]- [phone] Jeffrey Izquierdo OD Unavailable [phone] Tolu Lieberman MD Primary Care Provider [phone] Denton Gilman MD Unavailable [phone] Aly Johnson MD Unavailable [phone] Allergies Active Allergy Reactions Criticality Noted Date [...] comments) Low Stage III Kidney Disease Medications busPIRone (BUSPAR) 15 mg tablet Take 2 tablets (30 mg total) by mouth 2 (two) times a day Take 1 tablet by oral route twice daily Active flash glucose scanning reader ([place] Jennifer 14 Day [place]) miscIndications:Typ e 2 diabetes mellitus with hyperglycemia, without long-term current use of insulin ([facility]) For home glucose monitoring 1 each 3 020 Active aspirin 81 mg enteric coated tablet Take 1 tablet (81 mg total) by mouth Active FreeStyle Jennifer 14 Day Sensor kitIndications:Type 2 diabetes mellitus with hyperglycemia, with long-term current use of insulin ([facility]) 1 EACH EVERY 14 (FOURTEEN) DAYS TO MONITOR BLOOD GLUCOSE LEVELS 7 kit 1 025 Active dicyclomine (BENTYL) 20 mg tablet Take 1 tablet (20 mg total) by mouth nightly Active topiramate (TOPAMAX) 50 mg tablet Take 1 tablet (50 mg total) by mouth daily Active topiramate (TOPAMAX) 100 mg tablet Take 1 tablet (100 mg total) by mouth nightly Active dicyclomine (BENTYL) 20 mg tablet Take [...] daily 90 tablet 3 025 2025 Active ondansetron ODT (ZOFRAN-ODT) 4 mg disintegrating tabletIndications:D iabetic ketoacidosis without coma associated with type 2 diabetes mellitus (HCC),Diabetes mellitus with gastroparesis (HCC) Take 1 tablet (4 mg total) by mouth every 8 (eight) hours as needed for nausea or vomiting 20 tablet 2 025 Active ezetimibe (ZETIA) 10 mg tablet TAKE 1 TABLET BY MOUTH EVERY DAY AT NIGHT 90 tablet 1 025 Active insulin lispro (HumaLOG) 100 unit/mL pen for injection SCALE AT MEALS AND BEDTIME IF ELEVATED 70-139 = 0 UNITS 140-164 = 2 UNITS 165-189 = 4 UNITS 190-214 = 6 UNITS 215-239 = 8 UNITS,NOTIFY MD 240 OR GREATER = 10 UNITS,NOTIFY MD 15 mL 1 025 Active fenofibrate nanocrystallized (TRICOR) 145 mg tablet TAKE 1 TABLET BY MOUTH EVERY DAY 100 tablet 1 025 Active insulin glargine 100 unit/mL (3 mL) pen for injection Inject 20 Units under the skin daily 18 mL 3 025 Active empagliflozin (Jardiance) 25 mg tablet TAKE 1 TABLET (25 MG TOTAL) BY MOUTH DAILY. 90 tablet [address] (PROTONIX) 40 mg EC tablet TAKE 1 TABLET BY MOUTH EVERY DAY 100 tablet 025 Active omega 8-srt-fce-fish oil 1,000 (120-180) mg capsuleIndications: hypertriglyceridemi a Take 1 capsule (1,000 mg total) by mouth daily 90 capsule 1 025 Active QUEtiapine (SEROquel) 400 mg tablet Take 1 tablet (400 mg total) by mouth nightly Active pen needle, diabetic (BD Ultra-Fine Short Pen Needle) 31 gauge x 5/16 needle Used to inject insulin 4 times a day E11.65 300 each 11 025 Active metFORMIN XR (GLUCOPHAGE XR) 500 mg 24 hr tablet TAKE 1 TABLET BY MOUTH EVERY DAY WITH BREAKFAST 90 tablet 1 025 Active ranolazine ER (RANEXA) 500 mg 12 hr tablet Take 1 tablet (500 mg total) by mouth 2 (two) times a day 60 tablet 5 025 2025 Active escitalopram (LEXAPRO) 20 mg tablet Take 1 tablet (20 mg total) by mouth daily 90 tablet 1 10/20/2 025 Active metFORMIN XR (GLUCOPHAGE XR) 500 mg 24 hr tablet TAKE 1 TABLET BY MOUTH DAILY WITH BREAKFAST 90 tablet 1 025 2024 Discontinued ranolazine ER (RANEXA) 500 mg 12 hr tablet Take 1 tablet (500 mg total) by mouth 2 (two) times a day 2024 Discontinued(R eorder) escitalopram (LEXAPRO) 20 mg tablet Take 0.5 tablets (10 mg total) by mouth nightly for 7 days, THEN 1 tablet (20 mg total) nightly for 23 days. 27 tablet 025 2024 Discontinued Active Problems Problem Noted Date Diagnosed Date Fracture of metatarsal bone of right foot 2024 NSTEMI (non-ST elevated myocardial infarction) 0 11/14/2024 Fracture of right foot, closed, initial encounte r 11/14/2024 Hyponatremia 11/14/2024 New onset seizure 09/19/2024 SLADE (generalized anxiety [...] 06/11/2023 Assessment & Plan (05/19/2024 12:52 PM PHARMACIST PER DIEM): Last A1c 05/07 12.8. Assessment & Plan [...] discontinued. Assessment & Plan (05/13/2024 10:41 AM PHARMACIST PER DIEM): Had a stroke in March 2024 affecting [...] fast beats. Valvular heart disease 02/02/2022 Overview (11/28/2024): Had moderate LV systolic dysfunction by catheterization 08 March 2021. Mild TR on echo 18 July 2021. Normal LVEF then. Mild MR/TR on echo 13 September 2023. LVEF of 65%. Mild TR on echo 04 March 2024. LVEF of 65-70%. No mention of valvular heart disease on a very limited echo of 14 November 2024. LVEF 55%. Assessment & Plan (02/02/2022 1:29 PM CDT): Discussed echo findings from earlier this year and also cardiac catheterization findings from last year. Fortunately, LV function is normalized. Has no chest pain or shortness of breath with exertion. He is very active in the [employer] business without any limitations. No change in [...] daily Assessment & Plan (06/07/2020 10:36 PM PHARMACIST PER DIEM): Continue home medications Cigarette nicotine dependence without complicati on 01/08/2020 Overview (12/04/2024): About 1 pack a day since age 17 (48 years). Assessment & Plan (12/04/2024 12:20 PM CDT): We again discussed smoking cessation as patient had a recent heart attack requiring percutaneous coronary intervention. He will be discussing ways to quit smoking with Dr. Lieberman in a few weeks. Not only that, he appears to have a fairly large mobile lymph node in the left submandibular region. I told him that it is probably not the thyroid or the salivary gland. Apparently supposed to have an ultrasound of that area soon. Assessment & Plan (05/13/2024 10:40 AM PHARMACIST PER DIEM): We discussed the importance of smoking cessation [...] appear Assessment & Plan (06/07/2020 10:45 PM PHARMACIST PER DIEM): Patient still smoking 1 pack per day but up to 2 packs per day for 30 years. Coronary artery disease invo lving coronary bypass graft of [place] heart 12/26/2019 Overview (11/28/2024): Status post ST segment elevation SD in [...] to right PDA and SVG to OM. Partially successful PTCA of proximal SVG to OM2 on 14 November 2024 at [facility] ([place]). Assessment & Plan (12/04/2024 12:19 PM CDT): Patient apparently had some tightness in the chest 3 weeks ago when he presented with unstable angina to [facility].. No further episode of chest tightness since discharge. Now on Ranexa 500 mg p.o. b.i.d.. Assessment & Plan (05/19/2024 12:51 PM PHARMACIST PER DIEM): Managed by cardio. Continue aspirin, lipitor, plavix, [...] regurgitation. Assessment & Plan (05/13/2024 10:39 AM PHARMACIST PER DIEM): Discussed CABG from 3 years ago. Has [...] here. Assessment & Plan (04/14/2021 2:59 PM PHARMACIST PER DIEM): Cardiac catheterization in March 2021 led to [address] bAreu. He has done well since then. Breathing [...] (Cardio) Assessment & Plan (06/07/2020 10:45 PM PHARMACIST PER DIEM): Patient follows with Dr. Merida. Denies any [...] 2016. Elevated LDL cholesterol level 12/26/2019 Overview (11/12/2024): LDL of 64 mg/dL on 11 July [...] on 04 March 2024. A direct LDL. Cannot calculate LDL on 07 May 2024 as trigl. was 629. Cannot calculate LDL on 29 June 2024 as trigl. was 552. Cannot calculate LDL on 08 Aug 2024 as trigl. was 445. On Lipitor 80 mg p.o. q.d., Zetia 10, fish oil 1 capsule daily and fenofibrate 145 mg daily. Was on Lopid 600 mg p.o. b.i.d. and Vascepa 2 g b.i.d.. Needs a direct LDL soon!! Assessment & Plan (12/04/2024 12:21 PM CDT): We discussed LDL cholesterol goal of less than 70 mg/dL. He really needs a direct LDL and we should get it BREANNA. I have the feeling he will need PCSK9 inhibitor. Assessment & Plan (05/13/2024 10:39 AM PHARMACIST PER DIEM): We discussed LDL cholesterol goal of less [...] discussed. Assessment & Plan (02/14/2024 1:15 PM PHARMACIST PER DIEM): Increase Lantus to 32 units qhs Continue [...] weeks. Assessment & Plan (04/14/2021 2:59 PM PHARMACIST PER DIEM): Discussed LDL cholesterol goal of less than [...] fasting lipid/liver now. PVD (peripheral vascular disease) ([facility]/HCC) 12/02 Overview (12/26/2019): Likely present with no [...] Effient Assessment & Plan (04/25/2020 12:42 PM PHARMACIST PER DIEM): Continuing Effient Assessment & Plan (01/08/2020 12:49 [...] 07/14/2015 Assessment & Plan (06/07/2020 10:44 PM PHARMACIST PER DIEM): Patient had hemoglobin of 16.8 2 months [...] intractable 10/14/2013 Overview (07/06/2016): COMN MIGRNE WO NTRC MGRN Assessment & Plan (10/20/2020 2:09 PM CDT): No change Assessment & Plan (06/07/2020 10:37 PM PHARMACIST PER DIEM): Continue Topamax Benign hypertension 08/16/2013 Overview (07/05/2016): [...] regimen Assessment & Plan (06/07/2020 10:43 PM PHARMACIST PER DIEM): Patient had systolic blood pressure of 97 on presentation. Holding amlodipine and metoprolol. Assessment & Plan (04/25/2020 12:41 PM PHARMACIST PER DIEM): Blood Pressure Follow-up: Lifestyle modifications education provided [...] 06/07/2020 Assessment & Plan (06/07/2020 10:46 PM PHARMACIST PER DIEM): History of pancreatitis and peptic ulcer disease. Awaiting CT results. Hemoglobin has decreased from 16.8-12.6. Patient is on aspirin and Effient which are held. Awaiting on guaiac. Will start patient on IV Protonix b.i.d.. NPO. Will consult GI. Assessment & Plan (06/07/2020 3:09 PM PHARMACIST PER DIEM): Patient is uncomfortable, appears in some distress [...] Discussed with Dr. Tian, hospitalist at [facility], who accepted the patient. I apprised her briefly of his opioid history, but I believe he is adhering to the plan with his pain management doctor. Hypoglycemia due to insulin 06/07/2020 09/19/2023 Assessment & Plan (06/07/2020 10:42 PM PHARMACIST PER DIEM): Patient gave himself 10 units of Novolin [...] (06/08/2020): Added automatically from request for surgery [id number] Costal chondritis 01/24/2020 09/19/2023 Elbow sprain, right, [...] treatment. Assessment & Plan (04/25/2018 4:17 PM PHARMACIST PER DIEM): Biopsy site healing well, no complications or signs of infection reported or noted on exam Pathology discussed Cryotherapy recommended for both the right ear scapha and the left dorsal hand lesion, risks and benefits discussed Cryotherapy per procedure note After care instructions given both verbally and in written form Follow up PRN Assessment & Plan (04/10/2018 12:49 PM PHARMACIST PER DIEM): Right ear scapha Biopsy today per procedure note Wound care administered and instructions given both verbally and in written form Assessment & Plan (04/03/2018 2:06 PM PHARMACIST PER DIEM): Location: Right ear scapha 1.4 x 0.5 erythematous subcutaneous lesion Biopsy next week after off blood thinners for a couple of days, per Dr. Merida Actinic keratosis 04/03/2018 09/19/2023 Assessment & Plan (04/03/2018 2:07 PM PHARMACIST PER DIEM): Location/s: bilateral forearms, hands Erythematous, scaly papules [...] regimen. Assessment & Plan (06/07/2020 10:42 PM PHARMACIST PER DIEM): Currently hypoglycemic as patient gave himself 10 [...] protocol. Assessment & Plan (04/25/2020 12:42 PM PHARMACIST PER DIEM): Awaiting a1c, PSA, lipid Currently, insulin doses [...] Encounters Date Type Department Care Team Description 12/31/2024 Orders Only [facility] Medical [facility] Primary Care at [address] [phone] ProviderLizett MD 12/26/2024 Telephone [facility] Diabetes Endocrine Care at [address] [phone] Balbir Leon DO 12/25/2024 11:45 AM CDT Office Visit [facility] Primary Care at [address] [phone] Tolu Lieberman MD Benign hypertension (Primary Dx); PTSD (post-traumatic stress disorder); Cigarette nicotine dependence without complication; Screening PSA (prostate specific antigen) 12/25/2024 Telephone [facility] Primary Care at [address] [phone] Tolu Lieberman MD Medical Question/Miscellaneo us 12/16/2024 1:30 PM CDT Office Visit [facility] Diabetes Endocrine Care at [address] [phone] Balbir Leon DO Type 2 diabetes mellitus with hyperglycemia, with long-term current use of insulin (HCC) (Primary Dx) 12/06/2024 5:28 PM CDT - 12/06/2024 6:45 PM CDT Emergency [facility] Emergency Department [address] [place] [address] Toy Aldrich MD Acute chest pain (Primary Dx) Discharge Disposition: Left without being seen 12/06/2024 5:10 PM CDT - 12/06/2024 11:59 PM CDT Hospital Encounter [facility] Emergency, Room R Discharge Disposition: Discharge to home or self care 12/04/2024 12:00 PM CDT Office Visit [facility] at [address] [place] [address] Deepak Merida MD Paroxysmal atrial fibrillation (HCC) (Primary Dx); Cigarette nicotine dependence without complication; Coronary artery disease involving coronary bypass graft of [place] heart without angina pectoris; Elevated LDL cholesterol level; PVD (peripheral vascular disease) (CMS/HCC) (HCC); Valvular heart disease 11/26/2024 Results Follow-Up [facility] Primary Care at [address] [phone] Tolu Lieberman MD Erythrocyte sedimentation rate 11/25/2024 2:35 PM CDT Lab [address] [address] Costochondritis; Thyromegaly 11/25/2024 1:30 PM CDT Office Visit [facility] Primary Care at [address] [phone] Tolu Lieberman MD Chest wall pain, chronic (Primary Dx); Hospital discharge follow-up; Costochondritis; NSTEMI (non-ST elevated myocardial infarction) (HCC); Thyromegaly 11/19/2024 [facility]SCAR IP Outreach [facility] Care Organization [address] [place] [id number] Mone Johnson MA 11/05/2024 Telephone [facility] Primary Care at [address] [phone] Venus Briggs Successful Phone Call ([facility] dm eye exam) 11/04/2024 Telephone [facility] Medical [facility] Primary Care at [address] [phone] Venus Briggs 10/27/2024 Orders Only [facility] Primary Care at [address] [phone] ProviderLizett MD from Last 3 Months Immunizations Immunization [...] hemodialysis mehreen efly in 2012 Diabetes mellitus Sleep apnea pt states no micah yoshi has Type 2 diabetes mellitus Myocardial infarction (HCC) 2020 sahil ent reports [...] Cancer -melano ma; /Melanoma; Migraines Mother Cindy Zamna Migraine; Other Other 2 Family history of Cancer -brain; Hypertension Other 3 Family history of Hypertension; Relation Name Status Comments Brother 1 Alive Brother 2 Brother 3 Brother 4 Noah Zaman Father Deepak Zaman Alive Mother Cindy Zaman Alive Other 1 Alive Other 2 Other 3 Social History Tobacco Use Types Packs/Day Years Used Date Smoking Tobacco: Every Day Cigarettes 1 45.8 Started: 1979 Passive Smoke Exposure: Current Smokeless Tobacco: Never Tobacco Cessation:Ready to Q uit: Not Asked; Counseling Given: Not Answered Alcohol Use Standard Drinks/Week Comments Yes 0 (1 standard drink = 0.6 oz pur e alcohol) once a year ( socially) [facility] Utilities Answer Date Recorded In the past 12 months has e Finomial, gas, oil, or water company threatened to [...] No 10/19/2020 Social Connection and Isolation Panel Answer Date Recorded In a typical week, how many times do you talk on the phone with family, friends, or neighbors? Patient declined 06/30/2024 How often do you get togethe r with friends or relatives? Patient declined 06/30/2024 How often do you attend latter day or evangelical serv ices? Patient declined 06/30/2024 Do you belong to any clubs o r organizations such as latter day groups, unions, fraternal or athletic groups, or [...] staff should administer the PHQ-9) 0 09/05/2024 [facility] - Occupational Stress Questionnaire Answer Date [...] place to sleep or slept in a penitentiary (including now)? No 10/19/2020 PHQ-9 Answer Date [...] any time in the past 12 m [facility], were you homeless or living in a penitentiary (including now)? Patient declined 06/30/2024 Personal Safety Answer Date Recorded Have you ever been in or are you currently in a harmful physical or emotional relationship or is someone making you feel afraid or unsafe? Denies 12/06/2024 Education Answer Date Recorded What is the highest level of school you have completed or the highest degree you have received? High school graduate 01/08/2019 Sex and Gender Information Value Date Recorded Sex Assigned at Not on file Legal Sex Male 1:49 PM PHARMACIST PER DIEM Gender Identity Not on file Sexual Orientation Not on file Obstetrics History Last Filed Vital Signs Vital Sign Reading Time Taken Comments Blood Pressure 150/90 12/25/2024 11:53 AM CDT Pulse 62 12/25/2024 11:53 AM CDT Temperature 36.1 C (96.9 F) 12/25/2024 11:53 AM CDT Respiratory Rate 20 12/25/2024 11:53 AM CDT Oxygen Saturation 94% 12/25/2024 11:53 AM CDT Inhaled Oxygen Concentration - - Weight 82.1 kg (181 lb) 12/25/2024 11:53 AM CDT Height 190.5 cm (6' 3) 12/25/2024 11:53 AM CDT Body Mass Index 22.62 12/25/2024 11:53 AM CDT Plan of Treatment Health Maintenance Due Date Last Done Comments Zoster Vaccine (1 of 2) 06/02/2011 Pneumococcal vaccine <65 (2 of 2 - PCV) 01/31/2013 02/01/2012 Prostate Cancer Screening-PSA 04/21/2022 04/21/2020 Regular Well Visit/Exam 18-64 10/20/2022, 10/19/2020, 01/08/2019 Dilated Eye Exam 01/02/2023 01/02/2022, , 03/29/2020, Additional history exists Lung Cancer Screening 04/15/2023 04/15/2022 Albumin Creatinine Ratio, Urine 09/18/2024 09/19/2023, 10/24/2021, 08/30/2018 Colon Cancer Screening-Colonoscopy 10/28/2024 10/28/2014, 05/17/2011 Covid-19 Vaccine (3 - 2024-2 6 season) 2024 06/06/2020, 05/16/2020 Influenza Vaccine (#1) 2024 , 12/31/2018, 01/28/2018, Additional history exists Hemoglobin A1C 02/08/2025 08/08/2024, 07/2024, 03/04/2024, Additional history exists Lipid Panel 08/08/2025 08/08/2024, 06/02, 05/07/2024, Additional history exists Depression Screening 09/05/2025 09/05/2024, 02/06/2024, 12/14/2023, Additional history exists Foot Exam 10/06/2025 10/06/2024, 10/01, 01/14/2020, Additional history exists eGFR 12/06/2025 12/06/2024, 09/01, 09/08/2024, Additional history exists DTaP/Tdap/Td Vaccine (2 - Td or Tdap) 06/06/2029 06/07/2019 Hepatitis B Screening Completed 11/17/1998 , 06/16/1998, 05/12/1998 Hepatitis C Screening Completed 09/07/2012 , 09/04/2012, 08/07/2012 Colon Cancer Screening-CT Colonography Discontinued 10/28/2014, 05/17/2011 Colon Cancer Screening-DNA Stool Discontinued 10/29/19 15, 05/17/2011 Colon Cancer Screening-Sigmoidoscopy Discontinued 10/28/2014, 05/17/2011 Colon Cancer Screening-FIT Discontinued 09/27, 10/28/2014, 05/17/2011 Medical Devices Implanted Type Area Foundry Helper Device Identifier Shelf Expiration Date Model / Serial / Lot TradeCard Enroute Uber Flex 8mm .065in 40mm 57cm Delivery System Angle Tip Sr-0840-Cs - [id number] Implanted:Qty: 1 on 11/15/2023 by Lakhwinder Saavedra MD at [facility] Stent Left: Carotid [employer] [id number] 10/30/2025 SR-0840-C S / / [id number] [employer] Enroute Uber Flex 8mm .065in 40mm 57cm Delivery System Angle Tip Sr-0840-Cs - [id number] Implanted:Qty: 1 on 12/31/2023 by Lakhwinder Saavedra MD at [facility] Stent Right: Carotid [employer] [id number] 10/30/2025 SR-0840-C S / / [id number] [employer] System Stent Peripheral Transcarotid Rapid Exchange Enroute 8x30mm Nitinol Sr-0830-Cs - [id number] Implanted:Qty: 1 on 12/31/2023 by Lakhwinder Saavedra MD at [facility] Stent Right: Carotid [employer] [id number] 11/30/2025 SR-0830-C S / / [id number] Daig Violette[employer] [id number] Angio-Seal Evolution 6fr .035in Guidewire Bypass Tube Suture - [id number] Implanted:Qty: 1 on 03/08/2021 by Deepak Merida MD at [facility] [employer] 08/30/2021 [id number] / / [id number] Procedures Procedure Name Priority Date/Time Associated Diagnosis Comments XR FOOT RIGHT 3 OR MORE VIEWS Schedule Routine, Read Routine (OP Routine) 12/29/2024 7:36 AM CDT TROPONIN T HIGH-SENSITIVITY 4-HR Timed 12/06/2024 6:15 PM CDT XR CHEST 1 VIEW ED 12/06/2024 5:55 PM CDT EGFR STAT 12/06/2024 5:34 PM CDT DIFFERENTIAL AUTO STAT 12/06/2024 5:3 4 PM CDT TROPONIN T HIGH-SENSITIVITY SERIES (BASELINE, 2HR, 4HR, 6HR) STAT 12/06/2024 5:34 PM CDT COMPREHENSIVE METABOLIC PANEL STAT 12/06/2024 5:34 PM CDT CBC WITH AUTO DIFFERENTIAL STAT 12/06/2024 5:34 PM CDT ECG 12-LEAD STAT 12/06/2024 5:30 PM CDT ERYTHROCYTE SEDIMENTATION RATE Routine 11/25/2024 2:52 PM CDT Costochondritis HEMOGLOBIN A1C Routine 08/08/2024 12:15 PM CDT Type 2 diabetes mellitus with hyperglycemia, with long-term current use of insulin (HCC) LIPID PANEL Routine 08/08/2024 12:15 PM CDT Elevated LDL cholesterol level Type 2 diabetes mellitus with hyperglycemia, with long-term current use of insulin (HCC) ALBUMIN CREATININE RATIO, URINE Routine 09/19/2023 8:24 PM CDT Type 2 diabetes mellitus with hyperglycemia, with long-term current use of insulin (HCC) DIABETES EYE EXAM Routine 01/02/2022 PSA SCREEN Routine 04/21/2020 3:12 PM PHARMACIST PER DIEM Screening for malignant neoplasm of prostate OCCULT BLOOD, FECAL (FIT) STAT 09/27/2016 5:39 PM CDT COLONOSCOPY Routine 10/28/2014 SERUM HEPATITIS PANEL Routine 09/07/2012 9:55 AM CDT from Last 3 Months or Most Recently Relevant to Health Maintenance Results * XR Foot Right 3 or More Views (12/29/2024 7:36 AM CDT) Anatomical Region Laterality Modality Lower Extremities, Foot Right Radiogra phic Imaging us Historical Provider IMAndra XR PROCEDURES Final R esult * (ABNORMAL) Troponin T high-sensitivity 4-hour (12/06/2024 6:15 PM CDT) Trop T hs 103(H) <=22 ng/L RONAL NANCE ([place]) Comment: Interpretive Data For further hscTnT resources including the diagnostic algorithm and an aid in interpretation, copy and paste this link: [email or web address].testcatalog.org/[email or web address] Current Interpretive Data last revised 2020. Trop T hs delta See Comment ng/L CE MCKAY NANCE ([place]) Comment: Inappropriate collection time to report a delta. Testing performed by: [facility], [facility], [place], [address] Trop T hs pct delta See Comment % RONAL NANCE ([place]) Comment: Inappropriate collection time to report a delta. Testing performed by: [facility], [facility], [place], [address] Trop T hs interp See Comment C CORNELIUS NANCE ([place]) Comment: Inappropriate collection time to report a delta. Testing performed by: [facility], [place], [address] Blood 12/06/2024 6:15 PM CDT 12/06/2024 6:23 PM CDT Ramon Tse MD LAB BLOOD ORDERABLES Final R esult RONAL GOYO ([place]) [facility] [place] [address] * XR Chest 1 Vw Portable (If patient hemodynamically UNstable or UNable to ambulate) (12/06/2024 5:55PM CDT) Anatomical Region Laterality Modality Body, Chest N/A Computed Radiogr aphy 12/06/2024 6:11 PM CDT Narrative 12/06/2024 6:13 PM CDT EXAM DESCRIPTION: XR CHEST 1 VIEW REASON FOR STUDY: chest pain Right sided chest pain that radiates to his back. Patient states he has dealt with the pain for a couple months but today it is much worse. Patient states nothing makes it worse or better, has no other symptoms. Smoker TECHNIQUE: AP portable upright radiographic view(s) of the chest. COMPARISON: 08/29/2024. FINDINGS: LUNGS: No focal opacity, pleural effusion, or pneumothorax. HEART/MEDIASTINUM: Cardiac silhouette is normal in size. Pulmonary vascularity within normal limits. Atherosclerotic calcification of the thoracic aorta. LINES/TUBES: Sternotomy changes. Surgical clips overlie the left heart border. BONES: No acute osseous abnormality. IMPRESSION: No acute cardiopulmonary abnormality. THIS IS AN ELECTRONICALLY VERIFIED FINAL REPORT 12/06/2024 6:13 PM - Electronically signed by Genna Jones M.D. TW: TW Report ID: [id number] Reading Location: [id number] Procedure Note Genna Jones MD - 12/06/2024 EXAM DESCRIPTION: XR CHEST 1 VIEW REASON FOR STUDY: chest pain Right sided chest pain that radiates to his back. Patient states he has dealt with the pain for a couple months but today it is much worse.Patient states nothing makes it worse or better, has no other symptoms. Smoker TECHNIQUE: AP portable upright radiographic view(s) of the chest. COMPARISON: 08/29/2024. FINDINGS: LUNGS: No focal opacity, pleural effusion, or pneumothorax. HEART/MEDIASTINUM: Cardiac silhouette is normal in size. Pulmonary vascularity within normal limits. Atherosclerotic calcification of the thoracic aorta. LINES/TUBES: Sternotomy changes. Surgical clips overlie the left heart border. BONES: No acute osseous abnormality. IMPRESSION: No acute cardiopulmonary abnormality. THIS IS AN ELECTRONICALLY VERIFIED FINAL REPORT 12/06/2024 6:13 PM - Electronically signed by Genna Jones M.D. TW: Report ID: [id number] Reading Location: [id number] us Toy Aldrich MD IMG XR PROCEDURES Final Re sult * (ABNORMAL) Troponin T high-sensitivity series (baseline, 2hr, 4hr, 6hr) (12/06/2024 5:34 PM CDT) Trop T hs 109(H) <=22 ng/L [facility] ([facility]) Comment: Interpretive Data For further hscTnT resources including the diagnostic algorithm and an aid in interpretation, copy and paste this link: https://nrl.testcatalog.org/show/hsTrop Current Interpretive Data last revised 2020. Blood 12/06/2024 5:34 PM CDT 12/06/2024 5:41 PM CDT us Toy Aldrich MD LAB BLOOD ORDERABLES Final Result Performing Organization Address City/[facility]/ZIP Co de Phone Number [facility] NANCE ([place]) 1 [facility] [place] [address] * (ABNORMAL) eGFR (12/06/2024 5:34 PM CDT) Pathologist [facility] eGFR 53(L) >=60 mL/min/1. 73 m2 Comment: Interpretive Data [...] interpretive data was last reviewed 2021. Blood 12/06/2024 5:34 PM CDT 12/06/2024 5:42 PM CDT us Ramon Tse MD LAB BLOOD ORDERABLES Final R esult [facility] ([place]) 1 [facility] [place] [address] * Differential, auto (12/06/2024 5:34 PM CDT) Neutrophil abs 5.61 1.50 - 6.50 K/cumm Imm gran abs 0.02 0.00 - 0.10 K/cumm [facility] ([place] [facility]) Lymphocyte abs 0.97 0.80 - 3.30 K/cumm [facility] ([place] [facility]) Monocyte abs 0.38 0.20 - 0.80 K/cumm [facility] ([place]) Eosinophil abs 0.04 0.00 - 0.50 K/cumm [facility] ([place]) Basophil abs 0.04 0.00 - 0.10 K/cumm [facility] ([place]) Neutrophil pct 79.4 % [facility] ([place] [facility]) Comment: [...] was last revised on 2017. Lymphocyte pct 13.7 % [facility] ([place]) Comment: Interpretive Data Percent cell count reference ranges are not reported, since discordance with absolute values may lead to misinterpretation of CBC data. Current Interpretive Data was last revised on 2017. Monocyte pct 5.4 % [facility] ([place]) Comment: Interpretive Data Percent cell count reference ranges are not reported, since discordance with absolute values may lead to misinterpretation of CBC data. Current Interpretive Data was last revised on 2017. Eosinophil pct 0.6 % [facility] ([facility] [facility]) Comment: Interpretive Data Percent cell count reference ranges are not reported, since discordance with absolute values may lead to misinterpretation of CBC data. Current Interpretive Data was last revised on 2017. Basophil pct 0.6 % [facility] ([facility] [facility]) Comment: Interpretive Data Percent cell count reference ranges are not reported, since discordance with absolute values may lead to misinterpretation of CBC data. Current Interpretive Data was last revised on 2017. Blood 12/06/2024 5:34 PM CDT 12/06/2024 5:42 PM CDT us Toy Aldrich MD LAB BLOOD ORDERABLES Final Result [facility] ([place]) 1 [facility] [place] [address] * CBC with auto differential (12/06/2024 5:34 PM CDT) WBC 7.06 3.80 - 9.90 K/cumm Hgb 13.9 13.0 - 17.5 g/dL [facility] ([place]) Hct 41.9 38.9 - 50.3 % [facility] ([place]) Plt 285 150 - 400 K/cumm [facility] ([place] [facility]) MPV 10.1 9.1 - 12.3 fL [facility] ([place]) RBC 4.78 4.30 - 5.80 M/cumm [facility] ([place]) MCV 87.7 81.3 - 96.4 fL [facility] ([place]) MCH 29.1 27.1 - 33.3 pg [facility] ([place]) MCHC 33.2 32.3 - 35.7 g/dL [facility] ([place]) RDW CV 13.2 11.1 - 14.9 % [facility] ([place]) RDW SD 42.9 35.7 - 48.1 fL [facility] ([place]) NRBC abs 0.00 0.00 - 0.01 K/cumm [facility] ([facility]) Blood Venous blood specimen / Unknown 12/06/2024 5:34 PM CDT 12/06/2024 5:42 PM CDT us Toy Aldrich MD LAB BLOOD ORDERABLES Final Result [facility] ([place]) 1 [facility] [place] [address] * (ABNORMAL) Comprehensive metabolic panel (12/06/2024 5:34 PM CDT) Pathologist [facility] Sodium 138 135 - 145 mmol/L [facility] ([place]) Potassium, pl 4.4 3.3 - 4.9 mmol/L [facility] ([facility] [facility]) Chloride 104 97 - 110 mmol/L [facility] ([facility]) CO2 18(L) 22 - 32 mmol/L [facility] ([facility] [facility]) Anion gap 16(H) 2 - 15 mmol/L [facility] ([facility] [facility]) BUN 28(H) 6 - 25 mg/dL [facility] ([facility] [facility]) Creatinine 1.48(H) 0.80 - 1.30 mg/dL [facility] ([facility] [facility]) Glucose 324(H) 70 - 199 mg/dL [facility] ([facility] [...] interpretive data was last revised 2022. Calcium 9.0 8.5 - 10.3 mg/dL [facility] ([place]) Bilirubin, total 0.2 0.1 - 1.2 mg/dL [facility] ([place]) Protein, pl 7.4 6.5 - 8.5 g/dL [facility] ([place]) Albumin 4.1 3.5 - 5.0 g/dL [facility] ([place]) Alk phos 103 40 - 130 Units/L [facility] ([facility] [facility]) ALT 8 7 - 55 Units/L [facility] ([facility]) AST 15 10 - 50 Units/L [facility] ([place] [facility]) Comment:Hemolysis present. R esults may be affected. Blood 12/06/2024 5:34 PM CDT 12/06/2024 5:41 PM CDT us Toy Aldrich MD LAB BLOOD ORDERABLES Final Result [facility] ([place]) 1 [facility] [place] [address] * ECG 12 lead (12/06/2024 5:30 PM CDT) 12/06/2024 5:30 PM CDT Narrative [facility] - 12/08/2024 6:56 AM CDT Vent Rate: 69 bpm RR Interval: 863 msec OH Interval: 160 msec QRS Duration: 152 msec QT Interval: 475 msec QTC Interval: 494 msec P-R-T Elizabeth: 64 - 53 - 123 degrees IMPRESSION: SINUS RHYTHM LEFT ATRIAL ENLARGEMENT [-0.15mV P-WAVE IN V1/V2] RIGHT BUNDLE BRANCH BLOCK [120+ ms QRS DURATION, UPRIGHT V1, 40+ ms S IN I/aVL/V4/V5/V6] MARKED T-WAVE ABNORMALITY, CONSIDER ANTEROLATERAL ISCHEMIA [-0.5+ mV T-WAVE IN I/aVL/V3-V6] ABNORMAL ECG NO CHANGE FROM PREVIOUS TRACING NOTED Electronically Signed By: Kendrick Galindo MD Toy Aldrich MD ECG ORDERABLES Final Resu lt Performing Organization Address City/[facility]/ZIP Co de Phone Number [facility] * Erythrocyte sedimentation rate (11/25/2024 2:52 PM CDT) [facility] Erythrocyte sedimentation rate 14 1 - 20 mm/hr Blood 11/25/2024 2:52 PM CDT 11/25/2024 5:58 PM CDT Tolu Lieberman MD LAB BLOOD ORDERABLES Final Result [place] [id number] [facility] Department [place] [address] * (ABNORMAL) Hemoglobin A1c (08/08/2024 12:15 PM CDT) Pathologist [facility] Hgb A1C 11.0(H) 4.0 - 5.6 % Estimated Average Glucose 269 mg/dL [facility] Comment: The ADA recommends reporting an estimated Average Glucose (eAG) with all Hemoglobin A1c results using the equation derived from a study of 507 normal and diabetic adults. Minority populations were underrepresented and children were not included. (Diabetes Care 31:5844-2584, 2008). The eAG is not equivalent to a fasting glucose. Blood 08/08/2024 12:1 5 PM CDT 08/08/2024 9:29 PM CDT Tolu Lieberman MD LAB BLOOD ORDERABLES Final Result Performing Organization Address City/State/[facility] Co nd Phone Number [facility] RICE [address] Department [place] [address] * (ABNORMAL) Lipid panel (08/08/2024 12:15 PM [...] 3. Roberto Enciso et al. BRIT Cardiol. 2019July 31;5(5):540-548. doi: 10.1001/jamacardio.2020.0013 [...] last revised on 2017. Chol/HDL ratio 10 [facility] Blood 08/08/2024 12:1 5 PM CDT 08/08/2024 9:29 PM CDT Tolu Lieberman MD LAB BLOOD ORDERABLES Final Result Performing Organization Address City/[facility]/ZIP Co de Phone Number [facility] [address] Department [place] [address] * (ABNORMAL) Albumin Creatinine Ratio, Urine (09/19/2023 8:24 PM CDT) Albumin Ur 761.3 mg/L Comment: Interpretive Data No reference range established. Current interpretive data was last revised 2018. Creatinine Ur 275.2 mg/dL [facility] Comment: Interpretive Data No reference range established. Current interpretive data was last revised 2018. Albumin Creatinine Ratio, Ur 277(H) 1 - 29 mg/g [facility] Urine 09/19/2023 8:24 PM CDT 09/19/2023 8:24 PM CDT Lily Ha NP LAB URINE ORDERABLES Final Re sult Performing Organization Address City/[facility]/ZIP Co de Phone Number DENISEALTHEA RICE [address] Department [place] [address] * HM DIABETES EYE EXAM (01/02/2022) Historical Provider HEALTH MAINTENANCE Final Result * PSA screen (04/21/2020 3:12 PM PHARMACIST PER DIEM) PSA-Total 0.54 <=3.90 ng/mL [facility] ([place]) Comment: Interpretive Data AGE SEX REFERENCE INTERVAL 0 minutes-150 years Female None 0 minutes-49 years Male None 50-59 years Male 0-3.90 60-69 years Male 0-5.40 70-79 years Male 0-6.20 80-150 years Male 0-6.20 Current interpretive data last revised 2018. Testing performed by: [facility], [address] [facility], [place]., [address] Blood specimen (specimen) 04/21/2020 3:12 PM PHARMACIST PER DIEM 04/22/2020 9:36 AM PHARMACIST PER DIEM us Tolu Lieberman MD LAB BLOOD ORDERABLES Final Result Performing Organization Address [facility] Co de Phone Number [facility]AL NANCE ([place]) 1 [facility] [place] [address] * Occult blood, fecal non neoplasm screening (09/27/2016 5:39 PM CDT) Occult blood, fecal Negative Negative [facility] ([facility] [facility]) Collection date , feces [id number] [facility] ([facility] [facility]) Collection time , feces 1738 [facility] ([facility] [facility]) Stool 09/27/2016 5:39 PM CDT 09/27/2016 5:49 PM CDT us Dae Lopes MD LAB BODY FLUIDS AND S TOOLS ORDERABLES Final Result Performing Organization Address [facility] Co de Phone Number [facility] N[facility] ([place]) 1 [facility] [place] [address] * COLONOSCOPY (10/28/2014) Pathologist [facility] hospital Colonoscopy Abnormal us Lizett Phan MD HEALTH [...] ORDERABLES Final Res ult Performing Organization Address City/[facility] Co de Phone Number HISTORICAL RESULTS from Last 3 Months or Most Recently Relevant to Health Maintenance Insurance [facility] MEDICARE ADVANTAGE FORMERLY [facility] PPO MEDICARE [facility] MEDICARE ADVANTAGE MEDICARE LOCAL [facility] IN [facility] [place] [address] Advance Directives For more information, please contact: [phone] * Full Code (Latest Code Status on [...] 6:39 PM 04/14/2024 2:07 AM Care Teams Network Architect Manager Relationship Specialty Start Date End Date Tolu Lieberman MD [address] [place] [address] PCP - General Family Medicine 11/09/23 Deepak Merida MD Consulting Physician Cardiovascular Disease 08/29/17 Joshua Aguilera MD Consulting Physician Physical Medicine and Rehabilitation 08/12/18 Christopher Adan III, MD Surgeon Plastic Surgery 02/04/19 Srinivasa Farrar MD Consulting Physician Plastic Surgery 10/20/21 Jeffrey Izquierdo OD [address] [place] [address] Consulting Physician Optometry 10/20/21 Denton Gilman MD [address] [facility] [address] [place] [address] Consulting Physician Neurology 05/09/24 Aly Johnson MD [address] [place] [address] Referring Physician Podiatry 11/25/24
--- OUTSIDE RECORDS SUMMARY | 2025-01-26 09:28 | XMS_ITS | Clinical Summary ---
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 12/18/19 11 Active metoprolol tartrate (LOPRESSOR) 25 [...] time daily as needed. Active magnesium-ribofl armin-coenzyme C17-bipdjdymq-qk tasites (MIGRAVENT) 449-261-65-1-50 mg oral cap Take 1 Cap by [...] on file Legal Sex Male 5:49 AM [employer] Gender Identity Not on file Sexual Orientation [...] Flex Sig/CT Colonography Q 5 years 2006 RSV VACCINE (60+ or ) (1 - Risk 50-74 years 1-dose series) 06/02/2011 ZOSTER VACCINE (1 of 2) 06/02/2011 INFLUENZA VACCINE (#1) 2024 12/20/2016, 2013 Insurance MEDICARE PART A AND B [facility] PPO Care Teams Doll Surgeon Relationship Specialty Start Date End Date [facility], External Provider [address] [place] [address] PCP - General 03/23/12
--- OUTSIDE RECORDS SUMMARY | 2025-01-26 09:28 | XMS_ITS | Encounter Summary ---
Author Organization [facility] Address [address] [place] [address] Phone Care Team Providers Care Vp Lab Name Role Phone Tolu Lieberman MD Primary Care Provider Encounter Details Date Type Department Care Team (Late st Contact Info) Description 12/22/2021 Transcribe Orders [facility] Preop/Pacu II 1 [place] [address] Denton Cancino MD [address] [place] [address] Pre-op testing (Primary Dx) Social History Tobacco [...] Range for this test is Not Detected) [facility] ID NOW B 12/23/2021 11:[address] [facility] Comment:This test was perfor med by a MOLECULAR, NON-PCR method Other NASOPHARYNGEAL STRUCTURE / Unknown Non-Phlebotomy Collection / Unknown 12/23/2021 11:19 AM CDT 12/23/2021 11:[address] [facility] - 12/23/2021 11:55 AM CDT This [...] information for Clinicians can be found at: https://www.fda.gov/media/357961/download Additional information for Patients can be found at: https://www.fda.gov/media/755425/download Denton Cancino MD MICROBIOLOGY - GENERAL ORDERABLES Final Result [facility] #[address] [place] [address] documented in this encounter Visit Diagnoses Diagnosis Pre-op testing- Primary Preoperative examination, unspecified documented in this encounter Care Teams Vp Lab Relationship Specialty Start Date End Date Tolu Lieberman MD [facility] [place] [address] PCP - General Family Medicine 03/14/15 documented as of this encounter
--- OUTSIDE RECORDS SUMMARY | 2025-01-26 09:28 | XMS_ITS | Encounter Summary ---
Author Organization [facility] Address [address] [place] [address] Phone Care Team Providers Care Columnist/Commentator Name Role Phone Tolu Lieberman MD Primary Care Provider [phone] Encounter Details Date Type Department Care Team (Late st Contact Info) Description 11/11/2021 Transcribe Orders [facility] Preop/Pacu II 1 [place] [address] Damien Jerome MD [address] [place] [address] Pre-op testing (Primary Dx) Social History Tobacco [...] Range for this test is Not Detected) [facility] ID NOW 11/18/2021 10:48 AM CDT [facility] Comment:This test was perfor med by a MOLECULAR, NON-PCR method Other NASOPHARYNGEAL STRUCTURE / Unknown Non-Phlebotomy Collection / Unknown 11/18/2021 9:25 AM CDT 11/18/2021 9:38 AM CDT Narrative [facility] - 11/18/2021 10:48 AM CDT This [...] information for Clinicians can be found at: https://www.fda.gov/media/578633/download Additional information for Patients can be found at: https://www.fda.gov/media/256938/download Damien Jerome MD MICROBIOLOGY - GENERAL ORDERA BLES Final Result [facility] #[address] [place] [address] documented in this encounter Visit Diagnoses Diagnosis Pre-op testing- Primary Preoperative examination, unspecified documented in this encounter Care Teams Columnist/Commentator Relationship Specialty Start Date End Date Tolu Lieberman MD [address] [place] [address] PCP - General Family Medicine 03/14/15 documented as of this encounter
--- OUTSIDE RECORDS SUMMARY | 2025-01-26 09:28 | XMS_ITS | Encounter Summary ---
Author Organization [facility] Address [address] [place] [address] Phone Care Team Providers Care Toll Ticket Clerk Name Role Phone Tolu Lieberman MD Primary Care Provider [phone] Deepak Merida MD Unavailable [phone] Tawkoyty, Lalitha WAX BLENDER Unavailable Unavailabl e Tawkoyty, Lalitha WAX BLENDER Unavailable Unavailabl e Tawkoyty, Lalitha WAX BLENDER Unavailable Unavailabl e Rodríguez Pelayo MD Unavailable [phone] Joshua Aguilera MD Unavailable [phone] Loco ORTEGA MD, John Matthew Unavailable + [phone] Rosa Maria Hernandez RN Unavailable [phone] Elvi Abreu MD Unavailable [phone] Richie Beckham RN Unavailable Elvi Abreu MD Unavailable [phone] Navjot Robbins MD Unavailable Srinivasa Farrar MD Unavailable + [phone] Jeffrey Izquierdo OD Unavailable Stacie Lobo CMA Unavailable [phone] Ruth Castillo MA Unavailable [phone] Tolu Lieberman MD Primary Care Provider Stacie Lobo WOLFGANG Unavailable [phone] BrandieJoanna roberts ADILENE Unavailable [phone] Emiliana FitchFelipa HEAD Unavailable [phone] Irina Molina RN Unavailable [phone] Joanna Diego MA Unavailable [phone] Denton Gilman MD Unavailable [phone] Aly Johnson MD Unavailable [phone] Encounter Details Date Type Department Care Team (Late st Contact Info) Description 06/27/2017 Orders Only [facility] Provider, MD Lizett [address] [place] [address] Social History Tobacco Use Types Packs/Day Years Used Date Smoking Tobacco: Every Day Smokeless Tobacco: Never Comments:Smoking History Pac ks/day: 0.25 Packs Alcohol Use Standard Drinks/Week Comments No 0 (1 standard drink = 0.6 oz pur e alcohol) Sex and Gender Information Value Date Recorded Sex Assigned at Not on file 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 Gender Identity Not on file Sexual Orientation [...] COVID: Suspected 03/26/2021 03/26/2021 03/27/2021 4:01 AM SET AND EXHIBIT DESIGNER COVID: Suspected 09/02/2021 09/02/2021 09/02/2021 12:28 PM CDT COVID: Suspected 02/04/2024 02/04/2024 02/04/2024 8:48 AM SET AND EXHIBIT DESIGNER COVID: Suspected 05/06/2024 05/06/2024 05/06/2024 3:43 AM SET AND EXHIBIT DESIGNER COVID: Suspected 05/21/2024 05/21/2024 05/21/2024 8:34 PM SET AND EXHIBIT DESIGNER Influenza, adult 05/21/2024 05/21/2024 05/28/2024 3:07 AM SET AND EXHIBIT DESIGNER documented as of this encounter Care Teams Toll Ticket Clerk Relationship Specialty Start Date End Date Tolu Lieberman MD PCP - General 06/20/16 11/07/23 Tolu Lieberman MD [address] [place] [address] PCP - General Family Medicine 11/09/23 Deepak Merida MD Consulting Physician Cardiovascular Disease 08/29/17 Lalitha Morris LPN Care Manager 10/26/17 10/28/17 Lalitha Morris LPN Care Manager 07/16/18 07/16/18 Lalitha Morris LPN Care Manager 07/24/18 07/25/18 Rodríguez Pelayo MD [address] [place] [address] Consulting Physician Psychiatry 08/12/18 11/04/23 Joshua Aguilera MD [address] [place] [address] Consulting Physician Physical Medicine and Rehabilitation 08/12/18 Christopher Adan III, MD [address] [place] [address] Surgeon Plastic Surgery 02/04/19 Rosa Maria Hernandez RN [address] [place] [address] [facility] [address] [place] [address] Automobile Body Customizer 06/11/20 07/27/20 Elvi Aberu MD [address] [place] [address] [facility] [address] [place] [address] Surgeon Cardiothoracic Surgery 03/21/21 2 Richie Beckham RN [address] [place] [address] [address] Automobile Body Customizer 03/22/21 04/17/21 Elvi Abreu MD [address] [place] [address] [address] Surgeon Cardiothoracic Surgery 04/20/21 2 [place] [address] [address] Consulting Physician Endocrinology Diabetes & Metabolism 10/20/21 12/16/23 [place] [address] [address] Consulting Physician Plastic Surgery 10/20/21 Jeffrey Izquierdo OD [facility] [place] [address] [place] [address] Consulting Physician Optometry 10/20/21 Stacie Lobo CMA [address] [place] [address] [address] [place] [address] [employer] Care Chemical Packager 04/11/23 04/15/23 Ruth Castillo MA [address] [place] [address] [address] [place] [address] ACO Care Chemical Packager 06/12/23 06/13/23 Stacie Lobo CMA [address] [place] [address] [address] [place] [address] ACO Care Chemical Packager 11/21/23 11/21/23 Joanna Diego MA [address] [place] [address] [address] [place] [address] ACO Care Chemical Packager 01/02/24 01/03/24 Emiliana Fitch MA [address] [place] [address] [address] [place] [address] ACO Care Chemical Packager 02/05/24 02/05/24 Irina Molina RN [address] [place] [address] [address] [place] [address] Automobile Body Customizer 02/05/24 02/05/24 Joanna Diego MA [address] [place] [address] [address] [place] [address] ACO Care Chemical Packager 03/05/24 03/09/24 Denton Gilman MD [address] [place] [address] [address] [place] [address] Consulting Physician Neurology 05/09/24 Aly Johnson MD [address] [facility] [address] [facility] [address] [place] [address] Referring Physician Podiatry 11/25/24 documented as of this encounter
--- OUTSIDE RECORDS SUMMARY | 2025-01-26 09:28 | XMS_ITS | Encounter Summary ---
Author Organization [facility] Healthcare Address [address] [place] [address] Care Team Providers Care Sales Department Clerk Name Role Phone Deepak Merida MD Unavailable [phone] Joshua Aguilera MD Unavailable [phone] Loco ORTEGA MD, Christopher Gordon Unavailable + [phone] Srinivasa Farrar MD Unavailable + [phone] Jeffrey Izquierdo OD Unavailable + [phone] Tolu Lieberman MD Primary Care Provider [phone] Denton Gilman MD Unavailable [phone] Aly Johnson MD Unavailable [phone] Encounter Details Date Type Department Care Team (Late st Contact Info) Description 11/26/2024 Results Follow-Up [facility] Medical Group Primary Care at [address] [address] Tolu Lieberman MD [address] [place] [address] [address] [place] [address] Erythrocyte sedimentation rate Social History Tobacco Use Types Packs/Day Years Used Date Smoking Tobacco: Every Day Cigarettes 1 45.8 Started: 1978 Passive Smoke Exposure: Current Smokeless Tobacco: Never Alcohol Use Standard Drinks/Week Comments Yes 0 (1 standard drink = 0.6 oz pur e alcohol) once a year ( socially) [facility] Utilities Answer Date Recorded In the past 12 months has e [employer], [employer], [employer], or water [employer] threatened to shut off services in your [...] declined 06/30/2024 How often do you attend anabaptism or roman catholic serv ices? Patient declined 06/30/2024 Do you belong to any clubs o r organizations such as anabaptism groups, unions, fraternal or athletic groups, or [...] staff should administer the PHQ-9) 0 09/05/[address] [facility] [place] of Occupat ional [facility] - Occupational Stress Questionnaire Answer Date Recorded [...] place to sleep or slept in a residential (including now)? No 10/19/2020 PHQ-9 Answer Date [...] any time in the past 12 m ont, were you homeless or living in a residential (including now)? 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[employer] Gender Identity Not on file Sexual Orientation Not on file documented as of this encounter Plan of Treatment Not on file documented as of this encounter Visit Diagnoses Not on filedocumented in this encounter Care Teams Sales Department Clerk Relationship Specialty Start Date End Date Tolu Lieberman MD [address] [facility] [address] [place] [address] PCP - General Family Medicine 11/09/23 Deepak Merida MD Consulting Physician Cardiovascular Disease 08/29/17 Jsohua Aguilera MD Consulting Physician Physical Medicine and Rehabilitation 08/12/18 Christopher Adan III, MD Surgeon Plastic Surgery 02/04/19 Srinivasa Frarar MD Consulting Physician Plastic Surgery 10/20/21 Jeffrey Izquierdo OD [address] [place] [address] Consulting Physician Optometry 10/20/21 Denton Gilman MD [address] [place] [address] [address] [place] [address] Consulting Physician Neurology 05/09/24 Aly Johnson MD [address] [address] Referring Physician Podiatry 11/25/24 documented as of this encounter
--- OUTSIDE RECORDS SUMMARY | 2025-01-26 09:28 | XMS_ITS | Encounter Summary ---
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 Name Role Phone Deepak Merida MD Unavailable [phone] Joshua Aguilera MD Unavailable [phone] Loco ORTEGA MD, Christopher Gordon Unavailable + [phone] Srinivasa Farrar MD Unavailable + [phone] Jeffrey Izquierdo OD Unavailable + [phone] Tolu Lieberman MD Primary Care Provider [phone] Denton Gilman MD Unavailable [phone] Aly Johnson MD Unavailable [phone] Encounter Details Date Type Department Care Team (Late st Contact Info) Description 11/04/2024 Telephone [facility] Medical Group Primary Care at [address] [address] Venus Briggs [address] [facility] [address] [place] [address] Social History Tobacco Use Types Packs/Day Years Used Date Smoking Tobacco: Every Day Cigarettes 1 45.8 Started: 1978 Passive Smoke Exposure: Current Smokeless Tobacco: Never Alcohol Use Standard Drinks/Week Comments Yes 0 (1 standard drink = 0.6 oz pur e alcohol) once a year ( socially) [facility] Utilities Answer Date Recorded In the past 12 months has th e [employer], gas, oil, or water [employer] threatened to shut off services in your [...] declined 06/30/2024 How often do you attend quaker or shinto serv ices? Patient declined 06/30/2024 Do you belong to any clubs o r organizations such as quaker groups, unions, fraternal or athletic groups, or [...] staff should administer the PHQ-9) 0 09/05/2024 [facility] - Occupational Stress Questionnaire Answer Date [...] place to sleep or slept in a fpc (including now)? No 10/19/2020 PHQ-9 Answer Date [...] were you homeless or living in a fpc (including now)? 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 Relationship Specialty Start Date End Date Tolu Lieberman MD [address] [facility] [address] [place] [address] PCP - General Family Medicine 11/09/23 Deepak Merida MD Consulting Physician Cardiovascular Disease 08/29/17 Joshua Aguilera MD Consulting Physician Physical Medicine and Rehabilitation 08/12/18 Christopher Adan III, MD Surgeon Plastic Surgery 02/04/19 Srinivasa Farrar MD Consulting Physician Plastic Surgery 10/20/21 Jeffrey Izquierdo OD [address] [place] [address] Consulting Physician Optometry 10/20/21 Denton Gilman MD [address] [place] [address] [address] [place] [address] Consulting Physician Neurology 05/09/24 Aly Johnson MD [address] [place] [address] Referring Physician Podiatry 11/25/24 documented as of this encounter
--- OUTSIDE RECORDS SUMMARY | 2025-01-26 09:29 | XMS_ITS ---
Author Organization [facility] Address [address] [place] [address] Care Team Providers Care Scholastic Aptitude Test Grader Name Role Phone Deepak Merida MD Unavailable [phone] Joshua Aguilera MD Unavailable [phone] Loco ORTEGA MD, John Matthew Unavailable + [phone] Srinivasa Farrar MD Unavailable + [phone] Jeffrey Izquierdo OD Unavailable [phone] Tolu Lieberman MD Primary Care Provider [phone] Denton Gilman MD Unavailable [phone] Aly Johnson MD Unavailable [phone] Active Problems Problem Noted Date Diagnosed Date [...] 06/11/2023 Assessment & Plan (05/19/2024 12:52 PM KILN BURNER HELPER): Last A1c 05/07 12.8. Assessment & Plan [...] discontinued. Assessment & Plan (05/13/2024 10:41 AM KILN BURNER HELPER): Had a stroke in March 2024 affecting [...] exertion. 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 No change in [...] daily Assessment & Plan (06/07/2020 10:36 PM KILN BURNER HELPER): Continue home medications Cigarette nicotine dependence without [...] soon. Assessment & Plan (05/13/2024 10:40 AM KILN BURNER HELPER): We discussed the importance of smoking cessation [...] appear Assessment & Plan (06/07/2020 10:45 PM KILN BURNER HELPER): Patient still smoking 1 pack per day but up to 2 packs per day for 30 years. Coronary artery disease invo lving coronary bypass graft of [place] [facility] 12/26/2019 Overview (11/28/2024): Status post ST segment elevation [place] in April 2010 and again in August [...] to OM2 on 14 November 2024 at [facility] ([place]). Assessment & Plan (12/04/2024 12:19 PM CDT): Patient apparently had some tightness in the chest 3 weeks ago when he presented with unstable angina to [facility].. No further episode of chest tightness since discharge. Now on Ranexa 500 mg p.o. b.i.d.. Assessment & Plan (05/19/2024 12:51 PM KILN BURNER HELPER): Managed by cardio. Continue aspirin, lipitor, plavix, [...] regurgitation. Assessment & Plan (05/13/2024 10:39 AM KILN BURNER HELPER): Discussed CABG from 3 years ago. Has [...] here. Assessment & Plan (04/14/2021 2:59 PM KILN BURNER HELPER): Cardiac catheterization in March 2021 led to [...] (Cardio) Assessment & Plan (06/07/2020 10:45 PM KILN BURNER HELPER): Patient follows with Dr. Merida. Denies any [...] inhibitor. Assessment & Plan (05/13/2024 10:39 AM KILN BURNER HELPER): We discussed LDL cholesterol goal of less [...] discussed. Assessment & Plan (02/14/2024 1:15 PM KILN BURNER HELPER): Increase Lantus to 32 units qhs Continue [...] weeks. Assessment & Plan (04/14/2021 2:59 PM KILN BURNER HELPER): Discussed LDL cholesterol goal of less than [...] fasting lipid/liver now. PVD (peripheral vascular disease) ([facility]) 12/02 Overview (12/26/2019): Likely present with no [...] Effient Assessment & Plan (04/25/2020 12:42 PM KILN BURNER HELPER): Continuing Effient Assessment & Plan (01/08/2020 12:49 [...] 07/14/2015 Assessment & Plan (06/07/2020 10:44 PM KILN BURNER HELPER): Patient had hemoglobin of 16.8 2 months [...] not have any recent stents. History of [place] (myocardial infarction) 07/14/2015 Overview (10/23/2022): Note: h/o-- [...] intractable 10/14/2013 Overview (07/06/2016): [facility]N [facility] Assessment & Plan (10/20/2020 2:09 PM CDT): No change Assessment & Plan (06/07/2020 10:37 PM KILN BURNER HELPER): Continue Topamax Benign hypertension 08/16/2013 Overview (07/05/2016): [...] regimen Assessment & Plan (06/07/2020 10:43 PM KILN BURNER HELPER): Patient had systolic blood pressure of 97 on presentation. Holding amlodipine and metoprolol. Assessment & Plan (04/25/2020 12:41 PM KILN BURNER HELPER): Blood Pressure Follow-up: Lifestyle modifications education provided [...] Automatic Entry Manual Entr y Fluoro Time 7.1 minutes 4.4 minutes 2.7 minutes Air kerma at the reference point [...] 06/07/2020 Assessment & Plan (06/07/2020 10:46 PM KILN BURNER HELPER): History of pancreatitis and peptic ulcer disease. Awaiting CT results. Hemoglobin has decreased from 16.8-12.6. Patient is on aspirin and Effient which are held. Awaiting on guaiac. Will start patient on IV Protonix b.i.d.. NPO. Will consult GI. Assessment & Plan (06/07/2020 3:09 PM KILN BURNER HELPER): Patient is uncomfortable, appears in some distress [...] 2013. Discussed with Dr. Tian, hospitalist at [facility], who accepted the patient. I apprised her briefly of his opioid history, but I believe he is adhering to the plan with his pain management doctor. Hypoglycemia due to insulin 06/07/2020 09/19/2023 Assessment & Plan (06/07/2020 10:42 PM KILN BURNER HELPER): Patient gave himself 10 units of Novolin [...] (06/08/2020): Added automatically from request for surgery [id number] Costal chondritis 01/24/2020 09/19/2023 Elbow sprain, right, [...] treatment. Assessment & Plan (04/25/2018 4:17 PM KILN BURNER HELPER): Biopsy site healing well, no complications or signs of infection reported or noted on exam Pathology discussed Cryotherapy recommended for both the right ear scapha and the left dorsal hand lesion, risks and benefits discussed Cryotherapy per procedure note After care instructions given both verbally and in written form Follow up PRN Assessment & Plan (04/10/2018 12:49 PM KILN BURNER HELPER): Right ear scapha Biopsy today per procedure note Wound care administered and instructions given both verbally and in written form Assessment & Plan (04/03/2018 2:06 PM KILN BURNER HELPER): Location: Right ear scapha 1.4 x 0.5 erythematous subcutaneous lesion Biopsy next week after off blood thinners for a couple of days, per Dr. Merida Actinic keratosis 04/03/2018 09/19/2023 Assessment & Plan (04/03/2018 2:07 PM KILN BURNER HELPER): Location/s: bilateral forearms, hands Erythematous, scaly papules [...] regimen. Assessment & Plan (06/07/2020 10:42 PM KILN BURNER HELPER): Currently hypoglycemic as patient gave himself 10 [...] protocol. Assessment & Plan (04/25/2020 12:42 PM KILN BURNER HELPER): Awaiting a1c, PSA, lipid Currently, insulin doses [...]
== END 2025-01-26 08:53 | disposition home or self-care (01) ==
PROVIDERS: PCP Family Medicine; Visit Provider Orthopaedic Surgery
DX: I73.9 Peripheral vascular disease, unspecified (principal)
CPT/HCPCS: 93922